=== PATIENT | male | born 1960 | race Two or more races ===

== ENCOUNTER 2025-06-05 02:53 | Inpatient (IN) | payer MEDICAID, SELFPAY ==
[2025-06-05] VITALS (77 sets, daily range): BP systolic 133–176; BP diastolic 84–122; PULSE 67–98; RESP 0–36; TEMP 36.1–36.7; O2SAT 85–100; BMI 28.9
--- NOTE | 2025-06-05 02:57 | PC.NURSE ---
Case Consult 06/05/2025 02:56:[address] [facility] Case # [id number] has been created.
--- NOTE | 2025-06-05 03:01 | XR_ITS ---
Examination: CT brain head without contrast. 2-D sagittal coronal reconstructions Date and time of exam:June 05, 2025, 0310 hours, comparison August 11, 2009 INDICATIONS: Stroke alert, onset focal neurologic deficit, left arm numbness beginning 30 minutes ago CTDI: vol (mGy):52.2 DLP: (mGycm):1042 Technique: Multiple CT axial sections of the brain have been obtained, 5 mm slice thickness. Contrast has not been administered. 2-D sagittal, coronal reconstructions have been obtained Low dose protocols were performed. One or more of the following dose reduction techniques were used; automated exposure control, adjustment of the mA and/or KV according to patient size, use of iterative reconstruction technique. Findings: No significant ventricular enlargement. Intra-axial or extra-axial hemorrhage density is not seen. No mass effect or midline shift Basal cisterns are not remarkable. Fourth ventricle is midline. Cranial vault intact. Definite acute infarct is not clearly depicted Impression: Negative for acute hemorrhage, mass effect or midline shift As clinically warranted, brain MRI follow-up would best assess for acute ischemic change
--- NOTE | 2025-06-05 03:01 | XR_ITS ---
Examination: AP chest single view TECHNIQUE: AP portable upright chest single view Date and time: June 05, 2025, 0350 hours, comparison CT chest June 05, 2025 INDICATIONS: Chest pain shortness of breath today FINDINGS: Moderate enlargement cardiac contour with prominent vascular congestion including central vascular engorgement Pneumonia right base with significant right pleural fluid Mild to moderate left pleural fluid Moderate osteopenia IMPRESSION: Mild heart failure. Pneumonia right base. Significant right, mild to moderate left pleural fluid
--- NOTE | 2025-06-05 03:01 | XR_ITS ---
Examination: CTA carotids with intravenous contrast CTA brain, head with intravenous contrast. 2-D sagittal, coronal reconstructions. 3-D reconstructions. Exam date and time: June 05, 2025, 0311 hours INDICATIONS: Stroke alert, onset focal neurologic deficit onset left arm numbness beginning 30 minutes ago CTDI: vol (mGy) 41.53 DLP: (mGycm) 601 Technique: Multiple CTA axial brain, head carotid images post intravenous contrast injection 75 cc, [id number]. 2-D sagittal, coronal reconstructions. 3-D reconstructions, 3-D post processing including vascular maximum intensity projection images. Low dose protocols were performed. One or more of the following dose reduction techniques were used; automated exposure control, adjustment of the mA and/or KV according to patient size, use of iterative reconstruction technique. Findings: Partial visualization right pleural fluid No significant common carotid carotid bifurcation or internal carotid artery stenoses Dominant right vertebral artery in the neck with no critical stenoses No cerebral large vessel arterial occlusions or thrombus IMPRESSION: No significant neck arterial stenoses No cerebral large vessel arterial occlusions or thrombus
--- NOTE | 2025-06-05 03:05 | PD.EDADULT ---
ED General RME/HPI General Chief complaint: Neuro Symptoms/Deficit Stated complaint: LEFT ARM NUMBNESS Time Seen by Provider: 06/05/25 02:56 Arrival date/time: 06/05/25 02:53 Limitations: no limitations RME / HPI RME / HPI narrative: Patient's last known well appointment 30 minutes prior to arrival presents with sudden onset left upper extremity paresthesias and weakness of constant nature. Denies any associated headache nausea vomiting visual disturbance dysarthria or confusion. Related Data Home Medications ?Medication ?Instructions ?Recorded ?Confirmed metformin 1,000 mg tablet 1,000 mg PO BIDWM #0 tabs 06/26/14 10/09/19 (Glucophage) Previous Rx's ?Medication ?Instructions ?Recorded hydrocodone 5 mg-acetaminophen 325 1 tab PO BID PRN pain #14 tabs 10/09/19 mg tablet (Norman) ibuprofen 800 mg tablet 800 mg PO TID PRN pain #30 tabs 10/09/19 ondansetron HCl 4 mg tablet 4 mg PO QID PRN nausea and 10/09/19 (Zofran) vomiting #14 tabs tamsulosin 0.4 mg capsule (Flomax) 0.4 mg PO QDAY #30 caps 10/09/19 Allergies Allergy/AdvReac Type Severity Reaction Status Date / Time No Known Allergies Allergy Verified 10/09/19 02:18 Review of Systems Review of Systems Narrative Review of Systems: GEN: No fever, no chills, no weight loss EYES: No discharge, no visual changes, no pain HEENT: No ear pain, no congestion, no sore throat PULM: No shortness of breath, no cough, no congestion CV: No chest pain, no dyspnea on exertion, no palpitations GI: No nausea, no vomiting, no diarrhea, no pain, no constipation : No frequency, no urgency and no dysuria MUSC/SKEL: No joint pain, no back pain SKIN: No rash PSYCH: No hallucinations, no depression HEME/LYMPH: No easy bleeding or bruising tendencies NEURO: As per HPI Past Medical History Past Medical History CARDIAC: Positive Hypertension ENDOCRINE: Positive Diabetes Mellitus Type 2 ED Exam Narrative Physical exam: Alert nontoxic no acute distress NIH score of 2 General Limitations: Present no limitations General appearance: Present alert and in no apparent distress Head Head exam: Present atraumatic Eye Eye exam: Present normal appearance, PERRL and EOMI ENT ENT exam: Present normal exam, normal oropharynx and mucous membranes moist Neck Neck exam: Present normal inspection, full ROM and trachea midline Chest Chest inspection: Present normal inspection and symmetric chest wall rise Respiratory Respiratory exam: Present normal lung sounds bilaterally Cardiovascular Cardiovascular exam: Present regular rate, normal rhythm and normal heart sounds Abdominal Exam Abdominal exam: Present soft and normal bowel sounds Extremities Exam Extremities exam: Present normal inspection and full ROM Back Exam Back exam: Present normal inspection and full ROM Neurological Exam Neurological exam: Present alert, oriented X3, CN II-XII intact, motor sensory deficit (Diminished sensation and slightly decreased left upper extremity) and other (Gait not observed) Psychiatric Psychiatric exam: Present normal affect and normal mood Skin Skin exam: Present warm, dry, intact and normal color Course Quality Measures Suspected type of Stroke: Acute Ischemic Tenecteplase given: > 60 min of arrival stroke Orders Category Date Time Status Bedside Blood Glucose NOW Care 06/05/25 03:01 Active Outpatient Admitting Clerk NOW Care 06/05/25 03:01 Active Continuous Pulse Oximetry NOW Care 06/05/25 03:01 Completed EKG (ED ONLY) *Do not use* NOW Care 06/05/25 03:01 Completed In and Out Catheter NEEDED Care 06/05/25 03:01 Active Insert IV NOW Care 06/05/25 03:01 Active NIH Stroke Scale [id number],QSHIFT Care 06/05/25 03:56 Active NIH Stroke Scale now Care 06/05/25 03:01 Completed NPO NOW Care 06/05/25 03:01 Active Neuro Check Q15M Care 06/05/25 03:56 Active Neuro Check Q1HR Care 06/05/25 03:01 Active Nurse Swallow Screen x1 Care 06/05/25 03:01 Active Vital Signs Q5M Care 06/05/25 03:46 Active Consult to Neurology / Tele-Neurology Routine Cons 06/05/25 03:[address] angio stroke protocol Stat Exams 06/05/25 03:[address] chest wo con Stat Exams 06/05/25 03:[address] stroke protocol Stat Exams 06/05/25 03:01 Taken EKG (ED Only) Stat Exams 06/05/25 03:01 Ordered XR chest 1V portable Stat Exams 06/05/25 03:01 Taken CBC Stat Lab 06/05/25 03:05 Completed Comprehensive Metabolic Panel Stat Lab 06/05/25 03:05 Completed Drug Screen,Urine Stat Lab 06/05/25 05:30 Received Magnesium Stat Lab 06/05/25 03:05 Completed Partial Thromboplastin Time Stat Lab 06/05/25 03:05 Completed Prothrombin Time with INR Stat Lab 06/05/25 03:05 Completed Troponin I Stat Lab 06/05/25 03:05 Completed Urinalysis Stat Lab 06/05/25 05:30 Received Urine Culture Stat Lab 06/05/25 03:01 Ordered Labetalol IV [Trandate IV] Med 06/05/25 03:40 Active 10 mg IVP PRNMRX1 PRN Labetalol IV [Trandate IV] Med 06/05/25 03:40 Active 10 mg IVP PRNMRX1 PRN Labetalol IV [Trandate IV] Med 06/05/25 03:29 Discontinued 100 mg .ROUTE .STK-MED ONE Nicardipine/Ns 20Mg Ivpb [Cardene Ivpb] Med 06/05/25 03:40 Active 20 mg in 200 ml IV 5 mg/hr Tenecteplase Inj [TNKase Inj] Med 06/05/25 03:40 Discontinued 23.5 mg IV X1 ONE Tenecteplase Inj [TNKase Inj] Med 06/05/25 03:29 Discontinued 50 mg .ROUTE .STK-MED ONE Oxygen Delivery NOW RT 06/05/25 03:01 Active Vital Signs Vital signs: Vital Signs Temperature 97.4 F 06/05/25 03:01 Pulse Rate 94 06/05/25 03:01 Respiratory Rate 18 06/05/25 03:01 Blood Pressure 166/122 H 06/05/25 03:01 Pulse Oximetry (%) 97 06/05/25 03:01 Discharge Plan Plan Patient Disposition: Admit Acute Care w/in Hospital Prescriptions/Referrals Prescriptions/Med Rec: No Action metformin [Glucophage] 1,000 MG tablet 1,000 mg PO BIDWM Qty: 0 ibuprofen 800 mg tablet 800 mg PO TID PRN (Reason: pain) Qty: 30 0RF hydrocodone-acetaminophen [Norman] 5-325 mg tablet 1 tab PO BID MDD 4 PRN (Reason: pain) Qty: 14 0RF ondansetron HCl [Zofran] 4 mg tablet 4 mg PO QID PRN (Reason: nausea and vomiting) Qty: 14 0RF tamsulosin [Flomax] 0.4 mg capsule,extended release 24hr 0.4 mg PO QDAY Qty: 30 0RF Rx Instructions: administer 30 minutes after same meal each day; swallow whole with liquid; do not crush/chew/dissolve/open Referrals: No Primary/Family,Physician [Primary Care Provider] - In 1 week Problem List Clinical Impression: Acute cerebrovascular accident (CVA) Patient/Caregiver Discharge Instructions Print Language: Hungarian Stand Alone Forms: [employer] Award Info., Patient Portal Info Letter MDM Narrative [facility] hospital course: Patient's last known well appointment 30 minutes prior to arrival presents with sudden onset left upper extremity paresthesias and weakness of constant nature. Denies any associated headache nausea vomiting visual disturbance dysarthria or confusion. Please see PE findings. Patient notably hypertensive upon arrival with spontaneous reduction in blood pressure shortly thereafter enrolled in Stroke Protocol and neuro teleconsulted. CT brain demonstrates question acute left frontal infarct. Small subarachnoid cyst also noted. No edema or hemorrhage identified. Neuro telemetry physician recommended TNKase which patient received without incident. Patient underwent serial exams with slight improvement in left upper extremity motor function. CT demonstrates incidental evidence of bilateral pleural effusions. Patient remained mildly hypertensive throughout ED course. Hospitalist was consulted agrees to admit Clinical Information Provided by patient Medical Records Reviewed [facility] Meds/Rx Considered, not Ordered None Labs/Rad/Tests considered, not Ordered Describe details: See above Chronic Illness/Social Conditions Add or document further as needed: Diabetes/hypertension may have contributed to underlying process. EKG Interpretation EKG interpreted by emergency physician demonstrates: Date/time of EK06/05/25 5:13 am EKG interpretation: EKG interpreted by emergency physician demonstrates sinus rhythm with a first-degree AV block. Rate is 96 bpm. There are no acute ST-T wave changes noted. No ventricular to be identified. Evidence of previous inferior and anteroseptal wall myocardial infarction Imaging Provider imaging interpretation(s): See radiologist interpretation Medication Administration(s) Medication Administration History Nicardipine/Sodium Chloride (Cardene Ivpb) 20 mg in 200 mls @ 50 mls/hr IV .Q4H PRN; Protocol PRN Reason: Per Nicardipine Stroke Protocol Stop: 07/05/25 03:39 Labetalol HCl (Labetalol Inj 5 Mg/Ml Vial 20 Ml) 10 mg IVP PRNMRX1 PRN PRN Reason: SBP > 185 mmHg and/or DBP > 110 Labetalol HCl (Labetalol Inj 5 Mg/Ml Vial 20 Ml) 10 mg IVP PRNMRX1 PRN PRN Reason: SBP > 180 mmHg or DBP > 105 Last Admin: 06/05/25 03:58 Dose: 10 mg Documented By: NEGRITA Discontinued Medications Labetalol HCl (Labetalol Inj 5 Mg/Ml Vial 20 Ml) Confirm Administered Dose 100 mg .ROUTE .STK-MED ONE Stop: 06/05/25 03:30 Last Admin: 06/05/25 03:52 Dose: Not Given Documented By: GAUDENCIO Non-Admin Reason: Override Medication Tenecteplase (Tenecteplase Inj 50 Mg Vial) Confirm Administered Dose 50 mg .ROUTE .STK-MED ONE Stop: 06/05/25 03:30 Last Admin: 06/05/25 03:52 Dose: Not Given Documented By: GAUDENCIO Non-Admin Reason: Override Medication Tenecteplase (Tenecteplase Inj 50 Mg Vial) 23.5 mg 0.25 mg/kg (23.5 mg) IV X1 ONE Stop: 06/05/25 03:41 Last Admin: 06/05/25 03:44 Dose: 23.5 mg Documented By: NEGRITA Co-signed By: GAUDENCIO Medications administered as above Diagnosis Differential diagnosis: Differential diagnosis including hypoglycemia, ischemic CVA, hemorrhagic CV Most likely dx, and/or detailed dx discussion: Acute ischemic CVA Dispositon Disposition: Admit
[2025-06-05 03:15] LABS: Basophils # (Auto) 0.0 Thou/mm3 (0.0-0.2); Basophils % (Auto) 1 % (0-2.5); Eosinophils # (Auto) 0.1 Thou/mm3 (0.0-0.5); Eosinophils % (Auto) 2 % (0-10); Hematocrit 38.5 % (41.0-53.0); Hemoglobin 13.0 g/dL (13.5-16.0); Immature Granulocytes Auto 0.02 Thou/mm3 (0.00-0.00); Lymphocytes # (Auto) 1.8 Thou/mm3 (1.0-4.8); Lymphocytes % (Auto) 32 % (10-50); Mean Corpuscular HGB Conc 33.8 g/dl (31.0-37.0); Mean Corpuscular Hemoglobin 28.6 pg (25.0-35.0); Mean Corpuscular Volume 85 fL (80-100); Monocytes # (Auto) 0.6 Thou/mm3 (0.0-0.8); Monocytes % (Auto) 11 % (0-12); Neutrophils # (Auto) 3.1 Thou/mm3 (1.8-7.7); Neutrophils % (Auto) 55 % (37-80); Nucleated Red Blood Cell # 0.00 Thou/mm3 (0.00-0.00); Nucleated Red Blood Cell % 0 /100 WBC (0); Platelet Count 239 Thou/mm3 (140-440); RDW Standard Deviation 50.0 fL (35.1-43.9); Red Blood Count 4.55 Miln/mm3 (4.50-5.90); White Blood Count 5.6 Thou/mm3 (3.8-10.6)
--- NOTE | 2025-06-05 03:21 | XR_ITS ---
Examination: CT chest, without intravenous contrast. Sagittal and coronal 2-D reconstructions. Exam date and time: June 05, 2025, 0324 hours INDICATIONS: onset shortness of breath difficulty breathing today abdominal pain CTDI:vol (mGy) 17.41. DLP: (mGycm) 699. Technique: Multiple 3.0 mm axial sections of the chest to been obtained. Bone and lung density settings are obtained. Sagittal and coronal 2-D reconstructions have been obtained. Low dose protocols were performed. One or more of the following dose reduction techniques were used; automated exposure control, adjustment of the mA and/or KV according to patient size, use of iterative reconstruction technique. Findings: AP dimension ascending thoracic aorta 3.9 cm Main pulmonary artery segment 34 mm Mild to moderate enlargement cardiac contour with prominent vascular congestion Moderate right mild left pleural fluid Atelectasis versus pneumonia at the right lung base 6 mm pulmonary nodule right upper lobe Liver is mildly irregular in contour Absent gallbladder Spleen is not enlarged No pancreatic or adrenal mass No hydronephrosis The osseous structures are intact IMPRESSION: Mild chronic heart failure pattern. Moderate right mild left pleural fluid. Atelectasis versus pneumonia at the right base 6 mm pulmonary nodule right upper lobe, with this study is baseline recommend 3-6 month follow-up CT chest without contrast
[2025-06-05 03:34] LABS: INR 1.1 (0.9-1.3); Partial Thromboplastin Time 27.4 Seconds (22.0-36.0); Prothrombin Time 11.7 Seconds (9.0-12.2)
[2025-06-05 03:39] LABS: Alanine Aminotransferase 12 U/L (10-49); Albumin, Serum 3.7 gm/dL (3.4-4.8); Albumin/Globulin Ratio 1.3 (1.2-2.2); Alkaline Phosphatase 139 U/L (46-116); Anion Gap 8 (7-16); Aspartate Amino Transferase 18 U/L (0-34); BUN/Creatinine Ratio 19 Ratio (12-20); Bilirubin,Total 0.4 mg/dL (0.3-1.2); Blood Urea Nitrogen 64 mg/dL (9-23); Calcium 8.7 mg/dL (8.3-10.6); Calcium (Corrected) 8.9 mg/dL (8.5-10.1); Carbon Dioxide 22.6 mMol/L (20.0-31.0); Chloride 105 mMol/L (98-107); Creatinine (Component) 3.3 mg/dL (0.6-1.3); Globulin 2.8 gm/dL (2.3-3.5); Glucose 182 mg/dL (74-106); Magnesium 1.7 mg/dL (1.6-2.6); Osmolality,Calculated 295 (275-295); Potassium 5.1 mMol/L (3.4-5.1); Sodium 136 mMol/L (136-145); Total Protein 6.5 gm/dL (5.7-8.2); Troponin I 0.038 ng/mL (0.0-0.045); eGFR 20 See Note
--- NOTE | 2025-06-05 03:42 | PRELIM_ITS ---
CT scan of the head without intravenous contrast (axial sections with sagittal and coronal reformats) June 05, 2025 0310 hours Clinical History: Focal neuro deficit, stroke suspected. No prior study is available for comparison. Findings: There is no evidence of intracranial hemorrhage or midline shift. There is an ill-defined hypodensity in the left frontal lobe (left precentral gyrus) (axial images 13/43). Few small calcifications in the left frontal lobe and left cerebellum. Small arachnoid cyst in the convex of left frontal lobe posteriorly (axial image 8/43). There is mild volume loss. The calvarium is unremarkable. The mastoid air cells are clear. Mild mucosal thickening in bilateral maxillary sinuses. Impression: No evidence of intracranial hemorrhage or midline shift. Findings suggestive of acute infarct in the left frontal lobe (left precentral gyrus). Recommend clinical correlation and further evaluation with MRI. Mild volume loss. Discussion Details: Results verbally communicated to : Dr. Mclaughlin at 03:38 AM 06/05/2025 Report Electronically Signed By: Clinton Blackmon 06/05/2025 3:41:56 AM [EST]
[2025-06-05] MEDS: TENECTEPLASE INJ 50 MG VIAL 23.5 MG IV (03:44)
--- NOTE | 2025-06-05 03:49 | PRELIM_ITS ---
CT angiogram of the head and neck with intravenous contrast (axial sections with sagittal and coronal reformats) June 05, 2025 0311 hours Clinical History: Focal neuro deficit, stroke suspected. No prior study is available for comparison. Findings: Head: The internal carotid, middle and anterior cerebral arteries are patent bilaterally. Hypoplastic A1 segment of the right anterior cerebral artery. The intracranial vertebral arteries are patent. The vertebrobasilar junction, basilar and posterior cerebral arteries are patent. No evidence of large vessel occlusion, critical stenosis or aneurysm. Neck: The aortic arch to the extent visualized as well as the origins of the right brachiocephalic, left common carotid, and left subclavian arteries are patent. The common carotid arteries, carotid bulbs, and internal and external carotid arteries are patent. The origins of the vertebral arteries are unremarkable. The right vertebral artery is dominant. No evidence of vascular occlusion, critical stenosis, dissection or aneurysm. The soft tissues of the neck are unremarkable. Moderate degenerative changes are identified in the spine. Large right and moderate left pleural effusions. Impression: Head: No evidence of large vessel occlusion, critical stenosis or aneurysm. Neck: No evidence of vascular occlusion, critical stenosis, dissection or aneurysm. Large right and moderate left pleural effusions. Recommend clinical correlation and follow-up. Report Electronically Signed By: Clinton Blackmon 06/05/2025 3:49:13 AM [EST]
--- NOTE | 2025-06-05 03:51 | PRELIM_ITS ---
CT scan of the chest without intravenous contrast (axial sections with sagittal and coronal reformats) June 05, 2025 0324 hours Clinical History: Pleural Effusion per [employer] No prior study is available for comparison. Findings: The lungs are clear. There is a moderate right pleural effusion with compressive atelectasis. There is a small left pleural effusion. No evidence of pneumothorax.There is a non-calcified nodule in the right upper lobe, measuring 5 mm, with smooth margin. The mediastinum demonstrates no evidence of mass or lymphadenopathy. The thoracic aorta is unremarkable. There is no pericardial effusion. The osseous structures are unremarkable. The gallbladder is surgically absent. The other visualized upper abdominal viscera are unremarkable on this noncontrast study. Impression: Bilateral pleural effusions. Non-calcified nodule in the right upper lobe . Recommend follow up as per Fleischner criteria. Report Electronically Signed By: Clinton Blackmon 06/05/2025 3:51:11 AM [EST]
--- NOTE | 2025-06-05 03:56 | PD.TNEURO ---
Tele Neuro Consultation Consultation Date 06/05/25 Most Recent Vital Signs Last Vital Signs Temp 97.4 F 06/05/25 03:01 Pulse 87 06/05/25 03:51 Resp 18 06/05/25 03:51 BP 149/103 H 06/05/25 03:51 Pulse Ox 96 06/05/25 03:51 O2 Del Method Room Air 06/05/25 03:51 Laboratory-Coagulation Panel PT 11.7 Seconds (9.0-12.2) 06/05/25 03:05 INR 1.1 (0.9-1.3) 06/05/25 03:05 APTT 27.4 Seconds (22.0-36.0) 06/05/25 03:05 Consultation Narrative [facility] Tele[facility]urology Consult Services Patient Name:???Pardip Baldwin Date of :???1960 Identification Number:??? Date of Service:???06/05/2025 02:56:54 Diagnosis: ?I63.89 - Cerebrovascular accident (CVA) due to other mechanism ([facility]) Impression: ?Patient presents to the ED for evaluation of left arm numbness and weakness. 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 NIHSS of [address] head demonstrated no evidence of hemorrhage but did show possible acute infarct in the left frontal lobe, although this would not explain his current symptoms. CT angiogram did not demonstrate any large vessel occlusion. I discussed the risks and benefits of IV thrombolytics with patient, including the risk of fatal hemorrhage. Patient subsequently consented to TNK, and it was administered without complications. Will admit for post TNK protocol and stroke workup. Our recommendations are outlined below. Recommendations: IV Tenecteplase recommended. I confirmed the following. (Patient name, , MRN, Blood Pressure, dose of Thrombolytic and waste, weight completed by stretcher/scale not stated weight, have ED staff inform ED MD of thrombolytic decision) Thrombolytic bolus given Without Complication. IV Tenecteplase Total Dose ? 23.5 mg (Dose Rounding Per Facility Protocol) Routine post Thrombolytic monitoring including neuro checks and blood pressure control during/after treatment Monitor blood pressure Check blood pressure and neuro assessment every 15 min for 2 h, then every 30 min for 6 h, and finally every hour for 16 h. Manage Blood Pressure per post Thrombolytic protocol. ? Follow designated hospital protocol for admission and post thrombolytic care ? CT brain 24 hours post Thrombolytic ? NPO until swallowing screen performed and passed ? No antiplatelet agents or anticoagulants (including heparin for DVT prophylaxis) in first 24 hours ? No Castillo catheter, nasogastric tube, arterial catheter or central venous catheter for 24 hr, unless absolutely necessary ? Telemetry ? Bedside swallow evaluation ? HOB less than 30 degrees ? Euglycemia ? Avoid hyperthermia, PRN acetaminophen ? DVT prophylaxis ? Inpatient Neurology Consultation ? Stroke evaluation as per inpatient neurology recommendations Discussed with ED physician Advanced Imaging: CTA Head and Neck Completed. LVO:No Patient is not a candidate for CLAUDIA Metrics: Last Known Well: 06/05/2025 02:00:00 Dispatch Time: 06/05/2025 02:56:53 Arrival Time: 06/05/2025 02:53:00 Initial Response Time: 06/05/2025 03:01:03Symptoms: Left arm numbness and weakness. Initial patient interaction: 06/05/2025 03:26:00 NIHSS Assessment Completed: 06/05/2025 03:34:30Patient is a candidate for Thrombolytic. Thrombolytic Medical Decision: 06/05/2025 03:35:00 Needle Time: 06/05/2025 03:44:36Weight Noted by Staff: [address] Head: I personally reviewed all the CT images that were available to me and it showed: No hemorrhage Primary Provider Notified of Diagnostic Impression and Management Plan on: 06/05/2025 03:48:32 Thrombolytic Contraindications: Last Known Well > 4.5 hours:?No CT Head showing hemorrhage:?No Ischemic stroke within 3 months:?No Severe head trauma within 3 months:?No Intracranial/intraspinal surgery within 3 months:?No History of intracranial hemorrhage:?No Symptoms and signs consistent with an SAH:?No GI malignancy or GI bleed within 21 days:?No Coagulopathy: Platelets <100 000 /mm3, INR >1.7, aPTT>40 s, or PT >15 s:?No Treatment dose of LMWH within the previous 24 hrs:?No Use of NOACs in past 48 hours:?No Glycoprotein IIb/IIIa receptor inhibitors use:?No Symptoms consistent with infective endocarditis:?No Suspected aortic arch dissection:?No Intra-axial intracranial neoplasm:?No Thrombolytic Decision and Management Plan: Management with thrombolytic treatment was explained to the Patient as was risks and benefits and alternatives to the treatment. Patient agrees with the decision to proceed with thrombolytic treatment. . All questions were answered and the Patient expressed understanding of the treatment plan. History of Present Illness:Patient is a 64 year old Male. Patient was brought by private transportation with symptoms of Left arm numbness and weakness. Patient presents to the ED for evaluation of left arm numbness and weakness. Patient states that at around 2:00 AM he was sitting on the couch watching TV and when he got up to use the restroom he noticed that his left arm was weak and he could not unbutton his pants. He also reports feeling numb in his left arm. He denies any sensation of pain or injuries to the left arm and has never had similar symptoms in the past. He does endorse some mild shortness of breath and swelling in his abdomen and extremities. ? Past Medical History: ?Hypertension ?Diabetes Mellitus Medications: No Anticoagulant use? No Antiplatelet use Reviewed EMR for current medications Allergies:? Reviewed Social History: Drug Use: No Family History: There is no family history of premature cerebrovascular disease pertinent to this consultation ROS : 14 Points Review of Systems was performed and was negative except mentioned in HPI. Past Surgical History: There Is No Surgical History Contributory To Today?s Visit ? Examination: BP(150/105),?Pulse(90),?Blood Glucose(182) 1A: Level of Consciousness - Alert; keenly responsive?+ 0 1B: Ask Month and Age - 1 Question Right?+ 1 1C: Blink Eyes & Squeeze Hands - Performs Both Tasks?+ 0 2: Test Horizontal Extraocular Movements - Normal?+ 0 3: Test Visual Villanueva - No Visual Loss?+ 0 4: Test Facial Palsy (Use Grimace if Obtunded) - Normal symmetry?+ 0 5A: Test Left Arm Motor Drift - No Drift for 10 Seconds?+ 0 5B: Test Right Arm Motor Drift - No Drift for 10 Seconds?+ 0 6A: Test Left Leg Motor Drift - No Drift for 5 Seconds?+ 0 6B: Test Right Leg Motor Drift - No Drift for 5 Seconds?+ 0 7: Test Limb Ataxia (FNF/Heel-Wilson) - Ataxia in 1 Limb?+ 1 8: Test Sensation - Mild-Moderate Loss: Less Sharp/More Dull?+ 1 9: Test Language/Aphasia - Normal; No aphasia?+ 0 10: Test Dysarthria - Normal?+ 0 11: Test Extinction/Inattention - No abnormality?+ 0 NIHSS Score:?3 NIHSS Free Text :?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 Gait normal Pre-Morbid Modified Babs Scale:0 Points = No symptoms at all Spoke with :?Dr. Mclaughlin This consult was conducted in real time using interactive audio and video technology. Patient was informed of the technology being used for this visit and agreed to proceed. Patient located in hospital and provider located at home/office setting. Patient is being evaluated for possible acute neurologic impairment and high probability of imminent or life-threatening deterioration. I spent total of 50 minutes providing care to this patient, including time for face to face visit via telemedicine, review of medical records, imaging studies and discussion of findings with providers, the patient and/or family. Dr Terrence Palafox [facility] For Inpatient follow-up with [facility] physician please call [facility] at . As we are not an outpatient service for any post hospital discharge needs please contact the hospital for assistance. If you have any questions for the [facility] physicians or need to reconsult for clinical or diagnostic changes please contact us via [facility] at . Signature :?Terrence Palafox ?
[2025-06-05] MEDS: LABETALOL INJ 5 MG/ML VIAL 20 ML 10 MG IVP ×2 (03:58→09:05)
--- NOTE | 2025-06-05 05:40 | PC.NURSE ---
0530 endocrinology specialist are equal. numbness to L arm almost gone. pts o2 sat did go down to 86 when he fell asleep. pt told to cough and deep breath, sats went up to 97. pt placed on 2L O2 NC.
[2025-06-05 05:45] LABS: Collection Type, Urine Clean Catch
[2025-06-05 05:48] LABS: Bilirubin,Urine Negative (Negative); Blood,Urine 1+ (Negative); Clarity,Urine Clear (Clear/Hazy); Color,Urine Lt-Yellow (Lt Yel-Yel); Glucose, Urine 2+ (Negative); Ketones,Urine Negative (Negative); Leukocyte Esterase,Urine Negative (Negative); Nitrite,Urine Negative (Negative); PH,Urine 6.5 (5.0-7.0); Protein,Urine 2+ (Neg - Trace); RBC,Urine 4 /hpf (0-3); Specific Gravity,Urine 1.022 (1.001-1.035); Squamous Epithelial Cell,Urine < 1 /hpf (0-5); Urobilinogen,Urine Negative mg/dL (0.0-1.0); WBC,Urine 1 /hpf (0-5)
--- NOTE | 2025-06-05 05:58 | ECHO_ITS ---
Transthoracic Echo Report Ht (in): 71 Wt (lb): 194 Exam Location: Echo Lab Status: Inpatient Dental Technician Instructor: Niya Iglesias Indications: Procedure Performed: BP: 146 / 103 HR: 88 MEASUREMENTS (Male / Female) Normal Values 2D ECHO LV Diastolic Diameter PLAX 6.2 cm 4.2 - 5.9 / 3.9 - 5.3 cm LV Systolic Diameter PLAX 5.1 cm IVS Diastolic Thickness 1.4 cm 0.6 - 1.0 / 0.6 - 0.9 cm LVPW Diastolic Thickness 1.5 cm 0.6 - 1.0 / 0.6 - 0.9 cm LV Relative Wall Thickness 0.5 LVOT Diameter 2.2 cm LV Ejection Fraction MOD 4C 23.9 % LV Cardiac Index MOD 4C 2706.3 cm?/min?m? LV Ejection Fraction 4C AL 26.3 % LV Cardiac Index 4C AL 3042.5 cm?/min?m? LA Volume Index 75.4 cm?/m? 16 - 28 cm?/m? Ascending Aorta Diameter 4.3 cm M-MODE AV Cusp Separation MM 2.6 cm DOPPLER AV Peak Velocity 78.1 cm/s AV Peak Gradient 2.4 mmHg AV Mean Gradient 1.0 mmHg AV Velocity Time Integral 15.8 cm LVOT Peak Velocity 59.6 cm/s LVOT Peak Gradient 1.4 mmHg LVOT Velocity Time Integral 11.3 cm LVOT Cardiac Index 1788.4 cm?/min?m? AV Area Cont Eq vti 2.7 cm? AV Area Cont Eq pk 2.9 cm? MV Area PHT 8.5 cm? Mitral E Point Velocity 83.6 cm/s Mitral A Point Velocity 49.5 cm/s Mitral E to A Ratio 1.7 LV E' Lateral Velocity 5.7 cm/s Mitral E to LV E' Lateral Ratio 14.6 LV E' Septal Velocity 2.6 cm/s Mitral E to LV E' Septal Ratio 31.7 TR Peak Velocity 216.3 cm/s TR Peak Gradient 18.7 mmHg PV Peak Velocity 65.9 cm/s PV Peak Gradient 1.7 mmHg FINDINGS Left Ventricle The left ventricular cavity size is moderately increased.with severe global hypokinesis severe LV dysfunction EF 20% Right Ventricle The right ventricular size is mildy increased. The estimated right ventricular systolic pressure 26 mmHg There is right ventricular enlargement consistent with right ventricular volume overload. There is no two- dimensional evidence for cardiac tamponade. . Left Atrium The left atrium is severly dilated Right Atrium The right atrial cavity size is severely increased. Atrial Septum No [id number] shunt demonstrated by agitated saline injection. Aorta The aorta is normal by two-dimensional, color flow and Doppler interrogation. Ascending aorta dilated measuring 4.3cm Mitral Valve [id number] mitral regurgitation. Aortic Valve Aortic valve sclerosis. Trace to mild aortic valve regurgitation. Tricuspid Valve There is mild to moderate tricuspid valve regurgitation. Pulmonic Valve Mild pulmonic valve regurgitation. Vessels The pulmonary artery appears normal. The inferior vena cava pulmonary and hepatic veins appear normal. Pericardium There is a small pericardial effusion. No tamponade Other Findings Small pleural effusion CONCLUSIONS Indication; Acute ischemic stroke Dilated cardiomyopathy with severe global hypokinesis EF 15-20% RV enlargement consistent with right ventricular volume overload. LA and RA severly dilated Ascending aorta dilated measuring 4.3cm Mild -moderate mitral regurgitaion No aird-zy-[id number] shunt demonstrated by agitated saline injection. No cardiac thrombi seen Precious Watts (Electronically Signed) Final Date: 07 June 2025 16:45
--- NOTE | 2025-06-05 06:03 | XR_ITS ---
Examination: Retroperitoneal ultrasound, complete Technique: Multiple high resolution grayscale images of the retroperitoneum obtained, including kidneys and bladder. Exam date and time:June 05, 2025, 0726 hours INDICATIONS: Renal insufficiency, creatinine 3.3 cm on examination today FINDINGS: Right kidney 11.1 cm cortex 1.9 cm Left kidney 11.5 cm cortex 1.9 cm Mild left hydronephrosis No bladder mass or bladder calculi Bladder wall is thickened 14 mm Prostate 3.7 x 3.3 x 4.2 cm volume 26.9 cc no prostate nodules IMPRESSION: Mild bilateral renal parenchymal scar formation. Mild left hydronephrosis
[2025-06-05 06:04] LABS: Amphetamine/Methamp Scrn,U Negative (Negative); Barbiturate Screen,Urine Negative (Negative); Benzodiazepines Screen,Urine Negative (Negative); Benzoylecgonine Screen, Ur Negative (Negative); Fentanyl Screen,Urine Negative (Negative); Opiate Screen,Urine Negative (Negative); THC Screen,Urine Positive (Negative)
[2025-06-05 06:33] LABS: Glucose Estimated Average 177 mg/dL (80-131); Hemoglobin A1C 7.8 % Hgb (4.8-6.0)
--- NOTE | 2025-06-05 06:33 | PD.RESHP ---
Documentation for date of: 06/05/25 [facility] History of Present Illness History of present illness: The patient is a 64-year-old male with past medical history significant for hypertension, and diabetes mellitus type 2 presented to ED with chief complaint of left upper arm weakness and paresthesia for about half an hour before presentation. The patient reported that he has been taking his medications as prescribed by his PCP, and has been compliant with follow-up visits, and last PCP follow-up visit was about 1 month ago. He admitted orthopnea, PND and bilateral lower limb edema for about 3 months. He denied any headache, dizziness, blurry vision, chest pain, SOB, fever or chills, any changes in bowel or bladder habit, nausea or vomiting. In the ED his vitals were BP 166/122, pulse 94, RR 18, saturating 97% on room air. Labs were significant for hemoglobin of 13.0, sodium 136, potassium 5.1, BUN 64, creatinine 3.3, GFR 20, blood sugar 182, A1c, lipid panel, TSH pending. UA revealed 2+ protein, 2+ glucose, 1+ blood, 4+ RBC, but negative for UTI, UA positive for marijuana. Prelim read for CT head revealed possible acute infract in the left frontal lobe, unremarkable with current left upper extremity findings, CTA head and neck revealed no large vessel occlusion, CT chest revealed bilateral pleural effusion. PMH: As mentioned above SHX: Denied any surgeries Family history: Unremarkable Medications: To be reconciled Allergies: No known drug allergies Social history: Denied any drug use, but U-Tox was positive for marijuana, denied a smoking or alcohol use. Teleneurology consultation was done, NIHSS score was 3, and was given tenecteplase 23.5 Mg and admitted to ICU for further management of acute ischemic stroke. Review of Systems Review of Systems Systems Reviewed: All systems reviewed, normal except as documented (Above) Exam Vital Signs Temp Pulse Resp BP Pulse Ox O2 Del Method O2 Flow Rate 98.0 F 71 9 L 143/102 H 100 Nasal Cannula 2 06/05/25 04:45 06/05/25 05:45 06/05/25 05:45 06/05/25 05:45 06/05/25 05:45 06/05/25 05:45 06/05/25 05:45 Narrative Exam General: No acute distress, Alert and Oriented x 3 HEENT: Moist mucous membranes, oropharynx clear Neck: Supple, No masses, No JVD CVS: S1S2 Regular rate and rhythm, No murmurs, rubs or gallops Lungs: Clear to auscultation with no accessory use, no wheeze no rhonchi Abd: Soft, NT/ND, +BS, no organomegaly Ext: 2+ lower limb pitting edema, warm and well perfused Neuro: Cranial nerve II to XII grossly intact, no gross motor or sensory deficit during my evaluation Skin: No rash Psych: Appropriate mood and affect Results: Labs 06/05/25 17:49 06/05/25 17:49 Labs: Short CBC 06/05/25 Range/Units 03:05 WBC 5.6 (3.8-10.6) Thou/mm3 Hgb 13.0 L (13.5-16.0) g/dL Hct 38.5 L (41.0-53.0) % Plt Count 239 (140-440) Thou/mm3 BMP 06/05/25 03:05 Sodium 136 Potassium 5.1 Chloride 105 Carbon Dioxide 22.6 BUN 64 H Creatinine 3.3 H Glucose 182 H Calcium 8.7 Cardiac Enzymes 06/05/25 Range/Units 03:05 Troponin I 0.038 (0.0-0.045) ng/mL Liver Function 06/05/25 Range/Units 03:05 Total Bilirubin 0.4 (0.3-1.2) mg/dL AST 18 (0-34) U/L ALT 12 (10-49) U/L Alkaline Phosphatase 139 H (46-116) U/L Albumin 3.7 (3.4-4.8) gm/dL Urine 06/05/25 Range/Units 05:30 Urine Color Lt-Yellow (Lt Yel-Yel) Urine Clarity Clear (Clear/Hazy) Urine pH 6.5 (5.0-7.0) Ur Specific [place] 1.022 (1.001-1.035) Urine Protein 2+ A (Neg - Trace) Urine Glucose (UA) 2+ A (Negative) Quality Measures Quality Measures stroke Suspected type of Stroke: Acute Ischemic Tenecteplase given: > 60 min of arrival Rehab services: PT evaluation ordered and Speech Language Pathology eval ordered VTE Prophylaxis: mechanical Antithrombotic by day 2:: contraindicated (describe) Statin ordered: >75 y/o moderate or high intensity dose Anticoagulation ordered for A-fib or flutter (current or hx): not indicated Medications Home Medications and Allergies Home Medications ?Medication ?Instructions ?Recorded ?Confirmed ?Type bumetanide 1 mg tablet 1 mg PO DAILY 06/05/25 06/05/25 History lisinopril 20 mg tablet 20 mg PO DAILY 06/05/25 06/05/25 History simvastatin 20 mg tablet 20 mg PO HS 06/05/25 06/05/25 History verapamil 240 mg tablet,extended 240 mg PO DAILY 06/05/25 06/05/25 History release Allergies Allergy/AdvReac Type Severity Reaction Status Date / Time No Known Allergies Allergy Verified 10/09/19 02:18 Visit Medications Acetaminophen (Acetaminophen 325 Mg Tablet) 650 mg PO Q4HR PRN PRN Reason: PAIN SCALE 1-3 (mild Stop: 07/05/25 05:54 Acetaminophen (Acetaminophen Supp 650 Mg Supp) 650 mg CA Q4HR PRN PRN Reason: PAIN SCALE 1-3 (mild Stop: 07/05/25 05:54 Al Hydrox/Mg Hydrox/Simethicone (Mg Hyd/Al Hyd/Shadia (Maalox Reg) Susp 30 Ml Udc) 30 ml PO Q4HR PRN PRN Reason: Heartburn or Upset Stomach Stop: 07/05/25 05:54 Nicardipine/Sodium Chloride (Cardene Ivpb) 20 mg in 200 mls @ 50 mls/hr IV .Q4H PRN; Protocol PRN Reason: Per Nicardipine Stroke Protocol Stop: 07/05/25 03:39 Labetalol HCl (Labetalol Inj 5 Mg/Ml Vial 20 Ml) 10 mg IVP [id number] PRN PRN Reason: SBP > 185 mmHg and/or DBP > 110 Labetalol HCl (Labetalol Inj 5 Mg/Ml Vial 20 Ml) 10 mg IVP [id number] PRN PRN Reason: SBP > 180 mmHg or DBP > 105 Last Admin: 06/05/25 03:58 Dose: 10 mg Magnesium Hydroxide (Milk Of Magnesia Susp 30 Ml Udc) 30 ml PO QDAY PRN PRN Reason: CONSTIPATION Stop: 07/05/25 05:54 Discontinued Medications Tenecteplase (Tenecteplase Inj 50 Mg Vial) 23.5 mg 0.25 mg/kg (23.5 mg) IV X1 ONE Stop: 06/05/25 03:41 Last Admin: 06/05/25 03:44 Dose: 23.5 mg Assessment & Plan Plan The patient is a 64-year-old male with past medical history significant for hypertension, and diabetes mellitus type 2 presented to ED with chief complaint of left upper arm weakness and paresthesia for about half an hour before presentation. Teleneurology consultation was done, NIHSS score was 3, and was given tenecteplase 23.5 Mg and admitted to ICU for further management of acute ischemic stroke. Neuro: #Acute ischemic stroke DDx: TIA The patient has significant past medical history of hypertension, diabetes mellitus type 2, presented with left upper extremity weakness and paresthesia for about 30 minutes before presentation, with NIHSS score of 3. CT head revealed possible acute infract in the left frontal lobe, unremarkable with current left upper extremity findings, CTA head and neck revealed no large vessel occlusion. Teleneuro consultation was done, and was given 23.5 Mg of tenecteplase. - Telemetry monitoring - Maintain SBP less than 180, and DBP less than 105 up to 24 hours post tenecteplase - Ordered CT head post 24-hour of tenecteplase - Neurocheck every 15 minutes - Referral to physical and speech therapy - N.p.o. until speech therapy - Atorvastatin 80mg daily. - TTE with bubble study pending CVS: #Hypertensive emergency #History of hypertension Presented with blood pressure of 166/122, with acute ischemic stroke versus TIA of left upper limb Received 10 Mg of IV labetalol x 1 in the ED - Maintain SBP less than 180, and DBP less than 105 up to 24 hours post tenecteplase - May resume home antihypertensive after 24 hours #Possible new onset CHF exacerbation The patient reported that he has been having orthopnea, PND and bilateral lower extremity edema for about [address] chest revealed bilateral pleural effusion - TTE pending - Strict ins and outs - Consider fluid restriction to 1500 cc/day - 2 g sodium diet Pulmonology: #Bilateral pleural effusion Likely secondary to possible new onset CHF exacerbation - May consider diuretics along with management of CHF exacerbation GI: - No active issue Renal: #RENATE #Proteinuria Etiology unknown, could be prerenal, intrarenal or postrenal or progression to CKD, versus cardiorenal syndrome, no previous recent lab to compare - Avoid nephrotoxins - Renally dose medications - US renal ordered - May consider nephrology consultation Endocrinology: #Diabetes mellitus type 2 #Glycosuria Medications to be reconciled, A1c 7.8 - Started on SSI lispro every 6 hourly - Maintain euglycemia Hematology: #Normocytic anemia Likely diagnosis in the setting of volume overload - Repeat CBC daily ID: - No active issue MSK: - No active issue Psych: - No active issues Health maintenance: Dispo: Patient admitted to ICU for further management of acute ischemic stroke DVT prophylaxis: SCDs Lines: Peripheral lines Diet: N.p.o. CODE STATUS: Full code The patient's management plan was discussed with my attending physician MD Primitivo Ordonez MD, PGY3 Attending Provider Attestation/Addendum I attest that I was physically present for the evaluation, physical examination, lab and imaging review of the patient with the residents. I discussed the case with the residents and agree with the findings and plans of care as documented above. After examination of the patient and review of the clinical data I feel that this patient needs admission to the hospital for further treatment/evaluation. Patient is a 64 years old male with past medical history of hypertension, diabetes mellitus who presented to the ED with complaint of left upper arm weakness and numbness for half an hour before presentation. Patient is also having orthopnea, PND and bilateral lower extremity swelling for last 3 months. He also has bilateral feet numbness for the same duration. Denies any headache, dizziness, vision changes, shortness of breath, fever or chills, nausea and vomiting. In the ED, patient was hypertensive with blood pressure of 166/122, rest of the vitals were within normal limits. Lab results show hemoglobin of 13.0, BUN/creatinine of 64/3.3, glucose 182,. Toxicology was positive for marijuana. Head CT was done, which was negative for acute hemorrhage, mass effect or midline shift, head/neck CTA did not show any significant neck arterial stenosis, no cerebral large vessel occlusion. CT chest was done, which showed bilateral pleural effusion. Stroke alert was called in the ED, patient was within the window for thrombolytics, was started on IV tenecteplase in the ED. At the time of exam, patient was alert and oriented, had his neurological symptoms resolved. Noted to have 2+ bilateral lower extremity edema. We will admit the patient to ICU for close monitoring following tenecteplase. Nicardipine drip has been ordered, as needed if blood pressure goes above 180 systolic started on atorvastatin, insulin regimen. We will monitor closely for symptoms of intracranial bleeding, frequent neurochecks. Echocardiography with bubble study ordered. We will obtain follow-up head CT after 24 hours of tenecteplase infusion. With concern for new CHF, we will start fluid restriction, low-sodium diet and monitor his ins and outs strictly. Started on sliding scale for diabetes. Will monitor closely for kidney function. Total critical care time spent: 35 minutes Alvaro Bailey MD
--- NOTE | 2025-06-05 06:51 | PC.NURSE ---
L arm is back to pt normal.
--- NOTE | 2025-06-05 07:10 | PC.NURSE ---
report received and care assumed. Per report, pt arrived with c/o left arm numbness and weakness with a last known well of 0200 am today. Given tnk at 0244 and symptoms have resolved completely. Hospitalist in room to evaluate pt.
--- NOTE | 2025-06-05 07:12 | PC.NURSE ---
Late entry: 1645-Report given to Luis Bruno RN introduced to PT and daughter at bedside.
[2025-06-05 07:43] LABS: Cardiac Risk Estimate 2.4 RATIO (4.0-6.7); Cholesterol 76 mg/dL (132-200); HDL Cholesterol 32 mg/dL (40-60); LDL Cholesterol,Calculated 30 mg/dL (0-130); Magnesium 1.6 mg/dL (1.6-2.6); Phosphorous 4.1 mg/dL (2.4-5.1); Thyroid Stimulating Hormone 6.05 uIU/mL (0.55-4.78); Triglycerides 72 mg/dL (30-150)
--- NOTE | 2025-06-05 09:36 | PC.NURSE ---
SPEECH THERAPY IN TO DO EVAL
[2025-06-05 10:44] LABS: Free T4 (Free Thyroxine) 1.25 ng/dL (0.89-1.76)
[2025-06-05 14:47] LABS: Cocci Serology, IgM Negative (Negative)
--- NOTE | 2025-06-05 14:59 | XR_ITS ---
Examination: Venous duplex lower extremity sonogram, bilateral. Date and time: June 05, 2025, 1717 hours. INDICATIONS: Leg swelling and pain 3 months Technique: Multiple sonographic images of the deep venous system have been obtained. B-mode/2-D grayscale imaging of vascular structures and Doppler spectral analysis (waveforms) and color performed Both legs are examined. Findings: Right lower extremity deep venous system normal Positive for nonocclusive acute deep vein thrombus involving the left peroneal and left posterior tibial veins IMPRESSION: Positive for nonocclusive acute deep vein thrombus involving the left peroneal and posterior tibial veins
[2025-06-05] MEDS: BUMETANIDE INJ 0.25 MG/ML VIAL 4 ML 1 MG IVP (15:42)
[2025-06-05] MEDS: hydrALAZINE INJ 20 MG/ML VIAL 10 MG IVP (15:48)
--- NOTE | 2025-06-05 16:24 | ESPR_ITS ---
Documentation for date of: 06/05/25 Subjective Subjective Interval history: 64-year-old male with past medical history significant for hypertension, and insulin-dependent diabetes mellitus type 2 presented to ED with chief complaint of left upper arm weakness and paresthesia for about half an hour before arriving to ED. The patient reported that he has been taking his medications as prescribed by his PCP, and has been compliant with follow-up visits, and last PCP follow-up visit was about 1 month ago. He admitted orthopnea, PND and bilateral lower limb edema for about 6 months. He denied any headache, dizziness, blurry vision, chest pain, SOB, fever or chills, any changes in bowel or bladder habit, nausea or vomiting. In the ED his vitals were BP 166/122, pulse 94, RR 18, saturating 97% on room air. Labs were significant for hemoglobin of 13.0, sodium 136, potassium 5.1, BUN 64, creatinine 3.3, GFR 20, blood sugar 182, A1c, lipid panel, TSH pending. UA revealed 2+ protein, 2+ glucose, 1+ blood, 4+ RBC, but negative for UTI, UA positive for marijuana. CT head revealed possible acute infract with brain MRI follow-up recommended. CTA head and neck revealed no large vessel occlusion, CT chest revealed bilateral pleural effusion and 6 mm pulmonary nodule in the right upper lobe. Interval History: 06/05/25 Patient was transferred to ICU for acute management of ischemic stroke. Patient's blood pressure had been elevated for which nicardipine drip was started around 4:40 PM. However at around 5:20 PM a stroke alert was called as the patient experienced acute worsening of neurological status noticed by the daughter. On assessment patient exhibited left facial droop, left arm ataxia, left leg ataxia and decreased sensorium on the left arm. Emergent CT head was done to rule out a bleed, negative for hemorrhage. CTA head/neck was also done and did not show any large vessel occlusion . Teleneurologist was consulted, who who noted NIHSS score 6, and the patient's symptoms was already improving. 24h CT brain post-TNKase to be done, MRI brain will be done tomorrow. CBC, CMP, coag panel, magnesium level was all within normal range. Exam Vital Signs Temp Pulse Resp BP Pulse Ox O2 Del Method O2 Flow Rate 97.2 F 73 31 H 151/107 H 98 Room Air 2 06/05/25 13:00 06/05/25 15:48 06/05/25 15:00 06/05/25 15:48 06/05/25 15:00 06/05/25 15:00 06/05/25 08:04 Narrative Exam General: No acute distress, Alert and Oriented x 3 HEENT: Moist mucous membranes, oropharynx clear Neck: Supple, No masses, No JVD CVS: S1+S2. Regular rate and rhythm, No murmurs, rubs or gallops Lungs: Clear to auscultation with no accessory use, no wheeze no rhonchi Abd: Soft, NT/ND, +BS, no organomegaly Ext: 2+ lower limb pitting edema up to bilateral knees, warm and well perfused Neuro: Cranial nerve II to XII grossly intact. Bilateral upper limb extremity strength 5/5, bilateral lower extremity strength 5/5, normal sensation to both upper and lower limbs bilaterally, normal reflexes. NIHSS score 0. GCS 15 Skin: No rash Psych: Appropriate mood and affect Objective Labs 06/06/25 05:12 06/06/25 05:12 Labs: Laboratory Results - last 24 hr 06/05/25 06/05/25 06/05/25 03:05 05:30 06:43 WBC 5.6 RBC 4.55 Hgb 13.0 L Hct 38.5 L MCV 85 MCH 28.6 MCHC 33.8 RDW Std Deviation 50.0 H Plt Count 239 Neut % (Auto) 55 Lymph % (Auto) 32 [place] % (Auto) 11 Eos % (Auto) 2 Baso % (Auto) 1 Neut # (Auto) 3.1 Lymph # (Auto) 1.8 [place] # (Auto) 0.6 Eos # (Auto) 0.1 Baso # (Auto) 0.0 Immature Gran # (Auto) 0.02 H Absolute Nucleated RBC 0.00 Immature Gran % 0 Nucleated RBC % 0 PT 11.7 INR 1.1 APTT 27.4 Sodium 136 Potassium 5.1 Chloride 105 Carbon Dioxide 22.6 Anion Gap 8 BUN 64 H Creatinine 3.3 H Estim Creat Clear Calc Not Performed. eGFR 20 L BUN/Creatinine Ratio [address] Glu mg/dL 177 H Hemoglobin A1c 7.8 H Calculated Osmolality 295 Calcium 8.7 Corrected Calcium 8.9 Phosphorus 4.1 Magnesium 1.7 1.6 Total Bilirubin 0.4 AST 18 ALT 12 Alkaline Phosphatase 139 H Troponin I 0.038 Total Protein 6.5 Albumin 3.7 Globulin 2.8 Albumin/Globulin Ratio 1.3 Triglycerides 72 Cholesterol 76 L LDL Cholesterol, Calc 30 HDL Cholesterol 32 L Cholesterol/HDL Ratio 2.4 L TSH 6.05 H Free T4 1.25 Ur Collection Type Clean Catch Urine Color Lt-Yellow Urine Clarity Clear Urine pH 6.5 Ur Specific [place] 1.022 Urine Protein 2+ A Urine Glucose (UA) 2+ A Urine Ketones Negative Urine Blood 1+ A Urine Nitrite Negative Urine Bilirubin Negative Urine Urobilinogen (Auto) Negative Ur Leukocyte Esterase Negative Urine RBC 4 H Urine WBC 1 Ur Squamous Epith Cells < 1 Urine Bacteria None Urine Opiates Screen Negative Urine Fentanyl Screen Negative Ur Barbiturates Screen Negative U Amphetamin/Meth Scrn Negative U Benzodiazepines Scrn Negative U Cocaine Metab Screen Negative U Marijuana (THC) Screen Positive A Coccidioides IgM Ab 06/05/25 11:50 WBC RBC Hgb Hct MCV MCH MCHC RDW Std Deviation Plt Count Neut % (Auto) Lymph % (Auto) [place] % (Auto) Eos % (Auto) Baso % (Auto) Neut # (Auto) Lymph # (Auto) [place] # (Auto) Eos # (Auto) Baso # (Auto) Immature Gran # (Auto) Absolute Nucleated RBC Immature Gran % Nucleated RBC % PT INR APTT Sodium Potassium Chloride Carbon Dioxide Anion Gap BUN Creatinine Estim Creat Clear Calc eGFR BUN/Creatinine Ratio Glucose Estimated Ave Glu mg/dL Hemoglobin A1c Calculated Osmolality Calcium Corrected Calcium Phosphorus Magnesium Total Bilirubin AST ALT Alkaline Phosphatase Troponin I Total Protein Albumin Globulin Albumin/Globulin Ratio Triglycerides Cholesterol LDL Cholesterol, Calc HDL Cholesterol Cholesterol/HDL Ratio TSH Free T4 Ur Collection Type Urine Color Urine Clarity Urine pH Ur Specific [place] Urine Protein Urine Glucose (UA) Urine Ketones Urine Blood Urine Nitrite Urine Bilirubin Urine Urobilinogen (Auto) Ur Leukocyte Esterase Urine RBC Urine WBC Ur Squamous Epith Cells Urine Bacteria Urine Opiates Screen Urine Fentanyl Screen Ur Barbiturates Screen U Amphetamin/Meth Scrn U Benzodiazepines Scrn U Cocaine Metab Screen U Marijuana (THC) Screen Coccidioides IgM Ab Negative Quality Measures Quality Measures stroke Suspected type of Stroke: Acute Ischemic Tenecteplase given: > 60 min of arrival Rehab services: Speech Language Pathology eval ordered VTE Prophylaxis: mechanical Antithrombotic by day 2:: ordered Statin ordered: >75 y/o moderate or high intensity dose Anticoagulation ordered for A-fib or flutter (current or hx): not indicated Assessment & Plan Assessment Current Active Medications: Generic Name Dose Route Start Last Admin Trade Name Freq PRN Reason Stop Dose Admin Acetaminophen 650 mg 06/05/25 05:55 Acetaminophen 325 Mg Tablet PO 07/05/25 05:54 Q4HR PRN PAIN SCALE 1-3 (mild Acetaminophen 650 mg 06/05/25 05:55 Acetaminophen Supp 650 Mg Supp WV 07/05/25 05:54 Q4HR PRN PAIN SCALE 1-3 (mild Al Hydrox/Mg Hydrox/Simethicone 30 ml 06/05/25 05:55 Mg Hyd/Al Hyd/Shadia (Maalox Reg) Susp 30 Ml Udc PO 07/05/25 05:54 Q4HR PRN Heartburn or Upset Stomach Atorvastatin Calcium 80 mg 06/05/25 21:00 Atorvastatin Calcium 20 Mg Tablet PO 07/05/25 20:59 HS YUDITH Dextrose 25 ml 06/05/25 07:11 Dextrose 50%-Water Inj 50 Ml Syringe IV 07/05/25 07:10 Q15MIN PRN BG 50-70 responsive npo pt Dextrose 50 ml 06/05/25 07:11 Dextrose 50%-Water Inj 50 Ml Syringe IV 07/05/25 07:10 Q15MIN PRN BG <50 OR BG <70 & pt unresponsive Glucagon 1 mg 06/05/25 07:11 Glucagon Inj 1 Mg Vial IM Q15MIN PRN BG <70, and no IV access Nicardipine/Sodium Chloride 20 mg in 200 mls @ 50 mls/hr 06/05/25 03:40 Cardene Ivpb IV 07/05/25 03:39 .Q4H PRN Per Nicardipine Stroke Protocol Protocol 5 MG/HR Insulin Human Lispro 0 unit 06/05/25 07:15 06/05/25 12:10 Insulin Lispro (Admelog) 1 Unit/0.01 Ml Unit SC 07/05/25 07:14 Not Given Q6HR [facility] Protocol Magnesium Hydroxide 30 ml 06/05/25 05:55 Milk Of Magnesia Susp 30 Ml Udc PO 07/05/25 05:54 QDAY PRN CONSTIPATION Verapamil HCl 240 mg 06/05/25 21:00 Verapamil 120 Mg Tabcr PO 07/05/25 20:59 HS YUDITH Plan Summary: 64-year-old male with past medical history significant for essential hypertension, hyperlipidemia, and insulin-dependent type 2 diabetes mellitus presented to ED with chief complaint of left upper arm weakness and paresthesia for about half an hour. Patient recieved tenecteplase 23.5 mg and admitted to ICU for further management of acute ischemic stroke. Neuro: #Acute ischemic stroke Status post tenecteplase Initial CT head was negative for acute hemorrhage, mass effect or midline shift Initial CTA head/neck revealed no large vessel occlusion. STROKE ALERT called at 5:20PM for acute worsening of neurological status noticed by the daughter. On assessment patient exhibited left facial droop, left arm ataxia, left leg ataxia and decreased sensorium on the left arm. Emergent CT head was done to rule out a bleed, negative for hemorrhage. CTA head/neck was also done and did not show any large vessel occulution. Teleneurologist was consulted and noted NIHSS 6, and the patient's symptoms was already improving at the time. 24h CT brain post-TNKase to be done, and MRI brain will be done tomorrow CBC, CMP, coag panel, magnesium level was all within normal range Plan: - Telemetry monitoring - Maintain SBP less than 180, and DBP less than 105 up to 24 hours post tenecteplase - Ordered CT head post 24-hour of tenecteplase - Neurocheck every 15 minutes - Referral to physical and speech therapy CVS: #Hypertensive emergency #History of essential hypertension BP in ICU ranging from 140-170s/100-110s Received Hydralazine 10 mg IV x 1 but BP continued to be elevated Started on Nicardipine drip Plan - Maintain SBP less than 180, and DBP less than 105 up to 24 hours post-TNKase - Resuming home med verapamil 240 mg tonight - Started Hydralazine 25mg TID #Possible new onset CHF exacerbation The patient reported that he has been having orthopnea, PND and bilateral lower extremity edema for about [address] chest revealed bilateral pleural effusion On physical exam +2 bilateral pitting edema up to bilateral knees Plan - TTE with bubble study done, pending read by returned goods receiving clerk - Strict ins and outs - BMP level in a.m. - Fluid restriction 1.5L/day - 2g sodium diet #Hypercholesterolemia Controlled on simvastatin 20 mg daily Total cholesterol 76, triglycerides 72, LDL 30 Plan ? Started on atorvastatin 80 mg daily Pulm: #Bilateral pleural effusion Likely secondary to possible new onset CHF exacerbation Plan - May consider diuretics along with management of CHF exacerbation after passed 24 hours poststroke #Pulmonary Nodule Incidental finding of CT chest 6mm nodule of right upper lobe Plan - Ordered cocci serology - Outpatient F/U with repeat CT chest w/o contrast in 3-6mons GI: - No active issue Renal: #RENATE #Proteinuria DDX: prerenal, intrarenal or postrenal or progression to CKD, versus cardiorenal syndrome US renal showed mild bilateral renal scar formation and mild left hydronephrosis Creatinine 3.3 -> 2.9 after bumex given so possibly cardiorenal Urine lytes: Cr 43, Na 72.6, K 3.6, Cl 73.1 Calculated FENa 4.1% but patient takes diuretic at home so possibly is falsely elevated (due to artificially increase sodium excretion) Plan - Check Cr in AM - Avoid nephrotoxins - Renally dose medications - May consider nephrology consultation if not improving Endo: #Diabetes mellitus type 2 #Glycosuria Patient mentions he takes long-acting insulin 9 units at night, however forgot to bring it with him to hospital A1c 7.8 Blood glucose 182 Fingerstick blood glucose 137 - Started on sliding scale insulin - Hypoglycemia protocol in place - Maintain euglycemia Heme: #Normocytic anemia Likely diagnosis in the setting of volume overload - Repeat CBC daily ID: - No active issue MSK: - No active issue Psych: - No active issues Health maintenance: Dispo: Patient admitted to ICU for further management of acute ischemic stroke DVT prophylaxis: SCDs Lines: Peripheral lines Diet: Carb consistent diet CODE STATUS: Full code Case discussed with my attending Dr. Danis Sheets MD PGY-1 Attending Provider Attestation/Addendum pt seen and examined with resident, agree with above. in brief this is a 64yo M admitted with CVA and s/p TNK. on initial exam he is AAOx4 with subtle weakness in his LUE. LCTAB, HRRR, b/l LE edema to level of the knees. He is admitted to the ICU for neurochecks. His BP is uncontrolled and given several IV pushes and then PO . In the afternoon he developed new weakness and new stroke alert called. repeat imaging was neg for bleed, case reviewed by tele neuro. His sxs resolved with improvment of his BP. He had been started on a nicardipine gtt as well. case d/w ICU team labs, imaging, records reviewed ~45ccmin required for eval, exam, review, intervention, discussion and formulation of POC for this critically ill pt with CVA and htn emergency at high risk for further and ongoing decompensation.
[2025-06-05] MEDS: NICARDIPINE/NS 20MG IVPB 20 MG/200 ML BAG 50 MG IV (16:36)
--- NOTE | 2025-06-05 17:30 | XR_ITS ---
Examination: CT brain head without contrast. 2-D sagittal coronal reconstructions Date and time of exam:June 05, 2025, 1743 hours Comparison June 05, 2025, 0311 hours INDICATIONS: Stroke alert, onset focal neurologic deficit, slurred speech and left facial droop beginning 1720 hours, stroke alert June 05, 2025 0310 hours CTDI: vol (mGy):53.2 DLP: (mGycm):1079 Technique: Multiple CT axial sections of the brain have been obtained, 5 mm slice thickness. Contrast has not been administered. 2-D sagittal, coronal reconstructions have been obtained Low dose protocols were performed. One or more of the following dose reduction techniques were used; automated exposure control, adjustment of the mA and/or KV according to patient size, use of iterative reconstruction technique. Findings: No significant ventricular enlargement. Intra-axial or extra-axial hemorrhage density is not seen. No mass effect or midline shift Basal cisterns are not remarkable. Fourth ventricle is midline. Cranial vault intact. Impression: Negative for acute hemorrhage, mass effect or midline shift
--- NOTE | 2025-06-05 18:02 | XR_ITS ---
Examination: CTA carotids with intravenous contrast CTA brain, head with intravenous contrast. 2-D sagittal, coronal reconstructions. 3-D reconstructions. Exam date and time: June 05, 2025, 1809 hours INDICATIONS: Stroke alert June 05, 2025 1743 hours, worsening left-sided body weakness CTDI: vol (mGy) 11.5 DLP: (mGycm) 473 Technique: Multiple CTA axial brain, head carotid images post intravenous contrast injection 75 cc, [id number]. 2-D sagittal, coronal reconstructions. 3-D reconstructions, 3-D post processing including vascular maximum intensity projection images. Low dose protocols were performed. One or more of the following dose reduction techniques were used; automated exposure control, adjustment of the mA and/or KV according to patient size, use of iterative reconstruction technique. Findings: Partial visualization bilateral pleural effusions No significant common carotid carotid bifurcation or internal carotid artery stenoses Codominant vertebral arteries in the neck with no significant stenoses Intracranial vertebral arteries basilar artery and posterior cerebral branches do fill, 70% stenosis left posterior cerebral artery P2 segment Middle cerebral anterior cerebral branches fill with no occlusions IMPRESSION: No significant neck arterial stenoses No cerebral large vessel arterial occlusions
[2025-06-05 18:11] LABS: Basophils # (Auto) 0.0 Thou/mm3 (0.0-0.2); Basophils % (Auto) 1 % (0-2.5); Eosinophils # (Auto) 0.1 Thou/mm3 (0.0-0.5); Eosinophils % (Auto) 2 % (0-10); Hematocrit 38.6 % (41.0-53.0); Hemoglobin 13.1 g/dL (13.5-16.0); Immature Granulocytes Auto 0.02 Thou/mm3 (0.00-0.00); Lymphocytes # (Auto) 1.3 Thou/mm3 (1.0-4.8); Lymphocytes % (Auto) 24 % (10-50); Mean Corpuscular HGB Conc 33.9 g/dl (31.0-37.0); Mean Corpuscular Hemoglobin 28.3 pg (25.0-35.0); Mean Corpuscular Volume 83 fL (80-100); Monocytes # (Auto) 0.6 Thou/mm3 (0.0-0.8); Monocytes % (Auto) 11 % (0-12); Neutrophils # (Auto) 3.2 Thou/mm3 (1.8-7.7); Neutrophils % (Auto) 62 % (37-80); Nucleated Red Blood Cell # 0.00 Thou/mm3 (0.00-0.00); Nucleated Red Blood Cell % 0 /100 WBC (0); Platelet Count 204 Thou/mm3 (140-440); RDW Standard Deviation 49.3 fL (35.1-43.9); Red Blood Count 4.63 Miln/mm3 (4.50-5.90); White Blood Count 5.3 Thou/mm3 (3.8-10.6)
[2025-06-05 18:17] LABS: INR 1.0 (0.9-1.3); Prothrombin Time 11.4 Seconds (9.0-12.2)
[2025-06-05 18:23] LABS: Alanine Aminotransferase 11 U/L (10-49); Albumin, Serum 3.5 gm/dL (3.4-4.8); Albumin/Globulin Ratio 1.3 (1.2-2.2); Alkaline Phosphatase 122 U/L (46-116); Anion Gap 9 (7-16); Aspartate Amino Transferase 22 U/L (0-34); BUN/Creatinine Ratio 18 Ratio (12-20); Bilirubin,Total 0.5 mg/dL (0.3-1.2); Blood Urea Nitrogen 51 mg/dL (9-23); Calcium 8.6 mg/dL (8.3-10.6); Calcium (Corrected) 9.0 mg/dL (8.5-10.1); Carbon Dioxide 20.8 mMol/L (20.0-31.0); Chloride 107 mMol/L (98-107); Creatinine (Component) 2.9 mg/dL (0.6-1.3); Estimated Creatinine Clearance 27.4 mL/min (>60); Globulin 2.7 gm/dL (2.3-3.5); Glucose 115 mg/dL (74-106); Magnesium 1.6 mg/dL (1.6-2.6); Osmolality,Calculated 288 (275-295); Potassium 5.0 mMol/L (3.4-5.1); Sodium 137 mMol/L (136-145); Total Protein 6.2 gm/dL (5.7-8.2); Troponin I 0.041 ng/mL (0.0-0.045); eGFR 23 See Note
--- NOTE | 2025-06-05 18:27 | PD.TNEURO ---
Tele Neuro Consultation Consultation Date 06/05/25 Most Recent Vital Signs Last Vital Signs Temp 97.7 F 06/05/25 16:00 Pulse 74 06/05/25 16:45 Resp 18 06/05/25 18:22 BP 158/110 H 06/05/25 16:45 Pulse Ox 96 06/05/25 18:22 O2 Del Method Room Air 06/05/25 15:00 O2 Flow Rate 2 06/05/25 18:22 Laboratory-Coagulation Panel PT 11.4 Seconds (9.0-12.2) 06/05/25 17:49 INR 1.0 (0.9-1.3) 06/05/25 17:49 APTT 27.4 Seconds (22.0-36.0) 06/05/25 03:05 Consultation Narrative [facility] Patient Name:???Pradip Baldwin Date of :???1960 Identification Number:??? Date of Service:???06/05/2025 17:44:17 Diagnosis:?R53.1 - Weakness Impression: ?64 yo M with h/o HTN, diabetes, CKD, currently admitted since last night with L arm weakness and decreased sensation for which he received thrombolytic therapy in the emergency physician. Stroke alert called for worsening L facial droop and slurred speech. By the time of my exam, he is improved although NIHSS is still higher than before. He is not a thrombolytic candidate as his LKN before all of the symptoms makes him out of the window and he already received thrombolytic therapy for his L sided symptoms within the past 24 hours. CTA repeated given elevation in NIHSS. Fortunately, no hemorrhagic conversion on CT. May be fluctuation of symptoms related to his current stroke as opposed to new stroke. MRI is pending and will clarify. Case discussed with primary team Dr. Beckford on video at bedside. Our recommendations are outlined below. Recommendations: ? Stroke/Telemetry Floor ? Neuro Checks ? Bedside Swallow Eval ? DVT Prophylaxis ? IV Fluids, Normal Saline ? Head of Bed 30 Degrees ? Euglycemia and Avoid Hyperthermia (PRN Acetaminophen) ?Postthrombolytic precautions ?24h post TNK CT scan pending for ileana Sign Out: ? Discussed with Primary Attending Advanced Imaging:Advanced imaging has been ordered. Results pending. Metrics: Last Known Well: 06/05/2025 17:05:00 Dispatch Time: 06/05/2025 17:44:17 Initial Response Time: 06/05/2025 17:47:44Symptoms: Worsened L sided symptoms. Initial patient interaction: 06/05/2025 17:50:40 NIHSS Assessment Completed: 06/05/2025 18:01:04Patient is not a candidate for Thrombolytic. Thrombolytic Medical Decision: 06/05/2025 18:01:05Patient was not deemed candidate for Thrombolytic because of following reasons: IV or IA thrombolysis/thrombectomy at an outside hospital prior to arrival . CT Head: CT head unremarkable for acute infarction or hemorrhage per Radiology: Negative for acute hemorrhage, mass effect or midline shift I personally reviewed all the CT images that were available to me and it showed: No obvious new stroke or bleed Primary Provider Notified of Diagnostic Impression and Management Plan on: 06/05/2025 18:14:00 Spoke With: Dr. Beckford Able to Reach 06/05/2025 18:14:00 History of Present Illness:Patient is a 64 year old Male. Inpatient stroke alert was called for symptoms of Worsened L sided symptoms. 64 yo M with h/o HTN, diabetes, CKD, currently admitted since last night with L arm weakness and decreased sensation for which he received thrombolytic therapy in the emergency physician. He is now admitted to the ICU. Stroke alert called for worsened L sided symptoms. He was last unchanged from admission about 1705 per RN. He was normal when he was checked on and then daughter at bedside noted L facial droop and slurred speech. By the time of my exam, he is improved. No further facial droop. He is very emotional. NIHSS is still higher than before with L sided ataxia and mild dysarthria that was not previously noted on initial teleneuro exam. ? Past Medical History: ?Hypertension ?Diabetes Mellitus Other PMH:? CKD Medications: No Anticoagulant use? No Antiplatelet use Reviewed EMR for current medications Other Medications Pertinent To Assessment Include: Received TNK within past 24h Allergies:? Reviewed,NKDA Social History: Smoking: No Alcohol Use: No Drug Use: No Family History: There is no family history of premature cerebrovascular disease pertinent to this consultation ROS : 14 Points Review of Systems was performed and was negative except mentioned in HPI. Past Surgical History: There Is No Surgical History Contributory To Today?s Visit ? Examination: BP(158/110),?Pulse(74), 1A: Level of Consciousness - Alert; keenly responsive?+ 0 1B: Ask Month and Age - 1 Question Right?+ 1 1C: Blink Eyes & Squeeze Hands - Performs Both Tasks?+ 0 2: Test Horizontal Extraocular Movements - Normal?+ 0 3: Test Visual [place] - No Visual Loss?+ 0 4: Test Facial Palsy (Use Grimace if Obtunded) - Normal symmetry?+ 0 5A: Test Left Arm Motor Drift - No Drift for 10 Seconds?+ 0 5B: Test Right Arm Motor Drift - No Drift for 10 Seconds?+ 0 6A: Test Left Leg Motor Drift - Drift, but doesn't hit bed?+ 1 6B: Test Right Leg Motor Drift - No Drift for 5 Seconds?+ 0 7: Test Limb Ataxia (FNF/Heel-Wilson) - Ataxia in 2 Limbs?+ 2 8: Test Sensation - Mild-Moderate Loss: Less Sharp/More Dull?+ 1 9: Test Language/Aphasia - Normal; No aphasia?+ 0 10: Test Dysarthria - Mild-Moderate Dysarthria: Slurring but can be understood?+ 1 11: Test Extinction/Inattention - No abnormality?+ 0 NIHSS Score:?6 NIHSS Free Text : ?Anxious appearing and slightly tearful ?Month: 7th ?Hand junior engineer slightly weaker L per RN ?Sensation slightly different L face ?FNF impaired with L hand ?HKS slightly off with L foot Pre-Morbid Modified Gambell Scale:0 Points = No symptoms at all Spoke with :?Dr. Beckford This consult was conducted in real time using interactive audio and video technology. Patient was informed of the technology being used for this visit and agreed to proceed. Patient located in hospital and provider located at home/office setting. Patient is being evaluated for possible acute neurologic impairment and high probability of imminent or life-threatening deterioration. I spent total of 42 minutes providing care to this patient, including time for face to face visit via telemedicine, review of medical records, imaging studies and discussion of findings with providers, the patient and/or family. Dr Trina Ramirez [facility] For Inpatient follow-up with [facility] physician please call [facility] at . As we are not an outpatient service for any post hospital discharge needs please contact the hospital for assistance. If you have any questions for the [facility] physicians or need to reconsult for clinical or diagnostic changes please contact us via [facility] at . Signature :?Trina Ramirez ?
--- NOTE | 2025-06-05 18:28 | PD.RESEVENT ---
Documentation for date of: 06/05/25 Event Note Event Note: Stroke Alert Room: 251 Time: 5:20 pm Reason for Call: Left-sided facial droop and slurred speech noted by daughter Patient presentation: Daughter who was present at bedside and conversing with the patient noticed an acute change in speech. RN team and MD Sheets came to bedside and noted change in speech pattern, patient having more difficulty expressing himself while he was normal at 5:00 pm. Events: Stroke alert was called, physical exam done at bedside by MD Dover showed patient had a NEW left sided facial droop, slurring of speech, and ataxia of the left hand. Neuro Stroke Exam: -Alert and oriented x3. -CN II-XII intact. -Normal visual khan. -APHASIC/DYSARTHRIC speech. -LEFT facial droop. -Strength 5/5 bilateral arms, 5/5 flight information expediter strength. -Strength 5/5 bilateral lower extremities. -Reduced sensation left arm. -ATAXIC LEFT [id number], MILD ATAXIC LEFT [id number] testing. Patient was then taken to CT to rule out an acute hemorrhagic conversion. CT was negative. TeleNeuro was consulted and evaluated the patient, physical exam showed NIHSS score of 6 at that time. Patient was emotional, tearful. Assessment: Possible recurrence of stroke symptoms New orders: Head CT, Head/neck CTA, CBC, CMP, PT & INR, Mag, Trop Patient plan of care was discussed with the attending physician, Dr. Moscoso. Marycruz Dover, PGY-3
--- NOTE | 2025-06-05 19:20 | PC.NURSE ---
Stroke alert called on patient for onset of slur and left sided droop. NIHS was done and tele neuro specialists were consulted. Patient was then taken down to CT for a CT scan and CTA, no bleed was noted in the patient.
[2025-06-05] MEDS: VERAPAMIL 120 MG 240 MG PO (20:19)
[2025-06-05] MEDS: ATORVASTATIN CALCIUM 20 MG TABLET 80 MG PO (20:19)
[2025-06-05 23:40] LABS: Chloride,Urine Random 73.1 mMol/L (55.0-125.0); Creatinine,Random Urine 43 mg/dL (30-125); Potassium,Urine Random 36 mMol/L (12-62); Sodium,Urine Random 72.6 mMol/L (20.0-110.0)
[2025-06-06] VITALS (76 sets, daily range): BP systolic 105–163; BP diastolic 66–110; PULSE 59–108; RESP 0–36; TEMP 36.1–36.8; O2SAT 81–100
--- NOTE | 2025-06-06 | XR_ITS ---
Examinations: MRI Brain without intravenous contrast. MRA brain without intravenous contrast. MRA carotids without intravenous contrast 3-D vascular reconstructions Date and time of exam: June 06, 2025 1034 hours INDICATIONS: Stroke alert this a.m., onset left facial droop since yesterday Technique: Multiple axial and sagittal images of the brain have been obtained MRA brain carotid images without contrast obtained, including 3-D postprocessing, vascular maximum intensity projection images Findings: Sellaturcica is not enlarged. The optic chiasm and infundibular stalk are not remarkable. Prepontine and interpeduncular cisterns are not enlarged. No localized enlargement of the medulla or yokasta. Fourth ventricle and cerebellar tonsils normal in position. Subacute hemorrhage is not seen. Fourth ventricle is midline. Mass in the cerebellopontine angle region is not evident. 7th and 8th nerve complexes exhibits symmetry. Globes are symmetrical with no retro-orbital mass. Increased white matter signal evident Diffusion-weighted images demonstrate embolic type small foci restricted diffusion right parietal lobe, multiple, and smaller foci left parietal lobe Mass-effect upon the ventricular system is not identified. MRA carotid images degraded by patient motion. MRA brain images no large vessel occlusions Impression: Embolic type acute infarcts in both parietal lobes
--- NOTE | 2025-06-06 03:40 | XR_ITS ---
Examination: CT brain head without contrast. 2-D sagittal coronal reconstructions Date and time of exam:June 06, 2025, 0345 hours Comparison June 05, 2025 INDICATIONS: Stroke alert June 05, 2025, 24 hours post anticoagulation therapy CTDI: vol (mGy):53.5 DLP: (mGycm):1112 Technique: Multiple CT axial sections of the brain have been obtained, 5 mm slice thickness. Contrast has not been administered. 2-D sagittal, coronal reconstructions have been obtained Low dose protocols were performed. One or more of the following dose reduction techniques were used; automated exposure control, adjustment of the mA and/or KV according to patient size, use of iterative reconstruction technique. Findings: No significant ventricular enlargement. Intra-axial or extra-axial hemorrhage density is not seen. No mass effect or midline shift Basal cisterns are not remarkable. Fourth ventricle is midline. Cranial vault intact. Impression: No interval acute hemorrhage, mass effect or midline shift
--- NOTE | 2025-06-06 05:12 | PRELIM_ITS ---
CT scan of the head without intravenous contrast (axial sections with sagittal and coronal reformats). June 06, 2025 0345 hours Clinical History: 24H post TNK Comparison: None Findings: Few scattered intracranial parenchymal calcifications noted which may be related to old healed neurocysticercosis. There is no intracranial hemorrhage, extra-axial collection, mass, mass-effect or midline shift. There is good soriano-white differentiation. There is no CT evidence of acute large vascular territorial infarct. Ventricles are not enlarged or effaced. There is atherosclerotic calcification along the carotid siphons. Visualized paranasal sinuses and tympanomastoid cavities are clear except for mild bilateral maxillary sinus mucosal thickening. The bony calvarium is intact. Impression: No intracranial hemorrhage, mass-effect or midline shift. No CT evidence of acute large vascular territorial infarct. Report Electronically Signed By: Pedro Caba 06/06/2025 5:11:17 AM [EST]
[2025-06-06 07:06] LABS: Basophils # (Auto) 0.1 Thou/mm3 (0.0-0.2); Basophils % (Auto) 1 % (0-2.5); Eosinophils # (Auto) 0.1 Thou/mm3 (0.0-0.5); Eosinophils % (Auto) 1 % (0-10); Hematocrit 39.7 % (41.0-53.0); Hemoglobin 13.3 g/dL (13.5-16.0); Immature Granulocytes Auto 0.02 Thou/mm3 (0.00-0.00); Lymphocytes # (Auto) 0.8 Thou/mm3 (1.0-4.8); Lymphocytes % (Auto) 15 % (10-50); Mean Corpuscular HGB Conc 33.5 g/dl (31.0-37.0); Mean Corpuscular Hemoglobin 28.2 pg (25.0-35.0); Mean Corpuscular Volume 84 fL (80-100); Monocytes # (Auto) 0.5 Thou/mm3 (0.0-0.8); Monocytes % (Auto) 9 % (0-12); Neutrophils # (Auto) 4.2 Thou/mm3 (1.8-7.7); Neutrophils % (Auto) 74 % (37-80); Nucleated Red Blood Cell # 0.00 Thou/mm3 (0.00-0.00); Nucleated Red Blood Cell % 0 /100 WBC (0); Platelet Count 208 Thou/mm3 (140-440); RDW Standard Deviation 50.1 fL (35.1-43.9); Red Blood Count 4.72 Miln/mm3 (4.50-5.90); White Blood Count 5.7 Thou/mm3 (3.8-10.6)
[2025-06-06] MEDS: INSULIN LISPRO (AdmeLOG) 1 UNIT/0.01 ML UNIT SC ×4 (07:14→21:35)
[2025-06-06 07:43] LABS: Alanine Aminotransferase 10 U/L (10-49); Albumin, Serum 3.2 gm/dL (3.4-4.8); Albumin/Globulin Ratio 1.2 (1.2-2.2); Alkaline Phosphatase 119 U/L (46-116); Anion Gap 11 (7-16); Aspartate Amino Transferase 14 U/L (0-34); BUN/Creatinine Ratio 17 Ratio (12-20); Bilirubin,Total 0.6 mg/dL (0.3-1.2); Blood Urea Nitrogen 51 mg/dL (9-23); Calcium 8.5 mg/dL (8.3-10.6); Calcium (Corrected) 9.1 mg/dL (8.5-10.1); Carbon Dioxide 20.8 mMol/L (20.0-31.0); Chloride 106 mMol/L (98-107); Creatinine (Component) 3.0 mg/dL (0.6-1.3); Estimated Creatinine Clearance 26.5 mL/min (>60); Globulin 2.6 gm/dL (2.3-3.5); Glucose 165 mg/dL (74-106); Magnesium 1.6 mg/dL (1.6-2.6); Osmolality,Calculated 293 (275-295); Phosphorous 4.0 mg/dL (2.4-5.1); Potassium 4.9 mMol/L (3.4-5.1); Sodium 138 mMol/L (136-145); Total Protein 5.8 gm/dL (5.7-8.2); eGFR 22 See Note
[2025-06-06 09:38] LABS: B-Type Natriuretic Peptide > 3280 pg/mL (0-100)
--- NOTE | 2025-06-06 10:04 | ESCONSULT_ITS ---
HPI Data of Consult Consult date: 06/06/25 Requesting Physician: Nette Moscoso MD Admitting Provider: Alvaro Bailey MD Attending Provider: Nette Moscoso MD Primary Care Provider: pcp at [facility]. Consult Narrative Reason for consult: query RENATE on CKD. History of present illness: Mr. Baldwin is a 64 yo kazakh speaking gentleman with hx of T2DM on insulin, HTN, initially presented to the ED with complaint of LUE wkness and parasthesia half an hour before presenting to the ED. He reports that he has a PCP at [facility], that he saw about 1 month ago, he reports taking his medications as prescribed. He reports orthopnea and paroxysmal dyspnea, dyspnea on exertion and BLE edema that has limited his ability to work for the past 4-6 months. pt reports that he had been seen by a insurance territory manager over 10 years ago, and has not since been followed. query NSAID use, will clarify. In the ED his vitals were BP 166/122, pulse 94, RR 18, saturating 97% on room air. Labs were significant for hemoglobin of 13.0, sodium 136, potassium 5.1, BUN 64, creatinine 3.3, GFR 20, blood sugar 182, A1c, lipid panel, TSH elevated 6.05. UA revealed 2+ protein, 2+ glucose, 1+ blood, 4+ RBC, but negative for UTI, UA positive for marijuana. CT head revealed possible acute infarct with brain MRI follow-up recommended. CTA head and neck revealed no large vessel occlusion, CT chest revealed bilateral pleural effusion and 6 mm pulmonary nodule in the right upper lobe. ROS pt endorses dyspnea on exertion, BLE edema, nocturia, dysuria, and incomplete voiding. pt denies, chest pain, fevers, chills, abdominal pain, nausea, vomiting, dizziness, or constipation . 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 endorses intermittent marajuana smoking 06/05/2025: Patient admitted to ICU, for stroke r/o, tknase given, pt had another stroke alert called later in the day, due to LUE wkness and LLE weakness and L facial droop noted by pt family. repeat CT head post anticoagulation admin. 06/06/2025: nephrology consulted given Renal US with parenchymal scar. Pt seen and examined at ICU bedside with pt son Steffanie. Pt reports that his LE are less swollen than how they are at home. No new complaints. PE with Bibasilar crackles and LE with 1+ pitting edema to the mid grigsby and skin wrinkling. CT brain 24 post-TKNase was negative for hemorrhage. MRI brain impression is embolic type acute infarcts in both parietal lobes. cc:: cc: Nette Moscoso MD Review of Systems Review of Systems Narrative Review of Systems: CONSTITUTIONAL: Patient denies any fever, chills. Complaining of fatigue. HEENT: Denies any visual disturbances or hearing problems. CARDIOVASCULAR: Patient denies any chest pain, shortness of breath, swelling in the lower extremities. PULMONARY: Patient denies any shortness of breath, cough. GASTROINTESTINAL: Patient denies any abdominal pain, constipation, nausea, vomiting, diarrhea. GENITOURINARY: Patient denies any urinary symptoms of burning or frequency or hematuria, denies any form in the urine. SKIN: Denies any rash. MUSCULOSKELETAL: Denies any muscular skeletal problems of joint pains. NEUROLOGICAL: See HPI Constitutional Constitutional: Reports weakness (LUE.) Cardiovascular Cardiovascular: Reports dyspnea and Reports dyspnea on exertion Respiratory Respiratory: Reports dyspnea and Reports dyspnea on exertion Genitourinary Genitourinary: Reports difficulty urinating, Reports dysuria and Reports nocturia Neurologic Neurologic: Reports abnormal speech and Reports weakness (LUE.) Past Medical History Past Medical History GENITOURINARY: Positive Renal Disease and Benign Prostatic Hyperplasia Exam Vital Signs Temp Pulse Resp BP Pulse Ox O2 Del Method O2 Flow Rate 97.9 F 80 32 H 123/80 96 Room Air 2 06/06/25 08:00 06/06/25 09:15 06/06/25 09:15 06/06/25 09:15 06/06/25 09:15 06/05/25 15:00 06/06/25 05:58 Narrative Exam GENERAL: no acute distress, AAO x3, comfortably sitting upright in bed HEENT: Head AT/ NC. Mucous membranes moist. NECK: Supple, no lymphadenopathy, no carotid bruits. CARDIOVASCULAR: RRR. Normal S1/S2, No m/r/g. bilateral pitting of lower extremeties RESPIRATORY: Bibasilar crackles on auscultation GASTROINTESTINAL: Abdomen soft, non tender no palpable masses. Bowel sounds present MUSCULOSKELETAL:? No cyanosis or edema, no visible joint swelling. NEUROLOGICAL: CN II-XII grossly intact. Sensation intact, symmetric. PSYCHIATRIC: Awake and alert, not agitated, normal mood and affect. SKIN: No obvious rashes, no jaundice, Results Labs 06/06/25 05:12 06/06/25 05:12 Labs: Short CBC 06/05/25 06/06/25 Range/Units 17:49 05:12 WBC 5.3 5.7 (3.8-10.6) Thou/mm3 Hgb 13.1 L 13.3 L (13.5-16.0) g/dL Hct 38.6 L 39.7 L (41.0-53.0) % Plt Count 204 D 208 (140-440) Thou/mm3 BMP 06/05/25 06/06/25 17:49 05:12 Sodium 137 138 Potassium 5.0 4.9 Chloride 107 106 Carbon Dioxide 20.8 20.8 BUN 51 H 51 H Creatinine 2.9 H 3.0 H Glucose 115 H D 165 H D Calcium 8.6 8.5 Cardiac Enzymes 06/05/25 Range/Units 17:49 Troponin I 0.041 (0.0-0.045) ng/mL Liver Function 06/05/25 06/06/25 Range/Units 17:49 05:12 Total Bilirubin 0.5 0.6 (0.3-1.2) mg/dL AST 22 14 (0-34) U/L ALT 11 10 (10-49) U/L Alkaline Phosphatase 122 H 119 H (46-116) U/L Albumin 3.5 3.2 L (3.4-4.8) gm/dL Quality Measures Quality Measures stroke Suspected type of Stroke: Acute Ischemic Last known well (date): 06/05/25 Last known well (time): 17:10 Tenecteplase given: > 60 min of arrival Rehab services: PT evaluation ordered and Speech Language Pathology eval ordered VTE Prophylaxis: pharmaceutical Antithrombotic by day 2:: ordered Statin ordered: <75 y/o high intensity dose Anticoagulation ordered for A-fib or flutter (current or hx): ordered Medications Home Medications and Allergies Home Medications ?Medication ?Instructions ?Recorded ?Confirmed ?Type bumetanide 1 mg tablet 1 mg PO DAILY 06/05/2506/05 History lisinopril 20 mg tablet 20 mg PO DAILY 06/05/2505/27 History simvastatin 20 mg tablet 20 mg PO HS 06/05/25 5 History verapamil 240 mg tablet,extended 240 mg PO DAILY 06/0506/05/25 History release Allergies Allergy/AdvReac Type Severity Reaction Status Date / Time No Known Allergies Allergy Verified 10/09/19 02:18 Visit Medications Acetaminophen (Acetaminophen 325 Mg Tablet) 650 mg PO Q4HR PRN PRN Reason: PAIN SCALE 1-3 (mild Stop: 07/05/25 05:54 Acetaminophen (Acetaminophen Supp 650 Mg Supp) 650 mg DE Q4HR PRN PRN Reason: PAIN SCALE 1-3 (mild Stop: 07/05/25 05:54 Al Hydrox/Mg Hydrox/Simethicone (Mg Hyd/Al Hyd/Shadia (Maalox Reg) Susp 30 Ml Udc) 30 ml PO Q4HR PRN PRN Reason: Heartburn or Upset Stomach Stop: 07/05/25 05:54 Aspirin (Aspirin Ec 81 Mg Tabec) 81 mg PO QDAY [facility] Stop: 07/06/25 09:29 Atorvastatin Calcium (Atorvastatin Calcium 20 Mg Tablet) 80 mg PO HS YUDITH Stop: 07/05/25 20:59 Last Admin: 06/05/25 20:19 Dose: 80 mg Bumetanide (Bumetanide 0.5 Mg Tablet) 1 mg PO DAILY YUDITH Stop: 07/06/25 09:29 Clopidogrel Bisulfate (Clopidogrel Bisulfate 75 Mg Tablet) 75 mg PO QDAY [facility] Stop: 07/06/25 09:29 Dextrose (Dextrose 50%-Water Inj 50 Ml Syringe) 25 ml IV Q15MIN PRN PRN Reason: BG 50-70 responsive npo pt Stop: 07/05/25 07:10 Dextrose (Dextrose 50%-Water Inj 50 Ml Syringe) 50 ml IV Q15MIN PRN PRN Reason: BG <50 OR BG <70 & pt unresponsive Stop: 07/05/25 07:10 Glucagon (Glucagon Inj 1 Mg Vial) 1 mg IM Q15MIN PRN PRN Reason: BG <70, and no IV access Hydralazine HCl (Hydralazine Hcl 25 Mg Tablet) 25 mg PO TID YUDITH Stop: 07/05/25 21:59 Last Admin: 06/06/25 05:27 Dose: Not Given Nicardipine/Sodium Chloride (Cardene Ivpb) 20 mg in 200 mls @ 50 mls/hr IV .Q4H PRN; Protocol PRN Reason: Per Nicardipine Stroke Protocol Stop: 07/05/25 03:39 Last Titration: 06/05/25 18:20 Dose: 0 mg/hr, 0 mls/hr Insulin Glargine (Insulin Glargine (Lantus) 5 Unit/0.05 Ml (Per 5 Units)) 10 unit SC HS [facility] Stop: 07/06/25 20:59 Insulin Human Lispro (Insulin Lispro (Admelog) 1 Unit/0.01 Ml Unit) 0 unit SC ACHS [facility]; Protocol Stop: 07/05/25 19:29 Last Admin: 06/06/25 07:14 Dose: 1 unit Magnesium Hydroxide (Milk Of Magnesia Susp 30 Ml Udc) 30 ml PO QDAY PRN PRN Reason: CONSTIPATION Stop: 07/05/25 05:54 Verapamil HCl (Verapamil 120 Mg Tabcr) 240 mg PO HS [facility] Stop: 07/05/25 20:59 Last Admin: 06/05/25 20:19 Dose: 240 mg Discontinued Medications Bumetanide (Bumetanide Inj 0.25 Mg/Ml Vial 4 Ml) 1 mg IVP NOW ONE Stop: 06/05/25 14:57 Last Admin: 06/05/25 15:42 Dose: 1 mg Hydralazine HCl (Hydralazine Inj 20 Mg/Ml Vial) 10 mg IVP X1 ONE Stop: 06/05/25 15:40 Last Admin: 06/05/25 15:48 Dose: 10 mg Insulin Human Lispro (Insulin Lispro (Admelog) 1 Unit/0.01 Ml Unit) 0 unit SC Q6HR [facility]; Protocol Stop: 07/05/25 07:14 Last Admin: 06/05/25 18:35 Dose: Not Given Labetalol HCl (Labetalol Inj 5 Mg/Ml Vial 20 Ml) 10 mg IVP PRNMRX1 PRN PRN Reason: SBP > 185 mmHg and/or DBP > 110 Labetalol HCl (Labetalol Inj 5 Mg/Ml Vial 20 Ml) 10 mg IVP [id number] PRN PRN Reason: SBP > 180 mmHg or DBP > 105 Last Admin: 06/05/25 09:05 Dose: 10 mg Tenecteplase (Tenecteplase Inj 50 Mg Vial) 23.5 mg 0.25 mg/kg (23.5 mg) IV X1 ONE Stop: 06/05/25 03:41 Last Admin: 06/05/25 03:44 Dose: 23.5 mg Assessment & Plan Plan 64-year-old male with past medical history significant for essential hypertension, hyperlipidemia, and insulin-dependent type 2 diabetes mellitus presented to ED with chief complaint of left upper arm weakness and paresthesia for about half an hour. Patient received tenecteplase 23.5 mg and admitted to ICU for further management of acute ischemic stroke. pending transfer to floor from ICU. MRI head with embolic stroke in BL parietal lobes. pending TTE. continues on bumex per primary team Query CKD. 2+ proteinuria. Nephrology consulted #RENATE #Proteinuria #query RENATE on CKD IV? #query cardiorenal RENATE vs nephrotic syndrome. Rule out cirrhosis Cr: 3.3 from 3.3 on admission eGFR is 20 Ddx: Consider pre vs intra vs post renal etiologies pt reports nocturia, and incomplete voiding c/f BPH as obstructive etiology query cardiorenal given BLE edema, bibasilar crackles on auscultation, dyspnea on exertion, PND and orthopnea, see #query CHF below. Cr improved on bumex. on exam pt appears volume overloaded. pt reports being seen by a insurance territory manager > 10 years ago. Dx - BUN/Cr ratio: 17, which is <20, so consider postrenal given pt reports incomplete voiding, nocturia. US renal with nl prostate volume - US renal showed mild bilateral renal scar formation and mild left hydronephrosis - UA with 2+ protein and 2+ glucose 4+ RBC - Daily CMP - pending spot urine total protein creatinine ratio Tx - Avoid nephrotoxic medications - renally dose medications #query CHF exacerbation DDX: chf vs ckd pt reports dyspnea on exertion, orthopnea, and PND, He has been taking diuretics at home which initially helped with his BLE, however the swelling is significant and limits his ability to work favor CHF as etiology of BLE, however pt does have ?chronic kidney disease, see #query RENATE on CKD Dx - CXR showed: Moderate enlargement cardiac contour with prominent vascular congestion including central vascular engorgement - Pending TTE with bubble Plan - cont bumex 1mg PO daily - fluid restriction 1.5L -2g sodium diet #Acute ischemic stroke Status post tenecteplase Brain MRI with MRA shows embolic type acute infarcts in both parietal lobes -pendint TTE w bubble #Hypertensive emergency, resolved #HTN- improved SBP 140s Plan - d/c nicardipine drip - cont verapamil 240 mg tonight - cont Hydralazine 25mg TID #Insulin-dependent Diabetes mellitus type 2 #Glycosuria Patient mentions he takes long-acting insulin 9 units at night, however forgot to bring it with him to hospital A1c 7.8 AM Blood glucose 178 - Started on Glargine 10u qHS - On sliding scale insulin, received 3 units ssi today - Hypoglycemia protocol in place #Hypercholesterolemia #Bilateral pleural effusion Likely secondary to possible new onset CHF exacerbation #incedental 6mm Pulmonary Nodule -cocci negative #Normocytic anemia query 2/2 CKD - iron panel -Management as per primary team Plan discussed with nephrology attending Dr. Keyonna Anders MD Internal Medicine PGY-1 Attending Provider Attestation/Addendum Patient seen and examined with resident physician Dr. Anders. Note reviewed, agree with findings and recommendations. Had a long conversation with son and daughter at bedside. Patient seems to have multifactorial RENATE. Now presenting with uncontrolled hypertension, stroke. Suspect underlying CKD-differential diagnoses include diabetic nephropathy vs rule out a liver cirrhosis versus congestive heart failure. Pending echocardiogram. Urine protein/creatinine ordered, CT abdomen pelvis to rule out liver cirrhosis, hep panel ordered. Patient has history of alcoholism. Extensive history of marijuana usage. Urine protein creatinine greater than 5.8 g. Reviewed labs from outpatient [facility] 02/2025 BUN 65, creatinine 2.45, GFR 29, albumin 3.4, hemoglobin 12.7, BNP 2716, A1c 9.8 07/2024 creatinine 1.8, GFR 42, albumin 3.[address] Moscoso for allowing me to participate in the care of Mr. Baldwin
--- NOTE | 2025-06-06 11:16 | PC.SS ---
Update: Patient to obtain MRI today. Physical therapy evaluation is pending.
--- NOTE | 2025-06-06 11:20 | ESPR_ITS ---
<Statement entered by Marycruz Dover MD - 06/07/25 13:12> Patient was seen and examined by me personally. I have directly supervised and reviewed documentation by the team resident and agree with its findings with any exceptions or additional findings as below. Plan of care was discussed with the attending dry talc racker, Dr. Moscoso. Marycruz Dover, PGY-3 Documentation for date of: 06/06/25 Subjective Subjective Interval history: 64-year-old male with past medical history significant for hypertension, and insulin-dependent diabetes mellitus type 2 presented to ED with chief complaint of left upper arm weakness and paresthesia for about half an hour before arriving to ED. The patient reported that he has been taking his medications as prescribed by his PCP, and has been compliant with follow-up visits, and last PCP follow-up visit was about 1 month ago. He admitted orthopnea, PND and bilateral lower limb edema for about 6 months. He denied any headache, dizziness, blurry vision, chest pain, SOB, fever or chills, any changes in bowel or bladder habit, nausea or vomiting. In the ED his vitals were BP 166/122, pulse 94, RR 18, saturating 97% on room air. Labs were significant for hemoglobin of 13.0, sodium 136, potassium 5.1, BUN 64, creatinine 3.3, GFR 20, blood sugar 182, A1c, lipid panel, TSH pending. UA revealed 2+ protein, 2+ glucose, 1+ blood, 4+ RBC, but negative for UTI, UA positive for marijuana. CT head revealed possible acute infract with brain MRI follow-up recommended. CTA head and neck revealed no large vessel occlusion, CT chest revealed bilateral pleural effusion and 6 mm pulmonary nodule in the right upper lobe. Interval History: 06/05/2025 Patient was transferred to ICU for acute management of ischemic stroke. Patient's blood pressure had been elevated for which nicardipine drip was started around 4:40 PM. However at around 5:20 PM a stroke alert was called as the patient experienced acute worsening of neurological status noticed by the daughter. On assessment patient exhibited left facial droop, left arm ataxia, left leg ataxia and decreased sensorium on the left arm. Emergent CT head was done to rule out a bleed, negative for hemorrhage. CTA head/neck was also done and did not show any large vessel occlusion. Teleneurologist was consulted, who who noted NIHSS score 6, and the patient's symptoms was already improving. 24h CT brain post-TNKase to be done, MRI brain will be done tomorrow. CBC, CMP, coag panel, magnesium level was all within normal range. 07/07/2025 No acute overnight events. Patient feels improved today, ongoing left arm and left leg weakness. CT brain 24 post-TKNase was negative for hemorrhage. MRI brain impression is embolic type acute infarcts in both parietal lobes. Patient is stable to be moved to the medical floor for management post-stroke. Exam Vital Signs Temp Pulse Resp BP Pulse Ox O2 Del Method O2 Flow Rate 97.9 F 80 32 H 123/80 96 Room Air 2 06/06/25 08:00 06/06/25 09:15 06/06/25 09:15 06/06/25 09:15 06/06/25 09:15 06/05/25 15:00 06/06/25 05:58 Narrative Exam General: No acute distress, Alert and Oriented x 3 HEENT: Moist mucous membranes, oropharynx clear Neck: Supple, No masses, No JVD CVS: S1+S2. Regular rate and rhythm, No murmurs, rubs or gallops Lungs: Clear to auscultation with no accessory use, no wheeze no rhonchi Abd: Soft, NT/ND, +BS, no organomegaly Ext: 2+ lower limb pitting edema up to bilateral knees, warm and well perfused Neuro: Cranial nerve II to XII grossly intact. Left upper limb extremity 4/5, right upper limb extremity 5/5. Left lower extremity 4/5, right lower extremity 5/5. normal sensation to both upper and lower limbs bilaterally, normal reflexes. NIHSS score 0. GCS 15 Skin: No rash Psych: Appropriate mood and affect Objective Labs 06/07/25 05:53 06/07/25 05:53 Labs: Laboratory Results - last 24 hr 06/05/25 06/05/25 06/05/25 05:30 11:50 17:49 WBC 5.3 RBC 4.63 Hgb 13.1 L Hct 38.6 L MCV 83 MCH 28.3 MCHC 33.9 RDW Std Deviation 49.3 H Plt Count 204 D Neut % (Auto) 62 Lymph % (Auto) 24 [place] % (Auto) 11 Eos % (Auto) 2 Baso % (Auto) 1 Neut # (Auto) 3.2 Lymph # (Auto) 1.3 [place] # (Auto) 0.6 Eos # (Auto) 0.1 Baso # (Auto) 0.0 Immature Gran # (Auto) 0.02 H Absolute Nucleated RBC 0.00 Immature Gran % 0 Nucleated RBC % 0 PT 11.4 INR 1.0 Sodium 137 Potassium 5.0 Chloride 107 Carbon Dioxide 20.8 Anion Gap 9 BUN 51 H Creatinine 2.9 H Estim Creat Clear Calc 27.4 L eGFR 23 L BUN/Creatinine Ratio 18 Glucose 115 H D Calculated Osmolality 288 Calcium 8.6 Corrected Calcium 9.0 Phosphorus Magnesium 1.6 Total Bilirubin 0.5 AST 22 ALT 11 Alkaline Phosphatase 122 H Troponin I 0.041 B-Natriuretic Peptide Total Protein 6.2 Albumin 3.5 Globulin 2.7 Albumin/Globulin Ratio 1.3 Ur Random Creatinine 43 Ur Random Sodium 72.6 Ur Random Potassium 36 Ur Random Chloride 73.1 Coccidioides IgM Ab Negative 06/06/25 05:12 WBC 5.7 RBC 4.72 Hgb 13.3 L Hct 39.7 L MCV 84 MCH 28.2 MCHC 33.5 RDW Std Deviation 50.1 H Plt Count 208 Neut % (Auto) 74 Lymph % (Auto) 15 [place] % (Auto) 9 Eos % (Auto) 1 Baso % (Auto) 1 Neut # (Auto) 4.2 Lymph # (Auto) 0.8 L [place] # (Auto) 0.5 Eos # (Auto) 0.1 Baso # (Auto) 0.1 Immature Gran # (Auto) 0.02 H Absolute Nucleated RBC 0.00 Immature Gran % 0 Nucleated RBC % 0 PT INR Sodium 138 Potassium 4.9 Chloride 106 Carbon Dioxide 20.8 Anion Gap 11 BUN 51 H Creatinine 3.0 H Estim Creat Clear Calc 26.5 L eGFR 22 L BUN/Creatinine Ratio 17 Glucose 165 H D Calculated Osmolality 293 Calcium 8.5 Corrected Calcium 9.1 Phosphorus 4.0 Magnesium 1.6 Total Bilirubin 0.6 AST 14 ALT 10 Alkaline Phosphatase 119 H Troponin I B-Natriuretic Peptide > 3280 H* Total Protein 5.8 Albumin 3.2 L Globulin 2.6 Albumin/Globulin Ratio 1.2 Ur Random Creatinine Ur Random Sodium Ur Random Potassium Ur Random Chloride Coccidioides IgM Ab Quality Measures Quality Measures stroke Suspected type of Stroke: Acute Ischemic Last known well (date): 06/05/25 Last known well (time): 17:10 Tenecteplase given: > 60 min of arrival Rehab services: PT evaluation ordered and Speech Language Pathology eval ordered VTE Prophylaxis: pharmaceutical Antithrombotic by day 2:: ordered Statin ordered: <75 y/o high intensity dose Anticoagulation ordered for A-fib or flutter (current or hx): not indicated Assessment & Plan Assessment Current Active Medications: Generic Name Dose Route Start Last Admin Trade Name Freq PRN Reason Stop Dose Admin Acetaminophen 650 mg 06/05/25 05:55 Acetaminophen 325 Mg Tablet PO 07/05/25 05:54 Q4HR PRN PAIN SCALE 1-3 (mild Acetaminophen 650 mg 06/05/25 05:55 Acetaminophen Supp 650 Mg Supp CA 07/05/25 05:54 Q4HR PRN PAIN SCALE 1-3 (mild Al Hydrox/Mg Hydrox/Simethicone 30 ml 06/05/25 05:55 Mg Hyd/Al Hyd/Shadia (Maalox Reg) Susp 30 Ml Udc PO 07/05/25 05:54 Q4HR PRN Heartburn or Upset Stomach Aspirin 81 mg 06/06/25 09:30 Aspirin Ec 81 Mg Tabec PO 07/06/25 09:29 QDAY YUDITH Atorvastatin Calcium 80 mg 06/05/25 21:00 06/05/25 20:19 Atorvastatin Calcium 20 Mg Tablet PO 07/05/25 20:59 80 mg HS YUDITH Administration Bumetanide 1 mg 06/06/25 09:30 Bumetanide 0.5 Mg Tablet PO 07/06/25 09:29 DAILY YUDITH Clopidogrel Bisulfate 75 mg 06/06/25 09:30 Clopidogrel Bisulfate 75 Mg Tablet PO 07/06/25 09:29 QDAY YUDITH Dextrose 25 ml 06/05/25 07:11 Dextrose 50%-Water Inj 50 Ml Syringe IV 07/05/25 07:10 Q15MIN PRN BG 50-70 responsive npo pt Dextrose 50 ml 06/05/25 07:11 Dextrose 50%-Water Inj 50 Ml Syringe IV 07/05/25 07:10 Q15MIN PRN BG <50 OR BG <70 & pt unresponsive Glucagon 1 mg 06/05/25 07:11 Glucagon Inj 1 Mg Vial IM Q15MIN PRN BG <70, and no IV access Hydralazine HCl 25 mg 06/05/25 22:00 06/06/25 05:27 Hydralazine Hcl 25 Mg Tablet PO 07/05/25 21:59 Not Given TID YUDITH Nicardipine/Sodium Chloride 20 mg in 200 mls @ 50 mls/hr 06/05/25 03:40 06/05/25 18:20 Cardene Ivpb IV 07/05/25 03:39 0 mg/hr .Q4H PRN 0 mls/hr Per Nicardipine Stroke Protocol Titration Protocol 5 MG/HR Insulin Glargine 10 unit 06/06/25 21:00 Insulin Glargine (Lantus) 5 Unit/0.05 Ml (Per 5 Units) SC 07/06/25 20:59 HS YUDITH Insulin Human Lispro 0 unit 06/05/25 19:30 06/06/25 07:14 Insulin Lispro (Admelog) 1 Unit/0.01 Ml Unit SC 07/05/25 19:29 1 unit ACHS YUDITH Administration Protocol Magnesium Hydroxide 30 ml 06/05/25 05:55 Milk Of Magnesia Susp 30 Ml Udc PO 07/05/25 05:54 QDAY PRN CONSTIPATION Verapamil HCl 240 mg 06/05/25 21:00 06/05/25 20:19 Verapamil 120 Mg Tabcr PO 07/05/25 20:59 240 mg HS YUDITH Administration Plan Summary: 64-year-old male with past medical history significant for essential hypertension, hyperlipidemia, and insulin-dependent type 2 diabetes mellitus presented to ED with chief complaint of left upper arm weakness and paresthesia for about half an hour. Patient received tenecteplase 23.5 mg and admitted to ICU for further management of acute ischemic stroke. Patient is stable to be transferred to medical floor for ongoing management of current issues. Neuro: #Acute ischemic stroke Status post tenecteplase Brain MRI with MRA shows embolic type acute infarcts in both parietal lobes Plan: - Telemetry monitoring - Neurocheck every 4hr - TTE with bubble study pending, if negative then consider TRUMAN - DAPT started: ASA 81mg and Plavix 75mg - Started on high intensity statin - Referral to physical and speech therapy CVS: #Hypertensive emergency, improved #History of essential hypertension Stopped Nicardipine drip Plan - On home med verapamil 240 mg tonight - Started Hydralazine 25mg TID in ICU #Possible new CHF The patient reported that he has been having orthopnea, PND and bilateral lower extremity edema for about [address] chest revealed bilateral pleural effusion On physical exam +2 bilateral pitting edema up to bilateral knees Plan - TTE with bubble study pending - Strict ins and outs - BNP >3280 - Fluid restriction 1.5L/day - 2g sodium diet #Hypercholesterolemia Controlled on simvastatin 20 mg daily Total cholesterol 76, triglycerides 72, LDL 30 Plan ? Switched to atorvastatin 80 mg daily Pulm: #Bilateral pleural effusion Likely secondary to possible new CHF CXR showed: Moderate enlargement cardiac contour with prominent vascular congestion including central vascular engorgement Plan - May consider diuretics along with management of CHF exacerbation after passed 24 hours poststroke #Pulmonary Nodule Incidental finding of CT chest 6mm nodule of right upper lobe Plan - Ordered cocci serology - Outpatient F/U with repeat CT chest w/o contrast in 3-6mons GI: - No active issue Renal: #RENATE #Proteinuria DDX: prerenal, intrarenal or postrenal or progression to CKD, versus cardiorenal syndrome US renal showed mild bilateral renal scar formation and mild left hydronephrosis Creatinine 3.3 -> 3.0 after bumex given so possibly cardiorenal Urine lytes: Cr 43, Na 72.6, K 3.6, Cl 73.1 Calculated FENa 4.1% but patient takes diuretic at home so possibly is falsely elevated (due to artificially increase sodium excretion) Plan - Consulted Nephrology, Dr. Newby, appreciate recs - Avoid nephrotoxins - Renally dose medications #Hx of Bilateral Pitting Edema DDX: new dx of CHF vs new dx of CKD Plan - Resumed home bumex 1mg PO daily Endo: #Insulin-dependent Diabetes mellitus type 2 #Glycosuria Patient mentions he takes long-acting insulin 9 units at night, however forgot to bring it with him to hospital A1c 7.8 Blood glucose 182 Fingerstick blood glucose 137 - Started on Glargine 10u qHS - On sliding scale insulin - Hypoglycemia protocol in place Heme: #Normocytic anemia Likely diagnosis in the setting of volume overload and possible CKD - Monitor CBC ID: - No active issue MSK: - No active issue Psych: - No active issues Health maintenance: Dispo: Downgrade to medical floor for care post ischemic stroke DVT prophylaxis: Heparin 5000u q8h Lines: Peripheral lines Diet: Carb consistent diet CODE STATUS: Full code Case discussed with my attending Dr. Moscoso, and senior resident, Dr. Stanislaw Sheets MD PGY-1 Attending Provider Attestation/Addendum Patient seen and examined resident team, agree with above. In brief is a 64-year-old male admitted to the ICU for stroke status post TNK. Yesterday he developed a hypertensive emergency in the ICU requiring nicardipine drip. He had new onset of symptoms and went for a repeat head CT. This was negative for any bleed. He was evaluated by tele neuro. Today on exam he is doing well. There is subtle weakness on the L compared to the R. His LE edema is improving. Rest of his exam is benign. He has been monitored for 24hrs post tnk. He is pending MRI and echo. He is stable for downgrade. Nephrology will follow for workup of suspected CKD. case d/w ICU team labs, imaging, records reviewed ~ 38min required for eval, exam, review, intervention, discussion and formulation of POC for this pt
[2025-06-06] MEDS: BUMETANIDE 0.5 MG TABLET 1 MG PO (11:33)
[2025-06-06] MEDS: ASPIRIN EC 81 MG TABEC PO (11:33)
[2025-06-06] MEDS: CLOPIDOGREL BISULFATE 75 MG TABLET PO (11:33)
[2025-06-06] MEDS: HEPARIN SOD INJ 5000 UNIT/ML VIAL SC ×2 (14:13→21:42)
--- NOTE | 2025-06-06 14:38 | PD.RESPRO ---
Documentation for date of: 06/06/25 Subjective Subjective Interval history: This is a 64 y.o male with PMH of hypertension, and insulin-dependent diabetes mellitus type 2 who presented to the ED on 06/05/25 with left upper extremity weakness with associated paresthesia x30min prior to arrival. Patient has also reported orthopnea, PND and bilateral lower extremity edema x6 months. In the ED, patient scored a 3 on NIHSS stroke scale which prompted TNK administration at 0344. CT head revealed possible acute infract with brain MRI follow-up recommended. CTA head and neck revealed no large vessel occlusion, CT chest revealed bilateral pleural effusion and 6 mm pulmonary nodule in the right upper lobe. Patient was then transferred to ICU for post-stroke care. Given patient's elevated BP, Nicardipine drip was started at 1640 by tele neurology. Stroke alert was again initiated at 1720 for acute worsening of neurological symptoms with concurrent drop of the blood pressure. Emergent CT head was done to rule out a bleed, negative for hemorrhage. CTA head/neck was also done and did not show any large vessel occlusion. Teleneurologist was consulted, who who noted NIHSS score 6, and the patient's symptoms was already improving. 24-hr post TNK head CT was also ordered which was unremarkable. Brain MRI revealed emboli to bilateral parietal regions concerning for intracardiac vegetations. Patient will be transferred to telemetry for continuation of care and further workup. Sign-out was received at approximately 1430 with pending Echocardiogram with bubble study. On re-examination patient reports resolution of symptoms with no residual weakness or parasthesia. Patient is hemodynamically stable and will be transferred to medical floor for ongoing management of current issues. Exam Vital Signs Temp Pulse Resp BP Pulse Ox O2 Del Method O2 Flow Rate 98 F 90 20 143/106 H 94 L Room Air 2 06/06/25 12:00 06/06/25 14:15 06/06/25 14:15 06/06/25 14:15 06/06/25 14:15 06/05/25 15:00 06/06/25 05:58 Narrative Exam Gen: Well-developed and well-nourished. HEENT: NCAT, EOMI, MMM, anicteric conjunctivae. CVS: normal S1 and S2. RRR. No M/R/G. Resp: CTA B/L. No rhonchi, rales, crackles or wheezing. Ext: 2+ lower limb pitting edema up to bilateral knees, warm and well perfused Neuro: Cranial nerve II to XII grossly intact. Bilateral upper extremity 5/5. Bilateral lower extremity 5/5. normal sensation to both upper and lower limbs bilaterally. GCS 15 Skin: No rash Psych: appropriate mood and affect. Objective Labs 06/07/25 05:53 06/07/25 05:53 Labs: Laboratory Results - last 24 hr 06/05/25 06/05/25 06/05/25 05:30 11:50 17:49 WBC 5.3 RBC 4.63 Hgb 13.1 L Hct 38.6 L MCV 83 MCH 28.3 MCHC 33.9 RDW Std Deviation 49.3 H Plt Count 204 D Neut % (Auto) 62 Lymph % (Auto) 24 [place] % (Auto) 11 Eos % (Auto) 2 Baso % (Auto) 1 Neut # (Auto) 3.2 Lymph # (Auto) 1.3 [place] # (Auto) 0.6 Eos # (Auto) 0.1 Baso # (Auto) 0.0 Immature Gran # (Auto) 0.02 H Absolute Nucleated RBC 0.00 Immature Gran % 0 Nucleated RBC % 0 PT 11.4 INR 1.0 Sodium 137 Potassium 5.0 Chloride 107 Carbon Dioxide 20.8 Anion Gap 9 BUN 51 H Creatinine 2.9 H Estim Creat Clear Calc 27.4 L eGFR 23 L BUN/Creatinine Ratio 18 Glucose 115 H D Calculated Osmolality 288 Calcium 8.6 Corrected Calcium 9.0 Phosphorus Magnesium 1.6 Total Bilirubin 0.5 AST 22 ALT 11 Alkaline Phosphatase 122 H Troponin I 0.041 B-Natriuretic Peptide Total Protein 6.2 Albumin 3.5 Globulin 2.7 Albumin/Globulin Ratio 1.3 Ur Random Creatinine 43 Ur Random Sodium 72.6 Ur Random Potassium 36 Ur Random Chloride 73.1 Coccidioides IgM Ab Negative 06/06/25 05:12 WBC 5.7 RBC 4.72 Hgb 13.3 L Hct 39.7 L MCV 84 MCH 28.2 MCHC 33.5 RDW Std Deviation 50.1 H Plt Count 208 Neut % (Auto) 74 Lymph % (Auto) 15 [place] % (Auto) 9 Eos % (Auto) 1 Baso % (Auto) 1 Neut # (Auto) 4.2 Lymph # (Auto) 0.8 L [place] # (Auto) 0.5 Eos # (Auto) 0.1 Baso # (Auto) 0.1 Immature Gran # (Auto) 0.02 H Absolute Nucleated RBC 0.00 Immature Gran % 0 Nucleated RBC % 0 PT INR Sodium 138 Potassium 4.9 Chloride 106 Carbon Dioxide 20.8 Anion Gap 11 BUN 51 H Creatinine 3.0 H Estim Creat Clear Calc 26.5 L eGFR 22 L BUN/Creatinine Ratio 17 Glucose 165 H D Calculated Osmolality 293 Calcium 8.5 Corrected Calcium 9.1 Phosphorus 4.0 Magnesium 1.6 Total Bilirubin 0.6 AST 14 ALT 10 Alkaline Phosphatase 119 H Troponin I B-Natriuretic Peptide > 3280 H* Total Protein 5.8 Albumin 3.2 L Globulin 2.6 Albumin/Globulin Ratio 1.2 Ur Random Creatinine Ur Random Sodium Ur Random Potassium Ur Random Chloride Coccidioides IgM Ab Quality Measures Quality Measures stroke Suspected type of Stroke: Acute Ischemic Last known well (date): 06/05/25 Last known well (time): 17:10 Tenecteplase given: > 60 min of arrival Rehab services: PT evaluation ordered and Speech Language Pathology eval ordered VTE Prophylaxis: pharmaceutical Antithrombotic by day 2:: ordered Statin ordered: <75 y/o high intensity dose Anticoagulation ordered for A-fib or flutter (current or hx): not indicated Assessment & Plan Assessment Current Active Medications: Generic Name Dose Route Start Last Admin Trade Name Freq PRN Reason Stop Dose Admin Acetaminophen 650 mg 06/05/25 05:55 Acetaminophen 325 Mg Tablet PO 07/05/25 05:54 Q4HR PRN PAIN SCALE 1-3 (mild Acetaminophen 650 mg 06/05/25 05:55 Acetaminophen Supp 650 Mg Supp [place] 07/05/25 05:54 Q4HR PRN PAIN SCALE 1-3 (mild Al Hydrox/Mg Hydrox/Simethicone 30 ml 06/05/25 05:55 Mg Hyd/Al Hyd/Shadia (Maalox Reg) Susp 30 Ml Udc PO 07/05/25 05:54 Q4HR PRN Heartburn or Upset Stomach Aspirin 81 mg 06/06/25 09:30 06/06/25 11:33 Aspirin Ec 81 Mg Tabec PO 07/06/25 09:29 81 mg QDAY YUDITH Administration Atorvastatin Calcium 80 mg 06/05/25 21:00 06/05/25 20:19 Atorvastatin Calcium 20 Mg Tablet PO 07/05/25 20:59 80 mg HS YUDITH Administration Bumetanide 1 mg 06/06/25 09:30 06/06/25 11:33 Bumetanide 0.5 Mg Tablet PO 07/06/25 09:29 1 mg DAILY YUDITH Administration Clopidogrel Bisulfate 75 mg 06/06/25 09:30 06/06/25 11:33 Clopidogrel Bisulfate 75 Mg Tablet PO 07/06/25 09:29 75 mg QDAY YUDITH Administration Dextrose 25 ml 06/05/25 07:11 Dextrose 50%-Water Inj 50 Ml Syringe IV 07/05/25 07:10 Q15MIN PRN BG 50-70 responsive npo pt Dextrose 50 ml 06/05/25 07:11 Dextrose 50%-Water Inj 50 Ml Syringe IV 07/05/25 07:10 Q15MIN PRN BG <50 OR BG <70 & pt unresponsive Glucagon 1 mg 06/05/25 07:11 Glucagon Inj 1 Mg Vial IM Q15MIN PRN BG <70, and no IV access Heparin Sodium (Porcine) 5,000 unit 06/06/25 14:00 06/06/25 14:13 Heparin Sod Inj 5000 Unit/Ml Vial SC 06/20/25 13:59 5,000 unit Q8HR YUDITH Administration Hydralazine HCl 25 mg 06/05/25 22:00 06/06/25 14:13 Hydralazine Hcl 25 Mg Tablet PO 07/05/25 21:59 25 mg TID YUDITH Administration Nicardipine/Sodium Chloride 20 mg in 200 mls @ 50 mls/hr 06/05/25 03:40 06/05/25 18:20 Cardene Ivpb IV 07/05/25 03:39 0 mg/hr .Q4H PRN 0 mls/hr Per Nicardipine Stroke Protocol Titration Protocol 5 MG/HR Insulin Glargine 10 unit 06/06/25 21:00 Insulin Glargine (Lantus) 5 Unit/0.05 Ml (Per 5 Units) SC 07/06/25 20:59 HS YUDITH Insulin Human Lispro 0 unit 06/05/25 19:30 06/06/25 11:34 Insulin Lispro (Admelog) 1 Unit/0.01 Ml Unit SC 07/05/25 19:29 2 unit ACHS YUDITH Administration Protocol Magnesium Hydroxide 30 ml 06/05/25 05:55 Milk Of Magnesia Susp 30 Ml Udc PO 07/05/25 05:54 QDAY PRN CONSTIPATION Verapamil HCl 240 mg 06/05/25 21:00 06/05/25 20:19 Verapamil 120 Mg Tabcr PO 07/05/25 20:59 240 mg HS YUDITH Administration Plan 64M with PMH of significant for HTN and IDDM presented to ED with left upper extremity weakness and paresthesia x30min prior to arrival on 06/05/25. Patient received tenecteplase 23.5 mg and admitted to ICU for further management of acute ischemic stroke. Patient is stable to be transferred to medical floor for ongoing management of current issues. 1-Acute ischemic stroke S/P tenecteplase. Brain MRI with MRA shows embolic type acute infarcts in bilateral parietal lobes. 24hr post-TNK head CT negative. Plan: - Will consider TRUMAN for possible intracardiac vegetations given hx of meth use in the past - Telemetry monitoring - Neurocheck every 4hr - Continue DAPT : ASA 81mg and Plavix 75mg - Continue high intensity statin - Physical and speech therapy 2-Possible new onset CHF exacerbation Patient reported orthopnea, PND and bilateral lower extremity edema [id number] with PE consistent with +2 bilateral pitting edema up to bilateral knees. CT chest revealed bilateral pleural effusion. CXR showed: Moderate enlargement cardiac contour with prominent vascular congestion including central vascular engorgement Plan: - Pending TTE with bubble study - Continue home bumex 1mg PO daily - Strict ins and outs - BNP >3280 - Fluid restriction 1.5L/day - 2g sodium diet 3-Hypertensive emergency, improved. History of essential hypertension Stopped Nicardipine drip Last measurement of 143/106 at 1415 Plan: - Continue verapamil 240 mg - Continue Hydralazine 25mg TID 4- RENATE DDX: prerenal, intrarenal or postrenal or progression to CKD, versus cardiorenal syndrome US renal showed mild bilateral renal scar formation and mild left hydronephrosis Creatinine 3.3 -> 3.0 after bumex given so possibly cardiorenal Urine lytes: Cr 43, Na 72.6, K 3.6, Cl 73.1 Calculated FENa 4.1% but patient takes diuretic at home so possibly is falsely elevated (due to artificially increase sodium excretion) Plan - Consulted Nephrology, Dr. Newby, appreciate recs - Avoid nephrotoxins - Renally dose medications 6-[id number] Diabetes mellitus type 2 Patient takes long-acting insulin 9 units at night, however forgot to bring it with him to hospital A1c 7.8 Blood glucose 165 Fingers stick: 209 Plan: - Continue Glargine 10u qHS - On sliding scale insulin - Hypoglycemia protocol in place 6- Hypercholesterolemia Controlled on simvastatin 20 mg daily Total cholesterol 76, triglycerides 72, LDL 30 Plan ? Continue atorvastatin 80 mg daily 7-Pulmonary Nodule Incidental finding of CT chest 6mm nodule of right upper lobe Plan - negative cocci serology - Outpatient F/U with repeat CT chest w/o contrast in 3-6 months 8- Normocytic anemia Likely diagnosis in the setting of volume overload and possible CKD and CHF Hgb improved from 13 on admission to 13.3 - Monitor CBC Health maintenance: Dispo: Downgrade to medical floor for care post ischemic stroke. DVT prophylaxis: Heparin 5000u q8h Lines: Peripheral lines Diet: Carb consistent diet CODE STATUS: Full code Case discussed with my attending Dr. Herrera, and senior resident, Dr. Styles. Paola Prescott DO PGY-1 Attending Provider Attestation/Addendum I, Mackenzie Herrera DO, attest that I was physically present for the [place] portions of the service and evaluated the patient with the resident and I reviewed and discussed the case with the resident and agree with the resident's findings and plans of care as documented above Patient seen and eval this afternoon. Patient was downgraded from the ICU. Patient was admitted for left upper extremity weakness during which a stroke alert had been called in the ED. TNK was given and patient was subsequently brought to the ICU for closer monitoring. Patient was started on a nicardipine drip due to elevated BP. MRI of the brain shows embolic infarct in both parietal lobes. Son and daughter are at bedside at time of evaluation. Patient is able to speak articulately and muscle strength appears to be even in both upper extremities. He states he is feeling well. Bilateral lower extremity edema noted to be 2+ pitting. However, son at bedside states that his lower extremities are usually much worse. He does take antihypertensives at home and Bumex. He is noted to have RENATE versus CKD with a creatinine of 3. Nephrology is following. Renal ultrasound showed mild bilateral renal parenchymal scar formation and mild left hydronephrosis. Patient has a history of alcohol use, but has reportedly stopped drinking recently. He denies any history of withdrawals. Patient has a remote history of drug use in the past as well. Patient is currently on aspirin and Plavix. He is currently pending echocardiogram. Patient denies any history of clots or cardiac history. No focal neurological deficits noted on exam at this time. Patient denies any visual changes either.
[2025-06-06 14:45] LABS: Cocci Serology, IgG Negative (Negative)
--- NOTE | 2025-06-06 15:54 | PC.PT ---
PT eval only. Patient was xI with bed mobility, transfers, and ambulation. Patient is safe to ambulate to the bathroom and in the halls with no AD or staff assist. RN made aware.
--- NOTE | 2025-06-06 17:24 | PC.SS ---
Addendum entered and electronically signed by JAMIN Justice 06/07/25 07:57: Contact information for patient's adult daughters: Shiva Baldwin [phone] Brenda Baldwin [phone] Original Note: TANK CALIBRATOR conducted bedside contact with the patient conduct initial assessment and to discuss discharge planning.? At bedside with patient was son Laurent Baldwin .? Patient is Malagasy speaking.? Son provided information for assessment and discharge planning.? Patient resides at home with brother, Diego Baldwin.? Patient does not utilize any form of DME to assist with ambulation.? Patient does not utilize home oxygen.? Patient describes the ability to complete ADL?s independently.? Patient?s surrogate medical decision maker is spouse, Shannan Baldwin .? Patient utilizes [facility] for PCP services.? Patient does not participate with dialysis.? Patient does not possess any specialty providers.? Patient possesses history of diabetes, insulin dependent.? Plan is for the patient to return home at the time of discharge.? Family will provide transportation on behalf of the patient. ?No further discharge needs identified by the patient.? No further intervention required at this time, social problems specialist will be available to address any further concerns.? Next of Kin: Shannan Summersrigal D/C Plan: Home
--- NOTE | 2025-06-06 17:30 | PC.NURSE ---
Report received from Tiffany LENTZ. Pt will be transferred to room 267 from ICU shortly.
[2025-06-06 17:43] LABS: Protein Total, Random Urine > 250 mg/dL (1-14)
--- NOTE | 2025-06-06 18:44 | PC.NURSE ---
Pt resting comfortably in bed w/ family at bedside. Pt denies any pain, distress or discomfort. Will cont to monitor.
[2025-06-06] MEDS: ATORVASTATIN CALCIUM 20 MG TABLET 80 MG PO (21:33)
[2025-06-06] MEDS: INSULIN GLARGINE (Lantus) 5 UNIT/0.05 ML (PER 5 UNITS) 10 UNIT SC (21:35)
--- NOTE | 2025-06-06 21:40 | ESPR_ITS ---
Documentation for date of: 06/06/25 Subjective Subjective Interval history: Patient is a 64 year old male with a past medical history hypertension, diabetes mellitus type 2 insulin-dependent on Tresiba, and atorvastatin who was admitted on 06/05/2025 directly into the ICU secondary to tenecteplase administration given concern for stroke and subsequently on MRI noted to have embolic type acute infarct in both parietal lobes. Repeat CT head on 06/06/2025 negative for acute hemorrhage status post tenecteplase. Patient was subsequently downgraded from ICU to floor status. Neurology following given embolic stroke. Echo pending, Dr. Bonner excelsior picker assigned to echo Patient examined at bedside. Patient alert and oriented x 3. Patient initially on admission complaining of left arm paresthesias but since then patient stated all symptoms have resolved. Patient denied any lower extremity weakness or upper extremity weakness. Per daughter at bedside no dysarthria noted. Patient denied headache or blurry vision. Continue Aspirin, Plavix, and Atorvastatin. Consult Cardiology given need of TRUMAN. Exam Vital Signs Temp Pulse Resp BP Pulse Ox O2 Del Method O2 Flow Rate 96.9 F 95 20 145/108 H 99 Room Air 2 06/06/25 20:00 06/06/25 21:33 06/06/25 20:00 06/06/25 21:33 06/06/25 20:00 06/05/25 15:00 06/06/25 05:58 Narrative Exam General Appearance: Alert & Oriented X3, well-nourished male who is lying in bed in no acute distress HEENT: Skull symmetrical and atraumatic. Conjunctivae pink and moist. Pupils equal, round, reactive to light and accommodation (PERRL). External ear without lesion or discharge. Straight, nares patient, mucosa pink, no discharge. Cardio: Normal Rate and Rhythm with S1 and S2 heart sounds. No murmurs or extra heart sounds auscultated. No bruits on carotid auscultation. No peripheral edema or cyanosis. Lungs: Symmetric with good expansion. Chest and back non-tender. Breath sounds vesicular without crackles, wheezing or rhonchi Abdomen: Non-tender, Non-distended, Normal Reactive Bowel Sounds Neuro: Alert, cooperative, oriented to person, place, and time. Speech clear. CN grossly intact. Upper motor strength 5/5 and Lower motor strength 5/5. Sensation intact. Objective Labs 06/07/25 05:53 06/07/25 05:53 Labs: Laboratory Results - last 24 hr 06/05/25 06/05/25 06/06/25 05:30 11:50 05:12 WBC 5.7 RBC 4.72 Hgb 13.3 L Hct 39.7 L MCV 84 MCH 28.2 MCHC 33.5 RDW Std Deviation 50.1 H Plt Count 208 Neut % (Auto) 74 Lymph % (Auto) 15 [place] % (Auto) 9 Eos % (Auto) 1 Baso % (Auto) 1 Neut # (Auto) 4.2 Lymph # (Auto) 0.8 L [place] # (Auto) 0.5 Eos # (Auto) 0.1 Baso # (Auto) 0.1 Immature Gran # (Auto) 0.02 H Absolute Nucleated RBC 0.00 Immature Gran % 0 Nucleated RBC % 0 Sodium 138 Potassium 4.9 Chloride 106 Carbon Dioxide 20.8 Anion Gap 11 BUN 51 H Creatinine 3.0 H Estim Creat Clear Calc 26.5 L eGFR 22 L BUN/Creatinine Ratio 17 Glucose 165 H D Calculated Osmolality 293 Calcium 8.5 Corrected Calcium 9.1 Phosphorus 4.0 Magnesium 1.6 Total Bilirubin 0.6 AST 14 ALT 10 Alkaline Phosphatase 119 H B-Natriuretic Peptide > 3280 H* Total Protein 5.8 Albumin 3.2 L Globulin 2.6 Albumin/Globulin Ratio 1.2 Ur Random Creatinine 43 U Random Total Protein Ur Random Sodium 72.6 Ur Random Potassium 36 Ur Random Chloride 73.1 Coccidioides IgG Ab Negative 06/06/25 16:15 WBC RBC Hgb Hct MCV MCH MCHC RDW Std Deviation Plt Count Neut % (Auto) Lymph % (Auto) [place] % (Auto) Eos % (Auto) Baso % (Auto) Neut # (Auto) Lymph # (Auto) [place] # (Auto) Eos # (Auto) Baso # (Auto) Immature Gran # (Auto) Absolute Nucleated RBC Immature Gran % Nucleated RBC % Sodium Potassium Chloride Carbon Dioxide Anion Gap BUN Creatinine Estim Creat Clear Calc eGFR BUN/Creatinine Ratio Glucose Calculated Osmolality Calcium Corrected Calcium Phosphorus Magnesium Total Bilirubin AST ALT Alkaline Phosphatase B-Natriuretic Peptide Total Protein Albumin Globulin Albumin/Globulin Ratio Ur Random Creatinine U Random Total Protein > 250 H Ur Random Sodium Ur Random Potassium Ur Random Chloride Coccidioides IgG Ab Quality Measures Quality Measures stroke Suspected type of Stroke: Acute Ischemic Last known well (date): 06/05/25 Last known well (time): 17:10 Tenecteplase given: > 60 min of arrival Rehab services: PT evaluation ordered and Speech Language Pathology eval ordered VTE Prophylaxis: pharmaceutical Antithrombotic by day 2:: ordered Statin ordered: >75 y/o moderate or high intensity dose Anticoagulation ordered for A-fib or flutter (current or hx): not indicated Assessment & Plan Assessment Current Active Medications: Generic Name Dose Route Start Last Admin Trade Name Frechika PRN Reason Stop Dose Admin Acetaminophen 650 mg 06/05/25 05:55 Acetaminophen 325 Mg Tablet PO 07/05/25 05:54 Q4HR PRN PAIN SCALE 1-3 (mild Acetaminophen 650 mg 06/06/25 17:55 Acetaminophen 325 Mg Tablet PO 07/06/25 17:54 Q6HR PRN Fever >100.4 Aspirin 81 mg 06/06/25 09:30 06/06/25 11:33 Aspirin Ec 81 Mg Tabec PO 07/06/25 09:29 81 mg QDAY YUDITH Administration Atorvastatin Calcium 80 mg 06/05/25 21:00 06/06/25 21:33 Atorvastatin Calcium 20 Mg Tablet PO 07/05/25 20:59 80 mg HS YUDITH Administration Bumetanide 1 mg 06/06/25 09:30 06/06/25 11:33 Bumetanide 0.5 Mg Tablet PO 07/06/25 09:29 1 mg DAILY YUDITH Administration Clopidogrel Bisulfate 75 mg 06/06/25 09:30 06/06/25 11:33 Clopidogrel Bisulfate 75 Mg Tablet PO 07/06/25 09:29 75 mg QDAY YUDITH Administration Dextrose 25 ml 06/05/25 07:11 Dextrose 50%-Water Inj 50 Ml Syringe IV 07/05/25 07:10 Q15MIN PRN BG 50-70 responsive npo pt Dextrose 50 ml 06/05/25 07:11 Dextrose 50%-Water Inj 50 Ml Syringe IV 07/05/25 07:10 Q15MIN PRN BG <50 OR BG <70 & pt unresponsive Glucagon 1 mg 06/05/25 07:11 Glucagon Inj 1 Mg Vial IM Q15MIN PRN BG <70, and no IV access Heparin Sodium (Porcine) 5,000 unit 06/06/25 14:00 06/06/25 14:13 Heparin Sod Inj 5000 Unit/Ml Vial SC 06/20/25 13:59 5,000 unit Q8HR YUDITH Administration Hydralazine HCl 25 mg 06/05/25 22:00 06/06/25 21:33 Hydralazine Hcl 25 Mg Tablet PO 07/05/25 21:59 25 mg TID YUDITH Administration Insulin Glargine 10 unit 06/06/25 21:00 Insulin Glargine (Lantus) 5 Unit/0.05 Ml (Per 5 Units) SC 07/06/25 20:59 HS YUDITH Insulin Human Lispro 0 unit 06/05/25 19:30 06/06/25 17:07 Insulin Lispro (Admelog) 1 Unit/0.01 Ml Unit SC 07/05/25 19:29 2 unit ACHS YUDITH Administration Protocol Verapamil HCl 240 mg 06/05/25 21:00 06/05/25 20:19 Verapamil 120 Mg Tabcr PO 07/05/25 20:59 240 mg HS YUDITH Administration Plan Patient is a 64 year old male with a past medical history hypertension, diabetes mellitus type 2 insulin-dependent on Tresiba, and atorvastatin who was admitted on 06/05/2025 directly into the ICU secondary to tenecteplase administration given concern for stroke and subsequently on MRI noted embolic stroke. #Acute Embolic Stroke, Bilateral #Left Arm Paresthesia, resolved. #S/p Tenecteplase #DVT of left peroneal and posterior tibial veins Patient presented with paresthesia upon admission and was administered tenecteplase. Inidital head CT negative. MRI noted embolic type acute infarcts in both pareital lobes. Repeat CT head after 24 hours noted no acute hemorrhage. Diagnostics: Lipid panel: Triglycerides 72, Choelsterol 76, LDL 30 HDL 32 A1c (06/05/2025): 7.8 % TSH 6.05 (H) & Free T4 1.25 US: non-occlusive acute deep vein thrombus involving the left peroneal and posterior tibial veins Plan -Please consult Cardiology, given embolic stroke & US pattern and no history of Atrial Fibrillation with risk of embolization given MRI -Continue Aspirin 81 mg PO qday, Atorvastatin 80 mg PO HS, Plavix 75 mg PO Qday -Monitor Blood pressure, goal <180/105 given TNK -continue to monitor fasting blood glucose -Head of bed at 30 -K >4 and Mg >2 #Moderate Right left Pleural Fluid #Right Base Pneumonia #Vascular Congestion #Hypertension #Dibetes Mellitys Type II insulin depdent #Hyperglycemia #Hyperlipidemia #Normocytic Anemia #RENATE vs CKD #Renal Parenchymal Scar Formation #Mild Left Hydronephrosis - The patient's plan was discussed with attending Dr. Barry Sahu MD PGY2 Internal Medicine Attending Provider Attestation/Addendum I personally have seen and examined the patient at the bedside and I agreed with resident's findings, assessment and plan of care. Imp: Acute CVA: embolic type s/p TNK No focal deficit on exam. will start ASA and plavix and statin FU with TRUMAN to rule out cardiac source.
[2025-06-06] MEDS: VERAPAMIL 120 MG 240 MG PO (21:48)
[2025-06-07] VITALS (12 sets, daily range): BP systolic 114–137; BP diastolic 79–100; PULSE 78–89; RESP 17–27; TEMP 36.1–36.4; O2SAT 94–100; BMI 27.1
[2025-06-07] MEDS: HEPARIN SOD INJ 5000 UNIT/ML VIAL SC ×2 (05:13→13:49)
--- NOTE | 2025-06-07 06:16 | XR_ITS ---
Examination: CT abdomen and pelvis without contrast. Coronal 3-D reconstructions. Sagittal 2-D reconstructions. Date and time of exam:June 07, 2025 0809 hours Comparison October 09, 2019 INDICATIONS: Diagnosis cirrhosis CTDI: vol (mGy): 7.68 DLP: (mGycm): 522 Technique: Axial images of the abdomen have been obtained, 3 mm slice thickness Intravenous contrast material has not been administered. Low dose protocols were performed. One or more of the following dose reduction techniques were used; automated exposure control, adjustment of the mA and/or KV according to patient size, use of iterative reconstruction technique. Findings: Moderate enlargement cardiac contour with prominent vascular congestion, moderate right mild left pleural effusions Pneumonia right base Cirrhosis, liver irregular in contour, no focal liver lesions Anasarca Mild ascites No splenic or pancreatic lesion There appears to be contrast in the kidneys, clinical correlation advised No bowel obstruction No diverticulitis Contracted urinary bladder Transverse prostate dimension 4.7 cm Significant osteopenia IMPRESSION: Heart failure pattern with moderate right mild left pleural effusions Pneumonia right base Cirrhosis Mild ascites Anasarca No bowel obstruction
[2025-06-07 06:53] LABS: Basophils # (Auto) 0.1 Thou/mm3 (0.0-0.2); Basophils % (Auto) 1 % (0-2.5); Eosinophils # (Auto) 0.1 Thou/mm3 (0.0-0.5); Eosinophils % (Auto) 2 % (0-10); Hematocrit 37.4 % (41.0-53.0); Hemoglobin 12.5 g/dL (13.5-16.0); Immature Granulocytes Auto 0.02 Thou/mm3 (0.00-0.00); Lymphocytes # (Auto) 1.6 Thou/mm3 (1.0-4.8); Lymphocytes % (Auto) 28 % (10-50); Mean Corpuscular HGB Conc 33.4 g/dl (31.0-37.0); Mean Corpuscular Hemoglobin 28.3 pg (25.0-35.0); Mean Corpuscular Volume 85 fL (80-100); Monocytes # (Auto) 0.8 Thou/mm3 (0.0-0.8); Monocytes % (Auto) 13 % (0-12); Neutrophils # (Auto) 3.2 Thou/mm3 (1.8-7.7); Neutrophils % (Auto) 55 % (37-80); Nucleated Red Blood Cell # 0.00 Thou/mm3 (0.00-0.00); Nucleated Red Blood Cell % 0 /100 WBC (0); Platelet Count 197 Thou/mm3 (140-440); RDW Standard Deviation 50.5 fL (35.1-43.9); Red Blood Count 4.42 Miln/mm3 (4.50-5.90); White Blood Count 5.8 Thou/mm3 (3.8-10.6)
[2025-06-07 06:57] LABS: Alanine Aminotransferase 8 U/L (10-49); Albumin, Serum 3.0 gm/dL (3.4-4.8); Albumin/Globulin Ratio 1.2 (1.2-2.2); Alkaline Phosphatase 96 U/L (46-116); Anion Gap 7 (7-16); Aspartate Amino Transferase 16 U/L (0-34); BUN/Creatinine Ratio 14 Ratio (12-20); Bilirubin,Total 0.6 mg/dL (0.3-1.2); Blood Urea Nitrogen 43 mg/dL (9-23); Calcium 8.7 mg/dL (8.3-10.6); Calcium (Corrected) 9.5 mg/dL (8.5-10.1); Carbon Dioxide 22.9 mMol/L (20.0-31.0); Chloride 107 mMol/L (98-107); Creatinine (Component) 3.1 mg/dL (0.6-1.3); Estimated Creatinine Clearance 25.6 mL/min (>60); Globulin 2.5 gm/dL (2.3-3.5); Glucose 113 mg/dL (74-106); Magnesium 2.0 mg/dL (1.6-2.6); Osmolality,Calculated 285 (275-295); Phosphorous 3.7 mg/dL (2.4-5.1); Potassium 4.9 mMol/L (3.4-5.1); Sodium 137 mMol/L (136-145); Total Protein 5.5 gm/dL (5.7-8.2); eGFR 22 See Note
[2025-06-07 07:00] LABS: Iron 42 mcg/dL (65-175); Percent Iron Saturation 16 % (20-55); Total Iron Binding Capacity 253 mcg/dL (250-425); Unsaturated Iron Binding 211 (225-295)
[2025-06-07 07:08] LABS: Uric Acid 8.6 mg/dL (3.7-9.2)
[2025-06-07 07:14] LABS: Vitamin D 25 Hydroxy Total 21.9 ng/mL (7.3-40.2)
[2025-06-07 07:30] LABS: Parathyroid Hormone Intact 361.0 pg/ml (18.5-88.0)
--- NOTE | 2025-06-07 08:04 | PC.NURSE ---
Patient transported to CT via wheelchair per CECILAI Cuello. Patient awake, alert and oriented with no signs of acute distress.
--- NOTE | 2025-06-07 08:06 | ESPR_ITS ---
<Statement entered by Dirk Gold MD - 06/07/25 20:55> Patient was examined and case was reviewed with team including attending physician. Note reviewed, I agree with most of its contents and agree with the patient's care as documented by Dr. Prescott Patient seen today at the bedside found awake, alert, orientedx3. No overnight events reported. Vitals and labs reviewed. No active complaints at this time. Patient has bilateral emboli in the parietal regions, consulted cardiology for possible TRUMAN evaluation. Will continue to follow neurology recommendations as far as anticoagulation given the patient's bilateral parietal emboli and DVT to prevent future risk of stroke. Case discussed with my attending Dr. Sharon Gold MD PGY-2 Disclaimer: Despite multiple revisions, due to the dictation software being used, the document bellow may not be free of grammatical errors including phonetic/typographic errors. However, this does not deter from our commitment to providing health care in the patient's best interest in mind. Documentation for date of: 06/07/25 Subjective Subjective Interval history: 06/16/25: NAEO. Patient was evaluated at bedside, reports no weakness or paresthesia. Tolerating diet and urinating without difficulty. Nephrology was consulted, in regards to patient's elevated Cr, BUN and proteinuria, nephrotic syndrome is suspected with recommendation of starting Bumex 2 IV and Albumin 25 qd and if bp will tolerate, considering adding 40 valsartan. Cardiology was consulted for bilateral emboli in parietal regions+non-occlusive DVT+CHF. Still pending TRUMAN and TTE. Neurology was consulted for deciding whether patient needs to be started on an anticoagulation medication given the found emboli and DVT to prevent future risk of stroke. Exam Vital Signs Temp Pulse Resp BP Pulse Ox O2 Del Method O2 Flow Rate 97.0 F 78 27 H 114/79 96 Nasal Cannula 3 06/07/25 04:00 06/07/25 05:15 06/07/25 04:00 06/07/25 05:15 06/07/25 04:00 06/07/25 04:00 06/07/25 04:00 Narrative Exam Gen: Well-developed and well-nourished. HEENT: NCAT, EOMI, MMM, anicteric conjunctivae. CVS: normal S1 and S2. RRR. No M/R/G. Resp: CTA B/L. No rhonchi, rales, crackles or wheezing. Ext: improved lower limb pitting edema up to bilateral knees, warm and well perfused Neuro: Cranial nerve II to XII grossly intact. Bilateral upper extremity 5/5. Bilateral lower extremity 5/5. normal sensation to both upper and lower limbs bilaterally. GCS 15 Skin: No rash Psych: appropriate mood and affect. Objective Labs 06/08/25 05:33 06/08/25 05:33 Labs: Laboratory Results - last 24 hr 06/05/25 06/06/25 06/06/25 11:50 05:12 16:15 WBC RBC Hgb Hct MCV MCH MCHC RDW Std Deviation Plt Count Neut % (Auto) Lymph % (Auto) [place] % (Auto) Eos % (Auto) Baso % (Auto) Neut # (Auto) Lymph # (Auto) [place] # (Auto) Eos # (Auto) Baso # (Auto) Immature Gran # (Auto) Absolute Nucleated RBC Immature Gran % Nucleated RBC % Sodium Potassium Chloride Carbon Dioxide Anion Gap BUN Creatinine Estim Creat Clear Calc eGFR BUN/Creatinine Ratio Glucose Calculated Osmolality Uric Acid Calcium Corrected Calcium Phosphorus Magnesium Iron TIBC Iron Saturation Unsat Iron Binding Total Bilirubin AST ALT Alkaline Phosphatase B-Natriuretic Peptide > 3280 H* Total Protein Albumin Globulin Albumin/Globulin Ratio 25-OH Vitamin D Total PTH Intact U Random Total Protein > 250 H Coccidioides IgG Ab Negative 06/07/25 05:53 WBC 5.8 RBC 4.42 L Hgb 12.5 L Hct 37.4 L MCV 85 MCH 28.3 MCHC 33.4 RDW Std Deviation 50.5 H Plt Count 197 Neut % (Auto) 55 Lymph % (Auto) 28 [place] % (Auto) 13 H Eos % (Auto) 2 Baso % (Auto) 1 Neut # (Auto) 3.2 Lymph # (Auto) 1.6 [place] # (Auto) 0.8 Eos # (Auto) 0.1 Baso # (Auto) 0.1 Immature Gran # (Auto) 0.02 H Absolute Nucleated RBC 0.00 Immature Gran % 0 Nucleated RBC % 0 Sodium 137 Potassium 4.9 Chloride 107 Carbon Dioxide 22.9 Anion Gap 7 BUN 43 H Creatinine 3.1 H Estim Creat Clear Calc 25.6 L eGFR 22 L BUN/Creatinine Ratio 14 Glucose 113 H D Calculated Osmolality 285 Uric Acid 8.6 Calcium 8.7 Corrected Calcium 9.5 Phosphorus 3.7 Magnesium 2.0 Iron 42 L TIBC 253 Iron Saturation 16 L Unsat Iron Binding 211 L Total Bilirubin 0.6 AST 16 ALT 8 L Alkaline Phosphatase 96 D B-Natriuretic Peptide Total Protein 5.5 L Albumin 3.0 L Globulin 2.5 Albumin/Globulin Ratio 1.2 25-OH Vitamin D Total 21.9 PTH Intact 361.0 H U Random Total Protein Coccidioides IgG Ab Quality Measures Quality Measures stroke Suspected type of Stroke: Acute Ischemic Last known well (date): 06/05/25 Last known well (time): 17:10 Tenecteplase given: > 60 min of arrival Rehab services: Speech Language Pathology eval ordered VTE Prophylaxis: pharmaceutical Antithrombotic by day 2:: ordered Statin ordered: <75 y/o high intensity dose Anticoagulation ordered for A-fib or flutter (current or hx): ordered (Will evaluate after TRUMAN by neurology) Assessment & Plan Assessment Current Active Medications: Generic Name Dose Route Start Last Admin Trade Name Freq PRN Reason Stop Dose Admin Acetaminophen 650 mg 06/05/25 05:55 Acetaminophen 325 Mg Tablet PO 07/05/25 05:54 Q4HR PRN PAIN SCALE 1-3 (mild Acetaminophen 650 mg 06/06/25 17:55 Acetaminophen 325 Mg Tablet PO 07/06/25 17:54 Q6HR PRN Fever >100.4 Aspirin 81 mg 06/06/25 09:30 06/06/25 11:33 Aspirin Ec 81 Mg Tabec PO 07/06/25 09:29 81 mg QDAY YUDITH Administration Atorvastatin Calcium 80 mg 06/05/25 21:00 06/06/25 21:33 Atorvastatin Calcium 20 Mg Tablet PO 07/05/25 20:59 80 mg HS YUDITH Administration Bumetanide 1 mg 06/06/25 09:30 06/06/25 11:33 Bumetanide 0.5 Mg Tablet PO 07/06/25 09:29 1 mg DAILY YUDITH Administration Clopidogrel Bisulfate 75 mg 06/06/25 09:30 06/06/25 11:33 Clopidogrel Bisulfate 75 Mg Tablet PO 07/06/25 09:29 75 mg QDAY YUDITH Administration Dextrose 25 ml 06/05/25 07:11 Dextrose 50%-Water Inj 50 Ml Syringe IV 07/05/25 07:10 Q15MIN PRN BG 50-70 responsive npo pt Dextrose 50 ml 06/05/25 07:11 Dextrose 50%-Water Inj 50 Ml Syringe IV 07/05/25 07:10 Q15MIN PRN BG <50 OR BG <70 & pt unresponsive Glucagon 1 mg 06/05/25 07:11 Glucagon Inj 1 Mg Vial IM Q15MIN PRN BG <70, and no IV access Heparin Sodium (Porcine) 5,000 unit 06/06/25 14:00 06/07/25 05:13 Heparin Sod Inj 5000 Unit/Ml Vial SC 06/20/25 13:59 5,000 unit Q8HR YUDITH Administration Hydralazine HCl 25 mg 06/05/25 22:00 06/07/25 05:15 Hydralazine Hcl 25 Mg Tablet PO 07/05/25 21:59 Not Given TID YUDITH Insulin Glargine 10 unit 06/06/25 21:00 06/06/25 21:35 Insulin Glargine (Lantus) 5 Unit/0.05 Ml (Per 5 Units) SC 07/06/25 20:59 10 unit HS YUDITH Administration Insulin Human Lispro 0 unit 06/05/25 19:30 06/07/25 07:48 Insulin Lispro (Admelog) 1 Unit/0.01 Ml Unit SC 07/05/25 19:29 Not Given ACHS [facility] Protocol Verapamil HCl 240 mg 06/05/25 21:00 06/06/25 21:48 Verapamil 120 Mg Tabcr PO 07/05/25 20:59 240 mg HS YUDITH Administration Plan Plan 64M with PMH of significant for HTN and IDDM presented to ED with left upper extremity weakness and paresthesia x30min prior to arrival on 06/05/25. Patient received tenecteplase 23.5 mg and admitted to ICU for further management of acute ischemic stroke. Patient was transferred to medical floor for ongoing management of current issues. 1-Acute ischemic stroke #non-occlusive DVT S/P tenecteplase. Brain MRI with MRA shows embolic type acute infarcts in bilateral parietal lobes. 24hr post-TNK head CT negative. No residual symptoms. non occlusive DVT noted in the left peroneal and left posterior tibial veins. Plan: - Pending TRUMAN for possible intracardiac vegetations given hx of IV drug use in the past - Telemetry monitoring - Neurocheck every 4hr - Continue DAPT : ASA 81mg and Plavix 75mg - Continue high intensity statin - Will consider starting an anticoagulation for noted non-occlusive DVT after TRUMAN, per neurology - Referral placed for speech therapy 2-Possible new onset CHF exacerbation Improved. Patient reported orthopnea, PND and bilateral lower extremity edema [id number] with PE consistent with improved +2 bilateral pitting edema up to bilateral knees. CT chest revealed bilateral pleural effusion. CXR showed: Moderate enlargement cardiac contour with prominent vascular congestion including central vascular engorgement CT abd&Pelvis shows heart failure pattern with moderate right mild left pleural effusions (06/07/25) Plan: - Pending TTE with bubble study - Stop PO Bumex 1 mg - Start bumex 2mg IV daily as recommended by Nephrology - Start Albumin 25 qd as recommended by Nephrology - Strict ins and outs - BNP >3280 - Fluid restriction 1.5L/day - 2g sodium diet 3-Hypertensive emergency, improved. History of essential hypertension Stopped Nicardipine drip Currently stable, improved. Plan: - Continue verapamil 240 mg - Continue Hydralazine 25mg TID -Consider Valsartan 40 if BP tolerates as recommended by Nephrology 4- #RENATE on CKD IV #nephrotic range proteinuria #Nephrotic syndrome DDX for CKD: diabetic nephropathy vs liver cirrhosis versus CHF On exam, BLE edema, bibasilar crackles on auscultation, dyspnea on exertion, PND and orthopnea noted on exam pt appears volume overloaded. US renal showed mild bilateral renal scar formation and mild left hydronephrosis K 4.9, BUN 43 from 51, Cr 3.1 from 3.0, UOP 1500. urine total protein creatinine ratio with 5.8 nephrotic range. PTH elevated 361 Plan Consulted Nephrology, Recommends: - Start Bumex 2 IV and Albumin 25 qd. If bp will tolerate, consider adding 40 valsartan - Avoid nephrotoxins - Renally dose medications - pending vitamin D 1-25 - Strict I&O 1-Bkdogne-[id number] Diabetes mellitus type 2 Patient takes long-acting insulin 9 units at night, however forgot to bring it with him to hospital A1c 7.8 Blood glucose 113 Fingers stick: 89 Plan: - Continue Glargine 10u qHS - On sliding scale insulin - Hypoglycemia protocol in place 6- Hypercholesterolemia Controlled on simvastatin 20 mg daily Total cholesterol 76, triglycerides 72, LDL 30 Plan ? Continue atorvastatin 80 mg daily 7-Pulmonary Nodule Incidental finding of CT chest 6mm nodule of right upper lobe Plan - negative cocci serology - Outpatient F/U with repeat CT chest w/o contrast in 3-6 months 8- Normocytic anemia Likely diagnosis in the setting of volume overload and possible CKD and CHF - Monitor CBC 9- Hepatitis C Infection Positive HCV antibody. Most likely chronic given history of IV drug use. Liver panel unremarkable. Liver cirrhosis with mild ascites noted on CT abd&Pelvis Plan: -Follow up outpatient for correction management Health maintenance: Dispo: Downgrade to medical floor for care post ischemic stroke. DVT prophylaxis: Heparin 5000u q8h Lines: Peripheral lines Diet: Carb consistent diet CODE STATUS: Full code Case discussed with my attending Dr. Herrera, and senior resident, Dr. Kain Gold. Paola Prescott DO PGY-1 Attending Provider Attestation/Addendum Mackenzie Guzman DO, attest that I was physically present for the [place] portions of the service and evaluated the patient with the resident and I reviewed and discussed the case with the resident and agree with the resident's findings and plans of care as documented above Patient seen and evaluated this AM. Patient states he is feeling well and without any active complaints. He continues to have 1+ pitting edema in b/l LE. Currently pending echocardiogram. Case discussed with nephrology as Cr is unchanged. Pt has nephrotic range proteinuria, recommended to give albumin 25g IV daily and Bumex 2mg IV daily, as well as valsartan 40mg PO daily. Patient had been on lisinopril at home. However, he is currently normotensive. Will hold off on ARB at this time due to increase of diuretics. Will f/u with cardiac w/u.
[2025-06-07 08:15] LABS: Hepatitis A Antibody IgM Non Reactive (Non React); Hepatitis B Core Antibody IgM Non Reactive (Non React); Hepatitis B Surface Antigen Non Reactive (Non React); Hepatitis C Antibody Reactive (Non React)
--- NOTE | 2025-06-07 09:07 | ESPR_ITS ---
Documentation for date of: 06/07/25 Subjective Subjective Interval history: Mr. Baldwin is a 64 yo puerto rican speaking gentleman with hx of T2DM on insulin, HTN, initially presented to the ED with complaint of LUE wkness and parasthesia half an hour before presenting to the ED. He reports that he has a PCP at [facility], that he saw about 1 month ago, he reports taking his medications as prescribed. He reports orthopnea and paroxysmal dyspnea, dyspnea on exertion and BLE edema that has limited his ability to work for the past 4-6 months. pt reports that he had been seen by a director of market research over 10 years ago, and has not since been followed. query cirrhosis, given etoh hx query CHF In the ED his vitals were BP 166/122, pulse 94, RR 18, saturating 97% on room air. Labs were significant for hemoglobin of 13.0, sodium 136, potassium 5.1, BUN 64, creatinine 3.3, GFR 20, blood sugar 182, A1c, lipid panel, TSH elevated 6.05. UA revealed 2+ protein, 2+ glucose, 1+ blood, 4+ RBC, but negative for UTI, UA positive for marijuana. CT head revealed possible acute infarct with brain MRI follow-up recommended. CTA head and neck revealed no large vessel occlusion, CT chest revealed bilateral pleural effusion and 6 mm pulmonary nodule in the right upper lobe. 06/05/2025: Patient admitted to ICU, for stroke r/o, tknase given, pt had another stroke alert called later in the day, due to LUE wkness and LLE weakness and L facial droop noted by pt family. repeat CT head post anticoagulation admin. 06/06/2025: nephrology consulted given Renal US with parenchymal scar. Pt seen and examined at ICU bedside with pt son Steffanie. Pt reports that his LE are less swollen than how they are at home. No new complaints. PE with Bibasilar crackles and LE with 1+ pitting edema to the mid grigsby and skin wrinkling. CT brain 24 post-TKNase was negative for hemorrhage. MRI brain impression is embolic type acute infarcts in both parietal lobes. 06/07/2025: Patient seen and examined at bedside. Pt sitting upright eating breakfast. [facility], interpreting. Dr. Newby reviewd pt [facility] results which confirms suspicions of CKD, given 02/2025 BUN 65, creatinine 2.45, GFR 29, albumin 3.4, hemoglobin 12.7, BNP 2716, A1c 9.8 and 07/2024 creatinine 1.8, GFR 42, albumin 3.4, pending TTE read, CTAP pending read, today labs with K 4.9, BUN 43 from 51, Cr 3.1 from 3.0, UOP 1500. Urine protein Cr ratio with >3.5 grams, suggest nephrotic syndrome. Start Bumex 2 IV and Albumin 25 qd. If bp will tolerate, consider adding 40 valsartan (BP 114/79). Exam Vital Signs Temp Pulse Resp BP Pulse Ox O2 Del Method O2 Flow Rate 97.0 F 78 27 H 114/79 96 Nasal Cannula 3 06/07/25 04:00 06/07/25 05:15 06/07/25 04:00 06/07/25 05:15 06/07/25 04:00 06/07/25 04:00 06/07/25 04:00 Narrative Exam GENERAL: no acute distress, AAO x3, comfortably sitting upright in bed HEENT: Head AT/ NC. Mucous membranes moist. NECK: Supple, no lymphadenopathy, no carotid bruits. CARDIOVASCULAR: RRR. Normal S1/S2, No m/r/g. bilateral pitting of lower extremities RESPIRATORY: Bibasilar crackles on auscultation GASTROINTESTINAL: Abdomen soft, non tender no palpable masses. Bowel sounds present MUSCULOSKELETAL:? No cyanosis or edema, no visible joint swelling. NEUROLOGICAL: CN II-XII grossly intact. Sensation intact, symmetric. PSYCHIATRIC: Awake and alert, not agitated, normal mood and affect. SKIN: No obvious rashes, no jaundice, Objective Labs 06/08/25 05:33 06/07/25 05:53 Labs: Laboratory Results - last 24 hr 06/05/25 06/06/25 06/06/25 11:50 05:12 16:15 WBC RBC Hgb Hct MCV MCH MCHC RDW Std Deviation Plt Count Neut % (Auto) Lymph % (Auto) [place] % (Auto) Eos % (Auto) Baso % (Auto) Neut # (Auto) Lymph # (Auto) [place] # (Auto) Eos # (Auto) Baso # (Auto) Immature Gran # (Auto) Absolute Nucleated RBC Immature Gran % Nucleated RBC % Sodium Potassium Chloride Carbon Dioxide Anion Gap BUN Creatinine Estim Creat Clear Calc eGFR BUN/Creatinine Ratio Glucose Calculated Osmolality Uric Acid Calcium Corrected Calcium Phosphorus Magnesium Iron TIBC Iron Saturation Unsat Iron Binding Total Bilirubin AST ALT Alkaline Phosphatase B-Natriuretic Peptide > 3280 H* Total Protein Albumin Globulin Albumin/Globulin Ratio 25-OH Vitamin D Total PTH Intact U Random Total Protein > 250 H Coccidioides IgG Ab Negative Hepatitis A IgM Ab Hep Bs Antigen Hep B Core IgM Ab Hepatitis C Antibody 06/07/25 05:53 WBC 5.8 RBC 4.42 L Hgb 12.5 L Hct 37.4 L MCV 85 MCH 28.3 MCHC 33.4 RDW Std Deviation 50.5 H Plt Count 197 Neut % (Auto) 55 Lymph % (Auto) 28 [place] % (Auto) 13 H Eos % (Auto) 2 Baso % (Auto) 1 Neut # (Auto) 3.2 Lymph # (Auto) 1.6 [place] # (Auto) 0.8 Eos # (Auto) 0.1 Baso # (Auto) 0.1 Immature Gran # (Auto) 0.02 H Absolute Nucleated RBC 0.00 Immature Gran % 0 Nucleated RBC % 0 Sodium 137 Potassium 4.9 Chloride 107 Carbon Dioxide 22.9 Anion Gap 7 BUN 43 H Creatinine 3.1 H Estim Creat Clear Calc 25.6 L eGFR 22 L BUN/Creatinine Ratio 14 Glucose 113 H D Calculated Osmolality 285 Uric Acid 8.6 Calcium 8.7 Corrected Calcium 9.5 Phosphorus 3.7 Magnesium 2.0 Iron 42 L TIBC 253 Iron Saturation 16 L Unsat Iron Binding 211 L Total Bilirubin 0.6 AST 16 ALT 8 L Alkaline Phosphatase 96 D B-Natriuretic Peptide Total Protein 5.5 L Albumin 3.0 L Globulin 2.5 Albumin/Globulin Ratio 1.2 25-OH Vitamin D Total 21.9 PTH Intact 361.0 H U Random Total Protein Coccidioides IgG Ab Hepatitis A IgM Ab Non Reactive Hep Bs Antigen Non Reactive Hep B Core IgM Ab Non Reactive Hepatitis C Antibody Reactive A Quality Measures Quality Measures stroke Suspected type of Stroke: Acute Ischemic Last known well (date): 06/05/25 Last known well (time): 17:10 Tenecteplase given: > 60 min of arrival Rehab services: PT evaluation ordered and Speech Language Pathology eval ordered VTE Prophylaxis: pharmaceutical Antithrombotic by day 2:: ordered Statin ordered: <75 y/o high intensity dose Anticoagulation ordered for A-fib or flutter (current or hx): ordered Assessment & Plan Assessment Current Active Medications: Generic Name Dose Route Start Last Admin Trade Name [place] PRN Reason Stop Dose Admin Acetaminophen 650 mg 06/05/25 05:55 Acetaminophen 325 Mg Tablet PO 07/05/25 05:54 Q4HR PRN PAIN SCALE 1-3 (mild Acetaminophen 650 mg 06/06/25 17:55 Acetaminophen 325 Mg Tablet PO 07/06/25 17:54 Q6HR PRN Fever >100.4 Aspirin 81 mg 06/06/25 09:30 06/06/25 11:33 Aspirin Ec 81 Mg Tabec PO 07/06/25 09:29 81 mg QDAY YUDITH Administration Atorvastatin Calcium 80 mg 06/05/25 21:00 06/06/25 21:33 Atorvastatin Calcium 20 Mg Tablet PO 07/05/25 20:59 80 mg HS YUDITH Administration Bumetanide 2 mg 06/07/25 09:00 Bumetanide Inj 0.25 Mg/Ml Vial 4 Ml IVP 07/07/25 08:59 QDAY YUDITH Clopidogrel Bisulfate 75 mg 06/06/25 09:30 06/06/25 11:33 Clopidogrel Bisulfate 75 Mg Tablet PO 07/06/25 09:29 75 mg QDAY YUDITH Administration Dextrose 25 ml 06/05/25 07:11 Dextrose 50%-Water Inj 50 Ml Syringe IV 07/05/25 07:10 Q15MIN PRN BG 50-70 responsive npo pt Dextrose 50 ml 06/05/25 07:11 Dextrose 50%-Water Inj 50 Ml Syringe IV 07/05/25 07:10 Q15MIN PRN BG <50 OR BG <70 & pt unresponsive Glucagon 1 mg 06/05/25 07:11 Glucagon Inj 1 Mg Vial IM Q15MIN PRN BG <70, and no IV access Heparin Sodium (Porcine) 5,000 unit 06/06/25 14:00 06/07/25 05:13 Heparin Sod Inj 5000 Unit/Ml Vial SC 06/20/25 13:59 5,000 unit Q8HR YUDITH Administration Hydralazine HCl 25 mg 06/05/25 22:00 06/07/25 05:15 Hydralazine Hcl 25 Mg Tablet PO 07/05/25 21:59 Not Given TID YUDITH Albumin Human 25 gm in 100 mls @ 100 mls/hr 06/07/25 08:59 Albuminar-25 Ivpb IV 06/10/25 08:58 QDAY YUDITH Insulin Glargine 10 unit 06/06/25 21:00 06/06/25 21:35 Insulin Glargine (Lantus) 5 Unit/0.05 Ml (Per 5 Units) SC 07/06/25 20:59 10 unit HS YUDITH Administration Insulin Human Lispro 0 unit 06/05/25 19:30 06/07/25 07:48 Insulin Lispro (Admelog) 1 Unit/0.01 Ml Unit SC 07/05/25 19:29 Not Given A[facility]S [facility] Protocol Verapamil HCl 240 mg 06/05/25 21:00 06/06/25 21:48 Verapamil 120 Mg Tabcr PO 07/05/25 20:59 240 mg HS YUDITH Administration Plan 64-year-old male with past medical history significant for essential hypertension, hyperlipidemia, and insulin-dependent type 2 diabetes mellitus presented to ED with chief complaint of left upper arm weakness and paresthesia for about half an hour. Patient received tenecteplase 23.5 mg and admitted to ICU for further management of acute ischemic stroke. pending transfer to floor from ICU. MRI head with embolic stroke in BL parietal lobes. pending TTE. continues on bumex per primary team Query CKD. 2+ proteinuria. 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 Rule out cirrhosis CKD-differential diagnoses include diabetic nephropathy vs rule out a liver cirrhosis versus congestive heart failure query cardiorenal given BLE edema, bibasilar crackles on auscultation, dyspnea on exertion, PND and orthopnea, see #query CHF below. Cr improved on bumex. on exam pt appears volume overloaded. Cr: 3.3 from 3.3 on admission eGFR is 20 Dr. Newby reviewed pt outpatient [facility] data: 02/2025 BUN 65, creatinine 2.45, GFR 29, albumin 3.4, hemoglobin 12.7, BNP 2716, A1c 9.8 07/2024 creatinine 1.8, GFR 42, albumin 3.4 pt reports being seen by a director of market research > 10 years ago. Dx - US renal showed mild bilateral renal scar formation and mild left hydronephrosis - UA with 2+ protein and 2+ glucose 4+ RBC - Daily CMP - spot urine total protein creatinine ratio with 5.8 nephrotic range. - PTH elevated 361 - Vitamin D 1-25: pending - Hep panel: Hep C + Tx - Avoid nephrotoxic medications - renally dose medications - strict I and O #query CHF exacerbation DDX: chf vs ckd pt reports dyspnea on exertion, orthopnea, and PND, He has been taking diuretics at home which initially helped with his BLE, however the swelling is significant and limits his ability to work favor CHF as etiology of BLE, however pt does have ?chronic kidney disease, see #query RENATE on CKD Dx - CXR showed: Moderate enlargement cardiac contour with prominent vascular congestion including central vascular engorgement - Pending TTE with bubble read Plan - d/c bumex 1mg PO daily - start IV Bumex 2 qd - Albumin 25 IV qd - fluid restriction 1.5L - 2g sodium diet #Acute embolic ischemic stroke Status post tenecteplase Brain MRI with MRA shows embolic type acute infarcts in both parietal lobes -pendint TTE w bubble #Hypertensive emergency, resolved #HTN- improved SBP 110s pt taking lisinopril at home Plan - d/c nicardipine drip - cont verapamil 240 mg tonight - cont Hydralazine 25mg TID - if BP permits, consider adding valsartan 40 QD. #Bilateral pleural effusion Likely secondary to possible new onset CHF exacerbation vs underlying cirrhosis f/u CTAP #query cirrhosis #Hep C. pt reports heavy drinking hx, has decreased intake recently hep panel + hep C . - giving albumin 25 qd (see #query chf above). #Insulin-dependent Diabetes mellitus type 2 #Glycosuria Patient mentions he takes long-acting insulin 9 units at night, however forgot to bring it with him to hospital pt states that he has seen optomitrist who noted blood in his eye, query diabetic retinopathy. A1c 7.8 AM Blood glucose 89 - Started on Glargine 10u qHS - On sliding scale insulin, received 3 units ssi today - Hypoglycemia protocol in place - f/u with opthalmologist outpatient for diabetic retinopathy. . #Hypercholesterolemia - started on atorva 80 qhs #incedental 6mm Pulmonary Nodule -cocci negative #query BPH - ultrasound with nl prostate volume however pt reports incomplete voiding and nocturia. #Normocytic anemia #iron deficiency anemia query 2/2 CKD - iron panel: iron low, iron sat low -Management as per primary team Plan discussed with nephrology attending Dr. Keyonna Anders MD Internal Medicine PGY-1 Attending Provider Attestation/Addendum Patient seen and examined with resident physician Dr. Anders. Note reviewed, agree with findings and recommendations. Had a long conversation with son and daughter at bedside. Patient seems to have multifactorial RENATE. Now presenting with uncontrolled hypertension, stroke. Anasraca- differential diagnoses include diabetic nephropathy vs rule out a liver cirrhosis versus congestive heart failure. Pending echocardiogram. Urine protein/creatinine 5.8 g, CT abdomen pelvis ++ liver cirrhosis, hep panel - hep C ++. Patient has history of alcoholism. Extensive history of marijuana usage. Reviewed labs from outpatient [facility] 02/2025 BUN 65, creatinine 2.45, GFR 29, albumin 3.4, hemoglobin 12.7, BNP 2716, A1c 9.8 07/2024 creatinine 1.8, GFR 42, albumin 3.4 Underlying CKD from a diabetic nephropathy. Spoke to son at bedside-will continue with the diuretics and albumin as patient still has edema. Did explain the complications of diabetic nephropathy and down the line might need renal replacement therapy. Son had several questions which were answered to his satisfaction.
[2025-06-07] MEDS: BUMETANIDE INJ 0.25 MG/ML VIAL 4 ML 2 MG IVP (09:27)
[2025-06-07] MEDS: CLOPIDOGREL BISULFATE 75 MG TABLET PO (09:27)
[2025-06-07] MEDS: ASPIRIN EC 81 MG TABEC PO (09:27)
[2025-06-07] MEDS: ALBUMIN HUMAN 25% IVPB 25 GM/100 ML BTL IV (09:27)
--- NOTE | 2025-06-07 11:09 | EKG_ITS ---
[facility] Test Date: 2025-06-07 Pat Name: YOVANNY MALAGON [facility] Gender: Male [employer]: RTSJC : 1960 Requested By: Dion Kwong Order Number: [id number] Reading MD: Dion Kwong Measurements Intervals [place] Rate: 76 P: 40 MA: 210 QRS: 109 QRSD: 106 T: -38 QT: 440 QTc: 498 Interpretive Statements SINUS RHYTHM WITH FIRST DEGREE AV BLOCK MARKED RIGHT AXIS DEVIATION ANTEROSEPTAL MYOCARDIAL INFARCTION , OF INDETERMINATE AGE MODERATE T-WAVE ABNORMALITY, CONSIDER INFERIOR ISCHEMIA No previous ECG available for comparison /[id number]
--- NOTE | 2025-06-07 12:24 | ESCONSULT_ITS ---
<Statement entered by Carlos Vasques MD - 06/08/25 19:23> I have personally seen and examined the patient separately on the above date of service and discussed the plan of care with the resident. I reviewed the resident Dr. Ashley consultation progress note and agree with the resident findings and plan in the note above and have also edited the documentation to reflect my findings and plan. 64-year-old male with a past medical history of hepatitis C, significant drug abuse with methamphetamine, cocaine when he was younger, presently marijuana use, patient's hypertension, type 2 diabetes mellitus, ex-smoker, history of alcohol abuse, chronic kidney disease presented to the emergency department for further evaluation of sudden onset left upper extremity paresthesias as well as weakness. Patient was admitted to the hospital for concern of acute ischemic stroke which was confirmed with the imaging. Patient did receive TN K during the hospitalization given his worsening neurological deficit. Patient was also found to be having bilateral lower extremity swelling along with worsening shortness of breath over the past few months including at rest as well as exertion. Has some cough with nonproductive sputum. Unable to lie flat and gives symptoms of orthopnea. MRI brain showed embolic type acute infarcts in both parietal lobes. Also ultrasound duplex of the bilateral lower extremity showed nonocclusive DVT of the left peroneal and tibial veins. CT chest revealed bilateral small effusions. Labs reviewed and showed that elevated BUN at 43 and creatinine of 3.1 and platelets of 197, hemoglobin 12.5 WBC 5.8 and glucose of 113. LFTs showed only mildly elevated alk phos at 96. Sodium 137 calcium 8.7. She is on blood medications looks like Bumex 1 mg tablet, lisinopril, simvastatin as well as verapamil. Unclear of patient's compliance with the medications. 1. Acute stroke-embolic CVA involving bilateral parietal lobes-need to rule out cardioembolic stroke 2. Acute nonocclusive DVT of the left peroneal vein 3. New onset severe systolic CHF versus acute on chronic systolic CHF 4. Acute hypoxic respiratory failure in the setting of CHF exacerbation 5. Acute kidney injury versus acute on chronic kidney disease stage III-rule out cardiorenal syndrome 6 bilateral pleural effusions As noted above patient has significant history of drug abuse when he was younger including meth for close to 10 years along with history of cocaine but he stopped everything 20 years ago but still continues to use marijuana. He has a history of severe smoking at least more than 30 pack years of smoking and has history of alcohol abuse 2. He has hepatitis C. Patient did have worsening shortness of breath along with dyspnea at rest and exertion orthopnea as noted above and also has bilateral leg swelling. BNP was elevated at greater than 3180. Creatinine was 3.1. His previous creatinine was also elevated at 1.6 but a few years ago no recent creatinine. Overall patient looks overloaded with probable heart failure symptoms evidenced recommended to start aggressive diuresis with Bumex 2 mg IV twice daily for now. Input output elevation 2 g sodium diet. Echo did show severely decreased LV ejection fraction with an EF of around 15 to 20%, dilated cardiomyopathy. Severe global hypokinesis. RV enlargement consistent with RV volume overload. Severe dilated LA and RA. Mild to moderate MR and TR. Bubble study was negative for PFO or ASD.. Left atrial appendage could not be evaluated. Patient will need further workup of his heart failure his as outpatient and mostly secondary to substance abuse but need to rule out ischemic etiology also. Patient denies any chest pain chest pressure at the present point of time and does not appear to have any ACS. His CKD could be secondary to the diabetes mellitus history of hypertension previous creatinine was only 1.6. Could be component of cardiorenal syndrome but will need to rule out nephrotic syndrome also given that the patient has proteinuria. Nephrology also following and further workup as per nephrology. Regarding the stroke neurology is following the patient. Patient was started on aspirin and Plavix as well as high intensity statin. Plan is to start Eliquis as the patient does have a DVT. If patient is being started on DVT and treatment with Eliquis then patient should be only on Eliquis and aspirin. Follow-up with neurology. Neurology is requesting a TRUMAN given the embolic stroke with bilateral parietal lobes involvement want to rule out any LA or SAMI thrombus or LV thrombus. TTE did not show any LV thrombus but could not visualize left atrial appendage. Appropriate candidate for TRUMAN. Patient denies any kind of swallowing problems or any kind of esophageal interventions or previous surgeries. Patient denies any kind of gastric ulcers bleeding and any other hematemesis or hematochezia. Patient denies any issues with anesthesia previously. Patient explained all the risks, benefits and alternatives of TRUMAN including the risk of perforation, bleeding, respiratory failure secondary to sedation, injury to teeth gums esophagus and stomach. Patient understands all risks and benefits and provided consent for the procedure. We will keep him n.p.o. overnight and plan for TRUMAN in the morning. Management of rest of the medical conditions as per primary team and other consultants. Thank you for the consult and allowing me to participate in the care of the patient. Cardiology will continue to follow. Carlos Vasques M.D. Interventional Cardiology HPI Data of Consult Patient: new to practice Consult date: 06/07/25 Requesting Physician: Nette Moscoso MD Admitting Provider: Alvaro Bailey MD Attending Provider: Nette Moscoso MD Primary Care Provider: Physician No Primary/Family Consult Narrative History of present illness: The patient is a Czech only speaker, patient's daughter is present at the bedside who also contributed to HPI. The patient is a 64-year-old male with a past medical history of diabetes mellitus hypertension, CKD, hepatitis C, Who presented to the ER complaining of sudden onset left upper extremity paresthesias and weakness, the patient was admitted for acute ischemic stroke status post TNK, concern for recrudescence stroke as patient had worsening neurological deficit in ICU, currently speech and power are back to baseline. Cardiology was consulted for concern for new onset CHF bilateral lower extremity swelling. The patient reported that for the past 4 to 6 months he has been having gradual onset shortness of breath, worse at rest and exertion. Shortness of breath also associated with cough nonproductive of sputum. The patient has been unable to lie flat and frequently wakes up at night feeling short of breath. He has to sit up or use multiple pillows to sleep. Denied any fever or chest pain or chest pressure. But he did endorse dyspnea on exertion and orthopnea and paroxysmal nocturnal dyspnea . Patient also reported developing bilateral lower extremity edema starting 3 months ago, patient denied unilateral leg swelling stated that over 3 months ago he had lower extremity swelling in both his legs which went all the way up to his abdomen but slowly had decreased he was started on a water pill by his doctor and his swelling has improved a lot over the past 3 months but he still feels short of breath. Patient reported he has no past medical history of CHF or CKD, was unaware if there was anything wrong with his kidneys. ED and hospital course: The patient initially came to the ER complaining of sudden onset left upper extremity paresthesias and weakness, for about 30 minutes prior to presentation, teleneurology consult was done in the ED NIHSS score was 3, patient was given tenecteplase 23.5 Mg and admitted to ICU for further management of acute ischemic stroke. Initial CT head was negative for hemorrhage, mass effect or midline shift. CTA head revealed no large vessel occlusion. CT chest revealed bilateral pleural effusion. In the ICU the patient was started on nicardipine drip for hypertension, a stroke alert was called in the ICU because of acute worsening neurological status noticed by the daughter, patient exhibited left facial droop left arm and left leg weakness. Repeat CT head was negative for intracranial hemorrhage. Patient was already post TNK, MRI brain was done which showed embolic type acute infarcts in both parietal lobes. Ultrasound duplex bilateral lower extremities showed nonocclusive DVT left peroneal and tibial veins. Also concern for the onset CHF. Transthoracic echocardiogram was ordered pending read, per neurology patient will require TRUMAN. As the patient had no prior medical history of atrial fibrillation, EKG shows sinus rhythm. Past medical history: Diabetes mellitus for the past 20 years, started insulin less than 1 year ago, history of hypertension, hepatitis C positive. CKD. 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 Endorsed marijuana use, quit smoking 30 years ago, occasional alcohol use now, but used to drink alcohol every day in the past. Patient endorsed history of methamphetamine and cocaine use over 20 years ago, reported he is not using any illicit substances anymore. cc:: cc: Nette Moscoso MD Review of Systems Review of Systems Narrative Review of Systems: General: Denies fevers or chills HEENT: Denies congestion or sore throat Heart: Denies chest pain or palpitations Lungs: Endorse shortness of breath and cough starting 3 months ago, endorsed orthopnea and paroxysmal nocturnal dyspnea. Abdomen: Denies diarrhea, nausea, vomiting, constipation, bright red blood per rectum or melena Genitourinary: Denies frequency, urgency, dysuria, or hematuria Musculoskeletal: Bilateral lower extremity edema 3+ pitting edema up to the knees. Currently able to move all 4 extremities. Neurology: Initial symptoms of left-sided weakness and speech deficit now resolved, speech and power back at baseline. Review of systems otherwise negative except what is mentioned above. Past Medical History Past Medical History NEUROLOGIC: Positive Neurological Disorders and Cerebrovascular Accident (stroke 06/05/2025) CARDIAC: Positive Cardiac Disorders, Hypercholesterolemia and Hypertension; Negative Congestive Heart Failure RESPIRATORY: Positive Respiratory Disorders; Negative Chronic Obstructive Pulmonary Disease (COPD) GASTROINTESTINAL: Positive Gastrointestinal Disorders (chronic constipation) GENITOURINARY: Positive Genitourinary Disorders (on bumex for edema lower extremeties), Renal Disease and Benign Prostatic Hyperplasia MUSCULOSKELETAL: Negative Musculoskeletal Disorders ENT: Positive History of ENT Problems (blurry vision) ENDOCRINE: Positive Endocrine Disorders and Diabetes Mellitus Type 2; Negative Diabetes Mellitus Type 1 OTHER HISTORY: Negative Autoimmune Disease Family History FAMILY HISTORY: Negative Family Cardiac Disorders Surgical History SURGICAL: Negative Ear Surgery, Nephrectomy or Joint Replacement Social History SMOKING STATUS: Former smoker Exam Vital Signs Temp Pulse Resp BP Pulse Ox O2 Del Method O2 Flow Rate 97.0 F 85 27 H 120/90 H 96 Nasal Cannula 3 06/07/25 04:00 06/07/25 09:27 06/07/25 04:00 06/07/25 09:27 06/07/25 04:00 06/07/25 04:00 06/07/25 04:00 Narrative Exam General: AOx3, cooperative, patient is a Czech only speaker Skin: Intact, no cyanosis noted, bilateral lower extremity edema 3+ pitting up to the knees. HEENT: Atraumatic/normocephalic, KIRSTIE, neck supple Heart: RRR, S1 and S2 without clicks or murmurs Lungs: No wheezing or crackles, decreased air entry bilaterally at bases. Abdomen: Soft, nontender. Bowel sounds present . Vascular: Peripheral pulses palpable Neuro: No focal neurological deficits noted on exam today. Results Labs 06/07/25 05:53 06/07/25 05:53 Labs: Short CBC 06/07/25 Range/Units 05:53 WBC 5.8 (3.8-10.6) Thou/mm3 Hgb 12.5 L (13.5-16.0) g/dL Hct 37.4 L (41.0-53.0) % Plt Count 197 (140-440) Thou/mm3 BMP 06/07/25 05:53 Sodium 137 Potassium 4.9 Chloride 107 Carbon Dioxide 22.9 BUN 43 H Creatinine 3.1 H Glucose 113 H D Calcium 8.7 Liver Function 06/07/25 Range/Units 05:53 Total Bilirubin 0.6 (0.3-1.2) mg/dL AST 16 (0-34) U/L ALT 8 L (10-49) U/L Alkaline Phosphatase 96 D (46-116) U/L Albumin 3.0 L (3.4-4.8) gm/dL Quality Measures Quality Measures stroke Suspected type of Stroke: Acute Ischemic Last known well (date): 06/05/25 Last known well (time): 17:10 Tenecteplase given: > 60 min of arrival Rehab services: PT evaluation ordered VTE Prophylaxis: pharmaceutical Antithrombotic by day 2:: ordered Statin ordered: <75 y/o high intensity dose Anticoagulation ordered for A-fib or flutter (current or hx): ordered Medications Home Medications and Allergies Home Medications ?Medication ?Instructions ?Recorded ?Confirmed ?Type bumetanide 1 mg tablet 1 mg PO DAILY 06/05/2506/05 History lisinopril 20 mg tablet 20 mg PO DAILY 06/05/2505/27 History simvastatin 20 mg tablet 20 mg PO HS 06/05/25 5 History verapamil 240 mg tablet,extended 240 mg PO DAILY 06/0506/05/25 History release Allergies Allergy/AdvReac Type Severity Reaction Status Date / Time No Known Allergies Allergy Verified 10/09/19 02:18 Visit Medications Acetaminophen (Acetaminophen 325 Mg Tablet) 650 mg PO Q4HR PRN PRN Reason: PAIN SCALE 1-3 (mild Stop: 07/05/25 05:54 Acetaminophen (Acetaminophen 325 Mg Tablet) 650 mg PO Q6HR PRN PRN Reason: Fever >100.4 Stop: 07/06/25 17:54 Aspirin (Aspirin Ec 81 Mg Tabec) 81 mg PO QDAY [facility] Stop: 07/06/25 09:29 Last Admin: 06/07/25 09:27 Dose: 81 mg Atorvastatin Calcium (Atorvastatin Calcium 20 Mg Tablet) 80 mg PO HS [facility] Stop: 07/05/25 20:59 Last Admin: 06/06/25 21:33 Dose: 80 mg Bumetanide (Bumetanide Inj 0.25 Mg/Ml Vial 4 Ml) 2 mg IVP QDAY [facility] Stop: 07/07/25 08:59 Last Admin: 06/07/25 09:27 Dose: 2 mg Clopidogrel Bisulfate (Clopidogrel Bisulfate 75 Mg Tablet) 75 mg PO QDAY [facility] Stop: 07/06/25 09:29 Last Admin: 06/07/25 09:27 Dose: 75 mg Dextrose (Dextrose 50%-Water Inj 50 Ml Syringe) 25 ml IV Q15MIN PRN PRN Reason: BG 50-70 responsive npo pt Stop: 07/05/25 07:10 Dextrose (Dextrose 50%-Water Inj 50 Ml Syringe) 50 ml IV Q15MIN PRN PRN Reason: BG <50 OR BG <70 & pt unresponsive Stop: 07/05/25 07:10 Glucagon (Glucagon Inj 1 Mg Vial) 1 mg IM Q15MIN PRN PRN Reason: BG <70, and no IV access Heparin Sodium (Porcine) (Heparin Sod Inj 5000 Unit/Ml Vial) 5,000 unit SC Q8HR [facility] Stop: 06/20/25 13:59 Last Admin: 06/07/25 05:13 Dose: 5,000 unit Hydralazine HCl (Hydralazine Hcl 25 Mg Tablet) 25 mg PO TID [facility] Stop: 07/05/25 21:59 Last Admin: 06/07/25 05:15 Dose: Not Given Albumin Human (Albuminar-25 Ivpb) 25 gm in 100 mls @ 100 mls/hr IV QDAY [facility] Stop: 06/10/25 08:58 Last Admin: 06/07/25 09:39 Dose: Not Given Insulin Glargine (Insulin Glargine (Lantus) 5 Unit/0.05 Ml (Per 5 Units)) 10 unit SC [facility] Stop: 07/06/25 20:59 Last Admin: 06/06/25 21:35 Dose: 10 unit Insulin Human Lispro (Insulin Lispro (Admelog) 1 Unit/0.01 Ml Unit) 0 unit SC [facility]; Protocol Stop: 07/05/25 19:29 Last Admin: 06/07/25 11:21 Dose: Not Given Verapamil HCl (Verapamil 120 Mg Tabcr) 240 mg PO [facility] Stop: 07/05/25 20:59 Last Admin: 06/06/25 21:48 Dose: 240 mg Discontinued Medications Acetaminophen (Acetaminophen Supp 650 Mg Supp) 650 mg LA Q4HR PRN PRN Reason: PAIN SCALE 1-3 (mild Stop: 07/05/25 05:54 Al Hydrox/Mg Hydrox/Simethicone (Mg Hyd/Al Hyd/Shadia (Maalox Reg) Susp 30 Ml Udc) 30 ml PO Q4HR PRN PRN Reason: Heartburn or Upset Stomach Stop: 07/05/25 05:54 Bumetanide (Bumetanide Inj 0.25 Mg/Ml Vial 4 Ml) 1 mg IVP NOW ONE Stop: 06/05/25 14:57 Last Admin: 06/05/25 15:42 Dose: 1 mg Bumetanide (Bumetanide 0.5 Mg Tablet) 1 mg PO DAILY [facility] Stop: 07/06/25 09:29 Last Admin: 06/06/25 11:33 Dose: 1 mg Hydralazine HCl (Hydralazine Inj 20 Mg/Ml Vial) 10 mg IVP X1 ONE Stop: 06/05/25 15:40 Last Admin: 06/05/25 15:48 Dose: 10 mg Nicardipine/Sodium Chloride (Cardene Ivpb) 20 mg in 200 mls @ 50 mls/hr IV .Q4H PRN; Protocol PRN Reason: Per Nicardipine Stroke Protocol Stop: 07/05/25 03:39 Last Titration: 06/05/25 18:20 Dose: 0 mg/hr, 0 mls/hr Insulin Human Lispro (Insulin Lispro (Admelog) 1 Unit/0.01 Ml Unit) 0 unit SC Q6HR [facility]; Protocol Stop: 07/05/25 07:14 Last Admin: 06/05/25 18:35 Dose: Not Given Labetalol HCl (Labetalol Inj 5 Mg/Ml Vial 20 Ml) 10 mg IVP [id number] PRN PRN Reason: SBP > 185 mmHg and/or DBP > 110 Labetalol HCl (Labetalol Inj 5 Mg/Ml Vial 20 Ml) 10 mg IVP [id number] PRN PRN Reason: SBP > 180 mmHg or DBP > 105 Last Admin: 06/05/25 09:05 Dose: 10 mg Magnesium Hydroxide (Milk Of Magnesia Susp 30 Ml Udc) 30 ml PO QDAY PRN PRN Reason: CONSTIPATION Stop: 07/05/25 05:54 Tenecteplase (Tenecteplase Inj 50 Mg Vial) 23.5 mg 0.25 mg/kg (23.5 mg) IV X1 ONE Stop: 06/05/25 03:41 Last Admin: 06/05/25 03:44 Dose: 23.5 mg Assessment & Plan Plan The patient is a 64-year-old male with a past medical history of Diabetes mellitus for the past 20 years, started insulin less than 1 year ago, history of hypertension, hepatitis C positive, CKD, who presented to the ER complaining of sudden onset left upper extremity paresthesias and weakness, the patient was admitted for acute ischemic stroke status post TNK, concern for recrudescence stroke as patient had worsening neurological deficit in ICU, currently speech and power are back to baseline. Cardiology was consulted for concern for new onset CHF bilateral lower extremity swelling. The patient reported that for the past 4 to 6 months he has been having gradual onset shortness of breath, worse at rest and exertion. Shortness of breath also associated with cough nonproductive of sputum. The patient has been unable to lie flat and frequently wakes up at night feeling short of breath. He has to sit up or use multiple pillows to sleep. Denied any fever or chest pain or chest pressure. But he did endorse dyspnea on exertion and orthopnea and paroxysmal nocturnal dyspnea. Patient also reported developing bilateral lower extremity edema starting 3 months ago, patient denied unilateral leg swelling stated that over 3 months ago he had lower extremity swelling in both his legs which went all the way up to his abdomen but slowly had decreased he was started on a water pill by his doctor and his swelling has improved a lot over the past 3 months but he still feels short of breath. Problems 1. Acute on chronic systolic CHF, likely Dilated CMP 2. Acute nonocclusive DVT 3. Acute embolic CVA bilateral parietal lobes 4. Acute hypoxic respiratory failure 5. Acute on chronic kidney disease, Cardiorenal syndrome 6. Bilateral pleural effusions 7. History of hypertension 8. History of diabetes mellitus 9. Hepatitis C positive 10. Hyperparathyroidism 11. Pulmonary nodules Admitted with acute embolic infarct in the setting of nonocclusive DVT, MRI brain was done which showed embolic type acute infarcts in both parietal lobes. Ultrasound duplex bilateral lower extremities showed nonocclusive DVT left peroneal and tibial veins, concern for PFO, neurology recommended getting a TRUMAN. Patient has been complaining of 4 to 6-month history of dyspnea on exertion, orthopnea and PND, complaining of 3-month history of bilateral lower extremity edema, which improved after taking water pill. Patient is unaware of diagnosis of CKD or CHF reported that he was seen by a kidney doctor over 8 years ago and reportedly everything was normal at that time. Patient denied unilateral onset of lower extremity swelling, insisted that it was bilateral in onset. Initially he had swelling all the way up to his abdomen with his primary doctor prescribed him a diuretic which helped his swelling. 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 Echocardiogram Shows severe global hypokinesis dilated cardiomyopathy, EF 15 to 20%, RV enlargement consistent with RV volume overload, severely dilated LA and RA, mild to moderate MR, no [id number] shunt demonstrated on bubble study, no cardiac thrombi seen. Patient reported he has no past medical history of CKD, chart review shows patient did have elevated creatinine 1.5, few years ago. Currently creatinine 3.3 on arrival, possible acute on chronic kidney disease, EGFR 20, patient does have a history of diabetes, was recently started on insulin less than 1 year ago, A1c 7.8% nephrology following appreciate recommendations. Nephrology consulted about cardiorenal syndrome, started patient on IV Bumex 2 mg and albumin daily. Urine output 1500 mL mL over last 12 hours, net +120 mL, recommend fluid restriction to 1500 mL daily, aim for net -1.5 to 2 L/day. Will increase Bumex to 2 mg twice daily. Patient likely has acute on chronic kidney injury, patient had elevated creatinine even in 2019 but never followed up with tree expert, given elevated PTH, patient does have chronic kidney injury, likely acutely worsened by cardiorenal syndrome. Echocardiogram Shows severe global hypokinesis dilated cardiomyopathy, EF 15 to 20%, RV enlargement consistent with RV volume overload, severely dilated LA and RA, mild to moderate MR, no [id number] shunt demonstrated on bubble study, no cardiac thrombi seen. ? Agree with neurology recommendations, neurology recommended starting Eliquis 10 mg twice daily for neck 7 days followed by Eliquis 5 mg twice daily, in addition to aspirin and atorvastatin. Recommended to discontinue Plavix. ? IV Bumex 2 mg twice daily, IV albumin ordered ? No evidence of LV thrombus or any [id number] shunt on echocardiogram on TTE with bubble study, patient will require TRUMAN to rule out left atrial appendage thrombus. ? Continue telemetry monitoring for arrhythmias ? Agree with nephrology recommendations to continue IV Bumex and albumin per nephrology ? Discontinued verapamil, due to increased mortality associated with HFrEF, slowly introduce beta-henok/GDMT if blood pressure allows. Rest of the management deferred to primary team. Thank you for cardiology consultation. We appreciate the opportunity to participate in this patient's care. Will continue to follow-up on this patient This case was discussed with director channel, Dr. Vasques. Dion Kwong MD PG3
--- NOTE | 2025-06-07 15:00 | PD.RESPRO ---
Documentation for date of: 06/07/25 Subjective Subjective Interval history: Patient is a 64 year old male with a past medical history hypertension, diabetes mellitus type 2 insulin-dependent on Tresiba, and atorvastatin who was admitted on 06/05/2025 directly into the ICU secondary to tenecteplase administration given concern for stroke and subsequently on MRI noted embolic stroke. To have embolic type acute infarct in both parietal lobes. Repeat CT head on 06/06/2025 negative for acute hemorrhage status post tenecteplase. Patient was subsequently downgraded from ICU to floor status. Neurology following given embolic stroke. Patient examined at bedside this evening. Patient saturating well-spO2 100%, on 2 liters of oxygen-->decreased to 1 L, continues to saturate well, SpO2 100%. Patient denied chest pain or SOB. Patient denied lower or upper extremity weakness. Patient continues to have lower peripheral edema, but per patient improved. Patient and patient's daughter at bedside advised to follow up with hypercoagulable panel as outpatient. No history of previous clots. No extended travel. No family history. Patient denied weight loss of history of cancer, of note right Cardiology, Dr. Vasques, following given need for TRUMAN. Repeat EKG sinus w/ 1st degree block START Eliquis 10 mg PO BID for next 7 days then followed by Eliquis 5 mg PO BID, continue Aspirin, and Atorvastatin. Stop Plavix. Exam Vital Signs Temp Pulse Resp BP Pulse Ox O2 Del Method O2 Flow Rate 97.0 F 86 27 H 130/94 H 96 Nasal Cannula 3 06/07/25 04:00 06/07/25 13:48 06/07/25 04:00 06/07/25 13:48 06/07/25 04:00 06/07/25 04:00 06/07/25 04:00 Narrative Exam General Appearance: Alert & Oriented X3, well-nourished male who is lying in bed in no acute distress HEENT: Skull symmetrical and atraumatic. Conjunctivae pink and moist. Pupils equal, round, reactive to light and accommodation (PERRL). External ear without lesion or discharge. Straight, nares patient, mucosa pink, no discharge. Cardio: Normal Rate and Rhythm with S1 and S2 heart sounds. No murmurs or extra heart sounds auscultated. No bruits on carotid auscultation. Yes, peripheral edema. Lungs: Symmetric with good expansion. Chest and back non-tender. Breath sounds vesicular without crackles, wheezing or rhonchi Abdomen: Non-tender, Non-distended, Normal Reactive Bowel Sounds Neuro: Alert, cooperative, oriented to person, place, and time. Speech clear. CN grossly intact. Upper motor strength 5/5 and Lower motor strength 5/5. Sensation intact. Objective Labs 06/07/25 05:53 06/07/25 05:53 Labs: Laboratory Results - last 24 hr 06/06/25 06/07/25 16:15 05:53 WBC 5.8 RBC 4.42 L Hgb 12.5 L Hct 37.4 L MCV 85 MCH 28.3 MCHC 33.4 RDW Std Deviation 50.5 H Plt Count 197 Neut % (Auto) 55 Lymph % (Auto) 28 [place] % (Auto) 13 H Eos % (Auto) 2 Baso % (Auto) 1 Neut # (Auto) 3.2 Lymph # (Auto) 1.6 [place] # (Auto) 0.8 Eos # (Auto) 0.1 Baso # (Auto) 0.1 Immature Gran # (Auto) 0.02 H Absolute Nucleated RBC 0.00 Immature Gran % 0 Nucleated RBC % 0 Sodium 137 Potassium 4.9 Chloride 107 Carbon Dioxide 22.9 Anion Gap 7 BUN 43 H Creatinine 3.1 H Estim Creat Clear Calc 25.6 L eGFR 22 L BUN/Creatinine Ratio 14 Glucose 113 H D Calculated Osmolality 285 Uric Acid 8.6 Calcium 8.7 Corrected Calcium 9.5 Phosphorus 3.7 Magnesium 2.0 Iron 42 L TIBC 253 Iron Saturation 16 L Unsat Iron Binding 211 L Total Bilirubin 0.6 AST 16 ALT 8 L Alkaline Phosphatase 96 D Total Protein 5.5 L Albumin 3.0 L Globulin 2.5 Albumin/Globulin Ratio 1.2 25-OH Vitamin D Total 21.9 PTH Intact 361.0 H U Random Total Protein > 250 H Hepatitis A IgM Ab Non Reactive Hep Bs Antigen Non Reactive Hep B Core IgM Ab Non Reactive Hepatitis C Antibody Reactive A Quality Measures Quality Measures stroke Suspected type of Stroke: Acute Ischemic Last known well (date): 06/05/25 Last known well (time): 17:10 Tenecteplase given: > 60 min of arrival Rehab services: PT evaluation ordered VTE Prophylaxis: pharmaceutical Antithrombotic by day 2:: ordered Statin ordered: <75 y/o high intensity dose Anticoagulation ordered for A-fib or flutter (current or hx): not indicated (No afib ) Assessment & Plan Assessment Current Active Medications: Generic Name Dose Route Start Last Admin Trade Name Freq PRN Reason Stop Dose Admin Acetaminophen 650 mg 06/05/25 05:55 Acetaminophen 325 Mg Tablet PO 07/05/25 05:54 Q4HR PRN PAIN SCALE 1-3 (mild Acetaminophen 650 mg 06/06/25 17:55 Acetaminophen 325 Mg Tablet PO 07/06/25 17:54 Q6HR PRN Fever >100.4 Aspirin 81 mg 06/06/25 09:30 06/07/25 09:27 Aspirin Ec 81 Mg Tabec PO 07/06/25 09:29 81 mg QDAY YUDITH Administration Atorvastatin Calcium 80 mg 06/05/25 21:00 06/06/25 21:33 Atorvastatin Calcium 20 Mg Tablet PO 07/05/25 20:59 80 mg HS YUDITH Administration Bumetanide 2 mg 06/07/25 09:00 06/07/25 09:27 Bumetanide Inj 0.25 Mg/Ml Vial 4 Ml IVP 07/07/25 08:59 2 mg QDAY YUDITH Administration Clopidogrel Bisulfate 75 mg 06/06/25 09:30 06/07/25 09:27 Clopidogrel Bisulfate 75 Mg Tablet PO 07/06/25 09:29 75 mg QDAY YUDITH Administration Dextrose 25 ml 06/05/25 07:11 Dextrose 50%-Water Inj 50 Ml Syringe IV 07/05/25 07:10 Q15MIN PRN BG 50-70 responsive npo pt Dextrose 50 ml 06/05/25 07:11 Dextrose 50%-Water Inj 50 Ml Syringe IV 07/05/25 07:10 Q15MIN PRN BG <50 OR BG <70 & pt unresponsive Glucagon 1 mg 06/05/25 07:11 Glucagon Inj 1 Mg Vial IM Q15MIN PRN BG <70, and no IV access Heparin Sodium (Porcine) 5,000 unit 06/06/25 14:00 06/07/25 13:49 Heparin Sod Inj 5000 Unit/Ml Vial SC 06/20/25 13:59 5,000 unit Q8HR YUDITH Administration Hydralazine HCl 25 mg 06/05/25 22:00 06/07/25 13:48 Hydralazine Hcl 25 Mg Tablet PO 07/05/25 21:59 25 mg TID YUDITH Administration Albumin Human 25 gm in 100 mls @ 100 mls/hr 06/07/25 08:59 06/07/25 09:39 Albuminar-25 Ivpb IV 06/10/25 08:58 Not Given QDAY YUDITH Insulin Glargine 10 unit 06/06/25 21:00 06/06/25 21:35 Insulin Glargine (Lantus) 5 Unit/0.05 Ml (Per 5 Units) SC 07/06/25 20:59 10 unit HS YUDITH Administration Insulin Human Lispro 0 unit 06/05/25 19:30 06/07/25 11:21 Insulin Lispro (Admelog) 1 Unit/0.01 Ml Unit SC 07/05/25 19:29 Not Given ACHS YUDITH Protocol Verapamil HCl 240 mg 06/05/25 21:00 06/06/25 21:48 Verapamil 120 Mg Tabcr PO 07/05/25 20:59 240 mg HS YUDITH Administration Plan Patient is a 64 year old male with a past medical history hypertension, diabetes mellitus type 2 insulin-dependent on Tresiba, and atorvastatin who was admitted on 06/05/2025 directly into the ICU secondary to tenecteplase administration given concern for stroke and subsequently on MRI noted embolic stroke. #Acute Embolic Stroke, Bilateral #Left Arm Paresthesia, resolved. #S/p Tenecteplase #DVT of left peroneal and posterior tibial veins Patient presented with paresthesia upon admission and was administered tenecteplase. Inidital head CT negative. MRI noted embolic type acute infarcts in both pareital lobes. Repeat CT head after 24 hours noted no acute hemorrhage. Diagnostics: Lipid panel: Triglycerides 72, Choelsterol 76, LDL 30 HDL 32 A1c (06/05/2025): 7.8 % TSH 6.05 (H) & Free T4 1.25 US: non-occlusive acute deep vein thrombus involving the left peroneal and posterior tibial veins Plan -Please consult Cardiology, given embolic stroke & US pattern and no history of Atrial Fibrillation with risk of embolization given MRI -Start Eliquis 10 mg PO BID until May-->then Eliquis 5 mg PO BID. -STOP Plavix. -Continue Aspirin 81 mg PO qday, Atorvastatin 80 mg PO HS -Monitor Blood pressure, goal <180/105 given TNK -continue to monitor fasting blood glucose -Head of bed at 30 -K >4 and Mg >2 #Moderate Right left Pleural Effusion #Right Base Pneumonia #Vascular Congestion #Hypertension #Dibetes Mellitys Type II insulin depdent #Hyperglycemia #Hyperlipidemia #Normocytic Anemia #RENATE vs CKD #Renal Parenchymal Scar Formation #Mild Left Hydronephrosis - The patient's plan was discussed with attending Dr. Barry Sahu MD PGY2 Internal Medicine Attending Provider Attestation/Addendum I independently reviewed the patient's chart and I agreed with resident's findings, assessment and plan of care. Imp: Acute CVA s/p TNK DVT No focal deficit on exam Continue Eliquis along with ASA 81 mg with close monitoring for bleeding and statin.
[2025-06-07] MEDS: ATORVASTATIN CALCIUM 20 MG TABLET 80 MG PO (21:36)
[2025-06-07] MEDS: APIXABAN 2.5 MG TABLET 10 MG PO (21:36)
[2025-06-07] MEDS: INSULIN GLARGINE (Lantus) 5 UNIT/0.05 ML (PER 5 UNITS) 10 UNIT SC (21:37)
[2025-06-07] MEDS: VERAPAMIL 120 MG 240 MG PO (21:37)
[2025-06-08] VITALS (14 sets, daily range): BP systolic 104–139; BP diastolic 73–99; PULSE 76–105; RESP 13–20; TEMP 36.4–36.8; O2SAT 92–99; BMI 27.6; BMI 28.0
[2025-06-08] MEDS: BUMETANIDE INJ 0.25 MG/ML VIAL 4 ML 2 MG IVP ×3 (01:32→21:38)
[2025-06-08 06:12] LABS: Basophils # (Auto) 0.1 Thou/mm3 (0.0-0.2); Basophils % (Auto) 1 % (0-2.5); Eosinophils # (Auto) 0.1 Thou/mm3 (0.0-0.5); Eosinophils % (Auto) 2 % (0-10); Hematocrit 37.2 % (41.0-53.0); Hemoglobin 12.2 g/dL (13.5-16.0); Immature Granulocytes Auto 0.02 Thou/mm3 (0.00-0.00); Lymphocytes # (Auto) 1.6 Thou/mm3 (1.0-4.8); Lymphocytes % (Auto) 28 % (10-50); Mean Corpuscular HGB Conc 32.8 g/dl (31.0-37.0); Mean Corpuscular Hemoglobin 27.9 pg (25.0-35.0); Mean Corpuscular Volume 85 fL (80-100); Monocytes # (Auto) 0.7 Thou/mm3 (0.0-0.8); Monocytes % (Auto) 13 % (0-12); Neutrophils # (Auto) 3.2 Thou/mm3 (1.8-7.7); Neutrophils % (Auto) 56 % (37-80); Nucleated Red Blood Cell # 0.00 Thou/mm3 (0.00-0.00); Nucleated Red Blood Cell % 0 /100 WBC (0); Platelet Count 265 Thou/mm3 (140-440); RDW Standard Deviation 50.6 fL (35.1-43.9); Red Blood Count 4.37 Miln/mm3 (4.50-5.90); White Blood Count 5.8 Thou/mm3 (3.8-10.6)
[2025-06-08 06:46] LABS: Alanine Aminotransferase < 7 U/L (10-49); Albumin, Serum 3.2 gm/dL (3.4-4.8); Albumin/Globulin Ratio 1.4 (1.2-2.2); Alkaline Phosphatase 96 U/L (46-116); Anion Gap 9 (7-16); Aspartate Amino Transferase 16 U/L (0-34); BUN/Creatinine Ratio 16 Ratio (12-20); Bilirubin,Total 0.6 mg/dL (0.3-1.2); Blood Urea Nitrogen 50 mg/dL (9-23); Calcium 8.3 mg/dL (8.3-10.6); Calcium (Corrected) 8.9 mg/dL (8.5-10.1); Carbon Dioxide 23.5 mMol/L (20.0-31.0); Chloride 105 mMol/L (98-107); Creatinine (Component) 3.2 mg/dL (0.6-1.3); Estimated Creatinine Clearance 24.8 mL/min (>60); Globulin 2.3 gm/dL (2.3-3.5); Glucose 64 mg/dL (74-106); Magnesium 1.6 mg/dL (1.6-2.6); Osmolality,Calculated 285 (275-295); Phosphorous 3.9 mg/dL (2.4-5.1); Potassium 4.7 mMol/L (3.4-5.1); Sodium 137 mMol/L (136-145); Total Protein 5.5 gm/dL (5.7-8.2); eGFR 21 See Note
[2025-06-08] MEDS: ALBUMIN HUMAN 25% IVPB 25 GM/100 ML BTL IV ×2 (08:20→20:39)
[2025-06-08] MEDS: ASPIRIN EC 81 MG TABEC PO (08:23)
[2025-06-08] MEDS: APIXABAN 2.5 MG TABLET 10 MG PO ×2 (08:23→20:36)
--- NOTE | 2025-06-08 08:36 | CHAP ---
Patient was visited by a Spiritual Care Volunteer on 06/07/2025 between 0904 and 1100 and received comfort, encouragement and/or prayer.
--- NOTE | 2025-06-08 08:59 | ESPR_ITS ---
Documentation for date of: 06/08/25 Subjective Subjective Interval history: Patient is evaluated at the bedside, sitting at the side of the bed, in no acute distress. Urine output almost 1400 mL overnight, net negative -500 mL despite Bumex 2mg twice daily, urine protein creatinine ratio estimated more than 5 g/day, due to significant proteinuria patient likely has underlying nephrotic syndrome, complicated by heart failure and cardiorenal syndrome. Given presence of hepatitis C virus positive status, possible glomerulonephritis MPGN versus diabetic nephropathy can be considered in differentials of CKD in this patient. CHEM panel shows NA 130 7K4.7 CO2 23, BUN 50, CR 3.2, will continue with Bumex 2 mg, noted visible reduction in patient's lower extremity edema. Recommend fluid restriction to 1500 mL daily. TRUMAN requested by neurology, patient will be made n.p.o., plan for TRUMAN tomorrow afternoon. Exam Vital Signs Temp Pulse Resp BP Pulse Ox O2 Del Method O2 Flow Rate 97.5 F 77 16 131/92 H 99 Nasal Cannula 1 06/08/25 08:00 06/08/25 08:31 06/08/25 08:00 06/08/25 08:31 06/08/25 08:00 06/08/25 08:00 06/08/25 08:00 Narrative Exam General: AOx3, cooperative, patient is a Kinyarwanda only speaker Skin: Intact, no cyanosis noted, bilateral lower extremity edema 3+ pitting up to the knees. HEENT: Atraumatic/normocephalic, KIRSTIE, neck supple Heart: RRR, S1 and S2 without clicks or murmurs Lungs: No wheezing or crackles, decreased air entry bilaterally at bases. Abdomen: Soft, nontender. Bowel sounds present . Vascular: Peripheral pulses palpable Neuro: No focal neurological deficits noted on exam today. Objective Labs 06/08/25 05:33 06/08/25 05:33 Labs: Laboratory Results - last 24 hr 06/08/25 05:33 WBC 5.8 RBC 4.37 L Hgb 12.2 L Hct 37.2 L MCV 85 MCH 27.9 MCHC 32.8 RDW Std Deviation 50.6 H Plt Count 265 D Neut % (Auto) 56 Lymph % (Auto) 28 Catron % (Auto) 13 H Eos % (Auto) 2 Baso % (Auto) 1 Neut # (Auto) 3.2 Lymph # (Auto) 1.6 Catron # (Auto) 0.7 Eos # (Auto) 0.1 Baso # (Auto) 0.1 Immature Gran # (Auto) 0.02 H Absolute Nucleated RBC 0.00 Immature Gran % 0 Nucleated RBC % 0 Sodium 137 Potassium 4.7 Chloride 105 Carbon Dioxide 23.5 Anion Gap 9 BUN 50 H Creatinine 3.2 H Estim Creat Clear Calc 24.8 L eGFR 21 L BUN/Creatinine Ratio 16 Glucose 64 L Calculated Osmolality 285 Calcium 8.3 Corrected Calcium 8.9 Phosphorus 3.9 Magnesium 1.6 Total Bilirubin 0.6 AST 16 ALT < 7 L Alkaline Phosphatase 96 Total Protein 5.5 L Albumin 3.2 L Globulin 2.3 Albumin/Globulin Ratio 1.4 Quality Measures Quality Measures stroke Suspected type of Stroke: Acute Ischemic Last known well (date): 06/05/25 Last known well (time): 17:10 Tenecteplase given: > 60 min of arrival Rehab services: PT evaluation ordered VTE Prophylaxis: pharmaceutical Antithrombotic by day 2:: ordered Statin ordered: >75 y/o moderate or high intensity dose Anticoagulation ordered for A-fib or flutter (current or hx): ordered Assessment & Plan Assessment Current Active Medications: Generic Name Dose Route Start Last Admin Trade Name Freq PRN Reason Stop Dose Admin Acetaminophen 650 mg 06/05/25 05:55 Acetaminophen 325 Mg Tablet PO 07/05/25 05:54 Q4HR PRN PAIN SCALE 1-3 (mild Acetaminophen 650 mg 06/06/25 17:55 Acetaminophen 325 Mg Tablet PO 07/06/25 17:54 Q6HR PRN Fever >100.4 Apixaban 10 mg 06/07/25 21:00 06/08/25 08:23 Apixaban 2.5 Mg Tablet PO 06/14/25 09:01 10 mg BID YUDITH Administration Aspirin 81 mg 06/06/25 09:30 06/08/25 08:23 Aspirin Ec 81 Mg Tabec PO 07/06/25 09:29 81 mg QDAY YUDITH Administration Atorvastatin Calcium 80 mg 06/05/25 21:00 06/07/25 21:36 Atorvastatin Calcium 20 Mg Tablet PO 07/05/25 20:59 80 mg HS YUDITH Administration Bumetanide 2 mg 06/07/25 22:15 06/08/25 08:31 Bumetanide Inj 0.25 Mg/Ml Vial 4 Ml IVP 07/07/25 22:14 2 mg BID YUDITH Administration Dextrose 25 ml 06/05/25 07:11 Dextrose 50%-Water Inj 50 Ml Syringe IV 07/05/25 07:10 Q15MIN PRN BG 50-70 responsive npo pt Dextrose 50 ml 06/05/25 07:11 Dextrose 50%-Water Inj 50 Ml Syringe IV 07/05/25 07:10 Q15MIN PRN BG <50 OR BG <70 & pt unresponsive Glucagon 1 mg 06/05/25 07:11 Glucagon Inj 1 Mg Vial IM Q15MIN PRN BG <70, and no IV access Albumin Human 25 gm in 100 mls @ 100 mls/hr 06/07/25 08:59 06/08/25 08:20 Albuminar-25 Ivpb IV 06/10/25 08:58 100 mls/hr QDAY YUDITH Administration Magnesium Sulfate 4 gm in 50 mls @ 12.5 mls/hr 06/08/25 08:19 Magnesium Sulfate Ivpb IV 06/08/25 12:18 X1 ONE Insulin Glargine 10 unit 06/06/25 21:00 06/07/25 21:37 Insulin Glargine (Lantus) 5 Unit/0.05 Ml (Per 5 Units) SC 07/06/25 20:59 10 unit HS YUDITH Administration Insulin Human Lispro 0 unit 06/05/25 19:30 06/08/25 08:11 Insulin Lispro (Admelog) 1 Unit/0.01 Ml Unit SC 07/05/25 19:29 Not Given [facility] Protocol Valsartan 40 mg 06/08/25 09:00 Valsartan 40 Mg Tablet PO 07/08/25 08:59 QDAY YUDITH Plan The patient is a 64-year-old male with a past medical history of Diabetes mellitus for the past 20 years, started insulin less than 1 year ago, history of hypertension, hepatitis C positive, CKD, who presented to the ER complaining of sudden onset left upper extremity paresthesias and weakness, the patient was admitted for acute ischemic stroke status post TNK, concern for recrudescence stroke as patient had worsening neurological deficit in ICU, currently speech and power are back to baseline. Cardiology was consulted for concern for new onset CHF bilateral lower extremity swelling. The patient reported that for the past 4 to 6 months he has been having gradual onset shortness of breath, worse at rest and exertion. Shortness of breath also associated with cough nonproductive of sputum. The patient has been unable to lie flat and frequently wakes up at night feeling short of breath. He has to sit up or use multiple pillows to sleep. Denied any fever or chest pain or chest pressure. But he did endorse dyspnea on exertion and orthopnea and paroxysmal nocturnal dyspnea. Patient also reported developing bilateral lower extremity edema starting 3 months ago, patient denied unilateral leg swelling stated that over 3 months ago he had lower extremity swelling in both his legs which went all the way up to his abdomen but slowly had decreased he was started on a water pill by his doctor and his swelling has improved a lot over the past 3 months but he still feels short of breath. Problems 1. Acute on chronic systolic CHF, likely Dilated CMP 2. Acute nonocclusive DVT 3. Acute embolic CVA bilateral parietal lobes 4. Acute hypoxic respiratory failure 5. Acute on chronic kidney disease, Cardiorenal syndrome 6. Bilateral pleural effusions 7. History of hypertension 8. History of diabetes mellitus 9. Hepatitis C positive 10. Hyperparathyroidism 11. Pulmonary nodules Admitted with acute embolic infarct in the setting of nonocclusive DVT, MRI brain was done which showed embolic type acute infarcts in both parietal lobes. Ultrasound duplex bilateral lower extremities showed nonocclusive DVT left peroneal and tibial veins, concern for PFO, neurology recommended getting a TRUMAN. Patient has been complaining of 4 to 6-month history of dyspnea on exertion, orthopnea and PND, complaining of 3-month history of bilateral lower extremity edema, which improved after taking water pill. Patient is unaware of diagnosis of CKD or CHF reported that he was seen by a kidney doctor over 8 years ago and reportedly everything was normal at that time. Patient denied unilateral onset of lower extremity swelling, insisted that it was bilateral in onset. Initially he had swelling all the way up to his abdomen with his primary doctor prescribed him a diuretic which helped his swelling. 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 Echocardiogram Shows severe global hypokinesis dilated cardiomyopathy, EF 15 to 20%, RV enlargement consistent with RV volume overload, severely dilated LA and RA, mild to moderate MR, no [id number] shunt demonstrated on bubble study, no cardiac thrombi seen. Dilated cardiomyopathy likely secondary to history of methamphetamine and cocaine and IV drug abuse over 20 years ago, now acutely decompensated. Will discontinue verapamil and recommend to start the patient on beta-henok and DAVIE/ ARB, and SGLT2 and MRA's. Patient will need to follow-up with outpatient cardiology office for further workup. Patient reported he has no past medical history of CKD, chart review shows patient did have elevated creatinine 1.5, few years ago. Currently creatinine 3.3 on arrival, possible acute on chronic kidney disease, EGFR 20, patient does have a history of diabetes, was recently started on insulin less than 1 year ago, A1c 7.8% nephrology following appreciate recommendations. Nephrology consulted about cardiorenal syndrome, started patient on IV Bumex 2 mg and albumin daily. Urine output 1500 mL mL over last 12 hours, net +120 mL, recommend fluid restriction to 1500 mL daily, aim for net -1.5 to 2 L/day. Will increase Bumex to 2 mg twice daily. Urine output almost 1400 mL overnight, net negative -500 mL despite Bumex 2mg twice daily, urine protein creatinine ratio estimated more than 5 g/day, due to significant proteinuria patient likely has underlying nephrotic syndrome, complicated by heart failure and cardiorenal syndrome. Given presence of hepatitis C virus positive status, possible glomerulonephritis MPGN versus diabetic nephropathy can be considered in differentials of CKD in this patient. ? Agree with neurology recommendations, neurology recommended starting Eliquis 10 mg twice daily for neck 7 days followed by Eliquis 5 mg twice daily, in addition to aspirin and atorvastatin. Recommended to discontinue Plavix. ? IV Bumex 2 mg twice daily, Recommend fluid restriction to 1500 mL daily. ? No evidence of LV thrombus or any [id number] shunt on echocardiogram on TTE with bubble study. ? Continue telemetry monitoring for arrhythmias ? Discontinued verapamil, due to increased mortality associated with HFrEF, recommend to start the patient on beta-henok and DAVIE/ ARB, and SGLT2 and MRA's. Patient will need to follow-up with outpatient cardiology office for further workup. May consider ICD placement if patient stays abstinent from alcohol and drugs and shows no improvement on GDMT after 3 months. ? TRUMAN requested by neurology, patient will be made n.p.o., plan for TRUMAN tomorrow afternoon. Rest of the management deferred to primary team. Thank you for cardiology consultation. We appreciate the opportunity to participate in this patient's care. Will continue to follow-up on this patient This case was discussed with principal android developer, Dr. Vasques. Dion Kwong MD PG3 Attending Provider Attestation/Addendum I have personally seen and examined the patient separately on the above date of service and discussed the plan of care with the resident. I reviewed the resident Dr. Ashley consultation progress note and agree with the resident findings and plan in the note above and have also edited the documentation to reflect my findings and plan. 64-year-old male with a past medical history of hepatitis C, significant drug abuse with methamphetamine, cocaine when he was younger, presently marijuana use, patient's hypertension, type 2 diabetes mellitus, ex-smoker, history of alcohol abuse, chronic kidney disease presented to the emergency department for further evaluation of sudden onset left upper extremity paresthesias as well as weakness. Patient was admitted to the hospital for concern of acute ischemic stroke which was confirmed with the imaging. Patient did receive TN K during the hospitalization given his worsening neurological deficit. Patient was also found to be having bilateral lower extremity swelling along with worsening shortness of breath over the past few months including at rest as well as exertion. Has some cough with nonproductive sputum. Unable to lie flat and gives symptoms of orthopnea. MRI brain showed embolic type acute infarcts in both parietal lobes. Also ultrasound duplex of the bilateral lower extremity showed nonocclusive DVT of the left peroneal and tibial veins. CT chest revealed bilateral small effusions. Labs reviewed and showed that elevated BUN at 43 and creatinine of 3.1 and platelets of 197, hemoglobin 12.5 WBC 5.8 and glucose of 113. LFTs showed only mildly elevated alk phos at 96. Sodium 137 calcium 8.7. She is on blood medications looks like Bumex 1 mg tablet, lisinopril, simvastatin as well as verapamil. Unclear of patient's compliance with the medications. 1. Acute stroke-embolic CVA involving bilateral parietal lobes-need to rule out cardioembolic stroke 2. Acute nonocclusive DVT of the left peroneal vein 3. New onset severe systolic CHF versus acute on chronic systolic CHF 4. Acute hypoxic respiratory failure in the setting of CHF exacerbation 5. Acute kidney injury versus acute on chronic kidney disease stage III-rule out cardiorenal syndrome 6 bilateral pleural effusions As noted above patient has significant history of drug abuse when he was younger including meth for close to 10 years along with history of cocaine but he stopped everything 20 years ago but still continues to use marijuana. He has a history of severe smoking at least more than 30 pack years of smoking and has history of alcohol abuse 2. He has hepatitis C. Patient did have worsening shortness of breath along with dyspnea at rest and exertion orthopnea as noted above and also has bilateral leg swelling. BNP was elevated at greater than 3180. Creatinine was 3.1. His previous creatinine was also elevated at 1.6 but a few years ago no recent creatinine. Overall patient looks overloaded with probable heart failure symptoms evidenced recommended to start aggressive diuresis with Bumex 2 mg IV twice daily for now. Input output elevation 2 g sodium diet. Echo did show severely decreased LV ejection fraction with an EF of around 15 to 20%, dilated cardiomyopathy. Severe global hypokinesis. RV enlargement consistent with RV volume overload. Severe dilated LA and RA. Mild to moderate MR and TR. Bubble study was negative for PFO or ASD.. Left atrial appendage could not be evaluated. Patient will need further workup of his heart failure his as outpatient and mostly secondary to substance abuse but need to rule out ischemic etiology also. Patient denies any chest pain chest pressure at the present point of time and does not appear to have any ACS. His CKD could be secondary to the diabetes mellitus history of hypertension previous creatinine was only 1.6. Could be component of cardiorenal syndrome but will need to rule out nephrotic syndrome also given that the patient has proteinuria. Nephrology also following and further workup as per nephrology. Regarding the stroke neurology is following the patient. Patient was started on aspirin and Plavix as well as high intensity statin. Plan is to start Eliquis as the patient does have a DVT. If patient is being started on DVT and treatment with Eliquis then patient should be only on Eliquis and aspirin. Follow-up with neurology. Neurology is requesting a TRUMAN given the embolic stroke with bilateral parietal lobes involvement want to rule out any LA or SAMI thrombus or LV thrombus. TTE did not show any LV thrombus but could not visualize left atrial appendage. Appropriate candidate for TRUMAN. Patient denies any kind of swallowing problems or any kind of esophageal interventions or previous surgeries. Patient denies any kind of gastric ulcers bleeding and any other hematemesis or hematochezia. Patient denies any issues with anesthesia previously. Patient explained all the risks, benefits and alternatives of TRUMAN including the risk of perforation, bleeding, respiratory failure secondary to sedation, injury to teeth gums esophagus and stomach. Patient understands all risks and benefits and provided consent for the procedure. We will keep him n.p.o. overnight and plan for TRUMAN in the morning. Management of rest of the medical conditions as per primary team and other consultants. Thank you for the consult and allowing me to participate in the care of the patient. Cardiology will continue to follow. Carlos Vasques M.D. Interventional Cardiology
--- NOTE | 2025-06-08 09:00 | ESPR_ITS ---
Documentation for date of: 06/08/25 Subjective Subjective Interval history: Patient is a 64 year old male with a past medical history hypertension, diabetes mellitus type 2 insulin-dependent on Tresiba, and atorvastatin who was admitted on 06/05/2025 directly into the ICU secondary to tenecteplase administration given concern for stroke and subsequently on MRI noted embolic stroke. To have embolic type acute infarct in both parietal lobes. Repeat CT head on 06/06/2025 negative for acute hemorrhage status post tenecteplase. Patient was subsequently downgraded from ICU to floor status. Neurology following given embolic stroke. 06/07/2025: Patient examined at bedside this evening. Patient saturating well- spO2 100%, on 2 liters of oxygen-->decreased to 1 L, continues to saturate well, SpO2 100%. Patient denied chest pain or SOB. Patient denied lower or upper extremity weakness. Patient continues to have lower peripheral edema, but per patient improved. Patient and patient's daughter at bedside advised to follow up with hypercoagulable panel as outpatient. No history of previous clots. No extended travel. No family history. Patient denied weight loss of history of cancer, of note right Cardiology, Dr. Vasques, following given need for TRUMAN. Repeat EKG sinus w/ 1st degree block START Eliquis 10 mg PO BID for next 7 days then followed by Eliquis 5 mg PO BID, continue Aspirin, and Atorvastatin. Stop Plavix. 06/08/2025: Patient examined at bedside. Patient denied chest pain or SOB. Currently saturating at spO2 99% on 1 Liter on [place]. Continue to wean off oxygen. Patient denied any wade bleeding given new medication of Eliquis. Patient is alert & orientated X 3. TRUMAN not schedule, pending cardiology. Exam Vital Signs Temp Pulse Resp BP Pulse Ox O2 Del Method O2 Flow Rate 97.5 F 78 16 124/89 H 99 Nasal Cannula 1 06/08/25 08:00 06/08/25 09:59 06/08/25 08:00 06/08/25 09:59 06/08/25 08:00 06/08/25 08:00 06/08/25 08:00 Narrative Exam General Appearance: Alert & Oriented X3, well-nourished male who is lying in bed in no acute distress HEENT: Skull symmetrical and atraumatic. Conjunctivae pink and moist. Pupils equal, round, reactive to light and accommodation (PERRL). External ear without lesion or discharge. Straight, nares patient, mucosa pink, no discharge. Cardio: Normal Rate and Rhythm with S1 and S2 heart sounds. No murmurs or extra heart sounds auscultated. No bruits on carotid auscultation. Yes, peripheral edema. Lungs: Symmetric with good expansion. Chest and back non-tender. Breath sounds vesicular without crackles, wheezing or rhonchi Abdomen: Non-tender, Non-distended, Normal Reactive Bowel Sounds Neuro: Alert, cooperative, oriented to person, place, and time. Speech clear. CN grossly intact. Upper motor strength 5/5 and Lower motor strength 5/5. Sensation intact. Objective Labs 06/08/25 05:33 06/08/25 05:33 Labs: Laboratory Results - last 24 hr 06/08/25 05:33 WBC 5.8 RBC 4.37 L Hgb 12.2 L Hct 37.2 L MCV 85 MCH 27.9 MCHC 32.8 RDW Std Deviation 50.6 H Plt Count 265 D Neut % (Auto) 56 Lymph % (Auto) 28 [place] % (Auto) 13 H Eos % (Auto) 2 Baso % (Auto) 1 Neut # (Auto) 3.2 Lymph # (Auto) 1.6 [place] # (Auto) 0.7 Eos # (Auto) 0.1 Baso # (Auto) 0.1 Immature Gran # (Auto) 0.02 H Absolute Nucleated RBC 0.00 Immature Gran % 0 Nucleated RBC % 0 Sodium 137 Potassium 4.7 Chloride 105 Carbon Dioxide 23.5 Anion Gap 9 BUN 50 H Creatinine 3.2 H Estim Creat Clear Calc 24.8 L eGFR 21 L BUN/Creatinine Ratio 16 Glucose 64 L Calculated Osmolality 285 Calcium 8.3 Corrected Calcium 8.9 Phosphorus 3.9 Magnesium 1.6 Total Bilirubin 0.6 AST 16 ALT < 7 L Alkaline Phosphatase 96 Total Protein 5.5 L Albumin 3.2 L Globulin 2.3 Albumin/Globulin Ratio 1.4 Quality Measures Quality Measures stroke Suspected type of Stroke: Acute Ischemic Last known well (date): 06/05/25 Last known well (time): 17:10 Tenecteplase given: > 60 min of arrival Rehab services: PT evaluation ordered and Speech Language Pathology eval ordered VTE Prophylaxis: pharmaceutical Antithrombotic by day 2:: ordered Statin ordered: <75 y/o high intensity dose Anticoagulation ordered for A-fib or flutter (current or hx): not indicated Assessment & Plan Assessment Current Active Medications: Generic Name Dose Route Start Last Admin Trade Name Freq PRN Reason Stop Dose Admin Acetaminophen 650 mg 06/05/25 05:55 Acetaminophen 325 Mg Tablet PO 07/05/25 05:54 Q4HR PRN PAIN SCALE 1-3 (mild Acetaminophen 650 mg 06/06/25 17:55 Acetaminophen 325 Mg Tablet PO 07/06/25 17:54 Q6HR PRN Fever >100.4 Apixaban 10 mg 06/07/25 21:00 06/08/25 08:23 Apixaban 2.5 Mg Tablet PO 06/14/25 09:01 10 mg BID YUDITH Administration Aspirin 81 mg 06/06/25 09:30 06/08/25 08:23 Aspirin Ec 81 Mg Tabec PO 07/06/25 09:29 81 mg QDAY YUDITH Administration Atorvastatin Calcium 80 mg 06/05/25 21:00 06/07/25 21:36 Atorvastatin Calcium 20 Mg Tablet PO 07/05/25 20:59 80 mg HS YUDITH Administration Bumetanide 2 mg 06/07/25 22:15 06/08/25 08:31 Bumetanide Inj 0.25 Mg/Ml Vial 4 Ml IVP 07/07/25 22:14 2 mg BID YUDITH Administration Dextrose 25 ml 06/05/25 07:11 Dextrose 50%-Water Inj 50 Ml Syringe IV 07/05/25 07:10 Q15MIN PRN BG 50-70 responsive npo pt Dextrose 50 ml 06/05/25 07:11 Dextrose 50%-Water Inj 50 Ml Syringe IV 07/05/25 07:10 Q15MIN PRN BG <50 OR BG <70 & pt unresponsive Glucagon 1 mg 06/05/25 07:11 Glucagon Inj 1 Mg Vial IM Q15MIN PRN BG <70, and no IV access Albumin Human 25 gm in 100 mls @ 100 mls/hr 06/07/25 08:59 06/08/25 08:20 Albuminar-25 Ivpb IV 06/10/25 08:58 100 mls/hr QDAY YUDITH Administration Magnesium Sulfate 4 gm in 50 mls @ 12.5 mls/hr 06/08/25 08:19 06/08/25 10:01 Magnesium Sulfate Ivpb IV 06/08/25 12:18 12.5 mls/hr X1 ONE Administration Insulin Glargine 10 unit 06/06/25 21:00 06/07/25 21:37 Insulin Glargine (Lantus) 5 Unit/0.05 Ml (Per 5 Units) SC 07/06/25 20:59 10 unit HS YUDITH Administration Insulin Human Lispro 0 unit 06/05/25 19:30 06/08/25 08:11 Insulin Lispro (Admelog) 1 Unit/0.01 Ml Unit SC 07/05/25 19:29 Not Given ACHS COUNTS INCLUDE 234 BEDS AT THE [facility] Protocol Valsartan 40 mg 06/08/25 09:00 06/08/25 09:59 Valsartan 40 Mg Tablet PO 07/08/25 08:59 40 mg QDAY COUNTS INCLUDE 234 BEDS AT THE [facility] Administration Plan Patient is a 64 year old male with a past medical history hypertension, diabetes mellitus type 2 insulin-dependent on Tresiba, and atorvastatin who was admitted on 06/05/2025 directly into the ICU secondary to tenecteplase administration given concern for stroke and subsequently on MRI noted embolic stroke. #Acute Embolic Stroke, Bilateral #Left Arm Paresthesia, resolved. #S/p Tenecteplase #DVT of left peroneal and posterior tibial veins Patient presented with paresthesia upon admission and was administered tenecteplase. Inidital head CT negative. MRI noted embolic type acute infarcts in both pareital lobes. Repeat CT head after 24 hours noted no acute hemorrhage. Diagnostics: Lipid panel: Triglycerides 72, Choelsterol 76, LDL 30 HDL 32 A1c (06/05/2025): 7.8 % TSH 6.05 (H) & Free T4 1.25 US: non-occlusive acute deep vein thrombus involving the left peroneal and posterior tibial veins Plan -Pending TRUMAN, not scheduled, follow up with cardiology. -Start Eliquis 10 mg PO BID until May-->then Eliquis 5 mg PO BID. -Continue Aspirin 81 mg PO qday, Atorvastatin 80 mg PO HS -Monitor Blood pressure, goal <180/105 given TNK -continue to monitor fasting blood glucose -Outpatient please perform a hypercoagulable panel with PCP. -Head of bed at 30 -K >4 and Mg >2 #Moderate Right left Pleural Effusion #Right Base Pneumonia #Vascular Congestion #Hypertension #Dibetes Mellitys Type II insulin depdent #Hyperglycemia #Hyperlipidemia #Normocytic Anemia #RENATE vs CKD #Renal Parenchymal Scar Formation #Mild Left Hydronephrosis #Ascending aorta dilated measuring 4.3cm - The patient's plan was discussed with attending Dr. Barry Sahu MD PGY2 Internal Medicine Attending Provider Attestation/Addendum I personally have seen and examined the patient at the bedside and agree with resident's findings, assessment and plan of care. Patient is neurologically stable without any focal deficit. No recurrent symptoms reported after admission/TNK Follow-up with the TRUMAN and hypercoagulopathy workup. Continue with the Eliquis as advised for DVT management along with aspirin
[2025-06-08] MEDS: VALSARTAN 40 MG TABLET PO (09:59)
[2025-06-08] MEDS: Magnesium Sulfate 4 GM Ivpb 4 GM/50 ML BAG IV (10:01)
--- NOTE | 2025-06-08 10:13 | PD.RESPRO ---
Documentation for date of: 06/08/25 Subjective Subjective Interval history: Mr. Baldwin is a 64 yo norwegian speaking gentleman with hx of T2DM on insulin, HTN, initially presented to the ED with complaint of LUE wkness and parasthesia half an hour before presenting to the ED. He reports that he has a PCP at [facility], that he saw about 1 month ago, he reports taking his medications as prescribed. He reports orthopnea and paroxysmal dyspnea, dyspnea on exertion and BLE edema that has limited his ability to work for the past 4-6 months. pt reports that he had been seen by a manager supply chain over 10 years ago, and has not since been followed. query cirrhosis, given etoh hx query CHF In the ED his vitals were BP 166/122, pulse 94, RR 18, saturating 97% on room air. Labs were significant for hemoglobin of 13.0, sodium 136, potassium 5.1, BUN 64, creatinine 3.3, GFR 20, blood sugar 182, A1c, lipid panel, TSH elevated 6.05. UA revealed 2+ protein, 2+ glucose, 1+ blood, 4+ RBC, but negative for UTI, UA positive for marijuana. CT head revealed possible acute infarct with brain MRI follow-up recommended. CTA head and neck revealed no large vessel occlusion, CT chest revealed bilateral pleural effusion and 6 mm pulmonary nodule in the right upper lobe. 06/05/2025: Patient admitted to ICU, for stroke r/o, tknase given, pt had another stroke alert called later in the day, due to LUE wkness and LLE weakness and L facial droop noted by pt family. repeat CT head post anticoagulation admin. 06/06/2025: nephrology consulted given Renal US with parenchymal scar. Pt seen and examined at ICU bedside with pt son Steffanie. Pt reports that his LE are less swollen than how they are at home. No new complaints. PE with Bibasilar crackles and LE with 1+ pitting edema to the mid grigsby and skin wrinkling. CT brain 24 post-TKNase was negative for hemorrhage. MRI brain impression is embolic type acute infarcts in both parietal lobes. 06/07/2025: Patient seen and examined at bedside. Pt sitting upright eating breakfast. [facility], interpreting. Dr. Newby reviewd pt [facility] results which confirms suspicions of CKD, given 02/2025 BUN 65, creatinine 2.45, GFR 29, albumin 3.4, hemoglobin 12.7, BNP 2716, A1c 9.8 and 07/2024 creatinine 1.8, GFR 42, albumin 3.4, pending TTE read, CTAP pending read, today labs with K 4.9, BUN 43 from 51, Cr 3.1 from 3.0, UOP 1500. Urine protein Cr ratio with >3.5 grams, suggest nephrotic syndrome. Start Bumex 2 IV and Albumin 25 qd. If bp will tolerate, consider adding 40 valsartan (BP 114/79). 06/08/2025: Patient seen and examined at bedside. Pt sitting upright eating breakfast. pt states that his daughters will be seing him later today. Cr 3.2 from 3.1, BUN 50 from 43. Significant LE edema. Plan to D/c hydralizine, and start valsartan 40, BP soft, monitior if pt will tolerate, Albumin IV 25 BID, ECHO read? pending Exam Vital Signs Temp Pulse Resp BP Pulse Ox O2 Del Method O2 Flow Rate 97.5 F 78 16 124/89 H 99 Nasal Cannula 1 06/08/25 08:00 06/08/25 09:59 06/08/25 08:00 06/08/25 09:59 06/08/25 08:00 06/08/25 08:00 06/08/25 08:00 Narrative Exam GENERAL: no acute distress, AAO x3, comfortably sitting upright in bed HEENT: Head AT/ NC. Mucous membranes moist. NECK: Supple, no lymphadenopathy, no carotid bruits. CARDIOVASCULAR: RRR. Normal S1/S2, No m/r/g. bilateral pitting of lower extremities RESPIRATORY: lung sounds clearer on auscultation. GASTROINTESTINAL: Abdomen soft, non tender no palpable masses. Bowel sounds present MUSCULOSKELETAL:? No cyanosis or edema, no visible joint swelling. NEUROLOGICAL: CN II-XII grossly intact. Sensation intact, symmetric. PSYCHIATRIC: Awake and alert, not agitated, normal mood and affect. SKIN: No obvious rashes, no jaundice, Objective Labs 06/08/25 05:33 06/08/25 05:33 Labs: Laboratory Results - last 24 hr 06/08/25 05:33 WBC 5.8 RBC 4.37 L Hgb 12.2 L Hct 37.2 L MCV 85 MCH 27.9 MCHC 32.8 RDW Std Deviation 50.6 H Plt Count 265 D Neut % (Auto) 56 Lymph % (Auto) 28 [place] % (Auto) 13 H Eos % (Auto) 2 Baso % (Auto) 1 Neut # (Auto) 3.2 Lymph # (Auto) 1.6 [place] # (Auto) 0.7 Eos # (Auto) 0.1 Baso # (Auto) 0.1 Immature Gran # (Auto) 0.02 H Absolute Nucleated RBC 0.00 Immature Gran % 0 Nucleated RBC % 0 Sodium 137 Potassium 4.7 Chloride 105 Carbon Dioxide 23.5 Anion Gap 9 BUN 50 H Creatinine 3.2 H Estim Creat Clear Calc 24.8 L eGFR 21 L BUN/Creatinine Ratio 16 Glucose 64 L Calculated Osmolality 285 Calcium 8.3 Corrected Calcium 8.9 Phosphorus 3.9 Magnesium 1.6 Total Bilirubin 0.6 AST 16 ALT < 7 L Alkaline Phosphatase 96 Total Protein 5.5 L Albumin 3.2 L Globulin 2.3 Albumin/Globulin Ratio 1.4 Quality Measures Quality Measures stroke Suspected type of Stroke: Acute Ischemic Last known well (date): 06/05/25 Last known well (time): 17:10 Tenecteplase given: > 60 min of arrival Rehab services: PT evaluation ordered and Speech Language Pathology eval ordered VTE Prophylaxis: pharmaceutical Antithrombotic by day 2:: ordered Statin ordered: <75 y/o high intensity dose Anticoagulation ordered for A-fib or flutter (current or hx): ordered Assessment & Plan Assessment Current Active Medications: Generic Name Dose Route Start Last Admin Trade Name [place] PRN Reason Stop Dose Admin Acetaminophen 650 mg 06/05/25 05:55 Acetaminophen 325 Mg Tablet PO 07/05/25 05:54 Q4HR PRN PAIN SCALE 1-3 (mild Acetaminophen 650 mg 06/06/25 17:55 Acetaminophen 325 Mg Tablet PO 07/06/25 17:54 Q6HR PRN Fever >100.4 Apixaban 10 mg 06/07/25 21:00 06/08/25 08:23 Apixaban 2.5 Mg Tablet PO 06/14/25 09:01 10 mg BID YUDITH Administration Aspirin 81 mg 06/06/25 09:30 06/08/25 08:23 Aspirin Ec 81 Mg Tabec PO 07/06/25 09:29 81 mg QDAY YUDITH Administration Atorvastatin Calcium 80 mg 06/05/25 21:00 06/07/25 21:36 Atorvastatin Calcium 20 Mg Tablet PO 07/05/25 20:59 80 mg HS YUDITH Administration Bumetanide 2 mg 06/07/25 22:15 06/08/25 08:31 Bumetanide Inj 0.25 Mg/Ml Vial 4 Ml IVP 07/07/25 22:14 2 mg BID YUDITH Administration Dextrose 25 ml 06/05/25 07:11 Dextrose 50%-Water Inj 50 Ml Syringe IV 07/05/25 07:10 Q15MIN PRN BG 50-70 responsive npo pt Dextrose 50 ml 06/05/25 07:11 Dextrose 50%-Water Inj 50 Ml Syringe IV 07/05/25 07:10 Q15MIN PRN BG <50 OR BG <70 & pt unresponsive Glucagon 1 mg 06/05/25 07:11 Glucagon Inj 1 Mg Vial IM Q15MIN PRN BG <70, and no IV access Albumin Human 25 gm in 100 mls @ 100 mls/hr 06/07/25 08:59 06/08/25 08:20 Albuminar-25 Ivpb IV 06/10/25 08:58 100 mls/hr QDAY YUDITH Administration Magnesium Sulfate 4 gm in 50 mls @ 12.5 mls/hr 06/08/25 08:19 06/08/25 10:01 Magnesium Sulfate Ivpb IV 06/08/25 12:18 12.5 mls/hr X1 ONE Administration Insulin Glargine 10 unit 06/06/25 21:00 06/07/25 21:37 Insulin Glargine (Lantus) 5 Unit/0.05 Ml (Per 5 Units) SC 07/06/25 20:59 10 unit HS YUDITH Administration Insulin Human Lispro 0 unit 06/05/25 19:30 06/08/25 08:11 Insulin Lispro (Admelog) 1 Unit/0.01 Ml Unit SC 07/05/25 19:29 Not Given [facility] Protocol Valsartan 40 mg 06/08/25 09:00 06/08/25 09:59 Valsartan 40 Mg Tablet PO 07/08/25 08:59 40 mg QDAY YUDITH Administration Plan 64-year-old male with past medical history significant for essential hypertension, hyperlipidemia, and insulin-dependent type 2 diabetes mellitus presented to ED with chief complaint of left upper arm weakness and paresthesia for about half an hour. Patient received tenecteplase 23.5 mg and admitted to ICU for further management of acute ischemic stroke. pending transfer to floor from ICU. MRI head with embolic stroke in BL parietal lobes. pending TTE. continues on bumex IV and albumin 25 BID, nephrotic range proteinuria, CKD confirmed with review of outside labs. cirrhosis. 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 CKD-differential diagnoses include diabetic nephropathy vs rule out a liver cirrhosis versus congestive heart failure query cardiorenal given BLE edema, bibasilar crackles on auscultation, dyspnea on exertion, PND and orthopnea, see #query CHF below. Cr initially improved on bumex. on exam pt appears volume overloaded. Cr: 3.3 from 3.3 on admission eGFR is 20 Dr. Newby reviewed pt outpatient [facility] data: 02/2025 BUN 65, creatinine 2.45, GFR 29, albumin 3.4, hemoglobin 12.7, BNP 2716, A1c 9.8 07/2024 creatinine 1.8, GFR 42, albumin 3.4 pt reports being seen by a manager supply chain > 10 years ago. on 06/08 Cr 3.2 from 3, BUN 50 from 47. Dx - US renal showed mild bilateral renal scar formation and mild left hydronephrosis - UA with 2+ protein and 2+ glucose 4+ RBC - Daily CMP - spot urine total protein creatinine ratio with 5.8 nephrotic range. - PTH elevated 361 - Vitamin D25 : 21.9, - Hep panel: Hep C + Tx - Avoid nephrotoxic medications - renally dose medications - strict I and O #query CHF exacerbation DDX: chf vs ckd pt reports dyspnea on exertion, orthopnea, and PND, He has been taking diuretics at home which initially helped with his BLE, however the swelling is significant and limits his ability to work favor CHF as etiology of BLE, however pt does have ?chronic kidney disease, see #query RENATE on CKD on exam BLE edema is persists on bumex 2 mg, UOP 1390, Dx - CXR showed: Moderate enlargement cardiac contour with prominent vascular congestion including central vascular engorgement - Pending TTE with bubble read Plan - d/c bumex 1mg PO daily - start IV Bumex 2 qd - Albumin 25 IV BID previously QD - fluid restriction 1.5L - 2g sodium diet #Acute embolic ischemic stroke Status post tenecteplase Brain MRI with MRA shows embolic type acute infarcts in both parietal lobes -pendint TTE w bubble #Hypertensive emergency, resolved #HTN- improved SBP 110s pt taking lisinopril at home Plan - d/c nicardipine drip - d/c verapamil 240 mg tonight - d/c Hydralazine 25mg TID - add valsartan 40 QD. #Bilateral pleural effusion #PNA Likely secondary to possible new onset CHF exacerbation vs underlying cirrhosis #Cirrhosis (etoh vs hep C). #mild ascites #Hep C. pt reports heavy drinking hx, has decreased intake recently hep panel + hep C . CTAP with cirrhosis and mild ascites - giving albumin 25 BID (see #query chf above). #Insulin-dependent Diabetes mellitus type 2 #Glycosuria Patient mentions he takes long-acting insulin 9 units at night, however forgot to bring it with him to hospital pt states that he has seen optomitrist who noted blood in his eye, query diabetic retinopathy. A1c 7.8 AM Blood glucose 89 - Started on Glargine 10u qHS - On sliding scale insulin, received 3 units ssi today - Hypoglycemia protocol in place - f/u with opthalmologist outpatient for diabetic retinopathy. . #Hypercholesterolemia - started on atorva 80 qhs #incedental 6mm Pulmonary Nodule -cocci negative #query BPH - ultrasound with nl prostate volume 26 however pt reports incomplete voiding and nocturia. #Normocytic anemia #iron deficiency anemia query 2/2 CKD - iron panel: iron low, iron sat low -Management as per primary team Plan discussed with nephrology attending Dr. Keyonna Anders MD Internal Medicine PGY-1 Attending Provider Attestation/Addendum Patient seen and examined with resident physician Dr. Anders. Note reviewed, agree with findings and recommendations. Had a long conversation with son and daughter at bedside. Patient seems to have multifactorial RENATE. Now presenting with uncontrolled hypertension, stroke. Anasraca- differential diagnoses include diabetic nephropathy vs rule out a liver cirrhosis versus congestive heart failure. Pending echocardiogram. Urine protein/creatinine 5.8 g, CT abdomen pelvis ++ liver cirrhosis, hep panel - hep C ++. Patient has history of alcoholism. Extensive history of marijuana usage. Reviewed labs from outpatient [facility] 02/2025 BUN 65, creatinine 2.45, GFR 29, albumin 3.4, hemoglobin 12.7, BNP 2716, A1c 9.8 07/2024 creatinine 1.8, GFR 42, albumin 3.4 Underlying CKD from a diabetic nephropathy. 06/08/2025 continue with the diuretics and albumin as patient still has edema. Patient will be left with CKD to maintain euvolemic state. He seems to have anasarca from diabetic nephropathy with significant nephrotic range proteinuria. Optimize blood pressure medications. Add low-dose ARB's. Might eventually need renal replacement therapy
--- NOTE | 2025-06-08 12:09 | PC.SS ---
SS follow up note; TRUMAN pending. Patient will discharge home when medically cleared.
--- NOTE | 2025-06-08 13:07 | ESPR_ITS ---
<Statement entered by Dirk Gold MD - 06/08/25 17:30> Patient was examined and case was reviewed with team including attending physician. Note reviewed, I agree with most of its contents and agree with the patient's care as documented by Dr. Prescott Patient seen today at the bedside found awake, alert, orientedx3. No overnight events reported. Vitals and labs reviewed. No active complaints at this time. Patient started on valsartan 40 mg. Neurology recommended starting Eliquis 10 mg twice daily for 7 days and then 5 twice daily onwards for stroke prevention as well as aspirin and statin. Case discussed with my attending Dr. Johnny Gold MD PGY-2 Disclaimer: Despite multiple revisions, due to the dictation software being used, the document bellow may not be free of grammatical errors including phonetic/typographic errors. However, this does not deter from our commitment to providing health care in the patient's best interest in mind. Documentation for date of: 06/08/25 Subjective Subjective Interval history: 06/08/25: NAEO. VSS. Patient denies any shortness of breath, weakness or paresthesia. Spoke with the Nephrology team, recommended discontinuing verapamil and hydralazine and start Valsartan 40. Neurology recommends starting Eliquis 10BID x7days then 5BID afterward for stroke prevention along with aspirin and statin. Exam Vital Signs Temp Pulse Resp BP Pulse Ox O2 Del Method O2 Flow Rate 97.6 F 77 19 138/95 H 98 Nasal Cannula 1 06/08/25 12:06/08/25 12:06/08/25 12:06/08/25 12:06/08/25 12:06/08/25 12:06/08/25 12:00 Narrative Exam Gen: Well-developed and well-nourished. HEENT: NCAT, EOMI, MMM, anicteric conjunctivae. CVS: normal S1 and S2. RRR. No M/R/G. Resp: CTA B/L. No rhonchi, rales, crackles or wheezing. Ext: improved lower limb pitting edema up to bilateral knees, warm and well perfused Neuro: Cranial nerve II to XII grossly intact. Bilateral upper extremity 5/5. Bilateral lower extremity 5/5. normal sensation to both upper and lower limbs bilaterally. GCS 15 Skin: No rash Psych: appropriate mood and affect. Objective Labs 06/08/25 05:33 06/08/25 05:33 Labs: Laboratory Results - last 24 hr 06/08/25 05:33 WBC 5.8 RBC 4.37 L Hgb 12.2 L Hct 37.2 L MCV 85 MCH 27.9 MCHC 32.8 RDW Std Deviation 50.6 H Plt Count 265 D Neut % (Auto) 56 Lymph % (Auto) 28 [place] % (Auto) 13 H Eos % (Auto) 2 Baso % (Auto) 1 Neut # (Auto) 3.2 Lymph # (Auto) 1.6 [place] # (Auto) 0.7 Eos # (Auto) 0.1 Baso # (Auto) 0.1 Immature Gran # (Auto) 0.02 H Absolute Nucleated RBC 0.00 Immature Gran % 0 Nucleated RBC % 0 Sodium 137 Potassium 4.7 Chloride 105 Carbon Dioxide 23.5 Anion Gap 9 BUN 50 H Creatinine 3.2 H Estim Creat Clear Calc 24.8 L eGFR 21 L BUN/Creatinine Ratio 16 Glucose 64 L Calculated Osmolality 285 Calcium 8.3 Corrected Calcium 8.9 Phosphorus 3.9 Magnesium 1.6 Total Bilirubin 0.6 AST 16 ALT < 7 L Alkaline Phosphatase 96 Total Protein 5.5 L Albumin 3.2 L Globulin 2.3 Albumin/Globulin Ratio 1.4 Quality Measures Quality Measures stroke Suspected type of Stroke: Acute Ischemic Last known well (date): 06/05/25 Last known well (time): 17:10 Tenecteplase given: > 60 min of arrival Rehab services: PT evaluation ordered and Speech Language Pathology eval ordered VTE Prophylaxis: pharmaceutical Antithrombotic by day 2:: ordered Statin ordered: <75 y/o high intensity dose Anticoagulation ordered for A-fib or flutter (current or hx): ordered Assessment & Plan Assessment Current Active Medications: Generic Name Dose Route Start Last Admin Trade Name Freq PRN Reason Stop Dose Admin Acetaminophen 650 mg 06/05/25 05:55 Acetaminophen 325 Mg Tablet PO 07/05/25 05:54 Q4HR PRN PAIN SCALE 1-3 (mild Acetaminophen 650 mg 06/06/25 17:55 Acetaminophen 325 Mg Tablet PO 07/06/25 17:54 Q6HR PRN Fever >100.4 Apixaban 10 mg 06/07/25 21:00 06/08/25 08:23 Apixaban 2.5 Mg Tablet PO 06/14/25 09:01 10 mg BID YUDITH Administration Aspirin 81 mg 06/06/25 09:30 06/08/25 08:23 Aspirin Ec 81 Mg Tabec PO 07/06/25 09:29 81 mg QDAY YUDITH Administration Atorvastatin Calcium 80 mg 06/05/25 21:00 06/07/25 21:36 Atorvastatin Calcium 20 Mg Tablet PO 07/05/25 20:59 80 mg HS YUDITH Administration Bumetanide 2 mg 06/07/25 22:15 06/08/25 08:31 Bumetanide Inj 0.25 Mg/Ml Vial 4 Ml IVP 07/07/25 22:14 2 mg BID YUDITH Administration Dextrose 25 ml 06/05/25 07:11 Dextrose 50%-Water Inj 50 Ml Syringe IV 07/05/25 07:10 Q15MIN PRN BG 50-70 responsive npo pt Dextrose 50 ml 06/05/25 07:11 Dextrose 50%-Water Inj 50 Ml Syringe IV 07/05/25 07:10 Q15MIN PRN BG <50 OR BG <70 & pt unresponsive Glucagon 1 mg 06/05/25 07:11 Glucagon Inj 1 Mg Vial IM Q15MIN PRN BG <70, and no IV access Albumin Human 25 gm in 100 mls @ 100 mls/hr 06/08/25 21:00 Albuminar-25 Ivpb IV 06/11/25 20:59 BID [facility] Insulin Degludec 10 unit 06/08/25 21:00 Insulin Degludec 5 Unit/0.05 Ml (Per 5 Units) SC 07/06/25 20:59 HS [facility] Insulin Human Lispro 0 unit 06/05/25 19:30 06/08/25 12:02 Insulin Lispro (Admelog) 1 Unit/0.01 Ml Unit SC 07/05/25 19:29 Not Given ACHS [facility] Protocol Valsartan 40 mg 06/08/25 09:00 06/08/25 09:59 Valsartan 40 Mg Tablet PO 07/08/25 08:59 40 mg QDAY YUDITH Administration Plan 64M with PMH of significant for HTN and IDDM presented to ED with left upper extremity weakness and paresthesia x30min prior to arrival on 06/05/25. Patient received tenecteplase 23.5 mg for and admitted to ICU for further management of acute ischemic stroke. Patient was transferred to medical floor for ongoing management of current issues. #Acute ischemic stroke #Acute embolic CVA bilateral parietal lobes #Acute non-occlusive DVT S/P tenecteplase. Brain MRI with MRA shows embolic type acute infarcts in bilateral parietal lobes. 24hr post-TNK head CT negative. No residual symptoms. non occlusive DVT noted in the left peroneal and left posterior tibial veins. Plan: - Pending TRUMAN for possible intracardiac vegetations given hx of IV drug use in the past, concern for PFO - Telemetry monitoring - Neurocheck every 4hr - Discontinue Plavix - Continue ASA 81mg - Start Eliquis 10 BID x7 days (until May)then 5 BID - Continue Atorvastatin 80 mg PO HS - Monitor Blood pressure, goal <180/105 given TNK -Outpatient perform a hypercoagulable panel with PCP, per neurology recommendation - K >4 and Mg >2 - PT/ST #Acute on chronic systolic CHF #Bilateral pleural effusions Improved. Patient reported orthopnea, PND and bilateral lower extremity edema [id number] with PE consistent with improved +2 bilateral pitting edema up to bilateral knees. CT chest revealed bilateral pleural effusion. CXR showed: Moderate enlargement cardiac contour with prominent vascular congestion including central vascular engorgement CT abd&Pelvis shows heart failure pattern with moderate right mild left pleural effusions (06/07/25) BNP > 3280, echocardiogram findings consistent with dilated cardiomyopathy, in the setting of hx of IV drug use. Echocardiogram also shows severe global hypokinesis dilated cardiomyopathy, EF 15 to 20%, RV enlargement consistent with RV volume overload, severely dilated LA and RA, mild to moderate MR, no [id number] shunt demonstrated on bubble study, no cardiac thrombi seen. Net I&O: -1290 in the last 24hrs Plan: - Continue bumex 2mg IV daily - Continue Albumin 25 qd - Strict ins and outs - Fluid restriction 1.5L/day - 2g sodium diet #Hypertensive emergency, improved. History of essential hypertension Stopped Nicardipine drip Currently stable, improved. last measurement: 138/95 Plan: - Discontinue verapamil due to increased mortality associated with HFrEF - Discontinue Hydralazine 25mg TID - Start Valsartan 40 qday - Start Carvidelol 3.125 BID given BP tolerance #RENATE on CKD IV #nephrotic range proteinuria #Nephrotic syndrome #Secondary Hyperparathyroidism DDX for CKD: diabetic nephropathy vs liver cirrhosis versus CHF On exam, BLE edema, bibasilar crackles on auscultation, dyspnea on exertion, PND and orthopnea noted on exam pt appears volume overloaded. Cr: 3.2 from 3.3 on admission, eGFR is 21 US renal showed mild bilateral renal scar formation and mild left hydronephrosis, UA with 2+ protein and 2+ glucose 4+ RBC, spot urine total protein creatinine ratio with 5.8 nephrotic range. PTH elevated 361 Vitamin D25 : 21.9 Hep panel: Hep C + Plan: - Avoid nephrotoxins - Renally dose medications - Strict I&O #Insulin-dependent Diabetes mellitus type 2 Patient takes long-acting insulin 9 units at night, however forgot to bring it with him to hospital A1c 7.8 Blood glucose 64 Fingers stick: 101 Plan: - Insulin degludec 10units hs -SSI - Hypoglycemia protocol in place - f/u with opthalmologist outpatient for diabetic retinopathy. #Hypercholesterolemia Controlled Total cholesterol 76, triglycerides 72, LDL 30 Plan ? Continue atorvastatin 80 mg daily #Pulmonary Nodule Incidental finding of CT chest 6mm nodule of right upper lobe negative cocci serology Plan: - Outpatient F/U with repeat CT chest w/o contrast in 3-6 months #Normocytic anemia Likely diagnosis in the setting of volume overload and possible CKD and CHF iron panel: iron low, iron sat low Plan: - Monitor CBC #Hepatitis C Infection #Cirrhosis (etoh vs hep C). #mild ascites pt reports heavy drinking hx, has decreased intake recently Positive HCV antibody. Most likely chronic given history of IV drug use. Liver panel unremarkable. Liver cirrhosis with mild ascites noted on CT abd&Pelvis Plan: -Continue Albumin 25 qd -Follow up outpatient for skilled nursing management Health maintenance: Dispo: Downgrade to medical floor for care post ischemic stroke. DVT prophylaxis: Heparin 5000u q8h Lines: Peripheral lines Diet: Carb consistent diet CODE STATUS: Full code Case discussed with my attending Dr. Turner , and senior resident, Dr. Kain Gold. Paola Prescott, DO PGY-1 Attending Provider Attestation/Addendum I have examined the patient, reviewed labs and imaging findings, discussed the case with the resident(s), and reviewed entered orders. I agree with the plan of care as outlined in this note, with these additional summaries/recommendations: Patient seen at bedside. No acute overnight events. Patient diagnosed with acute CVA. Status post TNK. MRI shows embolic type infract's in both parietal lobes. Continue NOAC, aspirin, and atorvastatin. In-house neurology following. Patient will likely go for TRUMAN to rule out cardiac thrombus. Continue to control vascular risk factors. Monitor on telemetry. Patient also diagnosed with new onset CHF with ejection fraction 10 to 15%. We will continue to institute goal-directed medical therapy and uptitrate as tolerated although blood pressure is on the soft side. Patient also diagnosed with RENATE on CKD. Urine protein impressively greater than 250. In-house nephrology consulted and following. We will continue diuresis. Echocardiogram revealed ascending aorta dilated measuring 4.3 cm and will need to follow-up outpatient with vascular. Continue insulin sliding scale for diabetes mellitus type 2. Nonocclusive lower extremity DVT found and continue NOAC. Outpatient follow-up for hepatitis C antibody. Patient updated on the plan and agreement. All questions answered to satisfaction. Please see residents note for additional details and management. Dr. Johnny MD
[2025-06-08] MEDS: ATORVASTATIN CALCIUM 20 MG TABLET 80 MG PO (20:36)
[2025-06-08] MEDS: INSULIN LISPRO (AdmeLOG) 1 UNIT/0.01 ML UNIT SC (20:43)
[2025-06-08] MEDS: INSULIN DEGLUDEC 5 UNIT/0.05 ML (PER 5 UNITS) 10 UNIT SC (20:46)
[2025-06-09] VITALS (21 sets, daily range): BP systolic 129–146; BP diastolic 86–105; PULSE 78–88; RESP 13–98; TEMP 36.2–36.8; O2SAT 94–99; BMI 27.0
[2025-06-09 06:04] LABS: Magnesium 2.3 mg/dL (1.6-2.6); Phosphorous 3.8 mg/dL (2.4-5.1)
[2025-06-09 07:39] LABS: Basophils # (Auto) 0.0 Thou/mm3 (0.0-0.2); Basophils % (Auto) 1 % (0-2.5); Eosinophils # (Auto) 0.2 Thou/mm3 (0.0-0.5); Eosinophils % (Auto) 3 % (0-10); Hematocrit 37.4 % (41.0-53.0); Hemoglobin 12.2 g/dL (13.5-16.0); Immature Granulocytes Auto 0.01 Thou/mm3 (0.00-0.00); Lymphocytes # (Auto) 1.1 Thou/mm3 (1.0-4.8); Lymphocytes % (Auto) 23 % (10-50); Mean Corpuscular HGB Conc 32.6 g/dl (31.0-37.0); Mean Corpuscular Hemoglobin 27.7 pg (25.0-35.0); Mean Corpuscular Volume 85 fL (80-100); Monocytes # (Auto) 0.7 Thou/mm3 (0.0-0.8); Monocytes % (Auto) 14 % (0-12); Neutrophils # (Auto) 2.9 Thou/mm3 (1.8-7.7); Neutrophils % (Auto) 58 % (37-80); Nucleated Red Blood Cell # 0.00 Thou/mm3 (0.00-0.00); Nucleated Red Blood Cell % 0 /100 WBC (0); Platelet Count 210 Thou/mm3 (140-440); RDW Standard Deviation 50.7 fL (35.1-43.9); Red Blood Count 4.41 Miln/mm3 (4.50-5.90); White Blood Count 4.9 Thou/mm3 (3.8-10.6)
[2025-06-09 08:00] LABS: Alanine Aminotransferase < 7 U/L (10-49); Albumin, Serum 3.6 gm/dL (3.4-4.8); Albumin/Globulin Ratio 1.6 (1.2-2.2); Alkaline Phosphatase 96 U/L (46-116); Anion Gap 9 (7-16); Aspartate Amino Transferase 20 U/L (0-34); BUN/Creatinine Ratio 15 Ratio (12-20); Bilirubin,Total 0.4 mg/dL (0.3-1.2); Blood Urea Nitrogen 48 mg/dL (9-23); Calcium 8.9 mg/dL (8.3-10.6); Calcium (Corrected) 9.2 mg/dL (8.5-10.1); Carbon Dioxide 22.6 mMol/L (20.0-31.0); Chloride 105 mMol/L (98-107); Creatinine (Component) 3.1 mg/dL (0.6-1.3); Estimated Creatinine Clearance 26.9 mL/min (>60); Globulin 2.2 gm/dL (2.3-3.5); Glucose 99 mg/dL (74-106); Osmolality,Calculated 286 (275-295); Potassium 4.6 mMol/L (3.4-5.1); Sodium 137 mMol/L (136-145); Total Protein 5.8 gm/dL (5.7-8.2); eGFR 22 See Note
--- NOTE | 2025-06-09 08:06 | PD.RESPRO ---
Documentation for date of: 06/09/25 Subjective Subjective Interval history: 06/09/25: NAEO. Blood prssure stable of SBP in 130s. saturating at 99% on RA. Patient eas examined and evaluated at bedside. Denies any weakness or paresthesia. Exam Vital Signs Temp Pulse Resp BP Pulse Ox O2 Del Method O2 Flow Rate 97.8 F 79 14 138/96 H 99 Room Air 1 06/09/25 04:00 06/09/25 04:00 06/09/25 04:00 06/09/25 04:00 06/09/25 04:00 06/09/25 04:00 06/09/25 00:00 Narrative Exam Gen: Well-developed and well-nourished. HEENT: NCAT, EOMI, MMM, anicteric conjunctivae. CVS: normal S1 and S2. RRR. No M/R/G. Resp: CTA B/L. No rhonchi, rales, crackles or wheezing. Ext: +2 lower limb pitting edema up to bilateral knees, warm and well perfused Neuro: Cranial nerve II to XII grossly intact. Bilateral upper extremity 5/5. Bilateral lower extremity 5/5. normal sensation to both upper and lower limbs bilaterally. GCS 15 Skin: No rash Psych: appropriate mood and affect. Objective Labs 06/09/25 05:15 06/09/25 05:13 Labs: Laboratory Results - last 24 hr 06/09/25 06/09/25 05:13 05:15 WBC 4.9 RBC 4.41 L Hgb 12.2 L Hct 37.4 L MCV 85 MCH 27.7 MCHC 32.6 RDW Std Deviation 50.7 H Plt Count 210 D Neut % (Auto) 58 Lymph % (Auto) 23 [place] % (Auto) 14 H Eos % (Auto) 3 Baso % (Auto) 1 Neut # (Auto) 2.9 Lymph # (Auto) 1.1 [place] # (Auto) 0.7 Eos # (Auto) 0.2 Baso # (Auto) 0.0 Immature Gran # (Auto) 0.01 H Absolute Nucleated RBC 0.00 Immature Gran % 0 Nucleated RBC % 0 Phosphorus 3.8 Magnesium 2.3 Quality Measures Quality Measures stroke Suspected type of Stroke: Acute Ischemic Last known well (date): 06/05/25 Last known well (time): 17:10 Tenecteplase given: > 60 min of arrival Assessment & Plan Assessment Current Active Medications: Generic Name Dose Route Start Last Admin Trade Name Frechika PRN Reason Stop Dose Admin Acetaminophen 650 mg 06/05/25 05:55 Acetaminophen 325 Mg Tablet PO 07/05/25 05:54 Q4HR PRN PAIN SCALE 1-3 (mild Acetaminophen 650 mg 06/06/25 17:55 Acetaminophen 325 Mg Tablet PO 07/06/25 17:54 Q6HR PRN Fever >100.4 Apixaban 10 mg 06/07/25 21:00 06/08/25 20:36 Apixaban 2.5 Mg Tablet PO 06/14/25 09:01 10 mg BID YUDITH Administration Aspirin 81 mg 06/06/25 09:30 06/08/25 08:23 Aspirin Ec 81 Mg Tabec PO 07/06/25 09:29 81 mg QDAY YUDITH Administration Atorvastatin Calcium 80 mg 06/05/25 21:00 06/08/25 20:36 Atorvastatin Calcium 20 Mg Tablet PO 07/05/25 20:59 80 mg HS YUDITH Administration Bumetanide 2 mg 06/07/25 22:15 06/08/25 21:38 Bumetanide Inj 0.25 Mg/Ml Vial 4 Ml IVP 07/07/25 22:14 2 mg BID YUDITH Administration Carvedilol 3.125 mg 06/08/25 21:00 06/08/25 20:36 Carvedilol 3.125 Mg Tablet PO 07/08/25 20:59 3.125 mg BIDWM YUDITH Administration Dextrose 25 ml 06/05/25 07:11 Dextrose 50%-Water Inj 50 Ml Syringe IV 07/05/25 07:10 Q15MIN PRN BG 50-70 responsive npo pt Dextrose 50 ml 06/05/25 07:11 Dextrose 50%-Water Inj 50 Ml Syringe IV 07/05/25 07:10 Q15MIN PRN BG <50 OR BG <70 & pt unresponsive Glucagon 1 mg 06/05/25 07:11 Glucagon Inj 1 Mg Vial IM Q15MIN PRN BG <70, and no IV access Albumin Human 25 gm in 100 mls @ 100 mls/hr 06/08/25 21:00 06/08/25 20:39 Albuminar-25 Ivpb IV 06/11/25 20:59 100 mls/hr BID YUDITH Administration Insulin Degludec 10 unit 06/08/25 21:00 06/08/25 20:46 Insulin Degludec 5 Unit/0.05 Ml (Per 5 Units) SC 07/06/25 20:59 10 unit HS YUDITH Administration Insulin Human Lispro 0 unit 06/09/25 06:00 06/09/25 05:14 Insulin Lispro (Admelog) 1 Unit/0.01 Ml Unit SC 07/09/25 05:59 Not Given Q6HR [facility] Protocol Valsartan 40 mg 06/08/25 09:00 06/08/25 09:59 Valsartan 40 Mg Tablet PO 07/08/25 08:59 40 mg QDAY YUDITH Administration Plan 64M with PMH of significant for HTN and IDDM presented to ED with left upper extremity weakness and paresthesia x30min prior to arrival on 06/05/25. Patient received tenecteplase 23.5 mg for and admitted to ICU for further management of acute ischemic stroke. Patient was transferred to medical floor for ongoing management of current issues. #Acute ischemic stroke #Acute embolic CVA bilateral parietal lobes #Acute non-occlusive DVT S/P tenecteplase. Brain MRI with MRA shows embolic type acute infarcts in bilateral parietal lobes. 24hr post-TNK head CT negative. No residual symptoms. non occlusive DVT noted in the left peroneal and left posterior tibial veins. Unremarkable TRUMAN, per cardiology Plan: - Telemetry monitoring - Neurocheck every 4hr - Discontinue Plavix - Continue ASA 81mg - Continue Eliquis 10 BID x7 days (until May)then 5 BID - Continue Atorvastatin 80 mg PO HS - Monitor Blood pressure, goal <180/105 given TNK -Ordered hypercoagulable panel. Patient will need to follow up with PCP outpatient - K >4 and Mg >2 - PT/ST #Acute on chronic systolic CHF #Bilateral pleural effusions Improved. Patient reported orthopnea, PND and bilateral lower extremity edema [id number] with PE consistent with improved +2 bilateral pitting edema up to bilateral knees. CT chest revealed bilateral pleural effusion. CXR showed: Moderate enlargement cardiac contour with prominent vascular congestion including central vascular engorgement CT abd&Pelvis shows heart failure pattern with moderate right mild left pleural effusions (06/07/25) BNP > 3280, echocardiogram findings consistent with dilated cardiomyopathy, in the setting of hx of IV drug use. Echocardiogram also shows severe global hypokinesis dilated cardiomyopathy, EF 15 to 20%, RV enlargement consistent with RV volume overload, severely dilated LA and RA, mild to moderate MR, no [id number] shunt demonstrated on bubble study, no cardiac thrombi seen. Plan: - Continue bumex 2mg IV daily - Continue Albumin 25 qd - Strict ins and outs - Fluid restriction 1.5L/day - 2g sodium diet #Hypertensive emergency, improved. History of essential hypertension Stopped Nicardipine drip Currently stable, improved. last measurement: 135/96 Plan: - Discontinue verapamil due to increased mortality associated with HFrEF - Discontinue Hydralazine 25mg TID - Continue Valsartan 40 qday - Increase Carvidelol to 6.25 BID #RENATE on CKD IV #nephrotic range proteinuria #Nephrotic syndrome #Secondary Hyperparathyroidism DDX for CKD: diabetic nephropathy vs liver cirrhosis versus CHF On exam, BLE edema, bibasilar crackles on auscultation, dyspnea on exertion, PND and orthopnea noted on exam pt appears volume overloaded. Cr: 3.2 from 3.3 on admission, eGFR is 21 US renal showed mild bilateral renal scar formation and mild left hydronephrosis, UA with 2+ protein and 2+ glucose 4+ RBC, spot urine total protein creatinine ratio with 5.8 nephrotic range. PTH elevated 361 Vitamin D25 : 21.9 Hep panel: Hep C + Plan: - Avoid nephrotoxins - Renally dose medications - Strict I&O #Insulin-dependent Diabetes mellitus type 2 Patient takes long-acting insulin 9 units at night, however forgot to bring it with him to hospital A1c 7.8 Blood glucose 99 Fingers stick: 100 Plan: - Insulin degludec 10units hs -SSI - Hypoglycemia protocol in place - f/u with opthalmologist outpatient for diabetic retinopathy. #Hypercholesterolemia Controlled Total cholesterol 76, triglycerides 72, LDL 30 Plan ? Continue atorvastatin 80 mg daily #Pulmonary Nodule Incidental finding of CT chest 6mm nodule of right upper lobe negative cocci serology Plan: - Outpatient F/U with repeat CT chest w/o contrast in 3-6 months #Normocytic anemia Likely diagnosis in the setting of volume overload and possible CKD and CHF iron panel: iron low, iron sat low Plan: - Monitor CBC #Hepatitis C Infection #Cirrhosis (etoh vs hep C). #mild ascites pt reports heavy drinking hx, has decreased intake recently Positive HCV antibody. Most likely chronic given history of IV drug use. Liver panel unremarkable. Liver cirrhosis with mild ascites noted on CT abd&Pelvis Plan: -Continue Albumin 25 qd -Follow up outpatient for [facility] management Health maintenance: Dispo: Possible discharge tomorrow DVT prophylaxis: Heparin 5000u q8h Lines: Peripheral lines Diet: Carb consistent diet CODE STATUS: Full code Case discussed with my attending Dr. Turner , and senior resident, Dr. Kain Gold. Paola Prescott, DO PGY-1
--- NOTE | 2025-06-09 09:07 | PD.RESPRO ---
Documentation for date of: 06/09/25 Subjective Subjective Interval history: Mr. Baldwin is a 64 yo monegasque speaking gentleman with hx of T2DM on insulin, HTN, initially presented to the ED with complaint of LUE wkness and parasthesia half an hour before presenting to the ED. He reports that he has a PCP at [facility], that he saw about 1 month ago, he reports taking his medications as prescribed. He reports orthopnea and paroxysmal dyspnea, dyspnea on exertion and BLE edema that has limited his ability to work for the past 4-6 months. pt reports that he had been seen by a policy change clerk over 10 years ago, and has not since been followed. query cirrhosis, given etoh hx query CHF In the ED his vitals were BP 166/122, pulse 94, RR 18, saturating 97% on room air. Labs were significant for hemoglobin of 13.0, sodium 136, potassium 5.1, BUN 64, creatinine 3.3, GFR 20, blood sugar 182, A1c, lipid panel, TSH elevated 6.05. UA revealed 2+ protein, 2+ glucose, 1+ blood, 4+ RBC, but negative for UTI, UA positive for marijuana. CT head revealed possible acute infarct with brain MRI follow-up recommended. CTA head and neck revealed no large vessel occlusion, CT chest revealed bilateral pleural effusion and 6 mm pulmonary nodule in the right upper lobe. Interval History 06/05/2025: Patient admitted to ICU, for stroke r/o, tknase given, pt had another stroke alert called later in the day, due to LUE wkness and LLE weakness and L facial droop noted by pt family. repeat CT head post anticoagulation admin. 06/06/2025: nephrology consulted given Renal US with parenchymal scar. Pt seen and examined at ICU bedside with pt son Steffanie. Pt reports that his LE are less swollen than how they are at home. No new complaints. PE with Bibasilar crackles and LE with 1+ pitting edema to the mid grigsby and skin wrinkling. CT brain 24 post-TKNase was negative for hemorrhage. MRI brain impression is embolic type acute infarcts in both parietal lobes. 06/07/2025: Patient seen and examined at bedside. Pt sitting upright eating breakfast. [facility]rent [facility] at [facility], interpreting. Dr. Newby reviewd pt [facility] results which confirms suspicions of CKD, given 02/2025 BUN 65, creatinine 2.45, GFR 29, albumin 3.4, hemoglobin 12.7, BNP 2716, A1c 9.8 and 07/2024 creatinine 1.8, GFR 42, albumin 3.4, pending TTE read, CTAP pending read, today labs with K 4.9, BUN 43 from 51, Cr 3.1 from 3.0, UOP 1500. Urine protein Cr ratio with >3.5 grams, suggest nephrotic syndrome. Start Bumex 2 IV and Albumin 25 qd. If bp will tolerate, consider adding 40 valsartan (BP 114/79). 06/08/2025: Patient seen and examined at bedside. Pt sitting upright eating breakfast. pt states that his daughters will be seing him later today. Cr 3.2 from 3.1, BUN 50 from 43. Significant LE edema. Plan to D/c hydralizine, and start valsartan 40, BP soft, monitior if pt will tolerate, Albumin IV 25 BID, ECHO read? pending 06/09/2025: No overnight events. Patient seen and examined at bedside; they report feeling generally well today with no new complaints or concerns. Notable labs today include: Hgb 12.2, BUN drop to 48 from 50, creatinine drop to 3.1 from 3.2, and eGFR 22. Lower extremity edema appears unchanged. From a nephrology standpoint, no changes or interventions are indicated and we will be signing off. Exam Vital Signs Temp Pulse Resp BP Pulse Ox O2 Del Method O2 Flow Rate 97.5 F 78 15 135/96 H 98 Room Air 1 06/09/25 08:00 06/09/25 08:00 06/09/25 08:00 06/09/25 08:00 06/09/25 08:00 06/09/25 08:00 06/09/25 00:00 Narrative Exam GENERAL: No acute distress, A&O x3, comfortably sitting upright in bed HEENT: Head AT/ NC. Mucous membranes moist. NECK: Supple, no lymphadenopathy, no carotid bruits. CARDIOVASCULAR: Bilateral pitting of lower extremities (similar to yesterday). RRR. Normal S1/S2, No m/r/g. RESPIRATORY: Lung sounds clearer on auscultation. GASTROINTESTINAL: Abdomen soft, non tender no palpable masses. Bowel sounds present MUSCULOSKELETAL:? No cyanosis or edema, no visible joint swelling. NEUROLOGICAL: CN II-XII grossly intact. Sensation intact, symmetric. PSYCHIATRIC: Awake and alert, not agitated, normal mood and affect. SKIN: No obvious rashes, no jaundice Objective Labs 06/09/25 05:15 06/09/25 05:13 Labs: Laboratory Results - last 24 hr 06/09/25 06/09/25 05:13 05:15 WBC 4.9 RBC 4.41 L Hgb 12.2 L Hct 37.4 L MCV 85 MCH 27.7 MCHC 32.6 RDW Std Deviation 50.7 H Plt Count 210 D Neut % (Auto) 58 Lymph % (Auto) 23 Schley % (Auto) 14 H Eos % (Auto) 3 Baso % (Auto) 1 Neut # (Auto) 2.9 Lymph # (Auto) 1.1 Schley # (Auto) 0.7 Eos # (Auto) 0.2 Baso # (Auto) 0.0 Immature Gran # (Auto) 0.01 H Absolute Nucleated RBC 0.00 Immature Gran % 0 Nucleated RBC % 0 Sodium 137 Potassium 4.6 Chloride 105 Carbon Dioxide 22.6 Anion Gap 9 BUN 48 H Creatinine 3.1 H Estim Creat Clear Calc 26.9 L eGFR 22 L BUN/Creatinine Ratio 15 Glucose 99 D Calculated Osmolality 286 Calcium 8.9 Corrected Calcium 9.2 Phosphorus 3.8 Magnesium 2.3 Total Bilirubin 0.4 AST 20 ALT < 7 L Alkaline Phosphatase 96 Total Protein 5.8 Albumin 3.6 Globulin 2.2 L Albumin/Globulin Ratio 1.6 Quality Measures Quality Measures stroke Suspected type of Stroke: Acute Ischemic Last known well (date): 06/05/25 Last known well (time): 17:10 Tenecteplase given: > 60 min of arrival Rehab services: PT evaluation ordered VTE Prophylaxis: pharmaceutical Antithrombotic by day 2:: ordered Statin ordered: >75 y/o moderate or high intensity dose Anticoagulation ordered for A-fib or flutter (current or hx): ordered Assessment & Plan Assessment Current Active Medications: Generic Name Dose Route Start Last Admin Trade Name Freq PRN Reason Stop Dose Admin Acetaminophen 650 mg 06/05/25 05:55 Acetaminophen 325 Mg Tablet PO 07/05/25 05:54 Q4HR PRN PAIN SCALE 1-3 (mild Acetaminophen 650 mg 06/06/25 17:55 Acetaminophen 325 Mg Tablet PO 07/06/25 17:54 Q6HR PRN Fever >100.4 Apixaban 10 mg 06/07/25 21:00 06/08/25 20:36 Apixaban 2.5 Mg Tablet PO 06/14/25 09:01 10 mg BID YUDITH Administration Aspirin 81 mg 06/06/25 09:30 06/08/25 08:23 Aspirin Ec 81 Mg Tabec PO 07/06/25 09:29 81 mg QDAY YUDITH Administration Atorvastatin Calcium 80 mg 06/05/25 21:00 06/08/25 20:36 Atorvastatin Calcium 20 Mg Tablet PO 07/05/25 20:59 80 mg HS YUDITH Administration Bumetanide 2 mg 06/07/25 22:15 06/08/25 21:38 Bumetanide Inj 0.25 Mg/Ml Vial 4 Ml IVP 07/07/25 22:14 2 mg BID YUDITH Administration Carvedilol 3.125 mg 06/08/25 21:00 06/08/25 20:36 Carvedilol 3.125 Mg Tablet PO 07/08/25 20:59 3.125 mg BIDWM YUDITH Administration Dextrose 25 ml 06/05/25 07:11 Dextrose 50%-Water Inj 50 Ml Syringe IV 07/05/25 07:10 Q15MIN PRN BG 50-70 responsive npo pt Dextrose 50 ml 06/05/25 07:11 Dextrose 50%-Water Inj 50 Ml Syringe IV 07/05/25 07:10 Q15MIN PRN BG <50 OR BG <70 & pt unresponsive Glucagon 1 mg 06/05/25 07:11 Glucagon Inj 1 Mg Vial IM Q15MIN PRN BG <70, and no IV access Albumin Human 25 gm in 100 mls @ 100 mls/hr 06/08/25 21:00 06/08/25 20:39 Albuminar-25 Ivpb IV 06/11/25 20:59 100 mls/hr BID YUDITH Administration Insulin Degludec 10 unit 06/08/25 21:00 06/08/25 20:46 Insulin Degludec 5 Unit/0.05 Ml (Per 5 Units) SC 07/06/25 20:59 10 unit HS YUDITH Administration Insulin Human Lispro 0 unit 06/09/25 06:00 06/09/25 05:14 Insulin Lispro (Admelog) 1 Unit/0.01 Ml Unit SC 07/09/25 05:59 Not Given Q6HR [facility] Protocol Valsartan 40 mg 06/08/25 09:00 06/08/25 09:59 Valsartan 40 Mg Tablet PO 07/08/25 08:59 40 mg QDAY [facility] Administration Plan Pradip Baldwin is a 64-year-old male with past medical history significant for hypertension, and diabetes mellitus type 2 presented to ED with chief complaint of left upper arm weakness and paresthesia for about half an hour before presentation. Teleneurology consultation was done, NIHSS score was 3, and was given tenecteplase 23.5 Mg and admitted to ICU for further management of acute ischemic stroke. MRI head showed embolic stroke in BL parietal lobes. Outside labs revealed underlying CKD from diabetic nephropathy which is suspected to have led to his current presentation of anasarca and significant nephrotic-range proteinuria. From a nephrology standpoint, no changes or interventions are indicated and we will be signing off. #RENATE on CKD IV #Diabetic nephropathy #Proteinuria (nephrotic-range) Patient's admission creatinine on 06/05 was 3.3 which improved to 2.9 (suggesting an acute decrease in kidney function from baseline) The above, combined with outside labs from [facility] (02/2025) showing creatinine 2.45, GFR 29, BNP 2716, and A1C 9.8, suggest a clinical picture of RENATE on CKD IV with the CKD being most likely 2/2 a combination of diabetic nephropathy The RENATE was likely at least in part caused by the hypertension that patient presented with that itself was 2/2 ischemic stroke (but the underlying etiology of the RENATE is likely multifactorial) Patient has not been regularly seen by a policy change clerk for over 10 years Diagnostic Inquiry - US renal showed mild bilateral renal scar formation and mild left hydronephrosis - UA with 2+ protein and 2+ glucose 4+ RBC - Daily CMP - Spot urine total protein creatinine ratio with 5.8 nephrotic range. - PTH elevated 361 - Vitamin D25 : 21.9 - Hep panel: Hep C + Treatment Plan - Avoid nephrotoxic medications - Renally dose medications - Strict I and O #Anasarca #2/2 nephrotic proteinuria from diabetic nephropathy vs. liver cirrhosis vs. CHF (likely all 3) Patient's anasarca and prominent third-spacing symptoms are likely due to a combination of nephrotic proteinuria, liver cirrhosis, and CHF Spot urine total protein creatinine revealed nephrotic range proteinuria 5.8 CTAP showed cirrhosis and irregular contour of the liver as well as prominent vascular congestion and heart failure 06/05 echocardiogram revealed dilated cardiomyopathy with severe global hypokinesis (EF 15-20%) and RV enlargement consistent with right ventricular volume overload Patient is hepatitis C (+) and has history of alcoholism Treatment Plan -Continue diuretic regimen and albumin -Continue antihypertensive regimen (valsartan already added) #query CHF exacerbation DDX: chf vs ckd pt reports dyspnea on exertion, orthopnea, and PND, He has been taking diuretics at home which initially helped with his BLE, however the swelling is significant and limits his ability to work favor CHF as etiology of BLE, however pt does have ?chronic kidney disease, see #query RENATE on CKD on exam BLE edema is persists on bumex 2 mg, UOP 1390, Dx - CXR showed: Moderate enlargement cardiac contour with prominent vascular congestion including central vascular engorgement - Pending TTE with bubble read Plan - d/c bumex 1mg PO daily - start IV Bumex 2 qd - Albumin 25 IV BID previously QD - fluid restriction 1.5L - 2g sodium diet #Acute embolic ischemic stroke Status post tenecteplase Brain MRI with MRA shows embolic type acute infarcts in both parietal lobes -pendint TTE w bubble #Hypertensive emergency, resolved #HTN- improved SBP 110s pt taking lisinopril at home Plan - d/c nicardipine drip - d/c verapamil 240 mg tonight - d/c Hydralazine 25mg TID - add valsartan 40 QD. #Bilateral pleural effusion #PNA Likely secondary to possible new onset CHF exacerbation vs underlying cirrhosis #Cirrhosis (etoh vs hep C). #mild ascites #Hep C. pt reports heavy drinking hx, has decreased intake recently hep panel + hep C . CTAP with cirrhosis and mild ascites - giving albumin 25 BID (see #query chf above). #Insulin-dependent Diabetes mellitus type 2 #Glycosuria Patient mentions he takes long-acting insulin 9 units at night, however forgot to bring it with him to hospital pt states that he has seen optomitrist who noted blood in his eye, query diabetic retinopathy. A1c 7.8 AM Blood glucose 89 - Started on Glargine 10u qHS - On sliding scale insulin, received 3 units ssi today - Hypoglycemia protocol in place - f/u with opthalmologist outpatient for diabetic retinopathy. . #Hypercholesterolemia - started on atorva 80 qhs #incedental 6mm Pulmonary Nodule -cocci negative #query BPH - ultrasound with nl prostate volume 26 however pt reports incomplete voiding and nocturia. #Normocytic anemia #iron deficiency anemia query 2/2 CKD - iron panel: iron low, iron sat low -Management as per primary team Plan discussed with nephrology attending Dr. Keyonna Silva, DO PGY-1 Internal Medicine Attending Provider Attestation/Addendum Patient seen and examined with resident physician Dr. Silva. Note reviewed, agree with findings and recommendations. Patient with CKD stage IV. Mild worsening renal insufficiency secondary to progressive diabetes in the setting of anasarca needing diuretics. He is going to follow-up with me in 1 to 2 weeks. Emphasized aggressive blood pressure, blood sugar, lipid control to prevent progression of kidney disease.
[2025-06-09] MEDS: APIXABAN 2.5 MG TABLET 10 MG PO (09:23)
[2025-06-09] MEDS: VALSARTAN 40 MG TABLET PO (09:23)
[2025-06-09] MEDS: BUMETANIDE INJ 0.25 MG/ML VIAL 4 ML 2 MG IVP (09:24)
[2025-06-09] MEDS: ASPIRIN EC 81 MG TABEC PO (09:24)
[2025-06-09] MEDS: ALBUMIN HUMAN 25% IVPB 25 GM/100 ML BTL IV (09:26)
--- NOTE | 2025-06-09 12:00 | ECHO_ITS ---
Transesophage al Echo Report Ht 70 Wt 19 (in): (lb): 3 Exam Location: Echo Lab Statu Inpatient s: Sonograph Niya Iglesias er: OSCAR Indicaha ns: Procedure Performed: BP 152 / 104 HR 84 : : Medicati ons 4mg versed 100 mcg fentanyl FINDING S Left Ventricle Global left ventricular systolic function is severely decreased. The ejection fraction is visually estimated at 15 %. Right Ventricle The right ventricular systolic function is moderately decreased. Left Atrium The left atrial cavity size is severely increased. Right Atrium The right atrial cavity size is severely increased. Atrial Appendages The left atrial appendage appears normal with no evidence for thrombus. Atrial Septum The interatrial septum appears normal with no evidence of a shunt. Aort a The aorta is normal by two-dimensional, color flow and Doppler interrogation. Mitral Valve The mitral valve is normal by two-dimensional, color flow and Doppler interrogation. Mild mitral regurgitation. Aortic Valve The aortic valve is trileaflet and normal by two-dimensional, color flow and Doppler interrogation. There is no significant aortic valve regurgitation. Tricuspid Valve There is mild tricuspid valve regurgitation. Pulmonic Valve The pulmonic valve is normal by two-dimensional, color flow and Doppler interrogation. There is no significant pulmonic valve regurgitation. Vesse ls The pulmonary artery appears normal. The inferior vena cava pulmonary and hepatic veins appear normal. Pericard ium The pericardium is normal by two-dimensional imaging. There is no significant pericardial effusion. CONCLUSIO NS Indication: Acute Ischemic stroke Verbal study negative for PFO or ASD. No LA or SAMI thrombus. Dilated cardiomyopathy. Severely decreased LV function with an EF of around 15%. Moderate to severe RV systolic dysfunction. Mild MR, Mild TR. Biatrial dilatation noted. No pericardial effusion. Carlos Vasques (Electronically Signed) Final Date: 09 June 2025 19:23
[2025-06-09] MEDS: fentaNYL CIT INJ 50 mCg/ML AMP 2ML 100 MCG IVP (12:23)
[2025-06-09] MEDS: BENZOCAINE 20% (Hurricaine) SPRAY 1 DOSE TOP (12:23)
[2025-06-09] MEDS: MIDAZOLAM INJ 1 MG/ML VIAL 2 ML 4 MG IVP (12:23)
--- NOTE | 2025-06-09 13:16 | PD.RESPRO ---
Documentation for date of: 06/09/25 Subjective Subjective Interval history: Patient was evaluated bedside, saturating well on room air, noted improvement in swelling, reported no acute concerns. Patient is back in his room from TRUMAN , TURMAN was negative for [id number] shunt or intracardiac thrombus, bubble study was also negative pending final report. Urine output 1700 mL overnight, net negative -200ml, BUN 48, creatinine 3.1, the patient had nephrotic range proteinuria, estimated to be over 5 g daily, based on PCR,, per nephrology nephrotic range proteinuria likely from diabetic nephropathy. Recommended continuing valsartan 40 mg daily. Continue IV diuresis for NYHA stage IV CHF. Recommend slowly adding GDMT as tolerated. Currently on Coreg and valsartan. eGFR 22, might be a candidate for SGLT2 inhibitor, Also recommend Neurology follow up for embolic stroke and nephrology follow-up for evaluation of proteinuria and CKD. The patient might also benefit from infectious disease referral and evaluation outpatient basis for hepatitis C. The patient can be discharged cardiac standpoint and follow-up within [address] Vasques in his clinic, Exam Vital Signs Temp Pulse Resp BP Pulse Ox O2 Del Method O2 Flow Rate 98.3 F 81 19 133/89 H 96 Nasal Cannula 2 06/09/25 11:40 06/09/25 13:00 06/09/25 13:00 06/09/25 13:00 06/09/25 13:00 06/09/25 13:00 06/09/25 13:00 Narrative Exam General: AOx3, cooperative, patient is a [place] only speaker Skin: Intact, no cyanosis noted, bilateral lower extremity pitting edema 2+ . HEENT: Atraumatic/normocephalic, KIRSTIE, neck supple Heart: RRR, S1 and S2 without clicks or murmurs Lungs: No wheezing or crackles, decreased air entry bilaterally at bases. Abdomen: Soft, nontender. Bowel sounds present . Vascular: Peripheral pulses palpable Neuro: No focal neurological deficits noted on exam today. Objective Labs 06/09/25 05:15 06/09/25 05:13 Labs: Laboratory Results - last 24 hr 06/09/25 06/09/25 05:13 05:15 WBC 4.9 RBC 4.41 L Hgb 12.2 L Hct 37.4 L MCV 85 MCH 27.7 MCHC 32.6 RDW Std Deviation 50.7 H Plt Count 210 D Neut % (Auto) 58 Lymph % (Auto) 23 [place] % (Auto) 14 H Eos % (Auto) 3 Baso % (Auto) 1 Neut # (Auto) 2.9 Lymph # (Auto) 1.1 [place] # (Auto) 0.7 Eos # (Auto) 0.2 Baso # (Auto) 0.0 Immature Gran # (Auto) 0.01 H Absolute Nucleated RBC 0.00 Immature Gran % 0 Nucleated RBC % 0 Sodium 137 Potassium 4.6 Chloride 105 Carbon Dioxide 22.6 Anion Gap 9 BUN 48 H Creatinine 3.1 H Estim Creat Clear Calc 26.9 L eGFR 22 L BUN/Creatinine Ratio 15 Glucose 99 D Calculated Osmolality 286 Calcium 8.9 Corrected Calcium 9.2 Phosphorus 3.8 Magnesium 2.3 Total Bilirubin 0.4 AST 20 ALT < 7 L Alkaline Phosphatase 96 Total Protein 5.8 Albumin 3.6 Globulin 2.2 L Albumin/Globulin Ratio 1.6 Quality Measures Quality Measures stroke Suspected type of Stroke: Acute Ischemic Last known well (date): 06/05/25 Last known well (time): 17:10 Tenecteplase given: > 60 min of arrival Rehab services: PT evaluation ordered VTE Prophylaxis: pharmaceutical Antithrombotic by day 2:: ordered Statin ordered: >75 y/o moderate or high intensity dose Anticoagulation ordered for A-fib or flutter (current or hx): ordered Assessment & Plan Assessment Current Active Medications: Generic Name Dose Route Start Last Admin Trade Name Freq PRN Reason Stop Dose Admin Acetaminophen 650 mg 06/05/25 05:55 Acetaminophen 325 Mg Tablet PO 07/05/25 05:54 Q4HR PRN PAIN SCALE 1-3 (mild Acetaminophen 650 mg 06/06/25 17:55 Acetaminophen 325 Mg Tablet PO 07/06/25 17:54 Q6HR PRN Fever >100.4 Apixaban 10 mg 06/07/25 21:00 06/09/25 09:23 Apixaban 2.5 Mg Tablet PO 06/14/25 09:01 10 mg BID YUDITH Administration Aspirin 81 mg 06/06/25 09:30 06/09/25 09:24 Aspirin Ec 81 Mg Tabec PO 07/06/25 09:29 81 mg QDAY YUDITH Administration Atorvastatin Calcium 80 mg 06/05/25 21:00 06/08/25 20:36 Atorvastatin Calcium 20 Mg Tablet PO 07/05/25 20:59 80 mg HS YUDITH Administration Bumetanide 2 mg 06/07/25 22:15 06/09/25 09:24 Bumetanide Inj 0.25 Mg/Ml Vial 4 Ml IVP 07/07/25 22:14 2 mg BID YUDITH Administration Carvedilol 6.25 mg 06/09/25 17:30 Carvedilol 3.125 Mg Tablet PO 07/09/25 17:29 BIDWM YUDITH Dextrose 25 ml 06/05/25 07:11 Dextrose 50%-Water Inj 50 Ml Syringe IV 07/05/25 07:10 Q15MIN PRN BG 50-70 responsive npo pt Dextrose 50 ml 06/05/25 07:11 Dextrose 50%-Water Inj 50 Ml Syringe IV 07/05/25 07:10 Q15MIN PRN BG <50 OR BG <70 & pt unresponsive Glucagon 1 mg 06/05/25 07:11 Glucagon Inj 1 Mg Vial IM Q15MIN PRN BG <70, and no IV access Albumin Human 25 gm in 100 mls @ 100 mls/hr 06/08/25 21:00 06/09/25 09:26 Albuminar-25 Ivpb IV 06/11/25 20:59 100 mls/hr BID YUDITH Administration Insulin Degludec 10 unit 06/08/25 21:00 06/08/25 20:46 Insulin Degludec 5 Unit/0.05 Ml (Per 5 Units) SC 07/06/25 20:59 10 unit HS YUDITH Administration Insulin Human Lispro 0 unit 06/09/25 06:00 06/09/25 05:14 Insulin Lispro (Admelog) 1 Unit/0.01 Ml Unit SC 07/09/25 05:59 Not Given Q6HR [facility] Protocol Valsartan 40 mg 06/08/25 09:00 06/09/25 09:23 Valsartan 40 Mg Tablet PO 07/08/25 08:59 40 mg QDAY YUDITH Administration Plan The patient is a 64-year-old male with a past medical history of Diabetes mellitus for the past 20 years, started insulin less than 1 year ago, history of hypertension, hepatitis C positive, CKD, who presented to the ER complaining of sudden onset left upper extremity paresthesias and weakness, the patient was admitted for acute ischemic stroke status post TNK, concern for recrudescence stroke as patient had worsening neurological deficit in ICU, currently speech and power are back to baseline. Cardiology was consulted for concern for new onset CHF bilateral lower extremity swelling. The patient reported that for the past 4 to 6 months he has been having gradual onset shortness of breath, worse at rest and exertion. Shortness of breath also associated with cough nonproductive of sputum. The patient has been unable to lie flat and frequently wakes up at night feeling short of breath. He has to sit up or use multiple pillows to sleep. Denied any fever or chest pain or chest pressure. But he did endorse dyspnea on exertion and orthopnea and paroxysmal nocturnal dyspnea. Patient also reported developing bilateral lower extremity edema starting 3 months ago, patient denied unilateral leg swelling stated that over 3 months ago he had lower extremity swelling in both his legs which went all the way up to his abdomen but slowly had decreased he was started on a water pill by his doctor and his swelling has improved a lot over the past 3 months but he still feels short of breath. Problems 1. Acute on chronic systolic CHF, likely Dilated CMP 2. Acute nonocclusive DVT 3. Acute embolic CVA bilateral parietal lobes 4. Acute hypoxic respiratory failure 5. Acute on chronic kidney disease, Cardiorenal syndrome 6. Bilateral pleural effusions 7. History of hypertension 8. History of diabetes mellitus 9. Hepatitis C positive 10. Hyperparathyroidism 11. Pulmonary nodules Admitted with acute embolic infarct in the setting of nonocclusive DVT, MRI brain was done which showed embolic type acute infarcts in both parietal lobes. Ultrasound duplex bilateral lower extremities showed nonocclusive DVT left peroneal and tibial veins, concern for PFO, neurology recommended getting a TRUMAN. Patient has been complaining of 4 to 6-month history of dyspnea on exertion, orthopnea and PND, complaining of 3-month history of bilateral lower extremity edema, which improved after taking water pill. Patient is unaware of diagnosis of CKD or CHF reported that he was seen by a kidney doctor over 8 years ago and reportedly everything was normal at that time. Patient denied unilateral onset of lower extremity swelling, insisted that it was bilateral in onset. Initially he had swelling all the way up to his abdomen with his primary doctor prescribed him a diuretic which helped his swelling. 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 Echocardiogram Shows severe global hypokinesis dilated cardiomyopathy, EF 15 to 20%, RV enlargement consistent with RV volume overload, severely dilated LA and RA, mild to moderate MR, no [id number] shunt demonstrated on bubble study, no cardiac thrombi seen. Dilated cardiomyopathy likely secondary to history of methamphetamine and cocaine and IV drug abuse over 20 years ago, now acutely decompensated. Will discontinue verapamil and recommend to start the patient on beta-henok and DAVIE/ ARB, and SGLT2 and MRA's. Patient will need to follow-up with outpatient cardiology office for further workup. Patient reported he has no past medical history of CKD, chart review shows patient did have elevated creatinine 1.5, few years ago. Currently creatinine 3.3 on arrival, possible acute on chronic kidney disease, EGFR 20, patient does have a history of diabetes, was recently started on insulin less than 1 year ago, A1c 7.8% nephrology following appreciate recommendations. Nephrology consulted about cardiorenal syndrome, started patient on IV Bumex 2 mg and albumin daily. Urine output 1500 mL mL over last 12 hours, net +120 mL, recommend fluid restriction to 1500 mL daily, aim for net -1.5 to 2 L/day. Will increase Bumex to 2 mg twice daily. Urine output almost 1400 mL overnight, net negative -500 mL despite Bumex 2mg twice daily, urine protein creatinine ratio estimated more than 5 g/day, due to significant proteinuria patient likely has underlying nephrotic syndrome, complicated by heart failure and cardiorenal syndrome. Given presence of hepatitis C virus positive status, possible glomerulonephritis MPGN versus diabetic nephropathy can be considered in differentials of CKD in this patient. ? Agree with neurology recommendations, neurology recommended starting Eliquis 10 mg twice daily for neck 7 days followed by Eliquis 5 mg twice daily, in addition to aspirin and atorvastatin. Recommended to discontinue Plavix. ? IV Bumex 2 mg twice daily, Recommend fluid restriction to 1500 mL daily. Less likely cardiorenal syndrome given active urinary sediment, likely diabetic nephropathy , aim for net negative -1 to 1.5 L/day. ? No evidence of LV thrombus or any [id number] shunt on echocardiogram on TTE with bubble study. TRUMAN negative for PFO/shunt or intracardiac thrombus, bubble study was also negative final report to follow. ? Continue telemetry monitoring for arrhythmias ? Discontinued verapamil, due to increased mortality associated with HFrEF, recommend to start the patient on beta-henok, continue Coreg 6.25 mg twice daily ?The patient can be discharged from cardiac standpoint, recommended guideline directed medical therapy including beta-henok and ARB/ARNI as blood pressure allows. Consider adding SGLT2 inhibitor and spironolactone if renal function stable, EGFR > 20, will defer decision to nephrology. Recommend to follow-up with Dr Vasques's office within 1 week, follow-up with labs BMP and magnesium. ? May consider ICD placement if patient stays abstinent from alcohol and drugs and shows no improvement on GDMT after 3 months. Rest of the management deferred to primary team. Thank you for cardiology consultation. We appreciate the opportunity to participate in this patient's care. Will continue to follow-up on this patient if patient stays by tomorrow. This case was discussed with environmental epidemiologist, Dr. Vasques. Dion Kwong MD PG3 Attending Provider Attestation/Addendum I have personally seen and examined the patient separately on the above date of service and discussed the plan of care with the resident. I reviewed the resident Dr. Ashley consultation progress note and agree with the resident findings and plan in the note above and have also edited the documentation to reflect my findings and plan. Carlos Vasques M.D. Interventional Cardiology
--- NOTE | 2025-06-09 14:37 | ESPR_ITS ---
Documentation for date of: 06/09/25 Subjective Subjective Interval history: Patient is a 64 year old male with a past medical history hypertension, HLD, CHF HFrEF 15-20%, Systolic Dysfunction, normoyctic Anemia, CVA-embolic stroke (05/2025), Ascending aorta dilated measuring 4.3cm, diabetes mellitus type 2 insulin-dependent on Tresiba,who was admitted on 06/05/2025 directly into the ICU secondary to tenecteplase administration given concern for stroke and subsequently on MRI noted embolic stroke. To have embolic type acute infarct in both parietal lobes. Repeat CT head on 06/06/2025 negative for acute hemorrhage status post tenecteplase. Patient was subsequently downgraded from ICU to floor status. Neurology following given embolic stroke. 06/07/2025: Patient examined at bedside this evening. Patient saturating well- spO2 100%, on 2 liters of oxygen-->decreased to 1 L, continues to saturate well, SpO2 100%. Patient denied chest pain or SOB. Patient denied lower or upper extremity weakness. Patient continues to have lower peripheral edema, but per patient improved. Patient and patient's daughter at bedside advised to follow up with hypercoagulable panel as outpatient. No history of previous clots. No extended travel. No family history. Patient denied weight loss of history of cancer, of note right Cardiology, Dr. Vasques, following given need for TRUMAN. Repeat EKG sinus w/ 1st degree block START Eliquis 10 mg PO BID for next 7 days then followed by Eliquis 5 mg PO BID, continue Aspirin, and Atorvastatin. Stop Plavix. 06/08/2025: Patient examined at bedside. Patient denied chest pain or SOB. Currently saturating at spO2 99% on 1 Liter on N.C. Continue to wean off oxygen. Patient denied any wade bleeding given new medication of Eliquis. Patient is alert & orientated X 3. TRUMAN not schedule, pending cardiology. 06/09/2025: Overnight, patient made NPO by cardiology for TRUMAN. Per Chart review, TRUMAN was negative for pnhe-su-cvhrc shunt or intracardiac thrombus. Patient is scheduled to be discharged later this evening. Continue Eliquis, Aspirin, and Atorvastatin, please follow up with neurology. Per patient, tolerated lunch well after TRUMAN. NO complains. Exam Vital Signs Temp Pulse Resp BP Pulse Ox O2 Del Method O2 Flow Rate 98.3 F 81 13 137/97 H 96 Room Air 2 06/09/25 11:40 06/09/25 13:45 06/09/25 13:45 06/09/25 13:45 06/09/25 13:45 06/09/25 13:45 06/09/25 13:15 Narrative Exam General Appearance: Alert & Oriented X3, well-nourished male who is lying in bed in no acute distress HEENT: Skull symmetrical and atraumatic. Conjunctivae pink and moist. Pupils equal, round, reactive to light and accommodation (PERRL). External ear without lesion or discharge. Straight, nares patient, mucosa pink, no discharge. Cardio: Normal Rate and Rhythm with S1 and S2 heart sounds. No murmurs or extra heart sounds auscultated. No bruits on carotid auscultation. Yes, peripheral edema. Lungs: Symmetric with good expansion. Chest and back non-tender. Breath sounds vesicular without crackles, wheezing or rhonchi Abdomen: Non-tender, Non-distended, Normal Reactive Bowel Sounds Neuro: Alert, cooperative, oriented to person, place, and time. Speech clear. CN grossly intact. Upper motor strength 5/5 and Lower motor strength 5/5. Sensation intact. Objective Labs 06/09/25 05:15 06/09/25 05:13 Labs: Laboratory Results - last 24 hr 06/09/25 06/09/25 05:13 05:15 WBC 4.9 RBC 4.41 L Hgb 12.2 L Hct 37.4 L MCV 85 MCH 27.7 MCHC 32.6 RDW Std Deviation 50.7 H Plt Count 210 D Neut % (Auto) 58 Lymph % (Auto) 23 [place] % (Auto) 14 H Eos % (Auto) 3 Baso % (Auto) 1 Neut # (Auto) 2.9 Lymph # (Auto) 1.1 [place] # (Auto) 0.7 Eos # (Auto) 0.2 Baso # (Auto) 0.0 Immature Gran # (Auto) 0.01 H Absolute Nucleated RBC 0.00 Immature Gran % 0 Nucleated RBC % 0 Sodium 137 Potassium 4.6 Chloride 105 Carbon Dioxide 22.6 Anion Gap 9 BUN 48 H Creatinine 3.1 H Estim Creat Clear Calc 26.9 L eGFR 22 L BUN/Creatinine Ratio 15 Glucose 99 D Calculated Osmolality 286 Calcium 8.9 Corrected Calcium 9.2 Phosphorus 3.8 Magnesium 2.3 Total Bilirubin 0.4 AST 20 ALT < 7 L Alkaline Phosphatase 96 Total Protein 5.8 Albumin 3.6 Globulin 2.2 L Albumin/Globulin Ratio 1.6 Quality Measures Quality Measures stroke Suspected type of Stroke: Acute Ischemic Last known well (date): 06/05/25 Last known well (time): 17:10 Tenecteplase given: > 60 min of arrival Rehab services: PT evaluation ordered and Speech Language Pathology eval ordered VTE Prophylaxis: pharmaceutical Antithrombotic by day 2:: ordered Statin ordered: <75 y/o high intensity dose Anticoagulation ordered for A-fib or flutter (current or hx): not indicated Assessment & Plan Assessment Current Active Medications: Generic Name Dose Route Start Last Admin Trade Name Freq PRN Reason Stop Dose Admin Acetaminophen 650 mg 06/05/25 05:55 Acetaminophen 325 Mg Tablet PO 07/05/25 05:54 Q4HR PRN PAIN SCALE 1-3 (mild Acetaminophen 650 mg 06/06/25 17:55 Acetaminophen 325 Mg Tablet PO 07/06/25 17:54 Q6HR PRN Fever >100.4 Apixaban 10 mg 06/07/25 21:00 06/09/25 09:23 Apixaban 2.5 Mg Tablet PO 06/14/25 09:01 10 mg BID YUDITH Administration Aspirin 81 mg 06/06/25 09:30 06/09/25 09:24 Aspirin Ec 81 Mg Tabec PO 07/06/25 09:29 81 mg QDAY YUDITH Administration Atorvastatin Calcium 80 mg 06/05/25 21:00 06/08/25 20:36 Atorvastatin Calcium 20 Mg Tablet PO 07/05/25 20:59 80 mg HS YUDITH Administration Bumetanide 2 mg 06/07/25 22:15 06/09/25 09:24 Bumetanide Inj 0.25 Mg/Ml Vial 4 Ml IVP 07/07/25 22:14 2 mg BID YUDITH Administration Carvedilol 6.25 mg 06/09/25 17:30 Carvedilol 3.125 Mg Tablet PO 07/09/25 17:29 BIDWM YUDITH Dextrose 25 ml 06/05/25 07:11 Dextrose 50%-Water Inj 50 Ml Syringe IV 07/05/25 07:10 Q15MIN PRN BG 50-70 responsive npo pt Dextrose 50 ml 06/05/25 07:11 Dextrose 50%-Water Inj 50 Ml Syringe IV 07/05/25 07:10 Q15MIN PRN BG <50 OR BG <70 & pt unresponsive Glucagon 1 mg 06/05/25 07:11 Glucagon Inj 1 Mg Vial IM Q15MIN PRN BG <70, and no IV access Albumin Human 25 gm in 100 mls @ 100 mls/hr 06/08/25 21:00 06/09/25 09:26 Albuminar-25 Ivpb IV 06/11/25 20:59 100 mls/hr BID YUDITH Administration Insulin Degludec 10 unit 06/08/25 21:00 06/08/25 20:46 Insulin Degludec 5 Unit/0.05 Ml (Per 5 Units) SC 07/06/25 20:59 10 unit HS YUDITH Administration Insulin Human Lispro 0 unit 06/09/25 06:00 06/09/25 12:00 Insulin Lispro (Admelog) 1 Unit/0.01 Ml Unit SC 07/09/25 05:59 Not Given Q6HR [facility] Protocol Valsartan 40 mg 06/08/25 09:00 06/09/25 09:23 Valsartan 40 Mg Tablet PO 07/08/25 08:59 40 mg QDAY YUDITH Administration Plan Patient is a 64 year old male with a past medical history hypertension, diabetes mellitus type 2 insulin-dependent on Tresiba, and atorvastatin who was admitted on 06/05/2025 directly into the ICU secondary to tenecteplase administration given concern for stroke and subsequently on MRI noted embolic stroke. #Acute Embolic Stroke, Bilateral #Left Arm Paresthesia, resolved. #S/p Tenecteplase #DVT of left peroneal and posterior tibial veins Patient presented with paresthesia upon admission and was administered tenecteplase. Inidital head CT negative. MRI noted embolic type acute infarcts in both pareital lobes. Repeat CT head after 24 hours noted no acute hemorrhage. Diagnostics: Lipid panel: Triglycerides 72, Choelsterol 76, LDL 30 HDL 32 A1c (06/05/2025): 7.8 % TSH 6.05 (H) & Free T4 1.25 US: non-occlusive acute deep vein thrombus involving the left peroneal and posterior tibial veins Plan -Follow up with neurology within 2 weeks from discharge -TRUMAN completed, follow up with final report. -Start Eliquis 10 mg PO BID until May-->then Eliquis 5 mg PO BID. -Continue Aspirin 81 mg PO qday, Atorvastatin 80 mg PO HS -Monitor Blood pressure, goal <180/105 given TNK -continue to monitor fasting blood glucose -Outpatient please perform a hypercoagulable panel with PCP. -Head of bed at 30 -K >4 and Mg >2 #Moderate Right left Pleural Effusion #Right Base Pneumonia #CHF HFrEF 15-20% (05/2025) #Systolic Dysfunction #Severe Global Hypokinesis #Vascular Congestion #Hypertension #Dibetes Mellitys Type II insulin depdent #Hyperglycemia #Hyperlipidemia #Normocytic Anemia #RENATE vs CKD #Renal Parenchymal Scar Formation #Mild Left Hydronephrosis #Ascending aorta dilated measuring 4.3cm - The patient's plan was discussed with attending Dr. Barry Sahu MD PGY2 Internal Medicine Attending Provider Attestation/Addendum I independently reviewed patient's chart and I agreed with the resident's findings, assessment and plan of care. Impression: Acute CVA status post TNK Resolved without any residual deficit. Continue with aspirin Eliquis and statin. Stable discharge and I will see him back in 2 weeks.
--- NOTE | 2025-06-09 16:16 | ESDS_ITS ---
<Statement entered by Dirk Gold MD - 06/09/25 17:10> Patient was examined and case was reviewed with team including attending physician. Note reviewed, I agree with most of its contents and agree with the patient's care as documented by Dr. Prescott Case discussed with my attending Dr. Johnny Gold MD PGY-2 Disclaimer: Despite multiple revisions, due to the dictation software being used, the document bellow may not be free of grammatical errors including phonetic/typographic errors. However, this does not deter from our commitment to providing health care in the patient's best interest in mind. Planned Discharge Date 06/09/25 DS: Providers Provider Date of admission: 06/05/25 05:55 Primary care physician: Physician No Primary/Family Admitting Provider: Alvaro Bailey MD Attending Provider on Admission: Nette Moscoso MD Consults: 06/05/25 03:01 Consult to Neurology / Tele-Neurology Routine Comment: Consulting Provider: [facility] 06/05/25 07:03 Referral Physical Therapy Stat Comment: Physician Instructions: Referral Speech Therapy Stat Comment: 06/05/25 11:36 Referral Speech Therapy Routine Comment: 06/06/25 05:00 Consult to Neurology / Tele-Neurology Routine Comment: Acute ischemic stroke post TNK Consulting Provider: Naga Reddy 06/06/25 09:28 Consult to Nephrology Routine Comment: ckd Consulting Provider: Marium Newby 06/06/25 09:44 Referral OP Wound Healing Dept Routine Comment: Right medial lower leg ulcer 06/07/25 08:33 Consult to Cardiology Stat Comment: CHF, embolic stroke, DVT Consulting Provider: Carlos Vasques 06/07/25 15:34 Referral Speech Therapy Routine Comment: Attending Provider on DC: Dr. Turner Discharging Provider: Paola Prescott, Anticipated date of discharge: 06/09/25 DS: Diagnosis Problem List Completed Was Problem List Reviewed/Reconciled?: Yes Hospital Course Hospital Course Hospital course: 64M with PMH of significant for HTN and IDDM presented to ED with left upper extremity weakness and paresthesia x30min prior to arrival on 06/05/25. Patient received tenecteplase 23.5 mg for and admitted to ICU for further management of acute ischemic stroke. Patient was transferred to medical floor for ongoing management of current issues. The next day of admission patient was noted to have recurrence of symptoms, CT head resulted negative. 24hours post -TNK unremarkable. MRI showed bilateral emboli in parietal regions. US of LE showed nonocclusive DVT concerning for the source of parietal lobes emoboli vs intracardiac source. TTE was performed which showed severe reduced ejection fraction of 15-20% with no left to right shunt. TRUMAN unremarkable per cardiology. Neurology was consulted who recommended starting Eliquis 10BID for 7 days and 5BID afterward along with high intensity statin and aspirin. Patient will need to follow up hypercoagulable panel results with PCP outpatient. In addition, patient was noted to have some pleural effusion and acute on chronic HFrEF managed with IV Bumex and albumin. Patient reported orthopnea, PND and bilateral lower extremity edema [id number] with PE consistent with improved +2 bilateral pitting edema up to bilateral knees. CT chest revealed bilateral pleural effusion. Patient did not appear volume overloaded. BNP > 3280, echocardiogram findings consistent with dilated cardiomyopathy, in the setting of hx of IV drug use. Echocardiogram also shows severe global hypokinesis dilated cardiomyopathy, EF 15 to 20%, RV enlargement consistent with RV volume overload, severely dilated LA and RA, mild to moderate MR, no [id number] shunt demonstrated on bubble study, no cardiac thrombi seen. Patient will need to follow up outpatient with PCP for buttermaker continuous churn management. Patient's BP was initially managed with nicardipine then verapamil and hydralazine which were then discontinued by cardiology and replaced with vals janice and carvidelol given stable BP. Patient appeared to have Renate on CKD which was most likely due to diabetic nephropathy vs liver cirrhosis versus CHF. US renal showed mild bilateral renal scar formation and mild left hydronephrosis, UA with 2+ protein and 2+ glucose 4+ RBC, spot urine total protein creatinine ratio with 5.8 nephrotic range. PTH elevated 361, Vitamin D25 : 21.9, Hep panel: Hep C +. Patient will need to follow up outpatient with nephrology for buttermaker continuous churn management of his CKD. Patient was also noted to have incidental 6mm nodule of right upper lobe with negative cocci serology which will need to be followed up outpatient. Liver cirrhosis with mild ascites was also noted on CT abd&Pelvis The rest of patient's problems were managed accordingly. Patient remained asymptomatic thereafter his stroke without any residual symptoms. VSS remained grossly stable. Goal directed therapy was achieved and at the time of discharge patient is in stable condition. Patient will need to follow up with PCP, cardiology and neurology outpatient upon discharge. #Acute ischemic stroke #Acute embolic CVA bilateral parietal lobes #Acute non-occlusive DVT #Acute on chronic systolic CHF #Bilateral pleural effusions #Hypertensive emergency, improved. History of essential hypertension #RENATE on CKD IV #nephrotic range proteinuria #Nephrotic syndrome #Secondary Hyperparathyroidism #Insulin-dependent Diabetes mellitus type 2 #Hypercholesterolemia #Pulmonary Nodule #Normocytic anemia #Hepatitis C Infection #Cirrhosis (etoh vs hep C). #mild ascites Patient will need to follow up outpatient for senior living management Case discussed with my attending Dr. Turner , and senior resident, Dr. Kain Gold. Paola Prescott, DO PGY-1 Follow up with your primary care physician within 1 week of discahrge Follow upwith Cardiology within 1 week of discharge with a BMP and Magnesium labs Follow up with Neurology within 2 weeks of discharge, continue to take aspirin, atorvastatin for stroke prophylaxis You have been prescribed Eliquis please take this medication as prescribed you are to take 10mg twice a day for 5 more days and later take 5 mg tablets twice a days. Please take all your goal directed medical therapy for heart failure this includes: Carvedilol, valsartan, bumetanide or as the primer boxer recommends when you see him in 1 week. Should your symptoms recur or worsen patient is instructed to return to the ED. Patient will need to f/u with opthalmologist outpatient for diabetic retinopathy. Status at Discharge Functional status at discharge: independent ambulation Overall status at discharge: patient is back to baseline Time Spent with Patient Time attestation: Total time spent providing and/or coordinating discharge services: Time spent: Greater than 30 minutes Exam Vital Signs Temp Pulse Resp BP Pulse Ox O2 Del Method O2 Flow Rate 98.3 F 81 13 137/97 H 96 Room Air 2 06/09/25 11:40 06/09/25 13:45 06/09/25 13:45 06/09/25 13:45 06/09/25 13:45 06/09/25 13:45 06/09/25 13:15 Narrative Exam Gen: Well-developed and well-nourished. HEENT: NCAT, EOMI, MMM, anicteric conjunctivae. CVS: normal S1 and S2. RRR. No M/R/G. Resp: CTA B/L. No rhonchi, rales, crackles or wheezing. Ext: improved lower limb pitting edema up to bilateral knees, warm and well perfused Neuro: Cranial nerve II to XII grossly intact. Bilateral upper extremity 5/5. Bilateral lower extremity 5/5. normal sensation to both upper and lower limbs bilaterally. GCS 15 Skin: No rash Psych: appropriate mood and affect. Discharge Plan Plan Patient Disposition: HOME (Self Care) Care Plan Goals: Follow up with your primary care physician within 1 week of discahrge Follow upwith Cardiology within 1 week of discharge with a BMP and Magnesium labs Follow up with Neurology within 2 weeks of discharge, continue to take aspirin, atorvastatin for stroke prophylaxis You have been prescribed Eliquis please take this medication as prescribed you are to take 10mg twice a day for 5 more days and later take 5 mg tablets twice a days. Please take all your goal directed medical therapy for heart failure this inc ludes: Carvedilol, valsartan, bumetanide or as the primer boxer recommends when you see him in 1 week. Should your symptoms recur or worsen patient is instructed to return to the ED. Acuda a laquita renea de seguimiento con terry m?dico de cabecera dentro de la semana posterior al sierra. Ases?rese con cardiolog?a dentro de la semana posterior al sierra con un BMP y an?lisis de magnesio. Ases?rese con neurolog?a dentro de las 2 semanas posteriores al sierra. Contin?e tomando aspirina y atorvastatina para la profilaxis del accidente cerebrovascular. Le wisdom recetado Eliquis. [place] terra medicamento seg?n lo prescrito: 10 mg dos veces al d?a mejia 5 d?as m?s y luego tome tabletas de 5 mg dos veces al d?a. [place] todo el tratamiento m?dico indicado para la insuficiencia card?elidia, que incluye carvedilol, valsart?n, bumetanida o seg?n lo recomiende el cardi?logo en terry renea dentro de laquita semana. Si los s?ntomas reaparecen o empeoran, se le indica al paciente que regrese a urgencias. Prescriptions/Referrals Prescriptions/Med Rec: New atorvastatin 40 mg tablet 40 mg PO QDAY Qty: 30 0RF carvedilol 3.125 mg tablet 3.125 mg PO BID Qty: 60 0RF Rx Instructions: must administer with a meal/food valsartan 40 mg tablet 40 mg PO QDAY Qty: 30 0RF aspirin 81 mg capsule 81 mg PO QDAY Qty: 30 0RF Eliquis 5 mg tablet 5 mg PO BID Qty: 60 0RF Eliquis 5 mg tablet 10 mg PO BID 5 Days Qty: 20 0RF Continued bumetanide 1 mg tablet 1 mg PO DAILY Discontinued lisinopril 20 mg tablet 20 mg PO DAILY simvastatin 20 mg tablet 20 mg PO HS verapamil 240 mg tablet extended release 240 mg PO DAILY Referrals: Carlos Vasques MD [Physician] - No Primary/Family,Physician [Primary Care Provider] - Naga Reddy MD [Physician] - Outpatient Orders (i.e. Home Health, Labs, Imaging): Basic Metabolic Panel (Routine) Location: None Selected Ordered By: Dirk Gold Magnesium (Routine) Location: None Selected Ordered By: Dirk Gold Patient/Caregiver Discharge Instructions Education Materials: Risk Factors for Stroke, Healthy Lifestyle to Prevent ... Print Language: Lithuanian Activity Restrictions/Additional Instructions: Follow up with primer boxer Dr Vasques with in 1 week of discharge. Call [phone]. Stand Alone Forms: [facility] Award Info., Patient Portal Info Letter Discharge Order Discharge Orders: Discharge (Routine); Ordered 06/09/25 Ordered By: Dirk Gold Quality Discharge Quality Measures VTE prophylaxis Attestestation MD Attestation I have examined the patient, reviewed labs and imaging findings, discussed the case with the resident(s), and reviewed entered orders. I agree with the plan of care as outlined in this note, with these additional summaries/recommendations: Time Spent: [address] Johnny MD
[2025-06-13 06:58] LABS: Vitamin D,1,25 (OH)2,Total 17 pg/mL (18-72); Vitamin D2, 1,25 (OH)2 <8 pg/mL; Vitamin D3, 1,25 (OH)2 17 pg/mL
[2025-06-15 06:52] LABS: Homocysteine* 23.6 umol/L (< OR = 15.2)
[2025-06-15 06:54] LABS: Antithrombin III, Activity 82 % normal (80-135); Antithrombin III, Antigen 86 % normal (80-120); Hexagonal Phase Confirm NEGATIVE (NEGATIVE); PTT-LA Screen 45 seconds (< OR = 40); Protein C Antigen, Total* 79 % normal (70-140); Protein S Antigen, Total* 92 % normal (70-140); dRVVT Confirm NEGATIVE (NEGATIVE); dRVVT Screen 56 seconds (< OR = 45)
[2025-06-17 07:18] LABS: Antiphospholipid Ab Interp SEE SEP RPT; B2-Glycoprotein I Ab IgA SEE SEP RPT; B2-Glycoprotein I Ab IgG SEE SEP RPT; B2-Glycoprotein I Ab IgM SEE SEP RPT; Cardiolipin Ab IgA SEE SEP RPT; Cardiolipin Ab IgG SEE SEP RPT; Cardiolipin Ab IgM SEE SEP RPT; Phos.Serine Ab IgG SEE SEP RPT; Phos.Serine Ab IgM SEE SEP RPT
== END 2025-06-09 16:55 | disposition home or self-care (01) | DRG 45 ==
LOC: SERX 05:24 → SERHOLD 06:22 → S2SX 13:07 → S2NX 06-06 18:07
PROVIDERS: Internal Medicine; Internal Medicine Cardiovascular Disease; Student in an Organized Health Care Education/Training Program; Admitting Provider Student in an Organized Health Care Education/Training Program; Emergency Provider Emergency Medicine; Visit Provider Internal Medicine
PROC: (CPT 93312; principal; 2025-06-09 11:15)
DX: I63.89 Other cerebral infarction (principal); R29.810 Facial weakness; R27.0 Ataxia, unspecified; R29.706 NIHSS score 6; R47.01 Aphasia; R47.1 Dysarthria and anarthria; J90 Pleural effusion, not elsewhere classified; E11.22 Type 2 diabetes mellitus with diabetic chronic kidney disease; I16.1 Hypertensive emergency; N17.9 Acute kidney failure, unspecified; R81 Glycosuria; B19.20 Unspecified viral hepatitis C without hepatic coma; E11.65 Type 2 diabetes mellitus with hyperglycemia; E78.00 Pure hypercholesterolemia, unspecified; I13.0 Hypertensive heart and chronic kidney disease with heart failure and stage 1 through stage 4 chronic kidney disease, or unspecified chronic kidney disease; I25.2 Old myocardial infarction; I50.23 Acute on chronic systolic (congestive) heart failure; I82.442 Acute embolism and thrombosis of left tibial vein; I82.452 Acute embolism and thrombosis of left peroneal vein; J18.9 Pneumonia, unspecified organism; J96.01 Acute respiratory failure with hypoxia; K74.60 Unspecified cirrhosis of liver; N18.4 Chronic kidney disease, stage 4 (severe); R18.8 Other ascites; Z79.01 Long term (current) use of anticoagulants; N25.81 Secondary hyperparathyroidism of renal origin; Z79.02 Long term (current) use of antithrombotics/antiplatelets; Z79.4 Long term (current) use of insulin; Z79.82 Long term (current) use of aspirin; Z79.899 Other long term (current) drug therapy; Z87.891 Personal history of nicotine dependence; I44.0 Atrioventricular block, first degree; N13.30 Unspecified hydronephrosis; G93.0 Cerebral cysts; D63.1 Anemia in chronic kidney disease; I42.0 Dilated cardiomyopathy; R91.1 Solitary pulmonary nodule; E11.319 Type 2 diabetes mellitus with unspecified diabetic retinopathy without macular edema
CPT/HCPCS: 36415; 70450; 70496; 70498; 70544; 71045; 71250; 74176; 76770; 80053; 80061; 80074; 80307; 81001; 82306; 82436; 82570; 82652; 83036; 83090; 83540; 83550; 83735; 83880; 83970; 84100; 84133; 84156; 84300; 84439; 84443; 84484; 84550; 85025; 85300; 85301; 85302; 85305; 85610; 85613; 85730; 86146; 86147; 86148; 86331; 86635; 87081; 87086; 87811; 92610; 93005; 93306; 93312; 93970; 96374; 97162; 99152; 99285; A4649; J0360; J1644; J1815; J2250; J2404; J3010; J3101; J3475; J3490; P9047; Q9967; A9270; J1920

== ENCOUNTER 2025-06-30 09:45 | Observation (INO) | payer MEDICAID, SELFPAY ==
[2025-06-30] VITALS (10 sets, daily range): BP systolic 120–166; BP diastolic 82–113; PULSE 72–91; RESP 16–97; TEMP 36.4–36.7; O2SAT 94–98; BMI 30.5
--- NOTE | 2025-06-30 | XR_ITS ---
Examinations: MRI Brain without intravenous contrast. MRA brain without intravenous contrast. MRA carotids without intravenous contrast 3-D vascular reconstructions Date and time of exam: June 30, 2025, 1841 hrs., Comparison 11/12/2024. Indications: Clinical diagnosis stroke, onset this morning left arm numbness lasting 2 hours, history multiple embolic type acute infarcts in both parietal lobe on MRI brain June 06, 2025 Technique: Multiple axial and sagittal images of the brain have been obtained MRA brain carotid images without contrast obtained, including 3-D postprocessing, vascular maximum intensity projection images Findings: S[place] is not enlarged. The optic chiasm and infundibular stalk are not remarkable. Prepontine and interpeduncular cisterns are not enlarged. No localized enlargement of the medulla or yokasta. Fourth ventricle and cerebellar tonsils normal in position. Subacute hemorrhage is not seen. Fourth ventricle is midline. Mass in the cerebellopontine angle region is not evident. 7th and 8th nerve complexes exhibits symmetry. Globes are symmetrical with no retro-orbital mass. Increased white matter signal moderate Diffusion-weighted images demonstrate subtle respectively diffusion in the right frontoparietal lobe image 21 the site of the prior infarct on June 06, 2025 No new foci of restricted diffusion Mass-effect upon the ventricular system is not identified. MRA carotid images degraded by patient motion MRA brain images no large vessel occlusions Impression: No interval acute infarcts
--- NOTE | 2025-06-30 10:02 | XR_ITS ---
Examination: CT brain head without contrast. 2-D sagittal coronal reconstructions Date and time of exam:June 30, 2025 1006 hours INDICATIONS: Stroke alert, onset left arm numbness beginning this morning CTDI: vol (mGy):52.7 DLP: (mGycm):1052 Technique: Multiple CT axial sections of the brain have been obtained, 5 mm slice thickness. Contrast has not been administered. 2-D sagittal, coronal reconstructions have been obtained Low dose protocols were performed. One or more of the following dose reduction techniques were used; automated exposure control, adjustment of the mA and/or KV according to patient size, use of iterative reconstruction technique. Findings: No significant ventricular enlargement. Intra-axial or extra-axial hemorrhage density is not seen. No mass effect or midline shift Basal cisterns are not remarkable. Fourth ventricle is midline. Cranial vault intact. Impression: Negative for acute hemorrhage, mass effect or midline shift
[2025-06-30] MEDS: DEXTROSE 50%-WATER INJ 50 ML SYRINGE IVP ×2 (10:10→17:40)
--- NOTE | 2025-06-30 10:15 | ESCONSULT_ITS ---
Tele Neuro Consultation Consultation Date 06/30/25 Most Recent Vital Signs Last Vital Signs Temp 97.5 F 06/30/25 09:55 Pulse 91 06/30/25 09:55 Resp 16 06/30/25 09:55 BP 166/113 H 06/30/25 09:55 Pulse Ox 98 06/30/25 09:55 O2 Del Method Room Air 06/30/25 09:55 Consultation Narrative [facility] Tele[facility]rology Consult Services Patient Name:???Pradip Baldwin Date of :???1960 Identification Number:??? Date of Service:???06/30/2025 09:56:51 Diagnosis:?R20.2 - Paresthesia of skin Impression: ?This patient is a 64-year-old male with a past medical history of heart failure, hypertension, hyperlipidemia, diabetes, recently discharged from the hospital for evaluation of bilateral embolic infarcts in the parietal regions presenting for evaluation of left upper extremity numbness. The patient is not a candidate for thrombolytic therapy due to his recent stroke and Eliquis use. ? ?Symptoms perhaps related to hypoglycemia, though given his severe heart failure I would recommend repeating MRI brain to ensure he has not had a recurrent embolic event. Likely do not need to repeat remainder of stroke workup if MRI does not demonstrate evidence of new infarction. Our recommendations are outlined below. Recommendations: ? Stroke/Telemetry Floor ? Neuro Checks (Q4) ? Bedside Swallow Eval ? DVT Prophylaxis ? IV Fluids, Normal Saline ? Head of Bed 30 Degrees ? Euglycemia and Avoid Hyperthermia (PRN Acetaminophen) ? Initiate or continue Aspirin 81 MG daily ? Antihypertensives PRN if Blood pressure is greater than 220/120 or there is a concern for End organ damage/contraindications for permissive HTN. If blood pressure is greater than 220/120 give labetalol PO or IV or Vasotec IV with a goal of 15% reduction in BP during the first 24 hours. ?Continue Eliquis Sign Out: ? Discussed with Emergency Department Provider Advanced Imaging: Advanced Imaging Deferred because: Non-disabling symptoms as verified by the patient; no cortical signs so not consistent with LVO Metrics: Last Known Well: 06/30/2025 06:00:00 Dispatch Time: 06/30/2025 09:56:51 Arrival Time: 06/30/2025 09:45:00 Initial Response Time: 06/30/2025 09:59:11Symptoms: left arm numbness. Initial patient interaction: 06/30/2025 10:06:18 NIHSS Assessment Completed: 06/30/2025 10:10:32Patient is not a candidate for Thrombolytic. Thrombolytic Medical Decision: 06/30/2025 10:10:34Patient was not deemed candidate for Thrombolytic because of following reasons: Use of NOAC in last 48 hrs. . Significant head trauma or stroke in previous [address] Head: I personally reviewed all the CT images that were available to me and it showed: no acute findings Primary Provider Notified of Diagnostic Impression and Management Plan on: 06/30/2025 10:14:24 History of Present Illness:Patient is a 64 year old Male. Patient was brought by private transportation with symptoms of left arm numbness. This patient is a 64-year-old male with a past medical history of heart failure, hypertension, hyperlipidemia, diabetes, recently discharged from the hospital for bilateral embolic infarcts in the parietal regions who is presenting for evaluation of left upper extremity numbness. Patient states that he was generally unwell throughout the night, then approximately 6 AM this morning developed left upper extremity numbness. Stated that the arm felt numb and weak for., But has been improving. States that he has been compliant with his Eliquis and aspirin. Past Medical History: ?Hypertension ?Diabetes Mellitus ?Hyperlipidemia ?Stroke Other PMH:? CHF ?DVT Past Hospitalization:??recent CVA of embolic source: MRI + in bilateral parietal regions Medications: Anticoagulant use:??Yes?eliquis Antiplatelet use:?Yes?asa Reviewed EMR for current medications Allergies:? Reviewed Social History: Drug Use: No Family History: There is no family history of premature cerebrovascular disease pertinent to this consultation ROS : 14 Points Review of Systems was performed and was negative except mentioned in HPI. Past Surgical History: There Is No Surgical History Contributory To Today?s Visit Examination: BP(166/113),?Pulse(91),?Blood Glucose(50) 1A: Level of Consciousness - Alert; keenly responsive?+ 0 1B: Ask Month and Age - 1 Question Right?+ 1 1C: Blink Eyes & Squeeze Hands - Performs Both Tasks?+ 0 2: Test Horizontal Extraocular Movements - Normal?+ 0 3: Test Visual Vill[place] - No Visual Loss?+ 0 4: Test Facial Palsy (Use Grimace if Obtunded) - Normal symmetry?+ 0 5A: Test Left Arm Motor Drift - No Drift for 10 Seconds?+ 0 5B: Test Right Arm Motor Drift - No Drift for 10 Seconds?+ 0 6A: Test Left Leg Motor Drift - No Drift for 5 Seconds?+ 0 6B: Test Right Leg Motor Drift - No Drift for 5 Seconds?+ 0 7: Test Limb Ataxia (FNF/Heel-Wilson) - No Ataxia?+ 0 8: Test Sensation - Normal; No sensory loss?+ 0 9: Test Language/Aphasia - Normal; No aphasia?+ 0 10: Test Dysarthria - Normal?+ 0 11: Test Extinction/Inattention - No abnormality?+ 0 NIHSS Score:?1 Pre-Morbid Modified Adel Scale: 0 Points = No symptoms at all Spoke with :?er provider This consult was conducted in real time using interactive audio and video technology. Patient was informed of the technology being used for this visit and agreed to proceed. Patient located in hospital and provider located at home/office setting. Patient is being evaluated for possible acute neurologic impairment and high probability of imminent or life-threatening deterioration. I spent total of 35 minutes providing care to this patient, including time for face to face visit via telemedicine, review of medical records, imaging studies and discussion of findings with providers, the patient and/or family. Dr Josh Cash [facility] For Inpatient follow-up with [facility] physician please call [facility] at . As we are not an outpatient service for any post hospital discharge needs please contact the hospital for assistance. If you have any questions for the [facility] physicians or need to re consult for clinical or diagnostic changes please contact us via [facility] at . Signature :Puja Cash
--- NOTE | 2025-06-30 10:21 | EKG_ITS ---
[facility] Test Date: 2025-06-30 Pat Name: YOVANNY MALAGON Department: Room: - Gender: Male First Front Ventilator: : 1960 Requested By: Liam Paiz Order Number: [id number] Reading MD: Liam Paiz Measurements Intervals [place] Rate: 84 P: 17 [place]: 180 QRS: -51 QRSD: 114 T: 95 QT: 431 QTc: 512 Interpretive Statements SINUS RHYTHM LEFT AXIS DEVIATION [QRS AXIS < -30] ANTEROSEPTAL MYOCARDIAL INFARCTION , OF INDETERMINATE AGE [40+ ms Q WAVE IN V1-V4] Compared to ECG 06/07/2025 14:02:06 Left-axis deviation now present First degree AV block no longer present Right-axis deviation no longer present T-wave abnormality no longer present Possible ischemia no longer present Myocardial infarct finding still present /store/S0/[id number].pdf
[2025-06-30 10:24] LABS: Basophils # (Auto) 0.0 Thou/mm3 (0.0-0.2); Basophils % (Auto) 1 % (0-2.5); Eosinophils # (Auto) 0.1 Thou/mm3 (0.0-0.5); Eosinophils % (Auto) 2 % (0-10); Hematocrit 34.8 % (41.0-53.0); Hemoglobin 11.6 g/dL (13.5-16.0); Immature Granulocytes Auto 0.02 Thou/mm3 (0.00-0.00); Lymphocytes # (Auto) 1.0 Thou/mm3 (1.0-4.8); Lymphocytes % (Auto) 15 % (10-50); Mean Corpuscular HGB Conc 33.3 g/dl (31.0-37.0); Mean Corpuscular Hemoglobin 28.0 pg (25.0-35.0); Mean Corpuscular Volume 84 fL (80-100); Monocytes # (Auto) 0.5 Thou/mm3 (0.0-0.8); Monocytes % (Auto) 8 % (0-12); Neutrophils # (Auto) 5.2 Thou/mm3 (1.8-7.7); Neutrophils % (Auto) 75 % (37-80); Nucleated Red Blood Cell # 0.00 Thou/mm3 (0.00-0.00); Nucleated Red Blood Cell % 0 /100 WBC (0); Platelet Count 264 Thou/mm3 (140-440); RDW Standard Deviation 52.7 fL (35.1-43.9); Red Blood Count 4.14 Miln/mm3 (4.50-5.90); White Blood Count 6.9 Thou/mm3 (3.8-10.6)
[2025-06-30 10:38] LABS: INR 1.1 (0.9-1.3); Partial Thromboplastin Time 26.2 Seconds (22.0-36.0); Prothrombin Time 11.5 Seconds (9.0-12.2)
[2025-06-30] MEDS: SODIUM CHLORIDE 0.9% 1000 ML 1,000 ML 100 ML IV (10:44)
--- NOTE | 2025-06-30 10:59 | PC.NURSE ---
DUPLICATE ORDER PUT IN FOR NS 100ML/HR IV. DR. DURAN SAID TO D/C 2ND ORDER.
[2025-06-30 11:01] LABS: Alanine Aminotransferase 31 U/L (10-49); Albumin, Serum 3.9 gm/dL (3.4-4.8); Albumin/Globulin Ratio 1.4 (1.2-2.2); Alcohol, Blood Medical < 3.0 mg/dL (0-10.0); Alkaline Phosphatase 159 U/L (46-116); Anion Gap 13 (7-16); Aspartate Amino Transferase 43 U/L (0-34); BUN/Creatinine Ratio 24 Ratio (12-20); Bilirubin,Total 0.5 mg/dL (0.3-1.2); Blood Urea Nitrogen 70 mg/dL (9-23); Calcium 9.0 mg/dL (8.3-10.6); Calcium (Corrected) 9.1 mg/dL (8.5-10.1); Carbon Dioxide 18.9 mMol/L (20.0-31.0); Chloride 107 mMol/L (98-107); Creatinine (Component) 2.9 mg/dL (0.6-1.3); Estimated Creatinine Clearance 31.8 mL/min (>60); Globulin 2.8 gm/dL (2.3-3.5); Glucose 58 mg/dL (74-106); Magnesium 1.9 mg/dL (1.6-2.6); Osmolality,Calculated 296 (275-295); Potassium 4.3 mMol/L (3.4-5.1); Sodium 139 mMol/L (136-145); Total Protein 6.7 gm/dL (5.7-8.2); eGFR 23 See Note
[2025-06-30 11:38] LABS: Troponin I 0.057 ng/mL (0.0-0.045)
[2025-06-30 12:12] LABS: Collection Type, Urine Catheter
[2025-06-30 12:22] LABS: Bilirubin,Urine Negative (Negative); Blood,Urine 1+ (Negative); Clarity,Urine Clear (Clear/Hazy); Color,Urine Lt-Yellow (Lt Yel-Yel); Glucose, Urine 2+ (Negative); Ketones,Urine Negative (Negative); Leukocyte Esterase,Urine Negative (Negative); Nitrite,Urine Negative (Negative); PH,Urine 6.0 (5.0-7.0); Protein,Urine 3+ (Neg - Trace); RBC,Urine 5 /hpf (0-3); Specific Gravity,Urine 1.020 (1.001-1.035); Squamous Epithelial Cell,Urine < 1 /hpf (0-5); Urobilinogen,Urine Negative mg/dL (0.0-1.0); WBC,Urine 1 /hpf (0-5)
--- NOTE | 2025-06-30 12:24 | PD.EDWEAK ---
ED Weakness RME/HPI General Chief complaint: General Adult/Misc Complain Stated complaint: I DON'T FEEL WELL Time Seen by Provider: 06/30/25 10:11 Arrival date/time: 06/30/25 09:45 Limitations: no limitations RME / HPI RME / HPI Narrative: 64 year old male with history of hypertension, diabetes, and recent hospitalization here for acute ischemic stroke treated with TNK (06/05-06/09/2025) presents to the ED for evaluation of I don't feel good and left upper extremity numbness beginning at 06:00 AM today. Patient reports the patient was unable to sleep well last night. No other associated symptoms reported. Per RN, blood sugar in the ED was 50 and given D10. Related Data Home Medications ?Medication ?Instructions ?Recorded ?Confirmed bumetanide 1 mg tablet 1 mg PO DAILY 06/05/25 06/05/25 Previous Rx's ?Medication ?Instructions ?Recorded apixaban 5 mg tablet (Eliquis) 5 mg PO BID #60 tabs 06/09/25 aspirin 81 mg capsule 81 mg PO QDAY #30 caps 06/09/25 atorvastatin 40 mg tablet 40 mg PO QDAY #30 tabs 06/09/25 carvedilol 3.125 mg tablet 3.125 mg PO BID #60 tabs 06/09/25 valsartan 40 mg tablet 40 mg PO QDAY #30 tabs 06/09/25 Allergies Allergy/AdvReac Type Severity Reaction Status Date / Time No Known Allergies Allergy Verified 06/30/25 09:51 Review of Systems Review of Systems Systems Reviewed: All systems reviewed, normal except as documented Past Medical History Past Medical History NEUROLOGIC: Positive Neurological Disorders and Cerebrovascular Accident (stroke 06/05/2025) CARDIAC: Positive Cardiac Disorders, Hypercholesterolemia and Hypertension GASTROINTESTINAL: Positive Gastrointestinal Disorders (chronic constipation) GENITOURINARY: Positive Genitourinary Disorders (on bumex for edema lower extremeties), Renal Disease and Benign Prostatic Hyperplasia ENDOCRINE: Positive Endocrine Disorders and Diabetes Mellitus Type 2 Family History FAMILY HISTORY: Negative Family Cardiac Disorders Surgical History SURGICAL: Negative Ear Surgery, Nephrectomy or Joint Replacement Social History SMOKING STATUS: Never smoker ED Exam General Limitations: Present no limitations General appearance: Present alert and in no apparent distress Head Head exam: Present atraumatic, normocephalic and normal inspection Eye Eye exam: Present normal appearance, PERRL and EOMI ENT ENT exam: Present normal exam, normal oropharynx and mucous membranes moist Neck Neck exam: Present normal inspection, full ROM and trachea midline Chest Chest inspection: Present normal inspection and symmetric chest wall rise Respiratory Respiratory exam: Present normal lung sounds bilaterally Cardiovascular Cardiovascular exam: Present regular rate, normal rhythm and normal heart sounds Abdominal Exam Abdominal exam: Present soft and normal bowel sounds Extremities Exam Extremities exam: Present normal inspection and full ROM Back Exam Back exam: Present normal inspection and full ROM Neurological Exam Neurological exam: Present alert, oriented X3, CN II-XII intact and other (No focal deficits, pt reported numbness to the left arm ) Psychiatric Psychiatric exam: Present normal affect and normal mood Skin Skin exam: Present warm, dry, intact and normal color Course Quality Measures Suspected type of Stroke: Non Acute Last know well: unknown Tenecteplase given: Reason(s) TPA not given: H/O intracranial hemorrhage, neoplasm, AVM, or aneurysm (recent embolic stroke 06/05/2025 ) not given stroke Orders Category Date Time Status Bedside Blood Glucose NOW Care 06/30/25 10:13 Active Bedside Blood Glucose NOW Care 06/30/25 10:45 Active Rehabilitation Clerk NOW Care 06/30/25 10:13 Active Rehabilitation Clerk NOW Care 06/30/25 10:45 Active Continuous Pulse Oximetry NOW Care 06/30/25 10:13 Active EKG (ED ONLY) *Do not use* NOW Care 06/30/25 10:21 Active Insert IV NOW Care 06/30/25 10:13 Active NIH Stroke Scale now Care 06/30/25 10:13 Active NPO NOW Care 06/30/25 10:13 Active Neuro Check Q15MIN Care 06/30/25 10:13 Completed Neuro Check Q15MIN Care 06/30/25 10:45 Active Nurse Swallow Screen x1 Care 06/30/25 10:13 Active Consult to Neurology / Tele-Neurology Routine Cons 06/30/25 10:[address] head/brain wo con Stat Exams 06/30/25 10:02 Completed EKG (ED Only) Stat Exams 06/30/25 10:21 Draft Alcohol, Blood Medical Stat Lab 06/30/25 10:00 Completed CBC Stat Lab 06/30/25 10:00 Completed Comprehensive Metabolic Panel Stat Lab 06/30/25 10:00 Completed Drug Screen,Urine Stat Lab 06/30/25 12:09 Received Magnesium Stat Lab 06/30/25 10:00 Completed Partial Thromboplastin Time Stat Lab 06/30/25 10:00 Completed Prothrombin Time with INR Stat Lab 06/30/25 10:00 Completed Troponin I Stat Lab 06/30/25 10:00 Completed Urinalysis Stat Lab 06/30/25 12:09 Completed Urine Culture Stat Lab 06/30/25 12:09 Received Dextrose 50% Syr [D50w Syringe Abboject] Med 06/30/25 10:00 Discontinued 50 ml IVP X1 ONE Sodium Chloride 0.9% 1000 ml [Ns] 1,000 ml Med 06/30/25 10:45 Discontinued IV 100 mls/hr Sodium Chloride 0.9% 1000 ml [Ns] 1,000 ml Med 06/30/25 10:15 Active IV Q10H Oxygen Delivery NOW RT 06/30/25 10:13 Active Vital Signs Vital signs: Vital Signs Temperature 97.5 F 06/30/25 09:55 Pulse Rate 91 06/30/25 09:55 Respiratory Rate 16 06/30/25 09:55 Blood Pressure 166/113 H 06/30/25 09:55 Pulse Oximetry (%) 98 06/30/25 09:55 Oxygen Delivery Method Room Air 06/30/25 09:55 Pulse ox is 98% on room air which is adequate. Weakness MDM Narrative MDM Narrative:: I, Barbie Gooden, am scribing for and in the presence of Dr. Richardson. Patient had a recent stroke that was embolic. Teleneuro did not feel he needed a CT angio today given he was already treated for a recent CVA. Symptoms are potentially worsening symptoms of prior CVA than a new CVA. Patient data External records reviewed:: [facility] previous records (I reviewed admission from 06/05-06/09/2025 for stroke ) Clinical information provided by:: patient Social determinants that could affect healthcare access:: none Patient has the following chronic illnesses:: hypertension, diabetes, and recent hospitalization here for acute ischemic stroke treated with TNK (06/05-06/09/2025) How is presenting disease/condition affected by chronic disease/condition?: exacerbated by Evaluation data The following diagnostics were reviewed and interpreted by me:: lab results, radiology exam(s) and EKG tracing(s) (10:20AM NSR, LAD, poor R-wave progression, rate 84. ) Lab and/or radiology exams considered but not ordered:: None Interpretation Summary: Ordering Physician: Josh Cash MD Date of Service: 06/30/25 Procedure(s): CT head/brain wo con Accession Number(s): [id number] cc: Josh Cash MD; Ron Aguilera MD~ Examination: CT brain head without contrast. 2-D sagittal coronal reconstructions Date and time of exam:June 30, 2025 1006 hours INDICATIONS: Stroke alert, onset left arm numbness beginning this morning CTDI: vol (mGy):52.7 DLP: (mGycm):1052 Technique: Multiple CT axial sections of the brain have been obtained, 5 mm slice thickness. Contrast has not been administered. 2-D sagittal, coronal reconstructions have been obtained Low dose protocols were performed. One or more of the following dose reduction techniques were used; automated exposure control, adjustment of the mA and/or KV according to patient size, use of iterative reconstruction technique. Findings: No significant ventricular enlargement. Intra-axial or extra-axial hemorrhage density is not seen. No mass effect or midline shift Basal cisterns are not remarkable. Fourth ventricle is midline. Cranial vault intact. Impression: Negative for acute hemorrhage, mass effect or midline shift Dictated By: Ron Aguilera MD Signed By: <Electronically signed by Ron Aguilera MD in [place]> 06/30/25 1009 Medications / Prescriptions Medications or Prescriptions considered but not ordered:: None Medication administrations:: Medication Administration History Sodium Chloride (Ns) 1,000 mls @ 100 mls/hr IV Q10H YUDITH Stop: 07/30/25 10:14 Last Admin: 06/30/25 10:44 Dose: 100 mls/hr Documented By: LP Discontinued Medications Dextrose (Dextrose 50%-Water Inj 50 Ml Syringe) 50 ml IVP X1 ONE Stop: 06/30/25 10:01 Last Admin: 06/30/25 10:10 Dose: 50 ml Documented By: MAINOR Sodium Chloride (Ns) 1,000 mls @ 100 mls/hr IV .Q10H YUDITH Stop: 07/30/25 10:44 Last Admin: 06/30/25 11:12 Dose: Not Given Documented By: MAINOR Non-Admin Reason: Cancelled by Provider See above Consultations Consultation(s) initiated? (list below): Yes Consultation #1 (Physician, Specialty, Details): I spoke with teleneuro Dr. Cash. States patient is not a TNK candidate. Patient was just treated with TNK for embolic stroke on 06/05/2025. Time: 10:14 Consultation #2 (Physician, Specialty, Details): I spoke with hospitalist. Dr. Turner. Discussed patients PMHx, HPI, ED course, exam findings, labs, and radiology results. The hospitalist agree to accept the patient for admission. Time: 12:15 Diagnosis Weakness Differential Diagnosis: acute myocardial infarction, anemia, hypoglycemia, rhabdomyolysis, sepsis, dehydration and other (CVA, TIA ) Most likely diagnosis given after review of the tests above:: CVA Hypoglycemia Admission Indicated Admission indicated?: indicated Admission Request Was there a request for admission?: Yes Admission Attestation Admission request attestation: Discussed case with [] from Hospitalist service regarding admission. Discussed patients ED course, exam findings, labs, and radiology results. The Hospitalist [agrees,declines] to accept the patient for admission. Disposition Plan Disposition Plan: Admit Critical Care Time Critical Care Time Critical Care Time: Yes Total Critical Care Time (min.): 35 Attestation: The high probability of sudden, clinically significant deterioration in the patient's condition required the highest level of my preparedness to intervene urgently. The services I provided to this patient were to treat and/or prevent clinically significant deterioration. Services included the following: chart data review, reviewing nursing notes and/or old charts, documentation time, performance improvement consultant collaboration regarding findings and treatment options, medication orders and management, direct patient care, vital sign assessments and ordering, interpreting and reviewing diagnostic studies and lab tests. Aggregate critical care time includes only time during which I was engaged in work directly related to the patient's care, as described above, whether at bedside or elsewhere in the Emergency Department. It did not include time spent performing other reported procedures or the services of residents, students, nurses or physician assistants. Discharge Plan Plan Patient Disposition: Admit Acute Care w/in Hospital Prescriptions/Referrals Prescriptions/Med Rec: No Action bumetanide 1 mg tablet 1 mg PO DAILY atorvastatin 40 mg tablet 40 mg PO QDAY Qty: 30 0RF carvedilol 3.125 mg tablet 3.125 mg PO BID Qty: 60 0RF Rx Instructions: must administer with a meal/food valsartan 40 mg tablet 40 mg PO QDAY Qty: 30 0RF aspirin 81 mg capsule 81 mg PO QDAY Qty: 30 0RF Eliquis 5 mg tablet 5 mg PO BID Qty: 60 0RF Referrals: No Primary/Family,Physician [Primary Care Provider] - In 1 week Problem List Clinical Impression: CVA (cerebral vascular accident), Hypoglycemia Patient/Caregiver Discharge Instructions Print Language: Cook Islander Stand Alone Forms: [facility] Award Info., Patient Portal Info Letter
[2025-06-30 12:32] LABS: Amphetamine/Methamp Scrn,U Negative (Negative); Barbiturate Screen,Urine Negative (Negative); Benzodiazepines Screen,Urine Negative (Negative); Benzoylecgonine Screen, Ur Negative (Negative); Fentanyl Screen,Urine Negative (Negative); Opiate Screen,Urine Negative (Negative); THC Screen,Urine Negative (Negative)
[2025-06-30] MEDS: LABETALOL INJ 5 MG/ML VIAL 20 ML 20 MG IVP (13:39)
--- NOTE | 2025-06-30 14:52 | XR_ITS ---
Examination: AP chest single view Technique one AP portable upright chest single view Date and time: June 30, 2025 1502 hours, comparison June 05, 2025 INDICATIONS: Shortness of breath and weakness today. FINDINGS: Mild heart failure. Mild enlargement left ventricle. Prominent vascular congestion with early edema at the lung bases. IMPRESSION: Mild CHF
[2025-06-30] MEDS: ASPIRIN EC 81 MG TABEC PO (15:20)
[2025-06-30 15:46] LABS: Cardiac Risk Estimate 2.0 RATIO (4.0-6.7); Cholesterol 87 mg/dL (132-200); HDL Cholesterol 43 mg/dL (40-60); LDL Cholesterol,Calculated 26 mg/dL (0-130); Triglycerides 92 mg/dL (30-150)
--- NOTE | 2025-06-30 16:11 | ESCONSULT_ITS ---
HPI Data of Consult Requesting Physician: James Turner MD Admitting Provider: James Turner MD Attending Provider: James Turner MD Primary Care Provider: Physician No Primary/Family Consult Narrative History of present illness: Pradip is a 64 y/o male with PMHx of Embolic CVA (s/p TNK, DVT source), hypertension, and insulin-dependent diabetes mellitus type 2, HFrEF (EF 15-20%), treated HCV infection, HLD, hx of drugs use, who presented to the ED on 06/30/25 for evaluation of left worsening upper extremity numbness since this morning. Patient reports that his symptoms began with trouble sleeping at the time and then he had developed worsening upper extremity weakness in which he felt reduced range of motion. He denied headache at the time, however he said that he started to feel a headache come on now. He denied any chest pain, shortness of breath, nausea, or vomiting around the time of the symptoms. He says that he was recently discharged for a stroke in which he was discharged with Eliquis in which he has been taking as prescribed. He says he lives with a family member currently. He denies any blurry vision, or trouble with walking. He is unsure who his junior mechanical engineer is. He is unsure who his PCP is. PMHx: As above Surgeries: Denies history of surgeries Meds: Pending med rec, however has been taking Eliquis 5 mg twice daily Allergies: None Family Hx: Denies any family history of medical problems including CAD, diabetes Social Hx: Endorses an extensive drug history in the past, however does not use drugs now. He says that he used to smoke for some time as well. But does not smoke anymore. Says he does not drink anymore. cc:: cc: James Turner MD Review of Systems Review of Systems Narrative Review of Systems: 12 point ROS was reviewed and otherwise negative listed directly in the HPI Exam Vital Signs Temp Pulse Resp BP Pulse Ox O2 Del Method 97.5 F 76 28 H 147/98 H 97 Room Air 06/30/25 09:55 06/30/25 14:00 06/30/25 14:00 06/30/25 14:00 06/30/25 14:00 06/30/25 14:00 Narrative Exam General: AAOx3, NAD, Sinhala-speaking male HEENT: Moist mucous membranes, conjunctiva clear, EOMI, PERRLA, Cardiovascular: S1, S2, radial pulses +2 bilat, RRR Pulmonary: CTAB bilat no cough, no wheezing, a bit tachypneic GI: No tenderness to light or deep palpitation, no guarding, rigidity, rebound tenderness or distension Extremities: +1 pitting edema lower extremities bilaterally, dorsalis pedis pulses +2 bilaterally Neuro: AAOx3, no focal motor or sensory deficits in the UE or LE bilat Psych: Good judgement, thought and behavior Results Labs 07/01/25 05:25 07/01/25 05:25 Labs: Short CBC 06/30/25 Range/Units 10:00 WBC 6.9 (3.8-10.6) Thou/mm3 Hgb 11.6 L (13.5-16.0) g/dL Hct 34.8 L (41.0-53.0) % Plt Count 264 D (140-440) Thou/mm3 BMP 06/30/25 10:00 Sodium 139 Potassium 4.3 Chloride 107 Carbon Dioxide 18.9 L BUN 70 H Creatinine 2.9 H Glucose 58 L Calcium 9.0 Cardiac Enzymes 06/30/25 Range/Units 10:00 Troponin I 0.057 H* (0.0-0.045) ng/mL Liver Function 06/30/25 Range/Units 10:00 Total Bilirubin 0.5 (0.3-1.2) mg/dL AST 43 H (0-34) U/L ALT 31 (10-49) U/L Alkaline Phosphatase 159 H (46-116) U/L Albumin 3.9 (3.4-4.8) gm/dL Urine 06/30/25 Range/Units 12:09 Urine Color Lt-Yellow (Lt Yel-Yel) Urine Clarity Clear (Clear/Hazy) Urine pH 6.0 (5.0-7.0) Ur Specific [place] 1.020 (1.001-1.035) Urine Protein 3+ A (Neg - Trace) Urine Glucose (UA) 2+ A (Negative) Quality Measures Quality Measures stroke Suspected type of Stroke: Non Acute Tenecteplase given: Reason(s) Tenecteplase not given: H/O intracranial hemorrhage, neoplasm, AVM, or aneurysm (recent embolic stroke 06/05/2025 ) not given Rehab services: PT evaluation ordered VTE Prophylaxis: pharmaceutical Antithrombotic by day 2:: not indicated (describe) Statin ordered: >75 y/o moderate or high intensity dose Anticoagulation ordered for A-fib or flutter (current or hx): not indicated Medications Home Medications and Allergies Home Medications ?Medication ?Instructions ?Recorded ?Confirmed ?Type bumetanide 1 mg tablet 1 mg PO DAILY 06/05/2506/30 History Allergies Allergy/AdvReac Type Severity Reaction Status Date / Time No Known Allergies Allergy Verified 06/30/25 09:51 Visit Medications Acetaminophen (Acetaminophen 325 Mg Tablet) 650 mg PO Q6H PRN PRN Reason: Fever >101.5 Stop: 07/30/25 14:46 Acetaminophen (Acetaminophen 325 Mg Tablet) 650 mg PO Q6H PRN PRN Reason: PAIN SCALE 1-3 (mild Stop: 07/30/25 14:46 Aspirin (Aspirin Ec 81 Mg Tabec) 81 mg PO QDAY YUDITH Stop: 07/30/25 14:59 Last Admin: 06/30/25 15:20 Dose: 81 mg Atorvastatin Calcium (Atorvastatin Calcium 20 Mg Tablet) 80 mg PO HS YUDITH Stop: 07/30/25 20:59 Dextrose (Dextrose 50%-Water Inj 50 Ml Syringe) 25 ml IV Q15MIN PRN PRN Reason: BG 50-70 responsive npo pt Stop: 07/30/25 14:54 Dextrose (Dextrose 50%-Water Inj 50 Ml Syringe) 50 ml IV Q15MIN PRN PRN Reason: BG <50 OR BG <70 & pt unresponsive Stop: 07/30/25 14:54 Glucagon (Glucagon Inj 1 Mg Vial) 1 mg IM Q15MIN PRN PRN Reason: BG <70, and no IV access Sodium Chloride (Ns) 1,000 mls @ 100 mls/hr IV Q10H YUDITH Stop: 07/30/25 10:14 Last Admin: 06/30/25 10:44 Dose: 100 mls/hr Insulin Human Lispro (Insulin Lispro (Admelog) 1 Unit/0.01 Ml Unit) 0 unit SC AC YUDITH; Protocol Stop: 07/30/25 16:59 Labetalol HCl (Labetalol Inj 5 Mg/Ml Vial 20 Ml) 10 mg IVP X1 PRN PRN Reason: Hypertensive Emergency Ondansetron HCl (Ondansetron Inj 2 Mg/Ml Inj 2 Ml) 4 mg IVP Q6H PRN; Protocol PRN Reason: NAUSEA OR VOMITING Stop: 07/30/25 14:46 Discontinued Medications Dextrose (Dextrose 50%-Water Inj 50 Ml Syringe) 50 ml IVP X1 ONE Stop: 06/30/25 10:01 Last Admin: 06/30/25 10:10 Dose: 50 ml Sodium Chloride (Ns) 1,000 mls @ 100 mls/hr IV .Q10H YUDITH Stop: 07/30/25 10:44 Last Admin: 06/30/25 11:12 Dose: Not Given Labetalol HCl (Labetalol Inj 5 Mg/Ml Vial 20 Ml) 20 mg IVP X1 ONE Stop: 06/30/25 13:06 Last Admin: 06/30/25 13:39 Dose: 20 mg Assessment & Plan Plan Assessment Pradip is a 64 y/o male with PMHx of Embolic CVA (s/p TNK, DVT source), hypertension, and insulin-dependent diabetes mellitus type 2, HFrEF (EF 15-20%), treated HCV infection, HLD, hx of drugs use, who is currently admitted for CVA rule out. #Acute CVA rule out #History of embolic CVA #Left upper extremity weakness #Symptomatic hypoglycemia Patient symptoms seem to have resolved Patient's symptom was related to upper extremity weakness although this is focal patient described it as more so weakness and throughout the entire arm Patient could have experienced a TIA, however will need to have MRI What is more likely is that patient experienced weakness due to hypoglycemia as patient came in with a sugar of 58 Nevertheless we will continue with stroke workup Plan: ? Recommend to continue with Eliquis 5 mg twice daily, start aspirin if patient has CVA on MRI ? MR stroke protocol ? Speech therapy ? Physical therapy ? High intensity statin ? Echo was recently done on May, no need for repeat echo ? Neurochecks every 4 hours ? Head of bed elevation 30 degrees ? DVT prophylaxis ? Bedrest #HFrEF #Hx of Bilateral pleural effusions #History of essential hypertension #CKD #nephrotic range proteinuria #Nephrotic syndrome #Secondary Hyperparathyroidism #Insulin-dependent Diabetes mellitus type 2 #Hypoglycemia #Hypercholesterolemia #Hepatitis C Infection #Cirrhosis (etoh vs hep C). #Mild ascites Patient seen and care discussed with my attending physician, Dr. Barry Rojas, PGY-2 Attending Provider Attestation/Addendum I personally have seen and examined the patient at the bedside and I agreed with resident's findings, assessment and plan of care. IMP: TIA presenting as paresthesias Follow-up with MRI brain to rule out acute ischemic infarction compliant on Eliquis and statin now. PLAN AND recs: Continue with Eliquis, statin and BP control
--- NOTE | 2025-06-30 16:46 | ESHP_ITS ---
<Statement entered by Daija Barroso MD - 06/30/25 21:46> Note reviewed, I agree with most of its contents and agree with the patient's care as documented by Dr. Prescott. Pradip Baldwin is 64 yr male with PMH of CVA, hypertension, and insulin-dependent diabetes mellitus type 2, HFrEF (EF 15-20%), treated HCV infection, HLD, hx of drugs use, non occlusive DVT who presented to ED with CC of left arm numbness. He was recently discharge from [facility] on 06/09/25 after treatment for stroke. He was started on Eliquis, atorvastatin, and aspirin. States he is compliant with medications but has seen neurologist outpatient yet. Patient was concerned he may be having another stroke as symptoms of numbness/tingling were similar to previous time. He is a poor historian. Denied any other symptoms and physical exam was benign. Stroke alert called. Head imaging thus far negative. Labs signficant for hypoglycemia 58. Admit for stroke workup. Allow permissive HTN. We resumed Eliquis, aspirin, and atorvastatin. Start sliding scale for blood sugar control. The patient's management plan was discussed with my attending physician Dr. Turner. Daija Barroso, PGY-2 Documentation for date of: 06/30/25 HPI History of Present Illness Chief complaint: LUE paresthesia History of present illness: This is a 64 y.o male with PMH of CVA, hypertension, and insulin-dependent diabetes mellitus type 2, HFrEF (EF 15-20%), treated HCV infection, HLD, hx of drugs use, non occlusive DVT who presented to the ED on 06/30/25 for evaluation of left upper extremity numbness since this morning. Patient states that his symptoms have almost resolved. Patient states that he is worried about another episode of stroke. Patient was recently discharged from the hospital for bilateral embolic stroke in parietal regions (06/05/25-06/09/25) s/p TNK and ICU admission. TTE was performed which showed severe reduced ejection fraction of 15-20% with no left to right shunt. TRUMAN unremarkable per cardiology. Patient was noted to have non-occlusive DVT. Neurology was consulted who recommended starting Eliquis 10BID for 7 days and 5BID afterward along with high intensity statin and aspirin. In addition, patient was noted to have some pleural effusion and acute on chronic HFrEF managed with IV Bumex and albumin. No new diagnoses per patient. PMH: CVA (bilateral parietal embolic stroke (06/05/25)) , hypertension, and insulin-dependent diabetes mellitus type 2, HFrEF (EF 15-20%), treated HCV infection, HLD, hx of drugs use, non occlusive DVT SHX: Denied any surgeries Family history: Unremarkable Medications: To be reconciled Allergies: No known drug allergies Social history: Hx of drug use Code status: Full code Exam Vital Signs Temp Pulse Resp BP Pulse Ox O2 Del Method 97.8 F 72 20 125/95 H 97 Room Air 06/30/25 16:00 06/30/25 16:00 06/30/25 16:06/30/25 16:00 06/30/25 16:06/30/25 16:00 Narrative Exam Gen: Well-developed and well-nourished. Italian speaking. HEENT: NCAT, EOMI, MMM, anicteric conjunctivae. CVS: normal S1 and S2. RRR. No M/R/G. Resp: CTA B/L. No rhonchi, rales, crackles or wheezing. Ext: +1 lower limb pitting edema, warm and well perfused Neuro: Cranial nerve II to XII grossly intact. Bilateral upper extremity 5/5. Bilateral lower extremity 5/5. normal sensation to both upper and lower limbs bilaterally. GCS 15 Skin: No rash Psych: appropriate mood and affect. Results: Labs 07/01/25 05:25 07/01/25 05:25 Labs: Short CBC 06/30/25 Range/Units 10:00 WBC 6.9 (3.8-10.6) Thou/mm3 Hgb 11.6 L (13.5-16.0) g/dL Hct 34.8 L (41.0-53.0) % Plt Count 264 D (140-440) Thou/mm3 BMP 06/30/25 10:00 Sodium 139 Potassium 4.3 Chloride 107 Carbon Dioxide 18.9 L BUN 70 H Creatinine 2.9 H Glucose 58 L Calcium 9.0 Cardiac Enzymes 06/30/25 Range/Units 10:00 Troponin I 0.057 H* (0.0-0.045) ng/mL Liver Function 09/04/25 Range/Units 10:00 Total Bilirubin 0.5 (0.3-1.2) mg/dL AST 43 H (0-34) U/L ALT 31 (10-49) U/L Alkaline Phosphatase 159 H (46-116) U/L Albumin 3.9 (3.4-4.8) gm/dL Urine 06/30/25 Range/Units 12:09 Urine Color Lt-Yellow (Lt Yel-Yel) Urine Clarity Clear (Clear/Hazy) Urine pH 6.0 (5.0-7.0) Ur Specific Redkey 1.020 (1.001-1.035) Urine Protein 3+ A (Neg - Trace) Urine Glucose (UA) 2+ A (Negative) Quality Measures Quality Measures stroke Suspected type of Stroke: Non Acute Tenecteplase given: Reason(s) Tenecteplase not given: H/O intracranial hemorrhage, neoplasm, AVM, or aneurysm (recent embolic stroke 06/05/2025 ) not given Rehab services: PT evaluation ordered and Speech Language Pathology eval ordered VTE Prophylaxis: mechanical Antithrombotic by day 2:: ordered Statin ordered: <75 y/o high intensity dose Anticoagulation ordered for A-fib or flutter (current or hx): ordered Medications Home Medications and Allergies Home Medications ?Medication ?Instructions ?Recorded ?Confirmed ?Type bumetanide 1 mg tablet 1 mg PO DAILY 06/05/2506/30 History atorvastatin 20 mg tablet 20 mg PO QDAY 06/30/2506/30 History furosemide 20 mg tablet 20 mg PO QDAY 06/30/2506/30 History Allergies Allergy/AdvReac Type Severity Reaction Status Date / Time No Known Allergies Allergy Verified 06/30/25 09:51 Visit Medications Acetaminophen (Acetaminophen 325 Mg Tablet) 650 mg PO Q6H PRN PRN Reason: Fever >101.5 Stop: 07/30/25 14:46 Acetaminophen (Acetaminophen 325 Mg Tablet) 650 mg PO Q6H PRN PRN Reason: PAIN SCALE 1-3 (mild Stop: 07/30/25 14:46 Aspirin (Aspirin Ec 81 Mg Tabec) 81 mg PO QDAY YUDITH Stop: 07/30/25 14:59 Last Admin: 06/30/25 15:20 Dose: 81 mg Atorvastatin Calcium (Atorvastatin Calcium 20 Mg Tablet) 80 mg PO HS [facility] Stop: 07/30/25 20:59 Dextrose (Dextrose 50%-Water Inj 50 Ml Syringe) 25 ml IV Q15MIN PRN PRN Reason: BG 50-70 responsive npo pt Stop: 07/30/25 14:54 Dextrose (Dextrose 50%-Water Inj 50 Ml Syringe) 50 ml IV Q15MIN PRN PRN Reason: BG <50 OR BG <70 & pt unresponsive Stop: 07/30/25 14:54 Glucagon (Glucagon Inj 1 Mg Vial) 1 mg IM Q15MIN PRN PRN Reason: BG <70, and no IV access Sodium Chloride (Ns) 1,000 mls @ 100 mls/hr IV Q10H YUDITH Stop: 07/30/25 10:14 Last Admin: 06/30/25 10:44 Dose: 100 mls/hr Insulin Human Lispro (Insulin Lispro (Admelog) 1 Unit/0.01 Ml Unit) 0 unit SC AC YUDITH; Protocol Stop: 07/30/25 16:59 Labetalol HCl (Labetalol Inj 5 Mg/Ml Vial 20 Ml) 10 mg IVP X1 PRN PRN Reason: Hypertensive Emergency Ondansetron HCl (Ondansetron Inj 2 Mg/Ml Inj 2 Ml) 4 mg IVP Q6H PRN; Protocol PRN Reason: NAUSEA OR VOMITING Stop: 07/30/25 14:46 Discontinued Medications Dextrose (Dextrose 50%-Water Inj 50 Ml Syringe) 50 ml IVP X1 ONE Stop: 06/30/25 10:01 Last Admin: 06/30/25 10:10 Dose: 50 ml Sodium Chloride (Ns) 1,000 mls @ 100 mls/hr IV .Q10H YUDITH Stop: 07/30/25 10:44 Last Admin: 06/30/25 11:12 Dose: Not Given Labetalol HCl (Labetalol Inj 5 Mg/Ml Vial 20 Ml) 20 mg IVP X1 ONE Stop: 06/30/25 13:06 Last Admin: 06/30/25 13:39 Dose: 20 mg Assessment & Plan Plan 64M with PMH of CVA (bilateral parietal embolic stroke on 06/05/25), HTN, and IDDM, HFrEF (EF 15-20%), treated HCV infection, HLD, hx of drugs use, non occlusive DVT on eliquis who presented to the ED on 06/30/25 for evaluation of resolving left upper extremity numbness since this morning. Admitted for stroke rule out. #Left upper extremiy paresthesia #Hypoglycemia #Hx of embolic CVA bilateral parietal lobes #Hx of non-occlusive DVT Patient presented with LUE numbness since this morning. Symptoms have resolved. Unremarkable physical exam. Of note, patient was recently discharged from the hospital for bilateral embolic stroke in parietal regions (06/05/25-06/09/25) s/p TNK and ICU admission. TTE was performed which showed severe reduced ejection fraction of 15-20% with no left to right shunt. TRUMAN unremarkable per cardiology. Patient was noted to have non- occlusive DVT. Neurology was consulted who recommended starting Eliquis 10BID for 7 days and 5BID afterward along with high intensity statin and aspirin. Patient is not a TNK candidate due to recent stroke s/p TNK and being on eliquis at home. Head CT unremarkable. Blood glucose in the ED was noted to 50, Dextrose was given and glucose normalized. Tele neurology was consulted whose recommendations are below. Plan: - Admit to Telemetry Floor - Neuro Checks (Q4) - Ordered Swallow Eval - Head of Bed 30 Degrees - Consulted neurology, appreciate recs - Euglycemia and Avoid Hyperthermia (PRN Acetaminophen) - Continue Aspirin 81 daily - Continue Eliquis 5 BID - Continue Atorvastatin 80 mg PO HS - K >4 and Mg >2 - PT/ST - Antihypertensives PRN if Blood pressure is greater than 220/120 or there is a concern for End organ damage/contraindications for permissive HTN. If blood pressure is greater than 220/120 give labetalol PO or IV or Vasotec IV with a goal of 15% reduction in BP during the first 24 hours. #HFrEF #Hx of Bilateral pleural effusions Patient reported some trouble breathing last night. From recent hospitalization: TTE findings consistent with dilated cardiomyopathy, in the setting of hx of IV drug use. Echocardiogram also showed severe global hypokinesis dilated cardiomyopathy, EF 15 to 20%, RV enlargement consistent with RV volume overload, severely dilated LA and RA, mild to moderate MR, no [id number]-[id number] shunt demonstrated on bubble study, no cardiac thrombi seen. Trop: 0.057 Plan: - Ordered CXR - Trend troponin - Bumex 1mg IV daily - Cardiac diet with 2g sodium #History of essential hypertension Currently stable, improved. last measurement: 125/95 Plan: - Pending med rec #CKD #nephrotic range proteinuria #Nephrotic syndrome #Secondary Hyperparathyroidism DDX for CKD: diabetic nephropathy vs liver cirrhosis versus CHF on exam pt appears slightly volume overloaded. Cr: 2.9 on admission Hep panel from last admission: Hep C + Plan: - Avoid nephrotoxins - Renally dose medications - Strict I&O #Insulin-dependent Diabetes mellitus type 2 #Hypoglycemia Patient takes long-acting insulin 9 units at night A1c 7.8 from last admission Blood glucose in the ED: 50 Plan: -SSI - Hypoglycemia protocol in place - f/u with opthalmologist outpatient for diabetic retinopathy. #Hypercholesterolemia Controlled Total cholesterol 87, triglycerides 92, LDL 26 Plan ? Continue atorvastatin 80 mg daily #Hepatitis C Infection #Cirrhosis (etoh vs hep C). #mild ascites Hx of positive HCV antibody. Most likely chronic given history of IV drug use. Liver panel unremarkable. Liver cirrhosis with mild ascites noted on last CT abd&Pelvis Plan: -Follow up outpatient for care home management Health maintenance: Dispo: Stroke r/o DVT prophylaxis: SCDs Lines: Peripheral lines Diet: Cardiac with low sodium CODE STATUS: Full code Case discussed with my attending Dr. Turner , and senior resident, Dr. Barroso. Paola Prescott, DO PGY-1 Attending Provider Attestation/Addendum I have examined the patient, reviewed labs and imaging findings, discussed the case with the resident(s), and reviewed entered orders. I agree with the plan of care as outlined in this note, with these additional summaries/recommendations: After examination of the patient and review of the clinical data, I feel that this patient needs admission to the hospital for further treatment and evaluation. Patient is a 64-year-old male with a medical history of HFrEF, primary hypertension, dyslipidemia, diabetes mellitus type 2, CVA, DVT, AA, and CKD presents to [facility] emergency department on 06/30/2025 with chief complaint of paresthesia of skin. Patient will be admitted for CVA rule out. He has a history of embolic CVA in bilateral parietal lobes. Patient was seen by teleneurology. Head CT showed no acute hemorrhage, mass effect or midline shift. Order CTA and MRI. Continue aspirin, Eliquis, and atorvastatin for now. Allow permissive hypertension. Consult in-house neurology, recommendations appreciated. Continue goal-directed medical therapy as tolerated for HFrEF. Patient has underlying CKD and appears at his baseline. If renal function worsens or patient develops electrolyte disturbances then we will consult nephrology. Start insulin sliding scale for diabetes mellitus type 2 with Accu-Cheks. Target blood sugar of 140-180 while hospitalized. Please see residents note for additional details and management. Dr. Johnny MD
--- NOTE | 2025-06-30 17:15 | PC.NURSE ---
PT'S BEDSIDE BLOOD SUGAR LOW, 61. TRIED CALLING DR. MARCELINO AND DR. BAEZA BUT UNABLE TO GET THROUGH. CALLED DR. MOODY AND HE SAID TO GIVE PT JUICE. TOLD HIM PT WAS NPO. HE SAID IT WAS OKAY TO GIVE JUICE. APPLE JUICE GIVEN TO THE PT. WILL RECHECK BLOOD SUGAR IN 15 MINUTES.
--- NOTE | 2025-06-30 17:30 | PC.NURSE ---
INFORMED DR. MOODY BLOOD SUGAR OF 58. HE ORDERED D50 IVP AND Q4HR BLOOD SUGAR.
[2025-06-30 17:46] LABS: B-Type Natriuretic Peptide > 3280 pg/mL (0-100)
--- NOTE | 2025-06-30 18:06 | PC.NURSE ---
REPORT CALLED TO EZIO LENTZ ON TELE. PT WILL BE TAKEN TO ROOM #261 AFTER MRI.
--- NOTE | 2025-06-30 18:07 | PC.NURSE ---
Report recieved from ER nurse Cathie. pt. in stable condition. Pt. will go to MRI and then to tele floor.
--- NOTE | 2025-06-30 18:38 | PC.NURSE ---
PT TAKEN TO MRI VIA W/C.
[2025-06-30] MEDS: ATORVASTATIN CALCIUM 20 MG TABLET 80 MG PO (20:03)
[2025-06-30] MEDS: APIXABAN 2.5 MG TABLET 5 MG PO (20:04)
[2025-06-30 21:46] LABS: Troponin I 0.053 ng/mL (0.0-0.045)
[2025-07-01] VITALS (7 sets, daily range): BP systolic 122–145; BP diastolic 90–109; PULSE 74–91; RESP 11–97; TEMP 36.5–36.8; O2SAT 94–96; BMI 28.1
[2025-07-01 06:19] LABS: Basophils # (Auto) 0.0 Thou/mm3 (0.0-0.2); Basophils % (Auto) 1 % (0-2.5); Eosinophils # (Auto) 0.2 Thou/mm3 (0.0-0.5); Eosinophils % (Auto) 2 % (0-10); Hematocrit 33.2 % (41.0-53.0); Hemoglobin 10.8 g/dL (13.5-16.0); Immature Granulocytes Auto 0.02 Thou/mm3 (0.00-0.00); Lymphocytes # (Auto) 1.2 Thou/mm3 (1.0-4.8); Lymphocytes % (Auto) 18 % (10-50); Mean Corpuscular HGB Conc 32.5 g/dl (31.0-37.0); Mean Corpuscular Hemoglobin 27.8 pg (25.0-35.0); Mean Corpuscular Volume 86 fL (80-100); Monocytes # (Auto) 0.6 Thou/mm3 (0.0-0.8); Monocytes % (Auto) 9 % (0-12); Neutrophils # (Auto) 4.4 Thou/mm3 (1.8-7.7); Neutrophils % (Auto) 69 % (37-80); Nucleated Red Blood Cell # 0.00 Thou/mm3 (0.00-0.00); Nucleated Red Blood Cell % 0 /100 WBC (0); Platelet Count 229 Thou/mm3 (140-440); RDW Standard Deviation 53.1 fL (35.1-43.9); Red Blood Count 3.88 Miln/mm3 (4.50-5.90); White Blood Count 6.4 Thou/mm3 (3.8-10.6)
[2025-07-01 06:45] LABS: Alanine Aminotransferase 21 U/L (10-49); Albumin, Serum 3.4 gm/dL (3.4-4.8); Albumin/Globulin Ratio 1.3 (1.2-2.2); Alkaline Phosphatase 133 U/L (46-116); Anion Gap 13 (7-16); Aspartate Amino Transferase 19 U/L (0-34); BUN/Creatinine Ratio 19 Ratio (12-20); Bilirubin,Total 0.6 mg/dL (0.3-1.2); Blood Urea Nitrogen 59 mg/dL (9-23); Calcium 8.9 mg/dL (8.3-10.6); Calcium (Corrected) 9.4 mg/dL (8.5-10.1); Carbon Dioxide 17.8 mMol/L (20.0-31.0); Chloride 106 mMol/L (98-107); Creatinine (Component) 3.1 mg/dL (0.6-1.3); Estimated Creatinine Clearance 28.7 mL/min (>60); Globulin 2.7 gm/dL (2.3-3.5); Glucose 151 mg/dL (74-106); Magnesium 1.8 mg/dL (1.6-2.6); Osmolality,Calculated 293 (275-295); Phosphorous 4.3 mg/dL (2.4-5.1); Potassium 4.4 mMol/L (3.4-5.1); Sodium 137 mMol/L (136-145); Total Protein 6.1 gm/dL (5.7-8.2); eGFR 22 See Note
--- NOTE | 2025-07-01 08:11 | PCS.ST ---
Swallow Evaluation completed. See report for details. No dysphagia. Continue current diet.
--- NOTE | 2025-07-01 08:36 | ESDS_ITS ---
<Statement entered by Lucero Reddy MD - 07/01/25 13:33> I discussed with and supervised the architecture intern physician who took care of this patient. I personally saw and examined the patient and discussed the assessment and plan with the entire medicine team, including my attending Dr. Turner, I agree with most of the assessment and plan as documented below Lucero Reddy M.D. PGY-3 Disclaimer: Despite multiple revisions, due to the dictation software being used, the document bellow may not be free of grammatical errors including phonetic/typographic errors. However, this does not deter from our commitment to providing health care in the patient's best interest in mind. Planned Discharge Date 07/01/25 DS: Providers Provider Date of admission: 06/30/25 14:47 Primary care physician: Physician No Primary/Family Admitting Provider: James Turner MD Attending Provider on Admission: James Turner MD Consults: 06/30/25 10:13 Consult to Neurology / Tele-Neurology Routine Comment: Consulting Provider: [facility] 06/30/25 14:53 Consult to Neurology / Tele-Neurology Stat Comment: LUE paresthesia, stroke r/o Consulting Provider: Naga Reddy Referral Speech Therapy Stat Comment: 06/30/25 14:55 PT [Referral Physical Therapy] Routine Comment: Physician Instructions: Attending Provider on DC: Dr. Turner Discharging Provider: Resident Yassine Anticipated date of discharge: 07/01/25 DS: Diagnosis Problem List Completed Was Problem List Reviewed/Reconciled?: Yes Hospital Course Hospital Course Hospital course: 64M with PMH of CVA (bilateral parietal embolic stroke on 06/05/25), HTN, and IDDM, HFrEF (EF 15-20%), treated HCV infection, HLD, hx of drugs use, non o cclusive DVT on eliquis who presented to the ED on 06/30/25 for evaluation of resolving left upper extremity numbness/weakness x1 day. Admitted for CVA rule out. Patient symptoms seem to have resolved by the time of his ED arrival. Patient's symptom was related to upper extremity weakness although this is focal patient described it as more so weakness and throughout the entire arm. Unremarkable physical exam. Of note, patient was recently discharged from the hospital for bilateral embolic stroke in parietal regions (06/05/25-06/09/25) s/p TNK and ICU admission. TTE was performed which showed severe reduced ejection fraction of 15-20% with no left to right shunt. TRUMAN unremarkable per cardiology. Patient was noted to have non-occlusive DVT. Neurology was consulted who recommended starting Eliquis 10BID for 7 days and 5BID afterward along with high intensity statin and aspirin. Patient was not a TNK candidate due to recent stroke s/p TNK and being on eliquis at home. Work up: Head CT unremarkable. Blood glucose in the ED was noted to 58, Dextrose was given and glucose normalized. Patient could have experienced a TIA, given unremarkable MRI, which showed no acute infarct, hemorrhage or mass effect, however images limited by patient motion. What is more likely is that patient experienced weakness due to hypoglycemia as patient came in with a sugar of 58. Patient remained hemodynamically stable with vital signs within normal limits. Overall, patient's condition improved and his presenting symptoms have resolved. Patient is in stable condition for discharge. He will need to follow up with his neurologist, lap polisher and PCP within one week of discharge. All questions answered and ED return precautions given. #Hx of non-occlusive DVT #Acute CVA rule out #History of embolic CVA #Left upper extremity weakness #Symptomatic hypoglycemia #HFrEF #Hx of Bilateral pleural effusions #History of essential hypertension # RENATE on CKD #nephrotic range proteinuria #Nephrotic syndrome #Secondary Hyperparathyroidism #Insulin-dependent Diabetes mellitus type 2 #Hypoglycemia #Hypercholesterolemia #Hepatitis C Infection #Cirrhosis (etoh vs hep C). #Mild ascites Please take your new medication Atorvastatin 40mg nightly. Please continue to take all other medications. Stop taking Atorvastatin 20mg and Furosemide 20mg Please return to the ED if your symptoms worsen. Case discussed with my attending Dr. Turner , and senior residents, Drs. Barroso and Barry. Paola Prescott, DO PGY-1 Status at Discharge Functional status at discharge: independent ambulation Overall status at discharge: patient is back to baseline Time Spent with Patient Time attestation: Total time spent providing and/or coordinating discharge services: Time spent: Greater than 30 minutes Exam Vital Signs Temp Pulse Resp BP Pulse Ox O2 Del Method O2 Flow Rate 98.2 F 90 18 142/109 H 95 Nasal Cannula 1 07/01/25 08:00 07/01/25 08:00 07/01/25 08:00 07/01/25 08:00 07/01/25 08:00 07/01/25 08:00 07/01/25 08:00 Narrative Exam Gen: Well-developed and well-nourished. South African speaking. HEENT: NCAT, EOMI, MMM, anicteric conjunctivae. CVS: normal S1 and S2. RRR. No M/R/G. Resp: CTA B/L. No rhonchi, rales, crackles or wheezing. Ext: +1 lower limb pitting edema, warm and well perfused Neuro: Cranial nerve II to XII grossly intact. Bilateral upper extremity 5/5. Bilateral lower extremity 5/5. normal sensation to both upper and lower limbs bilaterally. GCS 15 Skin: No rash Psych: appropriate mood and affect. Discharge Plan Plan Patient Disposition: HOME (Self Care) Patient condition on transfer: Stable Prescriptions/Referrals Prescriptions/Med Rec: New atorvastatin 40 mg tablet 40 mg PO QPM Qty: 30 0RF Continued bumetanide 1 mg tablet 1 mg PO DAILY carvedilol 3.125 mg tablet 3.125 mg PO BID Qty: 60 0RF Rx Instructions: must administer with a meal/food valsartan 40 mg tablet 40 mg PO QDAY Qty: 30 0RF Eliquis 5 mg tablet 5 mg PO BID Qty: 60 0RF Discontinued atorvastatin 20 mg tablet 20 mg PO QDAY furosemide 20 mg tablet 20 mg PO QDAY aspirin 81 mg capsule 81 mg PO QDAY Qty: 30 0RF Referrals: No Primary/Family,Physician [Primary Care Provider] Patient/Caregiver Discharge Instructions Other Discharge Activity Instructions:: Please take your new medication Atorvastatin 40mg nightly. Please continue to take all other medications. Stop taking Atorvastatin 20mg and Furosemide 20mg Please return to the ED if your symptoms worsen. Bivalve terry nuevo medicamento, Atorvastatina 40 mg, cada noche. Contin?e tomando todos los dem?s medicamentos. Deje de abe Atorvastatina 20 mg y Furosemida 20 mg. Regrese a urgencias si ilto s?ntomas empeoran. Education Materials: Symptoms of Stroke Print Language: South African Stand Alone Forms: [employer] Award Info., Patient Portal Info Letter Discharge Order Discharge Orders: Discharge (Routine); Ordered 07/01/25 Ordered By: Lucero Reddy Quality Discharge Quality Measures VTE therapy Attestestation MD Attestation I have examined the patient, reviewed labs and imaging findings, discussed the case with the resident(s), and reviewed entered orders. I agree with the plan of care as outlined in this note. Time Spent: [address] Johnny MD
[2025-07-01] MEDS: APIXABAN 2.5 MG TABLET 5 MG PO (09:55)
[2025-07-01] MEDS: BUMETANIDE INJ 0.25 MG/ML VIAL 4 ML 1 MG IVP (09:55)
[2025-07-01] MEDS: Magnesium Sulfate 4 GM Ivpb 4 GM/50 ML BAG IV (09:55)
--- NOTE | 2025-07-01 10:22 | ESPR_ITS ---
Documentation for date of: 07/01/25 Subjective Subjective Interval history: Patient examined at bedside today. No acute overnight events. Patient reports improvement in his weakness. He denies any chest pain or shortness of breath at this time. No other complaints at this time. Exam Vital Signs Temp Pulse Resp BP Pulse Ox O2 Del Method O2 Flow Rate 98.2 F 90 18 142/90 H 95 Nasal Cannula 1 07/01/25 08:00 07/01/25 09:55 07/01/25 08:00 07/01/25 09:55 07/01/25 08:00 07/01/25 08:00 07/01/25 08:00 Narrative Exam General: AAOx3, NAD, [place] Citizen-speaking male HEENT: Moist mucous membranes, conjunctiva clear, EOMI, PERRLA, Cardiovascular: S1, S2, radial pulses +2 bilat, RRR Pulmonary: CTAB bilat no cough, no wheezing, a bit tachypneic GI: No tenderness to light or deep palpitation, no guarding, rigidity, rebound tenderness or distension Extremities: +1 pitting edema lower extremities bilaterally, dorsalis pedis pulses +2 bilaterally Neuro: AAOx3, no focal motor or sensory deficits in the UE or LE bilat Psych: Good judgement, thought and behavior Objective Labs 07/01/25 05:25 07/01/25 05:25 Labs: Laboratory Results - last 24 hr 06/30/25 06/30/25 06/30/25 10:00 12:09 20:33 WBC 6.9 RBC 4.14 L Hgb 11.6 L Hct 34.8 L MCV 84 MCH 28.0 MCHC 33.3 RDW Std Deviation 52.7 H Plt Count 264 D Neut % (Auto) 75 Lymph % (Auto) 15 [place] % (Auto) 8 Eos % (Auto) 2 Baso % (Auto) 1 Neut # (Auto) 5.2 Lymph # (Auto) 1.0 [place] # (Auto) 0.5 Eos # (Auto) 0.1 Baso # (Auto) 0.0 Immature Gran # (Auto) 0.02 H Absolute Nucleated RBC 0.00 Immature Gran % 0 Nucleated RBC % 0 PT 11.5 INR 1.1 APTT 26.2 Sodium 139 Potassium 4.3 Chloride 107 Carbon Dioxide 18.9 L Anion Gap 13 BUN 70 H Creatinine 2.9 H Estim Creat Clear Calc 31.8 L eGFR 23 L BUN/Creatinine Ratio 24 H Glucose 58 L Calculated Osmolality 296 H Calcium 9.0 Corrected Calcium 9.1 Phosphorus Magnesium 1.9 Total Bilirubin 0.5 AST 43 H ALT 31 Alkaline Phosphatase 159 H Troponin I 0.057 H* 0.053 H* B-Natriuretic Peptide > 3280 H* Total Protein 6.7 Albumin 3.9 Globulin 2.8 Albumin/Globulin Ratio 1.4 Triglycerides 92 Cholesterol 87 L LDL Cholesterol, Calc 26 HDL Cholesterol 43 Cholesterol/HDL Ratio 2.0 L Ur Collection Type Catheter Urine Color Lt-Yellow Urine Clarity Clear Urine pH 6.0 Ur Specific [place] 1.020 Urine Protein 3+ A Urine Glucose (UA) 2+ A Urine Ketones Negative Urine Blood 1+ A Urine Nitrite Negative Urine Bilirubin Negative Urine Urobilinogen (Auto) Negative Ur Leukocyte Esterase Negative Urine RBC 5 H Urine WBC 1 Ur Squamous Epith Cells < 1 Urine Bacteria None Urine Opiates Screen Negative Urine Fentanyl Screen Negative Ur Barbiturates Screen Negative U Amphetamin/Meth Scrn Negative U Benzodiazepines Scrn Negative U Cocaine Metab Screen Negative U Marijuana (THC) Screen Negative Ethyl Alcohol < 3.0 07/01/25 05:25 WBC 6.4 RBC 3.88 L Hgb 10.8 L Hct 33.2 L MCV 86 MCH 27.8 MCHC 32.5 RDW Std Deviation 53.1 H Plt Count 229 D Neut % (Auto) 69 Lymph % (Auto) 18 [place] % (Auto) 9 Eos % (Auto) 2 Baso % (Auto) 1 Neut # (Auto) 4.4 Lymph # (Auto) 1.2 [place] # (Auto) 0.6 Eos # (Auto) 0.2 Baso # (Auto) 0.0 Immature Gran # (Auto) 0.02 H Absolute Nucleated RBC 0.00 Immature Gran % 0 Nucleated RBC % 0 PT INR APTT Sodium 137 Potassium 4.4 Chloride 106 Carbon Dioxide 17.8 L Anion Gap 13 BUN 59 H Creatinine 3.1 H Estim Creat Clear Calc 28.7 L eGFR 22 L BUN/Creatinine Ratio 19 Glucose 151 H D Calculated Osmolality 293 Calcium 8.9 Corrected Calcium 9.4 Phosphorus 4.3 Magnesium 1.8 Total Bilirubin 0.6 AST 19 ALT 21 Alkaline Phosphatase 133 H D Troponin I B-Natriuretic Peptide Total Protein 6.1 Albumin 3.4 D Globulin 2.7 Albumin/Globulin Ratio 1.3 Triglycerides Cholesterol LDL Cholesterol, Calc HDL Cholesterol Cholesterol/HDL Ratio Ur Collection Type Urine Color Urine Clarity Urine pH Ur Specific [place] Urine Protein Urine Glucose (UA) Urine Ketones Urine Blood Urine Nitrite Urine Bilirubin Urine Urobilinogen (Auto) Ur Leukocyte Esterase Urine RBC Urine WBC Ur Squamous Epith Cells Urine Bacteria Urine Opiates Screen Urine Fentanyl Screen Ur Barbiturates Screen U Amphetamin/Meth Scrn U Benzodiazepines Scrn U Cocaine Metab Screen U Marijuana (THC) Screen Ethyl Alcohol Quality Measures Quality Measures stroke Suspected type of Stroke: Non Acute Tenecteplase given: Reason(s) Tenecteplase not given: H/O intracranial hemorrhage, neoplasm, AVM, or aneurysm (recent embolic stroke 06/05/2025 ) not given Rehab services: PT evaluation ordered VTE Prophylaxis: pharmaceutical Antithrombotic by day 2:: not indicated (describe) Statin ordered: >75 y/o moderate or high intensity dose Anticoagulation ordered for A-fib or flutter (current or hx): not indicated Assessment & Plan Assessment Current Active Medications: Generic Name Dose Route Start Last Admin Trade Name Freq PRN Reason Stop Dose Admin Acetaminophen 650 mg 06/30/25 14:47 Acetaminophen 325 Mg Tablet PO 07/30/25 14:46 Q6H PRN Fever >101.5 Acetaminophen 650 mg 06/30/25 14:47 Acetaminophen 325 Mg Tablet PO 07/30/25 14:46 Q6H PRN PAIN SCALE 1-3 (mild Apixaban 5 mg 06/30/25 21:00 07/01/25 09:55 Apixaban 2.5 Mg Tablet PO 07/21/25 20:59 5 mg BID YUDITH Administration Aspirin 81 mg 06/30/25 15:00 07/01/25 09:40 Aspirin Ec 81 Mg Tabec PO 07/30/25 14:59 Not Given On Hold: 07/01/25 09:13 QDAY YUDITH Atorvastatin Calcium 80 mg 06/30/25 21:00 06/30/25 20:03 Atorvastatin Calcium 20 Mg Tablet PO 07/30/25 20:59 80 mg HS YUDITH Administration Bumetanide 1 mg 07/01/25 09:00 07/01/25 09:55 Bumetanide Inj 0.25 Mg/Ml Vial 4 Ml IVP 07/31/25 08:59 1 mg QDAY YUDITH Administration Carvedilol 3.125 mg 07/01/25 08:00 09/05/25 09:54 Carvedilol 3.125 Mg Tablet PO 07/31/25 07:59 3.125 mg BIDWM YUDITH Administration Dextrose 25 ml 06/30/25 14:55 Dextrose 50%-Water Inj 50 Ml Syringe IV 07/30/25 14:54 Q15MIN PRN BG 50-70 responsive npo pt Dextrose 50 ml 06/30/25 14:55 Dextrose 50%-Water Inj 50 Ml Syringe IV 07/30/25 14:54 Q15MIN PRN BG <50 OR BG <70 & pt unresponsive Glucagon 1 mg 06/30/25 14:55 Glucagon Inj 1 Mg Vial IM Q15MIN PRN BG <70, and no IV access Magnesium Sulfate 4 gm in 50 mls @ 12.5 mls/hr 07/01/25 07:23 07/01/25 09:55 Magnesium Sulfate Ivpb IV 07/01/25 11:22 12.5 mls/hr X1 ONE Administration Insulin Human Lispro 0 unit 06/30/25 17:00 07/01/25 07:46 Insulin Lispro (Admelog) 1 Unit/0.01 Ml Unit SC 07/30/25 16:59 Not Given AC [facility] Protocol Labetalol HCl 10 mg 06/30/25 14:52 Labetalol Inj 5 Mg/Ml Vial 20 Ml IVP X1 PRN Hypertensive Emergency Ondansetron HCl 4 mg 06/30/25 14:47 Ondansetron Inj 2 Mg/Ml Inj 2 Ml IVP 07/30/25 14:46 Q6H PRN NAUSEA OR VOMITING Protocol Plan Assessment Pradip is a 64 y/o male with PMHx of Embolic CVA (s/p TNK, DVT source), hypertension, and insulin-dependent diabetes mellitus type 2, HFrEF (EF 15-20%), treated HCV infection, HLD, hx of drugs use, who is currently admitted for CVA rule out. #Acute CVA rule out #History of embolic CVA #Left upper extremity weakness #Symptomatic hypoglycemia Patient symptoms seem to have resolved Patient's symptom was related to upper extremity weakness although this is focal patient described it as more so weakness and throughout the entire arm Patient could have experienced a TIA, however will need to have MRI What is more likely is that patient experienced weakness due to hypoglycemia as patient came in with a sugar of 58 MRI shows no acute infarct, hemorrhage or mass effect, however images limited by patient motion Plan: ? Continue Eliquis 5 mg twice daily, however patient's kidney function is altered, but does not meet 2/3 criteria for renal adjustment. ? Patient does not need aspirin from neurology standpoint, however if patient needs to for CAD then continue ? Speech therapy ? Physical therapy ? High intensity statin ? Echo was recently done on May, no need for repeat echo ? Neurochecks every 4 hours ? Head of bed elevation 30 degrees ? DVT prophylaxis ? Bedrest #HFrEF #Hx of Bilateral pleural effusions #History of essential hypertension # RENATE on CKD #nephrotic range proteinuria #Nephrotic syndrome #Secondary Hyperparathyroidism #Insulin-dependent Diabetes mellitus type 2 #Hypoglycemia #Hypercholesterolemia #Hepatitis C Infection #Cirrhosis (etoh vs hep C). #Mild ascites Patient seen and care discussed with my attending physician, Dr. Barry Rojas, PGY-2 Attending Provider Attestation/Addendum IMP: TIA presenting as paresthesias acute Stroke ruled out compliant on Eliquis now. PLAN AND recs: Continue with Eliquis, statin and BP control
--- NOTE | 2025-07-01 13:23 | PC.PT ---
PT eval only. Patient was xI with bed mobility, transfers, and ambulation. Patient is safe to ambulate to the bathroom and in the halls with no staff and the IV pole. RN made aware.
== END 2025-07-01 12:25 | disposition home or self-care (01) ==
LOC: SERX 14:47 → S2NX 07-01 07:06 → SERHOLD 07-03 19:51 → S2NX 07-03 19:52
PROVIDERS: Admitting Provider Student in an Organized Health Care Education/Training Program; Emergency Provider Family Medicine; Visit Provider Student in an Organized Health Care Education/Training Program
DX: R53.1 Weakness (principal); N17.9 Acute kidney failure, unspecified; I13.0 Hypertensive heart and chronic kidney disease with heart failure and stage 1 through stage 4 chronic kidney disease, or unspecified chronic kidney disease; N18.9 Chronic kidney disease, unspecified; N25.81 Secondary hyperparathyroidism of renal origin; E78.00 Pure hypercholesterolemia, unspecified; K74.60 Unspecified cirrhosis of liver; R18.8 Other ascites; E11.649 Type 2 diabetes mellitus with hypoglycemia without coma; Z86.73 Personal history of transient ischemic attack (TIA), and cerebral infarction without residual deficits; Z86.718 Personal history of other venous thrombosis and embolism; E11.22 Type 2 diabetes mellitus with diabetic chronic kidney disease; B19.20 Unspecified viral hepatitis C without hepatic coma; R20.2 Paresthesia of skin
CPT/HCPCS: 36415; 70450; 70544; 71045; 80053; 80061; 80307; 80320; 81001; 83735; 83880; 84100; 84484; 85025; 85610; 85730; 87081; 87086; 92610; 93005; 96374; 96375; 97161; 99285; G0378; J3475; J3490; J7030; A9270; G0480; J1920

== ENCOUNTER → 2025-09-13 | Outpatient (CLI) | payer MEDICAID, SELFPAY ==
[2025-09-13 08:58] LABS: Collection Type, Urine Clean Catch
[2025-09-13 09:24] LABS: Basophils # (Auto) 0.0 Thou/mm3 (0.0-0.2); Basophils % (Auto) 1 % (0-2.5); Eosinophils # (Auto) 0.2 Thou/mm3 (0.0-0.5); Eosinophils % (Auto) 5 % (0-10); Hematocrit 32.9 % (41.0-53.0); Hemoglobin 10.5 g/dL (13.5-16.0); Immature Granulocytes Auto 0.00 Thou/mm3 (0.00-0.00); Lymphocytes # (Auto) 1.0 Thou/mm3 (1.0-4.8); Lymphocytes % (Auto) 22 % (10-50); Mean Corpuscular HGB Conc 31.9 g/dl (31.0-37.0); Mean Corpuscular Hemoglobin 26.6 pg (25.0-35.0); Mean Corpuscular Volume 83 fL (80-100); Monocytes # (Auto) 0.6 Thou/mm3 (0.0-0.8); Monocytes % (Auto) 13 % (0-12); Neutrophils # (Auto) 2.6 Thou/mm3 (1.8-7.7); Neutrophils % (Auto) 60 % (37-80); Nucleated Red Blood Cell # 0.00 Thou/mm3 (0.00-0.00); Nucleated Red Blood Cell % 0 /100 WBC (0); Platelet Count 184 Thou/mm3 (140-440); RDW Standard Deviation 52.2 fL (35.1-43.9); Red Blood Count 3.95 Miln/mm3 (4.50-5.90); White Blood Count 4.4 Thou/mm3 (3.8-10.6)
[2025-09-13 09:29] LABS: Bilirubin,Urine Negative (Negative); Blood,Urine 1+ (Negative); Clarity,Urine Clear (Clear/Hazy); Color,Urine Lt-Yellow (Lt Yel-Yel); Glucose, Urine Negative (Negative); Hyaline Casts,Urine < 1 /hpf (0-1); Ketones,Urine Negative (Negative); Leukocyte Esterase,Urine Negative (Negative); Nitrite,Urine Negative (Negative); PH,Urine 6.5 (5.0-7.0); Protein,Urine 3+ (Neg - Trace); RBC,Urine 4 /hpf (0-3); Specific Gravity,Urine 1.021 (1.001-1.035); Squamous Epithelial Cell,Urine < 1 /hpf (0-5); Urobilinogen,Urine Negative mg/dL (0.0-1.0); WBC,Urine 1 /hpf (0-5)
[2025-09-13 09:29] LABS: Anion Gap 9 (7-16); BUN/Creatinine Ratio 24 Ratio (12-20); Blood Urea Nitrogen 76 mg/dL (9-23); Carbon Dioxide 26.9 mMol/L (20.0-31.0); Chloride 106 mMol/L (98-107); Creatinine (Component) 3.2 mg/dL (0.6-1.3); Parathyroid Hormone Intact 790.2 pg/ml (18.5-88.0); Potassium 4.4 mMol/L (3.4-5.1); Sodium 142 mMol/L (136-145)
[2025-09-13 09:30] LABS: Alanine Aminotransferase 13 U/L (10-49); Albumin, Serum 3.7 gm/dL (3.4-4.8); Alkaline Phosphatase 144 U/L (46-116); Aspartate Amino Transferase 18 U/L (0-34); Bilirubin,Direct 0.3 mg/dL (0.0-0.3); Bilirubin,Total 0.6 mg/dL (0.3-1.2); Calcium 8.9 mg/dL (8.3-10.6); Glucose 50 mg/dL (74-106); Osmolality,Calculated 302 (275-295); Phosphorous 3.8 mg/dL (2.4-5.1); Total Protein 6.5 gm/dL (5.7-8.2); eGFR 21 See Note
[2025-09-13 09:34] LABS: Creatinine MALB Rnd Ur 67 mg/dL (30-125)
[2025-09-13 09:38] LABS: Vitamin D 25 Hydroxy Total 27.4 ng/mL (7.3-40.2)
[2025-09-13 09:44] LABS: Microalbumin Creat Ratio 5655 mg/gCrea (<30); Microalbumin, Random Urine 3789 mg/L (0-300)
== END | disposition home or self-care (01) ==
PROVIDERS: PCP Internal Medicine; Referring Provider Internal Medicine; Visit Provider Internal Medicine
DX: N17.9 Acute kidney failure, unspecified (principal); I10 Essential (primary) hypertension; E78.5 Hyperlipidemia, unspecified
CPT/HCPCS: 36415; 80048; 80076; 81001; 82043; 82306; 82570; 83970; 84100; 85025

== ENCOUNTER 2025-09-20 18:08 | Emergency (ER) | payer MEDICAID, SELFPAY ==
--- NOTE | 2025-09-20 18:34 | EKG_ITS ---
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1960 Requested By: Larry Reyes Order Number: [id number] Reading MD: Larry Reyes Measurements Intervals [place] Rate: 84 P: 12 AL: 205 QRS: -55 QRSD: 100 T: 71 QT: 423 QTc: 500 Interpretive Statements SINUS RHYTHM LOW QRS VOLTAGE IN PRECORDIAL LEADS [QRS DEFLECTION < 1.0 mV IN CHEST LEADS] INFERIOR MYOCARDIAL INFARCTION , PROBABLY OLD [40+ ms Q WAVE AND/OR ST/T ABNORMALITY IN II/aVF] ANTEROSEPTAL MYOCARDIAL INFARCTION , PROBABLY OLD [40+ ms Q WAVE IN V1-V4] Compared to ECG 06/30/2025 10:20:45 Low QRS voltage now present Left-axis deviation no longer present Myocardial infarct finding still present /store/S0/[id number].pdf
[2025-09-20 18:48] VITALS: BP 158/116; BP 160/111; PULSE 84; RESP 22; TEMP 36.4; O2SAT 97
[2025-09-20 18:50] VITALS: BMI 32.4
--- NOTE | 2025-09-20 20:03 | XR_ITS ---
EXAMINATION: AP chest single view TECHNIQUE: AP portable upright chest single view Date and time: September 20, 2025, 2009 hours, comparison 06/30/2025 INDICATIONS: Body swelling and shortness of breath 1 week. FINDINGS: Mild to moderate CHF Moderate enlargement cardiac contour Prominent vascular congestion with perihilar edema Prominent osteopenia IMPRESSION: Mild to moderate CHF
--- NOTE | 2025-09-20 20:03 | PD.EDRME ---
Rapid Medical Screening Exam [facility] Arrival date/time: 09/20/25 18:08 64M with history of CHF, HTN, and DM presents to ED with 1 week of generalized swelling and SOB. Patient has been taking his Bumex. Chief Complaint: Shortness of Breath/Dyspnea Vital signs: Vital Signs Temperature 97.5 F 09/20/25 18:48 Pulse Rate 84 09/20/25 18:48 Respiratory Rate 22 H 09/20/25 18:48 Blood Pressure 158/116 H 09/20/25 18:48 Pulse Oximetry (%) 97 09/20/25 18:48 Oxygen Delivery Method Room Air 09/20/25 18:48 Exam: Generalized edema. Some increased WOB. Clinical Impression: RENATE/CKD vs CHF exacerbation vs electrolyte abnormality vs CAP
[2025-09-20 20:13] VITALS: BP 154/105; PULSE 85; RESP 22; TEMP 36.6; O2SAT 96
--- NOTE | 2025-09-20 20:21 | PD.EDSOB ---
ED SOB =RME/HPI General Chief Complaint: Shortness of Breath/Dyspnea Stated Complaint: SOB, EDEMA Time Seen by Provider: 09/20/25 20:22 Arrival date/time: 09/20/25 18:08 RME / HPI RME / HPI Narrative: 09/20/25 18:08 64M with history of CHF, HTN, and DM presents to ED with 1 week of generalized swelling and SOB. Patient has been taking his Bumex. Dr. Srinivasan?s Main ED Evaluation: 64yo male with a history of CHF, HTN, DM presents to the ED for a chief complaint of persistent shortness of breath. Patient states he's been short of breath for a long time , but has been unable to sleep for the last couple nights due to being short of breath. Patient has been taking his Bumex 2mg daily. Denies any chest pain, fever, chills, or any other associated symptoms. NKA. Related Data Home Medications ?Medication ?Instructions ?Recorded ?Confirmed bumetanide 1 mg tablet 1 mg PO DAILY 06/05/25 06/30/25 Previous Rx's ?Medication ?Instructions ?Recorded apixaban 5 mg tablet (Eliquis) 5 mg PO BID #60 tabs 06/09/25 carvedilol 3.125 mg tablet 3.125 mg PO BID #60 tabs 06/09/25 valsartan 40 mg tablet 40 mg PO QDAY #30 tabs 06/09/25 atorvastatin 40 mg tablet 40 mg PO QPM #30 tabs 07/01/25 bumetanide 2 mg tablet 2 mg PO BID #60 tabs 09/20/25 Allergies Allergy/AdvReac Type Severity Reaction Status Date / Time No Known Allergies Allergy Verified 09/09/25 06:26 Review of Systems Review of Systems Systems Reviewed: All systems reviewed, normal except as documented ED Exam Narrative Physical exam: Generally the patient is alert not obvious dyspneic or tachypneic, lungs show very mild crackles bilaterally with good air exchange, heart regular rate and rhythm, abdomen is obese soft nontender nondistended, extremities show bilateral lower extremity edema with some blister formation. Mild bilateral erythema most likely secondary to venous stasis, neurologic exam [place] Coma Scale is 15 without focal motor deficit. Course Course Course Narrative: CXR is ordered for determining the etiology of shortness of breath. Quality Measures none Orders Category Date Time Status EKG (ED ONLY) *Do not use* NOW Care 09/20/25 18:34 Completed EKG (ED Only) Stat Exams 09/20/25 18:34 Draft XR chest 1V portable Stat Exams 09/20/25 20:03 Taken BNP [B-Type Natriuretic Peptide] Stat Lab 09/20/25 20:22 Completed CBC Stat Lab 09/20/25 20:22 Completed CMP [Comprehensive Metabolic Panel] Stat Lab 09/20/25 20:22 Completed Troponin I Stat Lab 09/20/25 20:22 Completed Urinalysis, C/S if Indicated Stat Lab 09/20/25 20:24 Completed Bumetanide Inj [Bumex Inj] Med 09/20/25 20:35 Discontinued 2 mg IVP X1 ONE Vital Signs Vital signs: Vital Signs Temperature 97.5 F 09/20/25 18:48 Pulse Rate 84 09/20/25 18:48 Respiratory Rate 22 H 09/20/25 18:48 Blood Pressure 158/116 H 09/20/25 18:48 Pulse Oximetry (%) 97 09/20/25 18:48 Oxygen Delivery Method Room Air 09/20/25 18:48 Shortness of Breath / Dyspnea MDM Narrative MDM Narrative:: Scribe Attestation: 09/20/25 Breann Mendieta am scribing for and in the presence of Dr. Srinivasan. Patient's troponin is slightly elevated here in the emergency room at 0.54 however it has been elevated to that level in the past as recently as June of this year. EKG today obtained at 6:43 PM shows normal sinus rhythm at a rate of 84 with Q waves in V1 through V5 as well as in the inferior leads. No ST segment change. Patient had an echocardiogram done on August 15 of this year that showed dilated cardiomyopathy with severe global hypokinesis with an ejection fraction of 25 to 30%. There was moderate pulmonary hypertension. There was moderate mitral regurgitation. Mild to moderate tricuspid regurgitation. The right ventricle was normal in size and systolic function. Patient is on Coreg as well as atorvastatin and Bumex as well as losartan. He was given Bumex 2 mg IV here in the emergency room. He normally is on Bumex 2 mg once a day. That will need to be increased to 2 mg twice a day. He must follow-up with his monitoring analyst. Vital signs are stable. He denies having any chest pain pressure tightness or heaviness. He does have renal insufficiency however this is little change from previous as recent as June of this year. Patient data External records reviewed:: [facility] previous records (Per chart review, patient was admitted here on 06/30/25 for CVA.) Clinical information provided by:: patient Social determinants that could affect healthcare access:: none Patient has the following chronic illnesses:: CVA, CHF, HTN, DM How is presenting disease/condition affected by chronic disease/condition?: exacerbated by Evaluation data The following diagnostics were reviewed and interpreted by me:: lab results, radiology exam(s) and EKG tracing(s) Lab and/or radiology exams considered but not ordered:: none Interpretation Summary: See MDM Medications / Prescriptions Medications or Prescriptions considered but not ordered:: none Medication administrations:: Medication Administration History Discontinued Medications Bumetanide (Bumetanide Inj 0.25 Mg/Ml Vial 4 Ml) 2 mg IVP X1 ONE Stop: 09/20/25 20:36 Last Admin: 09/20/25 21:12 Dose: 2 mg Documented By: EE see above Consultations Consultation(s) initiated? (list below): No Diagnosis Shortness of Breath Differential Diagnosis: other (See MDM) Most likely diagnosis given after review of the tests above:: see clinical impression below Admission Indicated Admission indicated?: not indicated Admission Request Was there a request for admission?: No Disposition Plan Disposition Plan: Discharge Discharge Attestation Discharge Attestation: The patient and all family members were given an opportunity to ask questions and understood the discharge instructions. Discharge instructions specifically effects, indications for sooner follow up or return to the emergency department, and the expected course of current diagnosis. Patient condition: Stable Discharge Plan Plan Patient Disposition: HOME (Self Care) Prescriptions/Referrals Prescriptions/Med Rec: New bumetanide 2 mg tablet 2 mg PO BID Qty: 60 0RF No Action atorvastatin 40 mg tablet 40 mg PO QPM Qty: 30 0RF bumetanide 1 mg tablet 1 mg PO DAILY carvedilol 3.125 mg tablet 3.125 mg PO BID Qty: 60 0RF Rx Instructions: must administer with a meal/food valsartan 40 mg tablet 40 mg PO QDAY Qty: 30 0RF Eliquis 5 mg tablet 5 mg PO BID Qty: 60 0RF Referrals: Trip Moe MD [Primary Care Provider] - In 1 week Problem List Clinical Impression: Dilated cardiomyopathy Patient/Caregiver Discharge Instructions Education Materials: Cardiomyopathy Dc Additional Instructions: Continue all current medications but increase your water pill, Bumex, to 2 mg twice a day. You must follow-up with your monitoring analyst. Return to ER as needed or if condition worsens. Print Language: Malian Stand Alone Forms: [employer] Award Info., Patient Portal Info Letter
[2025-09-20 20:39] LABS: Collection Type, Urine Clean Catch; Squamous Epithelial Cell,Urine 0 /hpf (0-5)
[2025-09-20 20:41] LABS: Basophils # (Auto) 0.0 Thou/mm3 (0.0-0.2); Basophils % (Auto) 1 % (0-2.5); Eosinophils # (Auto) 0.2 Thou/mm3 (0.0-0.5); Eosinophils % (Auto) 3 % (0-10); Hematocrit 34.5 % (41.0-53.0); Hemoglobin 11.0 g/dL (13.5-16.0); Immature Granulocytes Auto 0.01 Thou/mm3 (0.00-0.00); Lymphocytes # (Auto) 1.1 Thou/mm3 (1.0-4.8); Lymphocytes % (Auto) 21 % (10-50); Mean Corpuscular HGB Conc 31.9 g/dl (31.0-37.0); Mean Corpuscular Hemoglobin 26.6 pg (25.0-35.0); Mean Corpuscular Volume 84 fL (80-100); Monocytes # (Auto) 0.6 Thou/mm3 (0.0-0.8); Monocytes % (Auto) 11 % (0-12); Neutrophils # (Auto) 3.4 Thou/mm3 (1.8-7.7); Neutrophils % (Auto) 65 % (37-80); Nucleated Red Blood Cell # 0.00 Thou/mm3 (0.00-0.00); Nucleated Red Blood Cell % 0 /100 WBC (0); Platelet Count 172 Thou/mm3 (140-440); RDW Standard Deviation 54.9 fL (35.1-43.9); Red Blood Count 4.13 Miln/mm3 (4.50-5.90); White Blood Count 5.2 Thou/mm3 (3.8-10.6)
[2025-09-20 20:53] LABS: Bilirubin,Urine Negative (Negative); Blood,Urine 1+ (Negative); Clarity,Urine Clear (Clear/Hazy); Color,Urine Lt-Yellow (Lt Yel-Yel); Culture Indicated,Urine Not Indicated; Glucose, Urine 2+ (Negative); Hyaline Casts,Urine < 1 /hpf (0-1); Ketones,Urine Negative (Negative); Leukocyte Esterase,Urine Negative (Negative); Nitrite,Urine Negative (Negative); PH,Urine 7.0 (5.0-7.0); Protein,Urine 3+ (Neg - Trace); RBC,Urine 5 /hpf (0-3); Specific Gravity,Urine 1.014 (1.001-1.035); Urobilinogen,Urine Negative mg/dL (0.0-1.0); WBC,Urine 1 /hpf (0-5)
[2025-09-20 21:02] LABS: Alanine Aminotransferase 12 U/L (10-49); Albumin, Serum 3.5 gm/dL (3.4-4.8); Albumin/Globulin Ratio 1.2 (1.2-2.2); Alkaline Phosphatase 140 U/L (46-116); Anion Gap 9 (7-16); Aspartate Amino Transferase 26 U/L (0-34); BUN/Creatinine Ratio 16 Ratio (12-20); Bilirubin,Total 0.4 mg/dL (0.3-1.2); Blood Urea Nitrogen 56 mg/dL (9-23); Calcium 8.3 mg/dL (8.3-10.6); Calcium (Corrected) 8.7 mg/dL (8.5-10.1); Carbon Dioxide 27.7 mMol/L (20.0-31.0); Chloride 103 mMol/L (98-107); Creatinine (Component) 3.6 mg/dL (0.6-1.3); Estimated Creatinine Clearance 27.1 mL/min (>60); Globulin 3.0 gm/dL (2.3-3.5); Glucose 192 mg/dL (74-106); Osmolality,Calculated 299 (275-295); Potassium 4.4 mMol/L (3.4-5.1); Sodium 140 mMol/L (136-145); Total Protein 6.5 gm/dL (5.7-8.2); eGFR 18 See Note
[2025-09-20 21:04] LABS: Troponin I 0.054 ng/mL (0.0-0.045)
[2025-09-20 21:07] LABS: B-Type Natriuretic Peptide > 3280 pg/mL (0-100)
[2025-09-20 21:12] VITALS: BP 141/106; PULSE 80
[2025-09-20] MEDS: BUMETANIDE INJ 0.25 MG/ML VIAL 4 ML 2 MG IVP (21:12)
[2025-09-20 21:14] VITALS: PULSE 83
[2025-09-20 21:50] VITALS: BP 142/100; PULSE 83; RESP 18; TEMP 36.7; O2SAT 99
== END 2025-09-20 21:58 | disposition home or self-care (01) ==
PROVIDERS: Physician Assistant; Emergency Provider Emergency Medicine; PCP Family Medicine
DX: I42.0 Dilated cardiomyopathy (principal); R94.31 Abnormal electrocardiogram [ECG] [EKG]; I11.0 Hypertensive heart disease with heart failure; I50.9 Heart failure, unspecified; Z79.01 Long term (current) use of anticoagulants
CPT/HCPCS: 36415; 71045; 80053; 81001; 83880; 84484; 85025; 93005; 96374; 99283; J3490

== ENCOUNTER 2025-09-28 11:55 | Inpatient (IN) | payer MEDICAID, SELFPAY ==
[2025-09-28] VITALS (14 sets, daily range): BP systolic 137–176; BP diastolic 98–115; PULSE 75–85; RESP 14–20; TEMP 36.1–36.7; O2SAT 83–100; BMI 34.0
--- NOTE | 2025-09-28 12:27 | EKG_ITS ---
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
--- NOTE | 2025-09-28 12:27 | XR_ITS ---
EXAMINATION: AP chest single view TECHNIQUE: AP portable upright chest single view Date and time: September 28, 2025, 1238 hours, comparison September 20, 2025 INDICATIONS: Chest pain shortness of breath today. FINDINGS: Mild to moderate CHF Mild to moderate enlargement cardiac contour. Prominent vascular congestion including central vascular engorgement Perihilar basilar edema. Prominent osteopenia IMPRESSION: Mild to moderate CHF
[2025-09-28 13:03] LABS: Basophils # (Auto) 0.1 Thou/mm3 (0.0-0.2); Basophils % (Auto) 1 % (0-2.5); Eosinophils # (Auto) 0.1 Thou/mm3 (0.0-0.5); Eosinophils % (Auto) 2 % (0-10); Hematocrit 33.5 % (41.0-53.0); Hemoglobin 10.5 g/dL (13.5-16.0); Immature Granulocytes Auto 0.01 Thou/mm3 (0.00-0.00); Lymphocytes # (Auto) 0.7 Thou/mm3 (1.0-4.8); Lymphocytes % (Auto) 18 % (10-50); Mean Corpuscular HGB Conc 31.3 g/dl (31.0-37.0); Mean Corpuscular Hemoglobin 25.6 pg (25.0-35.0); Mean Corpuscular Volume 82 fL (80-100); Monocytes # (Auto) 0.6 Thou/mm3 (0.0-0.8); Monocytes % (Auto) 13 % (0-12); Neutrophils # (Auto) 2.7 Thou/mm3 (1.8-7.7); Neutrophils % (Auto) 65 % (37-80); Nucleated Red Blood Cell # 0.00 Thou/mm3 (0.00-0.00); Nucleated Red Blood Cell % 0 /100 WBC (0); Platelet Count 241 Thou/mm3 (140-440); RDW Standard Deviation 52.0 fL (35.1-43.9); Red Blood Count 4.10 Miln/mm3 (4.50-5.90); White Blood Count 4.1 Thou/mm3 (3.8-10.6)
--- NOTE | 2025-09-28 13:15 | PD.EDADULT ---
ED General RME/HPI General Chief complaint: General Adult/Misc Complain Stated complaint: NEEDS EMERGENCY DIALYSIS, SENT BY VANDANA Time Seen by Provider: 09/28/25 12:22 Arrival date/time: 09/28/25 11:55 RME / HPI RME / HPI narrative: 64 year old female with history of CVA, CHF, hypertension, hyperlipidemia, h/o DVT, CKD, presents to the ED referred by his fire management technician Dr. Newby for further evaluation of shortness of breath today. Patient states he consulted with fire management technician Dr. Newby who reports possible fluid overload and recommends emergent dialysis. No other complaints reported by the patient. Related Data Home Medications ?Medication ?Instructions ?Recorded ?Confirmed bumetanide 1 mg tablet 1 mg PO DAILY 06/05/25 06/30/25 Previous Rx's ?Medication ?Instructions ?Recorded apixaban 5 mg tablet (Eliquis) 5 mg PO BID #60 tabs 06/09/25 carvedilol 3.125 mg tablet 3.125 mg PO BID #60 tabs 06/09/25 valsartan 40 mg tablet 40 mg PO QDAY #30 tabs 06/09/25 atorvastatin 40 mg tablet 40 mg PO QPM #30 tabs 07/01/25 bumetanide 2 mg tablet 2 mg PO BID #60 tabs 09/20/25 Allergies Allergy/AdvReac Type Severity Reaction Status Date / Time No Known Allergies Allergy Verified 09/28/25 11:59 Review of Systems Review of Systems Systems Reviewed: All systems reviewed, normal except as documented Past Medical History Past Medical History NEUROLOGIC: Positive Neurological Disorders and Cerebrovascular Accident CARDIAC: Positive Cardiac Disorders, Hypercholesterolemia, Congestive Heart Failure and Hypertension GASTROINTESTINAL: Positive Gastrointestinal Disorders GENITOURINARY: Positive Genitourinary Disorders, Renal Disease and Benign Prostatic Hyperplasia ENDOCRINE: Positive Endocrine Disorders Surgical History SURGICAL: Negative Ear Surgery, Nephrectomy or Joint Replacement Social History SMOKING STATUS: Never smoker ED Exam Narrative Physical exam: GENERAL APPEARANCE: alert and oriented x 4, well-developed, well-nourished, anasarca HEENT: Normocephalic, atraumatic; pupils equal, round, reactive to light; EOMI; mucous membranes pink, moist; oropharynx clear NECK: Supple LUNGS: CTABL; no wheezes, no rales, no rhonchi HEART: Regular rate, regular rhythm; normal S1, S2; no murmurs ABDOMEN: non distended; normal BS; soft, no tenderness, no guarding, no rebound; no masses, no organomegaly, no hernia EXTREMITIES: atraumatic NEUROLOGIC: awake; alert and oriented x4; cranial nerves II-XII grossly intact; no focal sensory or motor deficits PSYCHIATRIC: appropriate mood and affect SKIN: warm, dry, normal color; no rashes Course Quality Measures none Orders Category Date Time Status Admit to Inpatient Status Routine Admission 09/28/25 15:14 Active Patient Condition Routine Admission 09/28/25 15:14 Ordered Home Health Caregiver NOW Care 09/28/25 12:27 Active EKG (ED ONLY) *Do not use* NOW Care 09/28/25 12:27 Completed NPO after Midnight ONCE Care 09/28/25 15:11 Active Notify provider NEEDED Care 09/28/25 15:14 Active Strict Intake and Output Routine Care 09/28/25 15:16 Ordered Consult to Nephrology Routine Cons 09/28/25 15:11 Ordered Diet NPO after Midnight Diet 09/29/25 00:01 Active Diet Renal Diet 09/28/25 Dinner Active EKG (ED Only) Stat Exams 09/28/25 12:27 Draft XR chest 1V portable Stat Exams 09/28/25 12:27 Completed B-Type Natriuretic Peptide Stat Lab 09/28/25 12:32 Completed CBC AM DRAW Lab 09/29/25 05:00 Ordered CBC AM DRAW Lab 09/30/25 05:00 Ordered CBC AM DRAW Lab 10/01/25 05:00 Ordered CBC Stat Lab 09/28/25 12:32 Completed Comprehensive Metabolic Panel AM DRAW Lab 09/29/25 05:00 Ordered Comprehensive Metabolic Panel AM DRAW Lab 09/30/25 05:00 Ordered Comprehensive Metabolic Panel AM DRAW Lab 10/01/25 05:00 Ordered Comprehensive Metabolic Panel Stat Lab 09/28/25 12:32 Completed Lipase Stat Lab 09/28/25 12:32 Completed Magnesium AM DRAW Lab 09/29/25 05:00 Ordered Magnesium AM DRAW Lab 09/30/25 05:00 Ordered Magnesium AM DRAW Lab 10/01/25 05:00 Ordered Magnesium Stat Lab 09/28/25 12:32 Completed Partial Thromboplastin Time Stat Lab 09/28/25 12:32 Completed Phosphorous AM DRAW Lab 09/29/25 05:00 Ordered Phosphorous AM DRAW Lab 09/30/25 05:00 Ordered Phosphorous AM DRAW Lab 10/01/25 05:00 Ordered Prothrombin Time with INR Stat Lab 09/28/25 12:32 Completed Thyroid Stimulating Hormone AM DRAW Lab 09/29/25 05:00 Ordered Troponin I Q4H Lab 09/28/25 16:16 Completed Troponin I Stat Lab 09/28/25 12:32 Completed Acetaminophen Tab [Tylenol Tab] Med 09/28/25 15:14 Active 650 mg PO Q6H PRN Atorvastatin Calcium [Lipitor] Med 09/28/25 21:00 Active 80 mg PO HS Container,Empty 50 ml [Empty Container Bag 50 ml] 1 bag Med 09/28/25 13:15 Discontinued Bumetanide Inj [Bumex Inj] 10 mg IV 0.5 mg/hr Container,Empty 50 ml [Empty Container Bag 50 ml] 1 bag Med 09/28/25 13:22 Active Bumetanide Inj [Bumex Inj] 20 mg IV 2 mg/hr Heparin Inj Med 09/28/25 21:00 Active 5,000 unit SC Q12HR Ondansetron Inj [Zofran Inj] Med 09/28/25 15:14 Discontinued 4 mg IVP Q6H PRN Valsartan [Diovan] Med 09/28/25 15:15 Active 40 mg PO QDAY carVEDILOL [Coreg] Med 09/28/25 21:00 Active 6.25 mg PO BID Code Status Routine Oth 09/28/25 15:14 Ordered Oxygen Delivery DAILY RT 09/28/25 15:17 Active Vital Signs Vital signs: Vital Signs Temperature 98.0 F 09/28/25 12:22 Pulse Rate 80 09/28/25 12:22 Respiratory Rate 20 09/28/25 12:22 Blood Pressure 137/98 H 09/28/25 12:22 Pulse Oximetry (%) 95 09/28/25 12:22 Oxygen Delivery Method Room Air 09/28/25 12:22 Pulse ox is 95% on room air which is adequate. Discharge Plan Plan Patient Disposition: Admit Acute Care w/in Hospital Problem List Clinical Impression: Fluid overload, Anasarca MDM Narrative MDM hospital course (for use when minimal MDM required): Barbie Guzman, gonsalo scribing for and in the presence of Dr. Sue. 1353p: I spoke with fire management technician Dr. Newby. Requesing Bumex gtt and admission for dialysis to be performed tomorrow. 1354p: I spoke with hospitalist team for admission. Discussed patients PMHx, HPI, ED course, exam findings, labs, and radiology results. The hospitalist agree to accept the patient for admission. Clinical Information Provided by: patient Medical Records reviewed [facility] Meds/Rx considered, not ordered None Labs/Rad/Tests considered, not ordered None Chronic Illness/Social Conditions which may negatively complicate care or outcome(s)-explain: None or not applicable EKG Interpretation EKG #1: EKG Interpretation: EKG @ 12:35, normal sinus rhythm, rate 78, no STEMI Imaging Imaging Interpretation(s): Ordering Physician: So Sue MD Date of Service: 09/28/25 Procedure(s): XR chest 1V portable Accession Number(s): [id number] cc: Ron Aguilera MD; So Sue MD~ EXAMINATION: AP chest single view TECHNIQUE: AP portable upright chest single view Date and time: September 28, 2025, 1238 hours, comparison September 20, 2025 INDICATIONS: Chest pain shortness of breath today. FINDINGS: Mild to moderate CHF Mild to moderate enlargement cardiac contour. Prominent vascular congestion including central vascular engorgement Perihilar basilar edema. Prominent osteopenia IMPRESSION: Mild to moderate CHF Dictated By: Ron Aguilera MD Signed By: <Electronically signed by Ron Aguilera MD in OV> 09/28/25 1318 Medication Administration(s) Medication Administration History Acetaminophen (Acetaminophen 325 Mg Tablet) 650 mg PO Q6H PRN PRN Reason: Fever >100.4 or pain 1-5 Stop: 10/28/25 15:13 Atorvastatin Calcium (Atorvastatin Calcium 20 Mg Tablet) 80 mg PO HS YUDITH Stop: 10/28/25 20:59 Carvedilol (Carvedilol 3.125 Mg Tablet) 6.25 mg PO BID YUDITH Stop: 10/28/25 20:59 Dextrose (Dextrose 50%-Water Inj 50 Ml Syringe) 25 ml IV Q15MIN PRN PRN Reason: BG 50-70 responsive npo pt Stop: 10/28/25 16:01 Dextrose (Dextrose 50%-Water Inj 50 Ml Syringe) 50 ml IV Q15MIN PRN PRN Reason: BG <50 OR BG <70 & pt unresponsive Stop: 10/28/25 16:01 Glucagon (Glucagon Inj 1 Mg Vial) 1 mg IM Q15MIN PRN PRN Reason: BG <70, and no IV access Heparin Sodium (Porcine) (Heparin Sod Inj 5000 Unit/Ml Vial) 5,000 unit SC Q12HR [facility] Stop: 10/12/25 20:59 Bumetanide 20 mg/ IV (Miscellaneous Supplies) 80 mls @ 8 mls/hr IV .Q10H ONE Stop: 09/28/25 23:21 Last Admin: 09/28/25 13:57 Dose: 2 mg/hr, 8 mls/hr Documented By: BY Insulin Degludec (Insulin Degludec 5 Unit/0.05 Ml (Per 5 Units)) 18 unit SC [facility] Stop: 10/28/25 20:59 Insulin Human Lispro (Insulin Lispro (Admelog) 1 Unit/0.01 Ml Unit) 0 unit SC AC [facility]; Protocol Stop: 10/28/25 16:59 Last Admin: 09/28/25 16:41 Dose: 2 unit Documented By: BY Co-signed By: VG Pantoprazole Sodium (Pantoprazole 40 Mg Tablet) 40 mg PO QDAY [facility] Stop: 10/29/25 08:59 Tuberculin PPD (Tuberculin Ppd Inj 5 Unit/0.1 Ml Dose) 5 unit ID X1 ONE Stop: 09/29/25 10:01 Valsartan (Valsartan 40 Mg Tablet) 40 mg PO QDAY [facility] Stop: 10/28/25 15:14 Last Admin: 09/28/25 15:55 Dose: 40 mg Documented By: BY Discontinued Medications Bumetanide 10 mg/ IV (Miscellaneous Supplies) 40 mls @ 2 mls/hr IV .Q20H ONE Stop: 09/29/25 09:14 Last Admin: 09/28/25 14:04 Dose: Not Given Documented By: BY Non-Admin Reason: Cancelled by Provider Ondansetron HCl (Ondansetron Inj 2 Mg/Ml Inj 2 Ml) 4 mg IVP Q6H PRN; Protocol PRN Reason: NAUSEA OR VOMITING Stop: 10/28/25 15:13 See above
[2025-09-28 13:18] LABS: INR 1.1 (0.9-1.3); Partial Thromboplastin Time 27.1 Seconds (22.0-36.0); Prothrombin Time 11.7 Seconds (9.0-12.2)
[2025-09-28 13:24] LABS: B-Type Natriuretic Peptide 2549 pg/mL (0-100)
--- NOTE | 2025-09-28 13:27 | PD.RESCONSUL ---
HPI Data of Consult Consult date: 09/28/25 Consult Narrative Reason for consult: Fluid overload, CKD , cardiorenal syndrome, requiring dialysis History of present illness: Patient is a 64 year old kittitian speaking male with past medical history of CKD IV, HFrEF (EF 15-20%), CVA (06/05/25), HTN, insulin-dependent diabetes mellitus type 2, HCV treated, HLD who presents to ED from Dr. Newby's clinic for worsening shortness of breath for the past few weeks. Also endorses orthopnea and dyspnea on exertion. On exam, has worsening upper and lower extremity swelling, ongoing for the past few days. Has not taken his Bumex 2mg since yesterday but reports taking his Lasix 40 mg today. Patient has gained 52 lbs over the past 6 weeks. On exam, patient had bilateral crackles and was barely able to complete his sentences due to difficulty breathing. Saturating 95-98% on room air. BP 176/115 at bedside. CXR showed mild to moderate CHF with prominent vascular congestion including central vascular engorgement with perihilar basilar edema. Potassium 4.1, BUN 81, Cr 3.7 (baseline 2.9-3.3), GFR 17 (baseline 21-22), corrected calcium 8.5. BNP 2549, appears to be chronically elevated. Of note, PTH on 09/13 790.2. Started patient on Bumex drip 2mg/hr in ED. Nephrology consulted for fluid overload possibly requiring hemodialysis. Past Medical History: as above Family History: noncontributory Surgical History: none Social History: Drinks alcohol, denies tobacco use. Intermittently smokes marijuana. Previuosly used meth and cocaine over 20 years ago but denies current illicit drug use. Current Medications: atorvastatin 40 mg daily, valsartan 40 mg daily, carvedilol 3.125 mg BID, Bumex 2 mg daily, and Lasix 40 mg daily (pending official med rec) Allergies: No known drug allergies cc:: cc: Exam Vital Signs Temp Pulse Resp BP Pulse Ox O2 Del Method O2 Flow Rate 98.0 F 78 20 164/110 H 96 Nasal Cannula 2 09/28/25 12:22 09/28/25 13:18 09/28/25 13:18 09/28/25 13:18 09/28/25 13:20 09/28/25 13:20 09/28/25 13:20 Narrative Exam Physical Exam General: Awake and in mild acute distress due to shortness of breath, barely able to complete sentences however saturating well on room air. Conversational. Greek speaking. HEENT: Normocephalic, atraumatic, mucous membranes moist. Heart: Distant heart sounds. Regular rate and rhythm, normal S1 and S2, no murmurs appreciated. Lungs: Expiratory wheezing and crackles on lower lobes bilaterally. Clear breath sounds in upper lungs. Abdomen: Soft, nondistended, nontender, positive bowel sounds. No guarding or rebound tenderness. : Significant groin swelling, nontender, non erythematous. Neurologic: Alert and oriented x3, no gross neurological deficit, and patient able to move all 4 extremities. Extremities: 3+ pitting lower extremity edema extending up to knees. Non-pitting edema of bilateral upper extremities. Skin: Cellulitis of bilateral lower legs, tender and erythematous, R>L. Superficial open wounds with minimal drainage. No rash or ecchymoses. Results Labs 09/29/25 05:29 09/29/25 05:29 Labs: Short CBC 09/28/25 Range/Units 12:32 WBC 4.1 (3.8-10.6) Thou/mm3 Hgb 10.5 L (13.5-16.0) g/dL Hct 33.5 L (41.0-53.0) % Plt Count 241 D (140-440) Thou/mm3 Quality Measures Quality Measures VTE prophylaxis Medications Home Medications and Allergies Home Medications ?Medication ?Instructions ?Recorded ?Confirmed ?Type bumetanide 1 mg tablet 1 mg PO DAILY 06/05/25 09/28/25 History Allergies Allergy/AdvReac Type Severity Reaction Status Date / Time No Known Allergies Allergy Verified 09/28/25 11:59 Visit Medications Bumetanide 20 mg/ IV (Miscellaneous Supplies) 80 mls @ 8 mls/hr IV .Q10H ONE Stop: 09/28/25 23:21 Discontinued Medications Bumetanide 10 mg/ IV (Miscellaneous Supplies) 40 mls @ 2 mls/hr IV .Q20H ONE Stop: 09/29/25 09:14 Assessment & Plan Plan Patient is a 64 year old kittitian speaking male with past medical history of CKD IV, HFrEF (EF 15-20%), CVA (06/05/25), HTN, insulin-dependent diabetes mellitus type 2, HCV treated, HLD who presents to ED from Dr. Newby's clinic for worsening shortness of breath for the past few weeks, as well as orthopnea and worsening extremity swelling. Nephrology consulted for fluid overload likely secondary to CHF exacerbation, possibly requiring dialysis. #Fluid overload 2/2 cardiorenal syndrome #RENATE on CKD IV #Renal hyperparathyroidism #Hx HFrEF (EF 15-20%) - Presenting with progressive shortness of breath for almost the past month, as well as orthopnea and upper and lower extremity swelling. Has gained 52 lbs over the past 6 weeks. Home medications include Bumex 2 mg daily, Lasix 40 mg daily, and valsartan 40 mg daily; however did not take Bumex yesterday. - Was previously seen in the ED on 09/20 for same complaint. BNP >3200, increased Bumex to 2 mg daily. - BNP 2549, trop mildly elevated at 0.069 (previously 0.054). EKG unremarkable. CXR shows mild to moderate vascular congestion. - BUN 81, Cr 3.7 (baseline 2.9-3.3). - Of note, on outpatient labs 09/13, PTH 790.2, phos 3.8. On admission calcium 8.1, corrected 8.5. May indicate worsening renal function. - Likely cardiorenal syndrome versus CHF exacerbation iso inadequate diuresis Plan: - Start Bumex drip 2 mg/hr - Monitor INOs and respiratory status - If does not improve with diuresis, patient may require HD. Discussed with patient possibility of requiring dialysis, was agreeable with procedure if unable to improved with diuresis. - Discussed with primary team, will make patient NPO tonight to prepare for HD cathether insertion tomorrow morning #AHRF #Anasarca #HFrEF (EF 25-50%) #CHF exacerbation #Hypertensive urgency #Elevated troponins #IDDM2 - Defer to primary team for management Thank you for your consultation, please do not hesitate to reach out if you have any question or concern Patient plan of care was discussed with the attending physician, Dr. Newby. Silvana Wooten DO, PGY-1 Attending Provider Attestation/Addendum Patient currently seen and examined with resident physician Dr. Wooten. Note reviewed, agree with findings and recommendations. Patient currently seen in telemetry. Significant fluid overload-gained a 52 pounds in 1 month. Cardiorenal syndrome and nephrotic syndrome. Failed outpatient diuretic therapy. Will plan for initiation of dialysis tomorrow. Today started him on Bumex. Care discussed with primary team.
[2025-09-28 13:28] LABS: Alanine Aminotransferase 12 U/L (10-49); Albumin, Serum 3.5 gm/dL (3.4-4.8); Albumin/Globulin Ratio 1.1 (1.2-2.2); Alkaline Phosphatase 124 U/L (46-116); Anion Gap 10 (7-16); Aspartate Amino Transferase 22 U/L (0-34); BUN/Creatinine Ratio 22 Ratio (12-20); Bilirubin,Total 0.4 mg/dL (0.3-1.2); Blood Urea Nitrogen 81 mg/dL (9-23); Calcium 8.1 mg/dL (8.3-10.6); Calcium (Corrected) 8.5 mg/dL (8.5-10.1); Carbon Dioxide 26.6 mMol/L (20.0-31.0); Chloride 105 mMol/L (98-107); Creatinine (Component) 3.7 mg/dL (0.6-1.3); Estimated Creatinine Clearance 26.3 mL/min (>60); Globulin 3.1 gm/dL (2.3-3.5); Glucose 197 mg/dL (74-106); Lipase 63 U/L (12-53); Magnesium 1.9 mg/dL (1.6-2.6); Osmolality,Calculated 312 (275-295); Potassium 4.1 mMol/L (3.4-5.1); Sodium 142 mMol/L (136-145); Total Protein 6.6 gm/dL (5.7-8.2); eGFR 17 See Note
[2025-09-28 13:32] LABS: Troponin I 0.069 ng/mL (0.0-0.045)
[2025-09-28] MEDS: BUMETANIDE INJ 20 MG in CONTAINER,EMPTY 50 ML 1 BAG 8 MG IV (13:57)
--- NOTE | 2025-09-28 15:22 | ESHP_ITS ---
<Statement entered by Lawanda Sibley MD - 10/10/25 09:17> I reviewed above note and agree with findings and plans. I have also personally examined the patient with medicine team and went over assessment and plan with medical team including fashion styling intern and resident physician. <Statement entered by Emil Hyde MD - 09/28/25 16:11> This is a 64-year-old male with history of chronic kidney disease, heart failure with EF 25% from last year, presenting with SOB, possible CHF exacerbation secondary to volume overload and anasarcous. He was seen by his finger lift operator earlier today who recommended admission for emergent dialysis which will be done tomorrow. Currently on minimal oxygen, continued with aggressive diuresis. I?ve reviewed the note and agree with this assessment and plan, with the exceptions outlined above. I personally went over the labs, imaging, home medications, and prior records, and examined the patient. The case was also reviewed with the attending physician. Please note: this document was transcribed using voice recognition technology; minor inaccuracies may be present. Emil Hyde DO PGY II Documentation for date of: 09/28/25 HPI History of Present Illness Chief complaint: Worsening kidney function requiring dialysis History of present illness: 67-year-old male with advanced CKD, dilated cardiomyopathy with EF 25?30%, HTN, and insulin-dependent diabetes, sent by outpatient finger lift operator (Dr. Newby) for emERGENT dialysis evaluation presenting with progressive anasarca, worsening dyspnea, and acute hypoxic respiratory failure, now requiring 2 L NC (no home O2). Patient saw nephrology today and was instructed to come to ED due to worsening renal function and volume overload concerning for transition to ESRD requiring initiation of dialysis. Over the past several weeks he has had worsening leg swelling, abdominal swelling, and increasing shortness of breath. He reports still making urine but less than usual. In the ED, patient required 2 L NC for oxygen saturation support. Labs significant for Cr 3.7 (baseline 3), GFR 17, BNP 2549, Hgb 10.5, Troponin 0.069 (similar mild elevation last week), and normal electrolytes (K 4.1, Mg 1.9). CXR showed mild?moderate CHF. EKG showed sinus rhythm with QTc 509. Prior echo (08/15/25) showed EF 25?30%, severe global hypokinesis, RVSP 62 mmHg, moderate MR, mild?moderate TR. BP on arrival 156/110 -> started home meds carvedilol 6.25 mg BID and valsartan 40 mg daily. Restarted atorvastatin 80 mg daily. He denies chest pain, fever, nausea, vomiting, or abdominal pain. He does not follow with a wildlife control agent. Home medication: * Furosemide 40 mg daily * Bumetanide 2 mg daily * Valsartan 40 mg BID vs duplicate entries (we will use 40 mg daily for now) * Carvedilol listed as 3.125 mg BID and 6.25 mg BID unsure which he takes * Atorvastatin 80 mg nightly Past surgical history: N/A Allergies: N/A Family history: Not relevant Social history: He quit smoking 6 months ago. No alcohol use. Exam Vital Signs Temp Pulse Resp BP Pulse Ox O2 Del Method O2 Flow Rate 98.0 F 78 18 176/115 H 98 Nasal Cannula 2 09/28/25 12:22 09/28/25 13:35 09/28/25 13:35 09/28/25 13:35 09/28/25 13:35 09/28/25 13:35 09/28/25 13:35 Narrative Exam General: Dyspneic but speaking in full sentences, visibly volume overloaded. HEENT: MMM, no JVD appreciated though exam limited by habitus. Lungs: Decreased breath sounds bilaterally at bases, slight crackles. Heart: Regular rate/rhythm. Abdomen: Soft, distended, non-tender. Extremities: 2+ pitting edema, diffuse anasarca. Neuro: AO?3, moving all extremities. Skin: Warm, intact. Results: Labs 09/28/25 12:32 09/28/25 12:32 Labs: Short CBC 09/28/25 Range/Units 12:32 WBC 4.1 (3.8-10.6) Thou/mm3 Hgb 10.5 L (13.5-16.0) g/dL Hct 33.5 L (41.0-53.0) % Plt Count 241 D (140-440) Thou/mm3 BMP 09/28/25 12:32 Sodium 142 Potassium 4.1 Chloride 105 Carbon Dioxide 26.6 BUN 81 H Creatinine 3.7 H Glucose 197 H Calcium 8.1 L Cardiac Enzymes 09/28/25 Range/Units 12:32 Troponin I 0.069 H* (0.0-0.045) ng/mL Liver Function 09/28/25 Range/Units 12:32 Total Bilirubin 0.4 (0.3-1.2) mg/dL AST 22 (0-34) U/L ALT 12 (10-49) U/L Alkaline Phosphatase 124 H (46-116) U/L Albumin 3.5 (3.4-4.8) gm/dL Quality Measures Quality Measures VTE prophylaxis Medications Home Medications and Allergies Home Medications ?Medication ?Instructions ?Recorded ?Confirmed ?Type bumetanide 1 mg tablet 1 mg PO DAILY 06/05/2506/30 History Allergies Allergy/AdvReac Type Severity Reaction Status Date / Time No Known Allergies Allergy Verified 09/28/25 11:59 Visit Medications Acetaminophen (Acetaminophen 325 Mg Tablet) 650 mg PO Q6H PRN PRN Reason: Fever >100.4 or pain 1-5 Stop: 10/28/25 15:13 Atorvastatin Calcium (Atorvastatin Calcium 20 Mg Tablet) 80 mg PO HS [facility] Stop: 10/28/25 20:59 Carvedilol (Carvedilol 3.125 Mg Tablet) 6.25 mg PO BID [facility] Stop: 10/28/25 20:59 Heparin Sodium (Porcine) (Heparin Sod Inj 5000 Unit/Ml Vial) 5,000 unit SC Q12HR [facility] Stop: 10/12/25 20:59 Bumetanide 20 mg/ IV (Miscellaneous Supplies) 80 mls @ 8 mls/hr IV .Q10H ONE Stop: 09/28/25 23:21 Last Admin: 09/28/25 13:57 Dose: 2 mg/hr, 8 mls/hr Ondansetron HCl (Ondansetron Inj 2 Mg/Ml Inj 2 Ml) 4 mg IVP Q6H PRN; Protocol PRN Reason: NAUSEA OR VOMITING Stop: 10/28/25 15:13 Valsartan (Valsartan 40 Mg Tablet) 40 mg PO QDAY [facility] Stop: 10/28/25 15:14 Discontinued Medications Bumetanide 10 mg/ IV (Miscellaneous Supplies) 40 mls @ 2 mls/hr IV .Q20H ONE Stop: 09/29/25 09:14 Last Admin: 09/28/25 14:04 Dose: Not Given Assessment & Plan Plan 67-year-old male with advanced CKD, dilated cardiomyopathy with EF 25?30%, HTN, and insulin-dependent diabetes, sent by outpatient finger lift operator (Dr. Newby) for emergent dialysis evaluation presenting with progressive anasarca, worsening dyspnea, and acute hypoxic respiratory failure, now requiring 2 L NC (no home O2). # RENATE on CKD progressing to ESRD, severe volume overload Sent by nephrology specifically for dialysis initiation. Cr 3.7, GFR 17. BNP markedly elevated, extensive anasarca, respiratory compromise. Still making urine. Plan: * Admit to telemetry. * Nephrology consulted (Dr. Newby): dialysis scheduled for tomorrow. * Order HD catheter. * Strict I/O, daily weights. * Renally dose all meds. * Trend BMP daily. * Avoid nephrotoxins. # Acute Hypoxic Respiratory Failure Not on oxygen at home -> now on 2 L NC. Multifactorial: volume overload + HFrEF exacerbation + anasarca limiting lung expansion. CXR: mild?moderate CHF. Plan: * O2 as needed, goal >92%. * No fluids. * Dialysis tomorrow for decongestion. * Supportive respiratory care. # Anasarca / Severe Volume Overload Likely from ESRD + HFrEF. Plan: * Dialysis is definitive. * Fluid restriction 1.5 L/day, Na restriction 2 g/day. * Monitor response post-dialysis. # HFrEF # CHF exacerbation EF 25?30% (08/15/25 echo) Severe global hypokinesis, RVSP 62, moderate MR, mild?mod TR. Home meds inconsistent; patient unclear. Plan: * Started carvedilol 6.25 mg BID * Started valsartan 40 mg daily; will uptitrate later if needed. * Restarted atorvastatin 80 mg nightly * Avoid QT-prolonging meds (QTc 509). # Hypertensive urgency (176/115) Likely secondary to volume overload + medication noncompliance. Plan: * Restarted GDMT (carvedilol + valsartan). * Will continue to monitor BP * Adjust meds after dialysis once volume improves. # Troponinemia Troponin 0.069 last week 0.054 Likely secondary to RENATE Plan: * Trend troponin 1 more time * If remains stable will stop trend. # Diabetes mellitus, insulin dependent Uses long-acting insulin once daily, 22 units. Glucose 197 in ED. Plan: * Restart degludec but will reduce for renal dysfunction to 18 units * Step 1 SSI. Health Maintenance: Disposition: Admit to telemetry. Dialysis catheter + hemodialysis scheduled for tomorrow. Feeding: Renal/2 g sodium diet, n.p.o. after midnight until dialysis. Fluid restrictions: 1500 cc. Thromboprophylaxis: Heparin SQ every 12 hours GI Prophylaxis: Pantoprazole 40 mg daily. Code Status: Full code ----- Plan discussed with attending physician Dr. Sibley and senior resident Dr. Barrett Barkley MD PGY-1 Internal Medicine
--- NOTE | 2025-09-28 15:22 | PD.RESPRO ---
Documentation for date of: 09/28/25 Exam Vital Signs Temp Pulse Resp BP Pulse Ox O2 Del Method O2 Flow Rate 98.0 F 78 18 176/115 H 98 Nasal Cannula 2 09/28/25 12:22 09/28/25 13:35 09/28/25 13:35 09/28/25 13:35 09/28/25 13:35 09/28/25 13:35 09/28/25 13:35 Objective Labs 09/28/25 12:32 09/28/25 12:32 Labs: Laboratory Results - last 24 hr 09/28/25 12:32 WBC 4.1 RBC 4.10 L Hgb 10.5 L Hct 33.5 L MCV 82 MCH 25.6 MCHC 31.3 RDW Std Deviation 52.0 H Plt Count 241 D Neut % (Auto) 65 Lymph % (Auto) 18 [place] % (Auto) 13 H Eos % (Auto) 2 Baso % (Auto) 1 Neut # (Auto) 2.7 Lymph # (Auto) 0.7 L [place] # (Auto) 0.6 Eos # (Auto) 0.1 Baso # (Auto) 0.1 Immature Gran # (Auto) 0.01 H Absolute Nucleated RBC 0.00 Immature Gran % 0 Nucleated RBC % 0 PT 11.7 INR 1.1 APTT 27.1 Sodium 142 Potassium 4.1 Chloride 105 Carbon Dioxide 26.6 Anion Gap 10 BUN 81 H Creatinine 3.7 H Estim Creat Clear Calc 26.3 L eGFR 17 L BUN/Creatinine Ratio 22 H Glucose 197 H Calculated Osmolality 312 H Calcium 8.1 L Corrected Calcium 8.5 Magnesium 1.9 Total Bilirubin 0.4 AST 22 ALT 12 Alkaline Phosphatase 124 H Troponin I 0.069 H* B-Natriuretic Peptide 2549 H* Total Protein 6.6 Albumin 3.5 Globulin 3.1 Albumin/Globulin Ratio 1.1 L Lipase 63 H Assessment & Plan Assessment Current Active Medications: Generic Name Dose Route Start Last Admin Trade Name Freq PRN Reason Stop Dose Admin Acetaminophen 650 mg 09/28/25 15:14 Acetaminophen 325 Mg Tablet PO 10/28/25 15:13 Q6H PRN Fever >100.4 or pain 1-5 Atorvastatin Calcium 80 mg 09/28/25 21:00 Atorvastatin Calcium 20 Mg Tablet PO 10/28/25 20:59 HS YUDITH Carvedilol 6.25 mg 09/28/25 21:00 Carvedilol 3.125 Mg Tablet PO 10/28/25 20:59 BID YUDITH Heparin Sodium (Porcine) 5,000 unit 09/28/25 21:00 Heparin Sod Inj 5000 Unit/Ml Vial SC 10/12/25 20:59 Q12HR [facility] Bumetanide 20 mg/ IV 80 mls @ 8 mls/hr 09/28/25 13:22 09/28/25 13:57 Miscellaneous Supplies IV 09/28/25 23:21 2 mg/hr .Q10H ONE 8 mls/hr 2 MG/HR Administration Ondansetron HCl 4 mg 09/28/25 15:14 Ondansetron Inj 2 Mg/Ml Inj 2 Ml IVP 10/28/25 15:13 Q6H PRN NAUSEA OR VOMITING Protocol Valsartan 40 mg 09/28/25 15:15 Valsartan 40 Mg Tablet PO 10/28/25 15:14 QDAY YUDITH
[2025-09-28] MEDS: VALSARTAN 40 MG TABLET PO (15:55)
[2025-09-28] MEDS: INSULIN LISPRO (AdmeLOG) 1 UNIT/0.01 ML UNIT SC (16:41)
[2025-09-28 17:00] LABS: Troponin I 0.066 ng/mL (0.0-0.045)
[2025-09-28 17:46] LABS: Hepatitis A Antibody IgM Non Reactive (Non React); Hepatitis B Core Antibody IgM Non Reactive (Non React); Hepatitis B Surface Ab Reactive (Immune) (Immune); Hepatitis B Surface Antigen Non Reactive (Non React); Hepatitis C Antibody Reactive (Non React)
--- NOTE | 2025-09-28 18:33 | PC.NURSE ---
report given to andrew
[2025-09-28] MEDS: INSULIN DEGLUDEC 5 UNIT/0.05 ML (PER 5 UNITS) 18 UNIT SC (20:23)
[2025-09-28] MEDS: HEPARIN SOD INJ 5000 UNIT/ML VIAL SC (20:24)
[2025-09-28] MEDS: ATORVASTATIN CALCIUM 20 MG TABLET 80 MG PO (20:24)
[2025-09-29] VITALS (26 sets, daily range): BP systolic 134–170; BP diastolic 78–111; PULSE 78–91; RESP 12–24; TEMP 35.9–36.8; O2SAT 94–100; BMI 34.0
[2025-09-29 06:21] LABS: Basophils # (Auto) 0.0 Thou/mm3 (0.0-0.2); Basophils % (Auto) 1 % (0-2.5); Eosinophils # (Auto) 0.2 Thou/mm3 (0.0-0.5); Eosinophils % (Auto) 3 % (0-10); Hematocrit 32.0 % (41.0-53.0); Hemoglobin 10.0 g/dL (13.5-16.0); Immature Granulocytes Auto 0.02 Thou/mm3 (0.00-0.00); Lymphocytes # (Auto) 0.8 Thou/mm3 (1.0-4.8); Lymphocytes % (Auto) 16 % (10-50); Mean Corpuscular HGB Conc 31.3 g/dl (31.0-37.0); Mean Corpuscular Hemoglobin 25.8 pg (25.0-35.0); Mean Corpuscular Volume 83 fL (80-100); Monocytes # (Auto) 0.7 Thou/mm3 (0.0-0.8); Monocytes % (Auto) 14 % (0-12); Neutrophils # (Auto) 3.1 Thou/mm3 (1.8-7.7); Neutrophils % (Auto) 65 % (37-80); Nucleated Red Blood Cell # 0.00 Thou/mm3 (0.00-0.00); Nucleated Red Blood Cell % 0 /100 WBC (0); Platelet Count 224 Thou/mm3 (140-440); RDW Standard Deviation 52.0 fL (35.1-43.9); Red Blood Count 3.88 Miln/mm3 (4.50-5.90); White Blood Count 4.8 Thou/mm3 (3.8-10.6)
[2025-09-29 06:42] LABS: Alanine Aminotransferase 11 U/L (10-49); Albumin, Serum 3.2 gm/dL (3.4-4.8); Albumin/Globulin Ratio 1.1 (1.2-2.2); Alkaline Phosphatase 126 U/L (46-116); Anion Gap 11 (7-16); Aspartate Amino Transferase 22 U/L (0-34); BUN/Creatinine Ratio 22 Ratio (12-20); Bilirubin,Total 0.3 mg/dL (0.3-1.2); Blood Urea Nitrogen 81 mg/dL (9-23); Calcium 7.9 mg/dL (8.3-10.6); Calcium (Corrected) 8.5 mg/dL (8.5-10.1); Carbon Dioxide 24.3 mMol/L (20.0-31.0); Chloride 107 mMol/L (98-107); Creatinine (Component) 3.7 mg/dL (0.6-1.3); Estimated Creatinine Clearance 26.3 mL/min (>60); Globulin 2.9 gm/dL (2.3-3.5); Glucose 322 mg/dL (74-106); Magnesium 1.9 mg/dL (1.6-2.6); Osmolality,Calculated 319 (275-295); Phosphorous 4.9 mg/dL (2.4-5.1); Potassium 4.5 mMol/L (3.4-5.1); Sodium 142 mMol/L (136-145); Thyroid Stimulating Hormone 13.09 uIU/mL (0.55-4.78); Total Protein 6.1 gm/dL (5.7-8.2); eGFR 17 See Note
[2025-09-29 06:45] LABS: Glucose Estimated Average 189 mg/dL (80-131); Hemoglobin A1C 8.2 % Hgb (4.8-6.0)
--- NOTE | 2025-09-29 08:00 | XR_ITS ---
Ultrasound-guided needle placement right internal jugular vein Permanent tunneled dialysis catheter insertion, percutaneous Fluoroscopy AP chest, portable, September 29, 2025, 926 hours INDICATIONS: Renal failure, need for stat and long-term dialysis with a permanent tunneled dialysis catheter Date and time of procedure: September 29, 2025, 926 hours Informed consent provided Technique: A timeout was completed verifying correct patient, procedure, site, positioning, and special equipment if applicable. The patient was placed in a dependent position appropriate for dialysis catheter placement based on the vein to be cannulated. The patient's right was prepped and draped in sterile fashion. Maximum Sterile Barrier Technique used including cap, mask, sterile gown, sterile gloves, and sterile full body drape. If ultrasound technique used: sterile gel and sterile probe covers. Hand Hygiene performed using proper scrub, soap and water, or alcohol-based hand rub. 1% lidocaine was used to anesthetize the surrounding skin area [employer]Use portable ultrasound apparatus utilized to confirm patency of the right internal jugular vein, utilizing ultrasonographic guidance successful 21-gauge needle puncture into the right internal jugular vein. Ultrasound images were recorded and stored. Vessel micropuncture was performed with 21-gauge needle. 0.18 wire guide is introduced into the vein. 0.18 wire is introduced into the vena cava under fluoroscopy. Subcutaneous tunnel formed in the upper chest. Permanent tunneled dialysis catheter placed in the subcutaneous tunnel. Dilators were introduced over the J-wire guide. Tunneled dialysis catheter is introduced through a dilator with venous sheath into the superior vena cava under fluoroscopic guidance. The catheter is sutured in place to the skin and a sterile dressing applied. Perfusion to the extremity distal to the point of catheter insertion is checked and found to be adequate Attending radiologist was present for the entire procedure Estimated blood loss 4 cc. The patient tolerated the procedure well and there were no complications Impression: Successful ultrasound-guided needle placement right internal jugular vein Successful permanent tunneled dialysis catheter insertion, percutaneous Fluoroscopy 0.4-minute radiation dose 4.57 mGy 1 spot fluoroscopic chest film. AP chest performed at completion procedure demonstrates satisfactory position dialysis catheter. May use dialysis catheter.
--- NOTE | 2025-09-29 08:46 | ESPR_ITS ---
Documentation for date of: 09/29/25 Subjective Subjective Interval history: History of present illness: Patient is a 64 year old tristanian speaking male with past medical history of CKD IV, HFrEF (EF 15-20%), CVA (06/05/25), HTN, insulin-dependent diabetes mellitus type 2, HCV treated, HLD who presents to ED from Dr. Newby's clinic for worsening shortness of breath for the past few weeks. Also endorses orthopnea and dyspnea on exertion. On exam, has worsening upper and lower extremity swelling, ongoing for the past few days. Has not taken his Bumex 2mg since yesterday but reports taking his Lasix 40 mg today. Patient has gained 52 lbs over the past 6 weeks. On exam, patient had bilateral crackles and was barely able to complete his sentences due to difficulty breathing. Saturating 95-98% on room air. BP 176/115 at bedside. CXR showed mild to moderate CHF with prominent vascular congestion including central vascular engorgement with perihilar basilar edema. Potassium 4.1, BUN 81, Cr 3.7 (baseline 2.9-3.3), GFR 17 (baseline 21-22), corrected calcium 8.5. BNP 2549, appears to be chronically elevated. Of note, PTH on 09/13 790.2. Past Medical History: as above Family History: noncontributory Surgical History: none Social History: Drinks alcohol, denies tobacco use. Intermittently smokes marijuana. Previuosly used meth and cocaine over 20 years ago but denies current illicit drug use. Current Medications: atorvastatin 40 mg daily, valsartan 40 mg daily, carvedilol 3.125 mg BID, Bumex 2 mg daily, and Lasix 40 mg daily (pending official med rec) Allergies: No known drug allergies Started patient on Bumex drip 2mg/hr in ED. Nephrology consulted for fluid overload possibly requiring hemodialysis. 09/29/25: Patient seen and assessed at bedside. Urine output 2L overnight s/p Bumex drip. BUN and Cr stable. Scheduled for tunnel dialysis catheter placement and HD session today. Exam Vital Signs Temp Pulse Resp BP Pulse Ox O2 Del Method O2 Flow Rate 96.6 F L 82 20 156/93 H 98 Nasal Cannula 2 09/29/25 08:00 09/29/25 08:00 09/29/25 08:00 09/29/25 08:00 09/29/25 08:00 09/29/25 08:00 09/29/25 08:00 Narrative Exam Physical Exam General: Awake and in mild acute distress due to shortness of breath, barely able to complete sentences however saturating well on room air. Conversational. Tajik speaking. HEENT: Normocephalic, atraumatic, mucous membranes moist. Heart: Distant heart sounds. Regular rate and rhythm, normal S1 and S2, no murmurs appreciated. Lungs: Expiratory wheezing and crackles on lower lobes bilaterally. Clear breath sounds in upper lungs. Abdomen: Soft, nondistended, nontender, positive bowel sounds. No guarding or rebound tenderness. : Significant groin swelling, nontender, nonerythematous. Neurologic: Alert and oriented x3, no gross neurological deficit, and patient able to move all 4 extremities. Extremities: 3+ pitting lower extremity edema extending up to knees. Non-pitting edema of bilateral upper extremities. Skin: Cellulitis of bilateral lower legs, tender and erythematous, R>L. Superficial open wounds with minimal drainage. No rash or ecchymoses. Objective Labs 09/29/25 05:29 09/29/25 05:29 Labs: Laboratory Results - last 24 hr 09/28/25 09/28/25 09/29/25 12:32 16:16 05:29 WBC 4.1 4.8 RBC 4.10 L 3.88 L Hgb 10.5 L 10.0 L Hct 33.5 L 32.0 L MCV 82 83 MCH 25.6 25.8 MCHC 31.3 31.3 RDW Std Deviation 52.0 H 52.0 H Plt Count 241 D 224 Neut % (Auto) 65 65 Lymph % (Auto) 18 16 [place] % (Auto) 13 H 14 H Eos % (Auto) 2 3 Baso % (Auto) 1 1 Neut # (Auto) 2.7 3.1 Lymph # (Auto) 0.7 L 0.8 L [place] # (Auto) 0.6 0.7 Eos # (Auto) 0.1 0.2 Baso # (Auto) 0.1 0.0 Immature Gran # (Auto) 0.01 H 0.02 H Absolute Nucleated RBC 0.00 0.00 Immature Gran % 0 0 Nucleated RBC % 0 0 PT 11.7 INR 1.1 APTT 27.1 Sodium 142 142 Potassium 4.1 4.5 Chloride 105 107 Carbon Dioxide 26.6 24.3 Anion Gap 10 11 BUN 81 H 81 H Creatinine 3.7 H 3.7 H Estim Creat Clear Calc 26.3 L 26.3 L eGFR 17 L 17 L BUN/Creatinine Ratio 22 H 22 H Glucose [address] Glu mg/dL 189 H Hemoglobin A1c 8.2 H Calculated Osmolality 312 H 319 H Calcium 8.1 L 7.9 L Corrected Calcium 8.5 8.5 Phosphorus 4.9 Magnesium 1.9 1.9 Total Bilirubin 0.4 0.3 AST 22 22 ALT 12 11 Alkaline Phosphatase 124 H 126 H Troponin I 0.069 H* 0.066 H* B-Natriuretic Peptide 2549 H* Total Protein 6.6 6.1 Albumin 3.5 3.2 L Globulin 3.1 2.9 Albumin/Globulin Ratio 1.1 L 1.1 L Lipase 63 H TSH 13.09 H Hepatitis A IgM Ab Non Reactive Hep Bs Antigen Non Reactive Hep Bs Antibody Reactive (Immune) Hep B Core IgM Ab Non Reactive Hepatitis C Antibody Reactive A Quality Measures Quality Measures VTE prophylaxis Assessment & Plan Assessment Current Active Medications: Generic Name Dose Route Start Last Admin Trade Name Freq PRN Reason Stop Dose Admin Acetaminophen 650 mg 09/28/25 15:14 Acetaminophen 325 Mg Tablet PO 10/28/25 15:13 Q6H PRN Fever >100.4 or pain 1-5 Atorvastatin Calcium 80 mg 09/28/25 21:00 09/28/25 20:24 Atorvastatin Calcium 20 Mg Tablet PO 10/28/25 20:59 80 mg HS YUDITH Administration Carvedilol 6.25 mg 09/28/25 21:00 09/28/25 20:24 Carvedilol 3.125 Mg Tablet PO 10/28/25 20:59 6.25 mg BID YUDITH Administration Dextrose 25 ml 09/28/25 16:02 Dextrose 50%-Water Inj 50 Ml Syringe IV 10/28/25 16:01 Q15MIN PRN BG 50-70 responsive npo pt Dextrose 50 ml 09/28/25 16:02 Dextrose 50%-Water Inj 50 Ml Syringe IV 10/28/25 16:01 Q15MIN PRN BG <50 OR BG <70 & pt unresponsive Glucagon 1 mg 09/28/25 16:02 Glucagon Inj 1 Mg Vial IM Q15MIN PRN BG <70, and no IV access Heparin Sodium (Porcine) 5,000 unit 09/28/25 21:00 09/28/25 20:24 Heparin Sod Inj 5000 Unit/Ml Vial SC 10/12/25 20:59 5,000 unit Q12HR YUDITH Administration Albumin Human 25 gm in 100 mls @ 100 mls/hr 09/29/25 08:15 Albuminex 25% Ivpb IV Q30MIN PRN DIALYSIS Insulin Degludec 18 unit 09/28/25 21:00 09/28/25 20:23 Insulin Degludec 5 Unit/0.05 Ml (Per 5 Units) SC 10/28/25 20:59 18 unit HS YUDITH Administration Insulin Human Lispro 0 unit 09/28/25 17:00 09/28/25 16:41 Insulin Lispro (Admelog) 1 Unit/0.01 Ml Unit SC 10/28/25 16:59 2 unit AC YUDITH Administration Protocol Pantoprazole Sodium 40 mg 09/29/25 09:00 Pantoprazole 40 Mg Tablet PO 10/29/25 08:59 QDAY YUDITH Tuberculin PPD 5 unit 09/29/25 10:00 Tuberculin Ppd Inj 5 Unit/0.1 Ml Dose ID 09/29/25 10:01 X1 ONE Valsartan 40 mg 09/28/25 15:15 09/28/25 15:55 Valsartan 40 Mg Tablet PO 10/28/25 15:14 40 mg QDAY YUDITH Administration Plan Patient is a 64 year old tristanian speaking male with past medical history of CKD IV, HFrEF (EF 15-20%), CVA (06/05/25), HTN, insulin-dependent diabetes mellitus type 2, HCV treated, HLD who presents to ED from Dr. Newby's clinic for worsening shortness of breath for the past few weeks, as well as orthopnea and worsening extremity swelling. Nephrology consulted for fluid overload likely secondary to cardiorenal syndrome requiring dialysis. #Fluid overload 2/2 cardiorenal syndrome #RENATE on CKD IV #Renal hyperparathyroidism #Hx HFrEF (EF 15-20%) - Presenting with progressive shortness of breath for almost the past month, as well as orthopnea and upper and lower extremity swelling. Has gained 52 lbs over the past 6 weeks. Home medications include Bumex 2 mg daily, Lasix 40 mg daily, and valsartan 40 mg daily; however did not take Bumex yesterday. - Was previously seen in the ED on 09/20 for same complaint. BNP >3200, increased Bumex to 2 mg daily. - BNP 2549, trop mildly elevated at 0.069 (previously 0.054). EKG unremarkable. CXR shows mild to moderate vascular congestion. - BUN 81, Cr 3.7 (baseline 2.9-3.3). - Of note, on outpatient labs 09/13, PTH 790.2, phos 3.8. On admission calcium 8.1, corrected 8.5. May indicate worsening renal function. - Likely cardiorenal syndrome versus CHF exacerbation iso inadequate diuresis Plan: - NPO overnight - Scheduled for tunnel catheter insertion this AM followed by HD session today - Monitor INOs and respiratory status #AHRF #Anasarca #HFrEF (EF 25-50%) #CHF exacerbation #Hypertensive urgency #Elevated troponins #IDDM2 #Hx substance use - Defer to primary team for management Thank you for your consultation, please do not hesitate to reach out if you have any question or concern Patient plan of care was discussed with the attending physician, Dr. Newby. Silvana Wooten DO, PGY-1 Attending Provider Attestation/Addendum Patient currently seen and examined with resident physician Dr. Wooten. Note reviewed, agree with findings and recommendations. Patient currently seen in telemetry. Significant fluid overload-gained a 52 pounds in 1 month. Cardiorenal syndrome and nephrotic syndrome. Failed outpatient diuretic therapy. Will plan for initiation of dialysis tomorrow. Today started him on Bumex. Care discussed with primary team. 09/29/2025 dialysis catheter placed by Dr. Nicole. Patient currently seen on dialysis. Tolerating dialysis without any problems. Hemodialysis for 2 hours, 2K, ultrafiltration 1-1.5 L, Epogen 6000, no heparin ordered. Plan of care discussed with the dialysis nurse. Please see dialysis flowsheet for further details. Hepatitis, PPD ordered. Needs outpatient dialysis. Next dialysis scheduled for tomorrow.
[2025-09-29] MEDS: INSULIN DEGLUDEC 5 UNIT/0.05 ML (PER 5 UNITS) 10 UNIT SC (08:50)
[2025-09-29 08:57] LABS: Free T4 (Free Thyroxine) 1.00 ng/dL (0.89-1.76)
[2025-09-29] MEDS: HEPARIN SOD LOCK SYR 100 UNIT/ML 500 UNIT STFIELD (10:00)
[2025-09-29] MEDS: fentaNYL CIT INJ 50 mCg/ML AMP 2ML 75 MCG IVP (10:09)
[2025-09-29] MEDS: LIDOCAINE INJ PF 1% 5 ML VIAL 9 ML INFL (10:10)
[2025-09-29] MEDS: HEPARIN SOD INJ 1000 UNIT/ML VIAL 3500 UNIT INDWELLCAT (10:35)
[2025-09-29] MEDS: HEPARIN SOD INJ 1000 UNIT/ML VIAL 10 ML 3500 UNIT INDWELLCAT (11:25)
--- NOTE | 2025-09-29 16:58 | ESPR_ITS ---
<Statement entered by Lawanda Sibley MD - 10/10/25 09:18> I reviewed above note and agree with findings and plans. I have also personally examined the patient with medicine team and went over assessment and plan with medical team including [facility] internship and resident physician. Documentation for date of: 09/29/25 Subjective Subjective Interval history: No acute overnight events. Currently in dialysis tolerating well. Wound care was consulted for bilateral lower extremity possible cellulitis, notes that old blisters look is exacerated by edema no concern for infection. Exam Vital Signs Temp Pulse Resp BP Pulse Ox O2 Del Method O2 Flow Rate 97.7 F 88 20 143/100 H 100 Nasal Cannula 2 09/29/25 16:00 09/29/25 16:00 09/29/25 16:00 09/29/25 16:00 09/29/25 16:00 09/29/25 16:00 09/29/25 16:00 Narrative Exam General: Dyspneic but speaking in full sentences, visibly volume overloaded. HEENT: MMM, no JVD appreciated though exam limited by habitus. Lungs: Decreased breath sounds bilaterally at bases, slight crackles. Heart: Regular rate/rhythm. Abdomen: Soft, distended, non-tender. Extremities: 2+ pitting edema, diffuse anasarca. Neuro: AO?3, moving all extremities. Skin: Warm, intact. Objective Labs 09/30/25 04:17 09/30/25 04:17 Labs: Laboratory Results - last 24 hr 09/28/25 09/28/25 09/29/25 12:32 16:16 05:29 WBC 4.8 RBC 3.88 L Hgb 10.0 L Hct 32.0 L MCV 83 MCH 25.8 MCHC 31.3 RDW Std Deviation 52.0 H Plt Count 224 Neut % (Auto) 65 Lymph % (Auto) 16 [place] % (Auto) 14 H Eos % (Auto) 3 Baso % (Auto) 1 Neut # (Auto) 3.1 Lymph # (Auto) 0.8 L [place] # (Auto) 0.7 Eos # (Auto) 0.2 Baso # (Auto) 0.0 Immature Gran # (Auto) 0.02 H Absolute Nucleated RBC 0.00 Immature Gran % 0 Nucleated RBC % 0 Sodium 142 Potassium 4.5 Chloride 107 Carbon Dioxide 24.3 Anion Gap 11 BUN 81 H Creatinine 3.7 H Estim Creat Clear Calc 26.3 L eGFR 17 L BUN/Creatinine Ratio 22 H Glucose [address] Glu mg/dL 189 H Hemoglobin A1c 8.2 H Calculated Osmolality 319 H Calcium 7.9 L Corrected Calcium 8.5 Phosphorus 4.9 Magnesium 1.9 Total Bilirubin 0.3 AST 22 ALT 11 Alkaline Phosphatase 126 H Troponin I 0.066 H* Total Protein 6.1 Albumin 3.2 L Globulin 2.9 Albumin/Globulin Ratio 1.1 L TSH 13.09 H Free T4 1.00 Hepatitis A IgM Ab Non Reactive Hep Bs Antigen Non Reactive Hep Bs Antibody Reactive (Immune) Hep B Core IgM Ab Non Reactive Hepatitis C Antibody Reactive A Quality Measures Quality Measures VTE prophylaxis Assessment & Plan Assessment Current Active Medications: Generic Name Dose Route Start Last Admin Trade Name Freq PRN Reason Stop Dose Admin Acetaminophen 650 mg 09/28/25 15:14 Acetaminophen 325 Mg Tablet PO 10/28/25 15:13 Q6H PRN Fever >100.4 or pain 1-5 Ascorbic Acid 250 mg 09/29/25 21:00 Ascorbic Acid 250 Mg Tablet PO 10/29/25 20:59 BID YUDITH Atorvastatin Calcium 80 mg 09/28/25 21:00 09/28/25 20:24 Atorvastatin Calcium 20 Mg Tablet PO 10/28/25 20:59 80 mg HS YUDITH Administration Carvedilol 6.25 mg 09/28/25 21:00 09/29/25 09:00 Carvedilol 3.125 Mg Tablet PO 10/28/25 20:59 Not Given BID YUDITH Dextrose 25 ml 09/28/25 16:02 Dextrose 50%-Water Inj 50 Ml Syringe IV 10/28/25 16:01 Q15MIN PRN BG 50-70 responsive npo pt Dextrose 50 ml 09/28/25 16:02 Dextrose 50%-Water Inj 50 Ml Syringe IV 10/28/25 16:01 Q15MIN PRN BG <50 OR BG <70 & pt unresponsive Glucagon 1 mg 09/28/25 16:02 Glucagon Inj 1 Mg Vial IM Q15MIN PRN BG <70, and no IV access Heparin Sodium (Porcine) 5,000 unit 09/28/25 21:00 09/29/25 09:00 Heparin Sod Inj 5000 Unit/Ml Vial SC 10/12/25 20:59 Not Given Q12HR YUDITH Heparin Sodium (Porcine) 3,500 unit 09/29/25 12:06 Heparin Sod Inj 1000 Unit/Ml Vial 10 Ml INDWELLCAT 10/13/25 12:05 PRN PRN DIALYSIS Albumin Human 25 gm in 100 mls @ 100 mls/hr 09/29/25 08:15 Albuminex 25% Ivpb IV Q30MIN PRN DIALYSIS Insulin Degludec 18 unit 09/28/25 21:00 09/28/25 20:23 Insulin Degludec 5 Unit/0.05 Ml (Per 5 Units) SC 10/28/25 20:59 18 unit HS [facility] Administration Insulin Human Lispro 0 unit 09/28/25 17:00 09/29/25 11:30 Insulin Lispro (Admelog) 1 Unit/0.01 Ml Unit SC 10/28/25 16:59 Not Given AC [facility] Protocol Pantoprazole Sodium 40 mg 09/29/25 09:00 09/29/25 09:00 Pantoprazole 40 Mg Tablet PO 10/29/25 08:59 Not Given QDAY [facility] Valsartan 40 mg 09/28/25 15:15 09/29/25 09:00 Valsartan 40 Mg Tablet PO 10/28/25 15:14 Not Given QDAY [facility] Vitamin B Complex/Vit C/Folic Acid 1 tab 09/30/25 09:00 Vit B12/Vit C/Fa (Nephrovite) Tablet PO 10/30/25 08:59 QDAY [facility] Zinc Sulfate 220 mg 09/30/25 09:00 Zinc Sulfate 220 Mg Capsule PO 10/30/25 08:59 QDAY [facility] Plan 64-year-old male with advanced CKD, dilated cardiomyopathy with EF 25?30%, HTN, and insulin-dependent diabetes, sent by outpatient communications tower technician (Dr. Newby) for emergent dialysis evaluation presenting with progressive anasarca, worsening dyspnea, and acute hypoxic respiratory failure, now requiring 2 L NC (no home O2). # RENATE on CKD progressing to ESRD, severe volume overload Sent by nephrology specifically for dialysis initiation. Cr 3.7, GFR 17. BNP markedly elevated, extensive anasarca, respiratory compromise. Still making urine. In dialysis this morning, tolerating well. Plan: * Admit to telemetry. * Nephrology consulted (Dr. Newby): dialysis scheduled. * Strict I/O, daily weights. * Renally dose all meds. * Trend BMP daily. * Avoid nephrotoxins. # Acute Hypoxic Respiratory Failure Not on oxygen at home -> now on 2 L NC. Multifactorial: volume overload + HFrEF exacerbation + anasarca limiting lung expansion. CXR: mild?moderate CHF. Plan: * O2 as needed, goal >92%. * No fluids. * Dialysis today to help with decongestion. * Supportive respiratory care. # Anasarca / Severe Volume Overload Likely from ESRD + HFrEF. Plan: * Dialysis is definitive. * Fluid restriction 1.5 L/day, Na restriction 2 g/day. * Monitor response post-dialysis. # HFrEF # CHF exacerbation EF 25?30% (08/15/25 echo) Severe global hypokinesis, RVSP 62, moderate MR, mild?mod TR. Home meds inconsistent; patient unclear. Plan: * Started carvedilol 6.25 mg BID * Started valsartan 40 mg daily; will uptitrate later if needed. * Restarted atorvastatin 80 mg nightly * Avoid QT-prolonging meds (QTc 509). # Hypertensive urgency (176/115), improving Likely secondary to volume overload + medication noncompliance. Plan: * Restarted GDMT (carvedilol + valsartan). * Will continue to monitor BP * Adjust meds after dialysis once volume improves. # Troponinemia Troponin 0.069 last week 0.054 Likely secondary to RENATE Plan: * If remains stable will stop trend. # Diabetes mellitus, insulin dependent Uses long-acting insulin once daily, 22 units. Glucose 235 today. Plan: * Increased degludec to 25 units * Step 1 SSI. Health Maintenance: Disposition: Admit to telemetry. Hemodialysis. Feeding: Renal/2 g sodium diet. Fluid restrictions: 1500 cc. Thromboprophylaxis: Heparin SQ every 12 hours GI Prophylaxis: Pantoprazole 40 mg daily. Code Status: Full code ----- Plan discussed with attending physician Dr. Maryjo Barkley MD PGY-1 Internal Medicine
[2025-09-29] MEDS: TUBERCULIN PPD INJ 5 UNIT/0.1 ML DOSE ID (17:09)
[2025-09-29] MEDS: INSULIN LISPRO (AdmeLOG) 1 UNIT/0.01 ML UNIT SC (17:51)
--- NOTE | 2025-09-29 18:26 | ESCONSULT_ITS ---
<Statement entered by Sia Bonner MD - 10/04/25 12:43> I personally evaluated examined this patient on telemetry floor past medical history of methamphetamine use cocaine use came to us acutely decompensate congestive heart failure systolic heart failure and ejection fraction is less than 25% also developed renal failure as well patient's recommend to be IV diuretic therapy appears to be acutely decompensated not have any chest pain no recent drug use. Spent more than 40 minutes with history and physical examination along with resident physician PGY 2 Dr. Hui agree with the treatment plan recommendation as documented by resident physician will continue to follow the patient. 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 He was noted to have difficult time speaking due to the SOB. Patient denies knowing diagnosis of HF in the past. He is poor historian. States he has PND as well requring to sleep at upright angle at times. Unsure of his dry weght. Per chart review, patient has gained about 12 kg since beginning of June. Currently is taking furosemide 40 mg daily, Bumetanide 2 mg daily, valsartan 40 mg daily, Carvedilol (unsure of dose), and Atorvastatin 80 mg nightly. No longer on Eliqus. He endorses use of methamphetamine, THC, and heroin in the past. Denies getting any cardiac workup in past, follow with PCP from [facility]. Is poor historian. Cardiology was consulted for drug induced heart failure. cc:: cc: Lawanda Sibley MD Review of Systems Review of Systems Systems Reviewed: All systems reviewed, normal except as documented Exam Vital Signs Temp Pulse Resp BP Pulse Ox O2 Del Method O2 Flow Rate 97.7 F 88 20 143/100 H 100 Nasal Cannula 2 09/29/25 16:00 09/29/25 16:00 09/29/25 16:00 09/29/25 16:00 09/29/25 16:00 09/29/25 16:00 09/29/25 16:00 Narrative Exam General: Dyspneic but speaking in full sentences, visibly volume overloaded. HEENT: MMM, no JVD appreciated though exam limited by habitus. Lungs: Decreased breath sounds bilaterally at bases, slight crackles. Heart: Regular rate/rhythm. Abdomen: Soft, distended, non-tender. Extremities: 2+ pitting edema, diffuse anasarca. Neuro: AO?3, moving all extremities. Skin: Warm, intact. Results Labs 09/29/25 05:29 09/29/25 05:29 Labs: Short CBC 09/29/25 Range/Units 05:29 WBC 4.8 (3.8-10.6) Thou/mm3 Hgb 10.0 L (13.5-16.0) g/dL Hct 32.0 L (41.0-53.0) % Plt Count 224 (140-440) Thou/mm3 BMP 09/29/25 05:29 Sodium 142 Potassium 4.5 Chloride 107 Carbon Dioxide 24.3 BUN 81 H Creatinine 3.7 H Glucose 322 H D Calcium 7.9 L Liver Function 09/29/25 Range/Units 05:29 Total Bilirubin 0.3 (0.3-1.2) mg/dL AST 22 (0-34) U/L ALT 11 (10-49) U/L Alkaline Phosphatase 126 H (46-116) U/L Albumin 3.2 L (3.4-4.8) gm/dL Quality Measures Quality Measures VTE prophylaxis Medications Home Medications and Allergies Home Medications ?Medication ?Instructions ?Recorded ?Confirmed ?Type bumetanide 1 mg tablet 1 mg PO DAILY 06/05/2509/28 History Allergies Allergy/AdvReac Type Severity Reaction Status Date / Time No Known Allergies Allergy Verified 09/28/25 11:59 Visit Medications Acetaminophen (Acetaminophen 325 Mg Tablet) 650 mg PO Q6H PRN PRN Reason: Fever >100.4 or pain 1-5 Stop: 10/28/25 15:13 Ascorbic Acid (Ascorbic Acid 250 Mg Tablet) 250 mg PO BID YUDITH Stop: 10/29/25 20:59 Atorvastatin Calcium (Atorvastatin Calcium 20 Mg Tablet) 80 mg PO HS YUDITH Stop: 10/28/25 20:59 Last Admin: 09/28/25 20:24 Dose: 80 mg Carvedilol (Carvedilol 3.125 Mg Tablet) 6.25 mg PO BID [facility] Stop: 10/28/25 20:59 Last Admin: 09/29/25 09:00 Dose: Not Given Dextrose (Dextrose 50%-Water Inj 50 Ml Syringe) 25 ml IV Q15MIN PRN PRN Reason: BG 50-70 responsive npo pt Stop: 10/28/25 16:01 Dextrose (Dextrose 50%-Water Inj 50 Ml Syringe) 50 ml IV Q15MIN PRN PRN Reason: BG <50 OR BG <70 & pt unresponsive Stop: 10/28/25 16:01 Glucagon (Glucagon Inj 1 Mg Vial) 1 mg IM Q15MIN PRN PRN Reason: BG <70, and no IV access Heparin Sodium (Porcine) (Heparin Sod Inj 5000 Unit/Ml Vial) 5,000 unit SC Q12HR [facility] Stop: 10/12/25 20:59 Last Admin: 09/29/25 09:00 Dose: Not Given Heparin Sodium (Porcine) (Heparin Sod Inj 1000 Unit/Ml Vial 10 Ml) 3,500 unit [facility]WELL[facility] PRN PRN PRN Reason: DIALYSIS Stop: 10/13/25 12:05 Albumin Human (Albuminex 25% Ivpb) 25 gm in 100 mls @ 100 mls/hr IV Q30MIN PRN PRN Reason: DIALYSIS Insulin Degludec (Insulin Degludec 5 Unit/0.05 Ml (Per 5 Units)) 18 unit SC [facility] Stop: 10/28/25 20:59 Last Admin: 09/28/25 20:23 Dose: 18 unit Insulin Human Lispro (Insulin Lispro (Admelog) 1 Unit/0.01 Ml Unit) 0 unit SC AC [facility]; Protocol Stop: 10/28/25 16:59 Last Admin: 09/29/25 17:51 Dose: 2 unit Pantoprazole Sodium (Pantoprazole 40 Mg Tablet) 40 mg PO QDAY [facility] Stop: 10/29/25 08:59 Last Admin: 09/29/25 09:00 Dose: Not Given Valsartan (Valsartan 40 Mg Tablet) 40 mg PO QDAY [facility] Stop: 10/28/25 15:14 Last Admin: 09/29/25 09:00 Dose: Not Given Vitamin B Complex/Vit C/Folic Acid (Vit B12/Vit C/Fa (Nephrovite) Tablet) 1 tab PO QDAY [facility] Stop: 10/30/25 08:59 Zinc Sulfate (Zinc Sulfate 220 Mg Capsule) 220 mg PO QDAY [facility] Stop: 10/30/25 08:59 Discontinued Medications Fentanyl Citrate (Fentanyl Cit Inj 50 Mcg/Ml Amp 2ml) 75 mcg IVP X1 ONE Stop: 09/29/25 10:01 Last Admin: 09/29/25 10:09 Dose: 75 mcg Heparin Sodium (Beef Lung) (Heparin Sod Lock Syr 100 Unit/Ml) 500 unit [place] X1 ONE Stop: 09/29/25 10:01 Last Admin: 09/29/25 10:00 Dose: 500 unit Heparin Sodium (Porcine) (Heparin Sod Inj 1000 Unit/Ml Vial) 3,500 unit INDWELLCAT X1 ONE Stop: 09/29/25 10:21 Last Admin: 09/29/25 10:35 Dose: 3,500 unit Bumetanide 10 mg/ IV (Miscellaneous Supplies) 40 mls @ 2 mls/hr IV .Q20H ONE Stop: 09/29/25 09:14 Last Admin: 09/28/25 14:04 Dose: Not Given Bumetanide 20 mg/ IV (Miscellaneous Supplies) 80 mls @ 8 mls/hr IV .Q10H ONE Stop: 09/28/25 23:21 Last Admin: 09/28/25 13:57 Dose: 2 mg/hr, 8 mls/hr Insulin Degludec (Insulin Degludec 5 Unit/0.05 Ml (Per 5 Units)) 10 unit SC X1 ONE Stop: 09/29/25 08:05 Last Admin: 09/29/25 08:50 Dose: 10 unit Lidocaine HCl (Lidocaine Inj Pf 1% 5 Ml Vial) 9 ml INFL X1 ONE Stop: 09/29/25 10:01 Last Admin: 09/29/25 10:10 Dose: 9 ml Ondansetron HCl (Ondansetron Inj 2 Mg/Ml Inj 2 Ml) 4 mg IVP Q6H PRN; Protocol PRN Reason: NAUSEA OR VOMITING Stop: 10/28/25 15:13 Tuberculin PPD (Tuberculin Ppd Inj 5 Unit/0.1 Ml Dose) 5 unit ID X1 ONE Stop: 09/29/25 10:01 Last Admin: 09/29/25 17:09 Dose: 5 unit Assessment & Plan Plan Patient is 64 yr male with PMH of CKD IV, dilated cardiomyopathy with EF 25?30%, HTN, and insulin-dependent diabetes, embolic stroke, non occulsive DVT 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 Cardiology was consulted for drug induced heart failure. # Acute Hypoxic Respiratory Failure #Acute decompensated chronic systolic HF 2/ #Drug use #Volume overloaded #RENATE on CKD IV #NYHA class IV Echo from 08/15--Dilated cardiomyopathy severe global hypokinesis LVEF estimated at 25-30%. [facility] hypertension, The estimated RVSP, 62 mmHg. RAP 15. Patient is noncompliant with her medications however states that he takes Lasix 40 mg daily. Shortness of breath has been worsening since past couple of months. Has not had any cardiac workup done outpatient. No history of HI. 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 Appears to be fluid overloaded on physical exam with +2 pitting edema lower extremity, mild crackles auscultated lung. No JVD. Dyspneic during conversation. Anticipate RENATE to improve with continued aggressive diuresis as most likely component of heart failure. NYHA class IV, AHA class D. -bumetanide drip held as patient underwent HD session today -daily weights -strict INOs -low sodium diet -restrict fluid to 1500mL -keep potassium >4, mag >2 -daily CBC, CMP -Patient is not a candidate for ICD due to class of HF -carvedilol 6.25 mg BID -valsartan 40 mg daily -atorvastatin 80 mg nightly -continue to optimize GDMT -trend troponins -outpatient follow up in [facility] #History of type 2 diabetes The patient's management plan was discussed with my attending physician Dr. Bonner. Daija Barroso, PGY-2
[2025-09-29] MEDS: ATORVASTATIN CALCIUM 20 MG TABLET 80 MG PO (20:27)
[2025-09-29] MEDS: ASCORBIC ACID 250 MG TABLET PO (20:27)
[2025-09-29] MEDS: INSULIN DEGLUDEC 5 UNIT/0.05 ML (PER 5 UNITS) 25 UNIT SC (20:28)
[2025-09-29] MEDS: HEPARIN SOD INJ 5000 UNIT/ML VIAL SC (20:28)
[2025-09-30] VITALS (23 sets, daily range): BP systolic 133–152; BP diastolic 82–103; PULSE 80–88; RESP 14–19; TEMP 36–37.2; O2SAT 97–99; BMI 33.1
[2025-09-30 05:14] LABS: Basophils # (Auto) 0.0 Thou/mm3 (0.0-0.2); Basophils % (Auto) 1 % (0-2.5); Eosinophils # (Auto) 0.1 Thou/mm3 (0.0-0.5); Eosinophils % (Auto) 2 % (0-10); Hematocrit 32.9 % (41.0-53.0); Hemoglobin 10.3 g/dL (13.5-16.0); Immature Granulocytes Auto 0.01 Thou/mm3 (0.00-0.00); Lymphocytes # (Auto) 0.8 Thou/mm3 (1.0-4.8); Lymphocytes % (Auto) 17 % (10-50); Mean Corpuscular HGB Conc 31.3 g/dl (31.0-37.0); Mean Corpuscular Hemoglobin 25.6 pg (25.0-35.0); Mean Corpuscular Volume 82 fL (80-100); Monocytes # (Auto) 0.6 Thou/mm3 (0.0-0.8); Monocytes % (Auto) 12 % (0-12); Neutrophils # (Auto) 3.1 Thou/mm3 (1.8-7.7); Neutrophils % (Auto) 67 % (37-80); Nucleated Red Blood Cell # 0.00 Thou/mm3 (0.00-0.00); Nucleated Red Blood Cell % 0 /100 WBC (0); Platelet Count 196 Thou/mm3 (140-440); RDW Standard Deviation 51.9 fL (35.1-43.9); Red Blood Count 4.02 Miln/mm3 (4.50-5.90); White Blood Count 4.6 Thou/mm3 (3.8-10.6)
[2025-09-30 06:10] LABS: Alanine Aminotransferase 10 U/L (10-49); Albumin, Serum 3.1 gm/dL (3.4-4.8); Albumin/Globulin Ratio 1.1 (1.2-2.2); Alkaline Phosphatase 105 U/L (46-116); Anion Gap 10 (7-16); Aspartate Amino Transferase 16 U/L (0-34); BUN/Creatinine Ratio 19 Ratio (12-20); Bilirubin,Total 0.6 mg/dL (0.3-1.2); Blood Urea Nitrogen 66 mg/dL (9-23); Calcium 7.9 mg/dL (8.3-10.6); Calcium (Corrected) 8.6 mg/dL (8.5-10.1); Carbon Dioxide 26.8 mMol/L (20.0-31.0); Chloride 105 mMol/L (98-107); Creatinine (Component) 3.4 mg/dL (0.6-1.3); Estimated Creatinine Clearance 28.3 mL/min (>60); Globulin 2.9 gm/dL (2.3-3.5); Glucose 198 mg/dL (74-106); Magnesium 1.9 mg/dL (1.6-2.6); Osmolality,Calculated 308 (275-295); Phosphorous 4.1 mg/dL (2.4-5.1); Potassium 4.2 mMol/L (3.4-5.1); Sodium 142 mMol/L (136-145); Total Protein 6.0 gm/dL (5.7-8.2); eGFR 19 See Note
--- NOTE | 2025-09-30 09:42 | PC.SS ---
SS utilized XM Fax to send clinicals to [facility] [phone] for a new chair chair time.
--- NOTE | 2025-09-30 09:46 | PD.RESPRO ---
Documentation for date of: 09/30/25 Subjective Subjective Interval history: History of present illness: Patient is a 64 year old pitcairn islander speaking male with past medical history of CKD IV, HFrEF (EF 15-20%), CVA (06/05/25), HTN, insulin-dependent diabetes mellitus type 2, HCV treated, HLD who presents to ED from Dr. Newby's clinic for worsening shortness of breath for the past few weeks. Also endorses orthopnea and dyspnea on exertion. On exam, has worsening upper and lower extremity swelling, ongoing for the past few days. Has not taken his Bumex 2mg since yesterday but reports taking his Lasix 40 mg today. Patient has gained 52 lbs over the past 6 weeks. On exam, patient had bilateral crackles and was barely able to complete his sentences due to difficulty breathing. Saturating 95-98% on room air. BP 176/115 at bedside. CXR showed mild to moderate CHF with prominent vascular congestion including central vascular engorgement with perihilar basilar edema. Potassium 4.1, BUN 81, Cr 3.7 (baseline 2.9-3.3), GFR 17 (baseline 21-22), corrected calcium 8.5. BNP 2549, appears to be chronically elevated. Of note, PTH on 09/13 790.2. Past Medical History: as above Family History: noncontributory Surgical History: none Social History: Drinks alcohol, denies tobacco use. Intermittently smokes marijuana. Previously used meth and cocaine over 20 years ago but denies current illicit drug use. Current Medications: atorvastatin 40 mg daily, valsartan 40 mg daily, carvedilol 3.125 mg BID, Bumex 2 mg daily, and Lasix 40 mg daily (pending official med rec) Allergies: No known drug allergies Started patient on Bumex drip 2mg/hr in ED. Nephrology consulted for fluid overload possibly requiring hemodialysis. 09/29/25: Patient seen and assessed at bedside. Urine output 2L overnight s/p Bumex drip. BUN and Cr stable. Scheduled for tunnel dialysis catheter placement and HD session today. 09/30/25: Patient seen and assessed during dialysis. Tolerating dialysis well. Maintaining good urine output (2.7L overnight). HD port in right IJ placed by IR and removed 1L yesterday. Lung sounds clear but continues to have significant lower extremity edema on exam. Continue dialysis today and tomorrow. Exam Vital Signs Temp Pulse Resp BP Pulse Ox O2 Del Method O2 Flow Rate 97.6 F 80 16 148/88 H 98 Nasal Cannula 2 09/30/25 08:37 09/30/25 09:33 09/30/25 08:37 09/30/25 09:33 09/30/25 08:37 09/30/25 08:00 09/30/25 08:37 Narrative Exam Physical Exam General: Awake and in no acute distress, saturating well on 1L NC. Conversational. Amharic speaking. HEENT: Normocephalic, atraumatic, mucous membranes moist. Heart: Regular rate and rhythm, normal S1 and S2, no murmurs appreciated. Lungs: Clear to ausculation bilaterally. Abdomen: Soft, nondistended, nontender, positive bowel sounds. No guarding or rebound tenderness. : Groin swelling, nontender, nonerythematous. Neurologic: Alert and oriented x3, no gross neurological deficit, and patient able to move all 4 extremities. Extremities: 3+ pitting lower extremity edema extending up to knees. Non-pitting edema of bilateral upper extremities, improved. Skin: Cellulitis of bilateral lower legs, tender and erythematous, R>L. Superficial open wounds with minimal drainage. No rash or ecchymoses. Objective Labs 09/30/25 04:17 09/30/25 04:17 Labs: Laboratory Results - last 24 hr 09/30/25 04:17 WBC 4.6 RBC 4.02 L Hgb 10.3 L Hct 32.9 L MCV 82 MCH 25.6 MCHC 31.3 RDW Std Deviation 51.9 H Plt Count 196 Neut % (Auto) 67 Lymph % (Auto) 17 Edgar % (Auto) 12 Eos % (Auto) 2 Baso % (Auto) 1 Neut # (Auto) 3.1 Lymph # (Auto) 0.8 L Edgar # (Auto) 0.6 Eos # (Auto) 0.1 Baso # (Auto) 0.0 Immature Gran # (Auto) 0.01 H Absolute Nucleated RBC 0.00 Immature Gran % 0 Nucleated RBC % 0 Sodium 142 Potassium 4.2 Chloride 105 Carbon Dioxide 26.8 Anion Gap 10 BUN 66 H Creatinine 3.4 H Estim Creat Clear Calc 28.3 L eGFR 19 L BUN/Creatinine Ratio 19 Glucose 198 H D Calculated Osmolality 308 H Calcium 7.9 L Corrected Calcium 8.6 Phosphorus 4.1 Magnesium 1.9 Total Bilirubin 0.6 AST 16 ALT 10 Alkaline Phosphatase 105 D Total Protein 6.0 Albumin 3.1 L Globulin 2.9 Albumin/Globulin Ratio 1.1 L Quality Measures Quality Measures VTE prophylaxis Assessment & Plan Assessment Current Active Medications: Generic Name Dose Route Start Last Admin Trade Name Freq PRN Reason Stop Dose Admin Acetaminophen 650 mg 09/28/25 15:14 Acetaminophen 325 Mg Tablet PO 10/28/25 15:13 Q6H PRN Fever >100.4 or pain 1-5 Ascorbic Acid 250 mg 09/29/25 21:00 09/29/25 20:27 Ascorbic Acid 250 Mg Tablet PO 10/29/25 20:59 250 mg BID YUDITH Administration Atorvastatin Calcium 80 mg 09/28/25 21:00 09/29/25 20:27 Atorvastatin Calcium 20 Mg Tablet PO 10/28/25 20:59 80 mg HS YUDITH Administration Carvedilol 6.25 mg 09/28/25 21:00 09/29/25 20:27 Carvedilol 3.125 Mg Tablet PO 10/28/25 20:59 6.25 mg BID YUDITH Administration Dextrose 25 ml 09/28/25 16:02 Dextrose 50%-Water Inj 50 Ml Syringe IV 10/28/25 16:01 Q15MIN PRN BG 50-70 responsive npo pt Dextrose 50 ml 09/28/25 16:02 Dextrose 50%-Water Inj 50 Ml Syringe IV 10/28/25 16:01 Q15MIN PRN BG <50 OR BG <70 & pt unresponsive Glucagon 1 mg 09/28/25 16:02 Glucagon Inj 1 Mg Vial IM Q15MIN PRN BG <70, and no IV access Heparin Sodium (Porcine) 5,000 unit 09/28/25 21:00 09/29/25 20:28 Heparin Sod Inj 5000 Unit/Ml Vial SC 10/12/25 20:59 5,000 unit Q12HR YUDITH Administration Heparin Sodium (Porcine) 3,500 unit 09/29/25 12:06 Heparin Sod Inj 1000 Unit/Ml Vial 10 Ml [facility] 10/13/25 12:05 PRN PRN DIALYSIS Albumin Human 25 gm in 100 mls @ 100 mls/hr 09/29/25 08:15 Albuminex 25% Ivpb IV Q30MIN PRN DIALYSIS Insulin Degludec 30 unit 09/30/25 21:00 Insulin Degludec 5 Unit/0.05 Ml (Per 5 Units) SC 10/30/25 20:59 HS [facility] Insulin Human Lispro 0 unit 09/28/25 17:00 09/29/25 17:51 Insulin Lispro (Admelog) 1 Unit/0.01 Ml Unit SC 10/28/25 16:59 2 unit [facility] Administration Protocol Pantoprazole Sodium 40 mg 09/29/25 09:00 09/29/25 09:00 Pantoprazole 40 Mg Tablet PO 10/29/25 08:59 Not Given QDAY YUDITH Valsartan 40 mg 09/28/25 15:15 09/29/25 09:00 Valsartan 40 Mg Tablet PO 10/28/25 15:14 Not Given QDAY YUDITH Vitamin B Complex/Vit C/Folic Acid 1 tab 09/30/25 09:00 Vit B12/Vit C/Fa (Nephrovite) Tablet PO 10/30/25 08:59 QDAY YUDITH Zinc Sulfate 220 mg 09/30/25 09:00 Zinc Sulfate 220 Mg Capsule PO 10/30/25 08:59 QDAY YUDITH Plan Patient is a 64 year old pitcairn islander speaking male with past medical history of CKD IV, HFrEF (EF 25-30%), CVA (06/05/25), HTN, insulin-dependent diabetes mellitus type 2, HCV treated, HLD who presents to ED from Dr. Newby's clinic for worsening shortness of breath for the past few weeks, as well as orthopnea and worsening extremity swelling. Nephrology consulted for fluid overload likely secondary to cardiorenal syndrome requiring dialysis. #Fluid overload 2/2 cardiorenal syndrome and nephrotic syndrome #Dialysis MWF #RENATE on CKD IV #Renal hyperparathyroidism #Hx HFrEF (EF 25-30%) 2/2 dilated cardiomyopathy and global hypokinesis #Hx Hepatitis C - Presenting with progressive shortness of breath for almost the past month, as well as orthopnea and upper and lower extremity swelling. Has gained 52 lbs over the past 6 weeks. Home medications include Bumex 2 mg daily, Lasix 40 mg daily, and valsartan 40 mg daily; however did not take Bumex prior to admission. - Was previously seen in the ED on 09/20 for same complaint. BNP >3200, increased Bumex to 2 mg daily. - BNP 2549, trop mildly elevated at 0.069 (previously 0.054). EKG unremarkable. CXR shows mild to moderate vascular congestion. - BUN 81, Cr 3.7 (baseline 2.9-3.3). - Of note, on outpatient labs 09/13, PTH 790.2, phos 3.8. On admission calcium 8.1, corrected 8.5. May indicate worsening renal function. - (09/13) Random urine microalbumin 3789, ratio 5655. Likely nephrotic syndrome but pending renal biopsy. - Echo 08/15 showed dilated cardiomyopathy with severe global hypokinesis, EF 25-30%% with moderate pulm hypertension - Dialysis catheter placed 09/29 by IR - Likely cardiorenal syndrome versus CHF exacerbation iso inadequate diuresis Plan: - S/p HD 09/29 (-1L), plan for dialysis today and tomorrow. Pending outpatient dialysis chair. - Follow up PPD results tomorrow - Monitor INOs and respiratory status #AHRF #Anasarca #HFrEF (EF 25-50%) #CHF exacerbation #Hypertensive urgency #Elevated troponins #IDDM2 #Cellulitis lower extremities #Hx substance use - Defer to primary team for management Thank you for your consultation, please do not hesitate to reach out if you have any question or concern Patient plan of care was discussed with the attending physician, Dr. Newby. Silvana Wooten DO, PGY-1 Attending Provider Attestation/Addendum Patient currently seen and examined with resident physician Dr. Wooten. Note reviewed, agree with findings and recommendations. Patient currently seen in telemetry. Significant fluid overload-gained a 52 pounds in 1 month. Cardiorenal syndrome and nephrotic syndrome. Failed outpatient diuretic therapy. Will plan for initiation of dialysis tomorrow. Today started him on Bumex. Care discussed with primary team. 09/30/2025 dialysis catheter placed by Dr. Nicole. Patient currently seen on second dialysis. Tolerating dialysis without any problems. Hemodialysis for 2.5 hours, seq ultrafiltration 1-1.5 L, Epogen 6000, no heparin ordered. Plan of care discussed with the dialysis nurse. Please see dialysis flowsheet for further details. Hepatitis, PPD ordered. Needs outpatient dialysis. Next dialysis scheduled for tomorrow.
[2025-09-30] MEDS: HEPARIN SOD INJ 1000 UNIT/ML VIAL 10 ML 3500 UNIT INDWELLCAT (11:08)
[2025-09-30] MEDS: INSULIN LISPRO (AdmeLOG) 1 UNIT/0.01 ML UNIT SC ×2 (11:57→17:10)
--- NOTE | 2025-09-30 12:57 | PC.SS ---
Pradip Baldwin is a 64 year-old male admitted to [facility] for Emergent HD. SS conducted bedside contact with the patient to complete initial assessment and to discuss discharge planning with food service hotel runner Tracy. Role and reason explained. Patient confirmed demographic information. Patient identifies his Shannan Baldwin [phone] as his surrogate decision maker. Pt states he is able to complete all ADL?s independent. Pt does not possesses any DME but a cane. Pts PCP is [facility] (last visit was 3 days ago). Pharmacy of choice is [facility]. Pt will be a new HD patient of Dr. Newby, pending chair time. Pt does not work, and possesses transport through his insurance to help during the week. Discharge options discussed and the pt wishes to return home.? Pt family will provide transport. No further intervention required at this time, social media coordinator would be available to address any further concerns. DC Plan: Home Contact: , Shannan Baldwin Address: Confirmed on face sheet PCP: Payal ?
--- NOTE | 2025-09-30 13:04 | ESPR_ITS ---
<Statement entered by Lawanda Sibley MD - 10/10/25 09:19> I reviewed above note and agree with findings and plans. I have also personally examined the patient with medicine team and went over assessment and plan with medical team including internet marketing analyst and resident physician. <Statement entered by Dirk Gold MD - 09/30/25 14:47> Patient was examined and case was reviewed with team including attending physician. Note reviewed, I agree with most of its contents and agree with the patient's care as documented by Dr. Barkley patient seen today at the bedside found awake, alert, orientedx3. No overnight events reported. Vitals and labs reviewed. Pending HD dialysis sessionx2 and is set up for outpatient hemodialysis. Case discussed with my attending Dr. Maryjo Gold MD PGY-2 Disclaimer: Despite multiple revisions, due to the dictation software being used, the document bellow may not be free of grammatical errors including phonetic/typographic errors. However, this does not deter from our commitment to providing health care in the patient's best interest in mind. Documentation for date of: 09/30/25 Subjective Subjective Interval history: No acute overnight events. Currently in dialysis tolerating well. Patient still appears overloaded Exam Vital Signs Temp Pulse Resp BP Pulse Ox O2 Del Method O2 Flow Rate 96.8 F 81 16 149/103 H 98 Nasal Cannula 2 09/30/25 11:23 09/30/25 12:12 09/30/25 12:12 09/30/25 11:23 09/30/25 12:12 09/30/25 08:00 09/30/25 12:12 Narrative Exam General: Dyspneic but speaking in full sentences, visibly volume overloaded. HEENT: MMM, no JVD appreciated though exam limited by habitus. Lungs: Decreased breath sounds bilaterally at bases, slight crackles. Heart: Regular rate/rhythm. Abdomen: Soft, distended, non-tender. Extremities: 2+ pitting edema, diffuse anasarca. Neuro: AO?3, moving all extremities. Skin: Warm, intact. Objective Labs 09/30/25 04:17 09/30/25 04:17 Labs: Laboratory Results - last 24 hr 09/30/25 04:17 WBC 4.6 RBC 4.02 L Hgb 10.3 L Hct 32.9 L MCV 82 MCH 25.6 MCHC 31.3 RDW Std Deviation 51.9 H Plt Count 196 Neut % (Auto) 67 Lymph % (Auto) 17 [place] % (Auto) 12 Eos % (Auto) 2 Baso % (Auto) 1 Neut # (Auto) 3.1 Lymph # (Auto) 0.[address] [place] # (Auto) 0.6 Eos # (Auto) 0.1 Baso # (Auto) 0.0 Immature Gran # (Auto) 0.01 H Absolute Nucleated RBC 0.00 Immature Gran % 0 Nucleated RBC % 0 Sodium 142 Potassium 4.2 Chloride 105 Carbon Dioxide 26.8 Anion Gap 10 BUN 66 H Creatinine 3.4 H Estim Creat Clear Calc 28.3 L eGFR 19 L BUN/Creatinine Ratio 19 Glucose 198 H D Calculated Osmolality 308 H Calcium 7.9 L Corrected Calcium 8.6 Phosphorus 4.1 Magnesium 1.9 Total Bilirubin 0.6 AST 16 ALT 10 Alkaline Phosphatase 105 D Total Protein 6.0 Albumin 3.1 L Globulin 2.9 Albumin/Globulin Ratio 1.1 L Quality Measures Quality Measures VTE prophylaxis Assessment & Plan Assessment Current Active Medications: Generic Name Dose Route Start Last Admin Trade Name Freq PRN Reason Stop Dose Admin Acetaminophen 650 mg 09/28/25 15:14 Acetaminophen 325 Mg Tablet PO 10/28/25 15:13 Q6H PRN Fever >100.4 or pain 1-5 Ascorbic Acid 250 mg 09/29/25 21:00 09/30/25 10:11 Ascorbic Acid 250 Mg Tablet PO 10/29/25 20:59 Not Given BID YUDITH Atorvastatin Calcium 80 mg 09/28/25 21:00 09/29/25 20:27 Atorvastatin Calcium 20 Mg Tablet PO 10/28/25 20:59 80 mg HS YUDITH Administration Carvedilol 6.25 mg 09/28/25 21:00 09/30/25 10:11 Carvedilol 3.125 Mg Tablet PO 10/28/25 20:59 Not Given BID YUDITH Dextrose 25 ml 09/28/25 16:02 Dextrose 50%-Water Inj 50 Ml Syringe IV 10/28/25 16:01 Q15MIN PRN BG 50-70 responsive npo pt Dextrose 50 ml 09/28/25 16:02 Dextrose 50%-Water Inj 50 Ml Syringe IV 10/28/25 16:01 Q15MIN PRN BG <50 OR BG <70 & pt unresponsive Glucagon 1 mg 09/28/25 16:02 Glucagon Inj 1 Mg Vial IM Q15MIN PRN BG <70, and no IV access Heparin Sodium (Porcine) 5,000 unit 09/28/25 21:00 09/30/25 10:12 Heparin Sod Inj 5000 Unit/Ml Vial SC 10/12/25 20:59 Not Given Q12HR YUDITH Heparin Sodium (Porcine) 3,500 unit 09/29/25 12:06 09/30/25 11:08 Heparin Sod Inj 1000 Unit/Ml Vial 10 Ml INDWELLCAT 10/13/25 12:05 3,500 unit PRN PRN Administration DIALYSIS Albumin Human 25 gm in 100 mls @ 100 mls/hr 09/29/25 08:15 Albuminex 25% Ivpb IV Q30MIN PRN DIALYSIS Insulin Degludec 30 unit 09/30/25 21:00 Insulin Degludec 5 Unit/0.05 Ml (Per 5 Units) SC 10/30/25 20:59 HS [facility] Insulin Human Lispro 0 unit 09/28/25 17:00 09/30/25 11:57 Insulin Lispro (Admelog) 1 Unit/0.01 Ml Unit SC 10/28/25 16:59 1 unit AC [facility] Administration Protocol Pantoprazole Sodium 40 mg 09/29/25 09:00 09/30/25 10:11 Pantoprazole 40 Mg Tablet PO 10/29/25 08:59 Not Given QDAY [facility] Valsartan 40 mg 09/28/25 15:15 09/30/25 10:11 Valsartan 40 Mg Tablet PO 10/28/25 15:14 Not Given QDAY [facility] Vitamin B Complex/Vit C/Folic Acid 1 tab 09/30/25 09:00 09/30/25 10:11 Vit B12/Vit C/Fa (Nephrovite) Tablet PO 10/30/25 08:59 Not Given QDAY [facility] Zinc Sulfate 220 mg 09/30/25 09:00 09/30/25 10:11 Zinc Sulfate 220 Mg Capsule PO 10/30/25 08:59 Not Given QDAY [facility] Plan 64-year-old male with cardiorenal syndrome, acute decompensated HFrEF (EF 25?30%), RENATE on CKD IV progressing to ESRD, severe volume overload, and insulin- dependent diabetes, currently undergoing inpatient dialysis, still significantly overloaded but clinically improving, scheduled for third dialysis session tomorrow to secure outpatient dialysis placement. # RENATE on CKD progressing to ESRD, severe volume overload Sent by nephrology specifically for dialysis initiation. Cr 3.7, GFR 17. BNP markedly elevated, extensive anasarca, respiratory compromise. Still making urine. In dialysis this morning, tolerating well. Scheduled for third dialysis session tomorrow to secure outpatient dialysis placement. Plan: * Admit to telemetry. * Nephrology consulted (Dr. Newby): dialysis scheduled. * Strict I/O, daily weights. * Renally dose all meds. * Trend BMP daily. * Avoid nephrotoxins. # Acute Hypoxic Respiratory Failure Not on oxygen at home -> now on 2 L NC. Multifactorial: volume overload + HFrEF exacerbation + anasarca limiting lung expansion. CXR: mild?moderate CHF. Plan: * O2 as needed, goal >92%. * No fluids. * Dialysis today to help with decongestion. * Supportive respiratory care. # Anasarca / Severe Volume Overload Likely from ESRD + HFrEF. Plan: * Dialysis is definitive. * Fluid restriction 1.5 L/day, Na restriction 2 g/day. * Monitor response post-dialysis. # HFrEF # CHF exacerbation EF 25?30% (08/15/25 echo) Severe global hypokinesis, RVSP 62, moderate MR, mild?mod TR. Home meds inconsistent; patient unclear. Plan: * Started carvedilol 6.25 mg BID * Started valsartan 40 mg daily; will uptitrate later if needed. * Restarted atorvastatin 80 mg nightly * Avoid QT-prolonging meds (QTc 509). # Hypertensive urgency (176/115), improving Likely secondary to volume overload + medication noncompliance. Plan: * Restarted GDMT (carvedilol + valsartan). * Will continue to monitor BP * Adjust meds after dialysis once volume improves. # Troponinemia Troponin 0.069 last week 0.054 Likely secondary to RENATE Plan: * If remains stable will stop trend. # Diabetes mellitus, insulin dependent Uses long-acting insulin once daily, 22 units. Glucose 235 today. Plan: * Increased degludec to 25 units * Step 1 SSI. Health Maintenance: Disposition: Admit to telemetry. Hemodialysis. Feeding: Renal/2 g sodium diet. Fluid restrictions: 1500 cc. Thromboprophylaxis: Heparin SQ every 12 hours GI Prophylaxis: Pantoprazole 40 mg daily. Code Status: Full code ----- Plan discussed with attending physician Dr. Sibley and senior resident Dr. Kain Barkley MD PGY-1 Internal Medicine
--- NOTE | 2025-09-30 15:33 | ESPR_ITS ---
<Statement entered by Sia Bonner MD - 10/03/25 08:58> I personally examined this patient evaluated the patient with PGY 2 Dr. Hui patient appears to be clinically stable history of HFrEF secondary to nonischemic cardiomyopathy low ejection fraction possibly from past drug use methamphetamine also has a chronic kidney disease heart failure decompensation now appears to be improving slowly gradually patient's strongly recommended and counseled not to use any more substance abuse agree with the treatment plan recommendation as documented by resident physician will continue to monitor the patient. Documentation for date of: 09/30/25 Subjective Subjective Interval history: Patient is 64 yr male with PMH of CKD IV, dilated cardiomyopathy with EF 25?30%, HTN, and insulin-dependent diabetes, embolic stroke, non occulsive DVT sent by clam treader to hospital due to worsening SOB since past few weeks. He was noted to have difficult time speaking due to the SOB. Patient denies knowing diagnosis of HF in the past. He is poor historian. States he has PND as well requring to sleep at upright angle at times. Unsure of his dry weght. Per chart review, patient has gained about 12 kg since beginning of June. Currently is taking furosemide 40 mg daily, Bumetanide 2 mg daily, valsartan 40 mg daily, Carvedilol (unsure of dose), and Atorvastatin 80 mg nightly. No longer on Eliqus. He endorses use of methamphetamine, THC, and heroin in the past. Denies getting any cardiac workup in past, follow with PCP from [facility]. Is poor historian. Cardiology was consulted for drug induced heart failure. 09/30: Patient examined at bedside. Shortness of breath much improved from yesterday. Remains on 2 L nasal cannula, urine output -1.5 L past 24 hours. LE swelling +1. He is to undergo second dialysis session inpatient. Will continue outpatient dialysis after discharge. Continue Coreg and valsartan as part of GDMT. Start spironolactone 25mg daily to continue optimization. Patient is poor candiate for ICD placement. He will need close follow up care with PCP. Exam Vital Signs Temp Pulse Resp BP Pulse Ox O2 Del Method O2 Flow Rate 97.7 F 81 16 145/100 H 98 Nasal Cannula 2 09/30/25 12:00 09/30/25 12:12 09/30/25 12:12 09/30/25 12:00 09/30/25 12:12 09/30/25 12:00 09/30/25 12:12 Narrative Exam General: Alert and oriented x3. No acute distress, cooperative HEENT: NCAT, No JVD noted. Mucosa moist. Pupils are equal and reactive to light bilaterally Cardiovascular: Normal S1 and S2. Regular rate and rhythm. Respiratory: Lungs are clear to auscultation bilaterally. No wheezing or crackles heard. Abdomen: Soft, nontender, not distended, normal bowel sounds. Skin: Warm to touch, dry, no rashes noted Musculoskeletal: No gross injuries. Able to move all 4 extremities. +1 pitting edema Neuro: Alert and oriented x3. No focal neuro deficits. Psych: Normal affect and mood Objective Labs 09/30/25 04:17 09/30/25 04:17 Labs: Laboratory Results - last 24 hr 09/30/25 04:17 WBC 4.6 RBC 4.02 L Hgb 10.3 L Hct 32.9 L MCV 82 MCH 25.6 MCHC 31.3 RDW Std Deviation 51.9 H Plt Count 196 Neut % (Auto) 67 Lymph % (Auto) 17 [place] % (Auto) 12 Eos % (Auto) 2 Baso % (Auto) 1 Neut # (Auto) 3.1 Lymph # (Auto) 0.8 L [place] # (Auto) 0.6 Eos # (Auto) 0.1 Baso # (Auto) 0.0 Immature Gran # (Auto) 0.01 H Absolute Nucleated RBC 0.00 Immature Gran % 0 Nucleated RBC % 0 Sodium 142 Potassium 4.2 Chloride 105 Carbon Dioxide 26.8 Anion Gap 10 BUN 66 H Creatinine 3.4 H Estim Creat Clear Calc 28.3 L eGFR 19 L BUN/Creatinine Ratio 19 Glucose 198 H D Calculated Osmolality 308 H Calcium 7.9 L Corrected Calcium 8.6 Phosphorus 4.1 Magnesium 1.9 Total Bilirubin 0.6 AST 16 ALT 10 Alkaline Phosphatase 105 D Total Protein 6.0 Albumin 3.1 L Globulin 2.9 Albumin/Globulin Ratio 1.1 L Quality Measures Quality Measures VTE prophylaxis Assessment & Plan Assessment Current Active Medications: Generic Name Dose Route Start Last Admin Trade Name Freq PRN Reason Stop Dose Admin Acetaminophen 650 mg 09/28/25 15:14 Acetaminophen 325 Mg Tablet PO 10/28/25 15:13 Q6H PRN Fever >100.4 or pain 1-5 Ascorbic Acid 250 mg 09/29/25 21:00 09/30/25 10:11 Ascorbic Acid 250 Mg Tablet PO 10/29/25 20:59 Not Given BID YUDITH Atorvastatin Calcium 80 mg 09/28/25 21:00 09/29/25 20:27 Atorvastatin Calcium 20 Mg Tablet PO 10/28/25 20:59 80 mg HS YUDITH Administration Carvedilol 6.25 mg 09/28/25 21:00 09/30/25 10:11 Carvedilol 3.125 Mg Tablet PO 10/28/25 20:59 Not Given BID YUDITH Dextrose 25 ml 09/28/25 16:02 Dextrose 50%-Water Inj 50 Ml Syringe IV 10/28/25 16:01 Q15MIN PRN BG 50-70 responsive npo pt Dextrose 50 ml 09/28/25 16:02 Dextrose 50%-Water Inj 50 Ml Syringe IV 10/28/25 16:01 Q15MIN PRN BG <50 OR BG <70 & pt unresponsive Glucagon 1 mg 09/28/25 16:02 Glucagon Inj 1 Mg Vial IM Q15MIN PRN BG <70, and no IV access Heparin Sodium (Porcine) 5,000 unit 09/28/25 21:00 09/30/25 10:12 Heparin Sod Inj 5000 Unit/Ml Vial SC 10/12/25 20:59 Not Given Q12HR [facility] Heparin Sodium (Porcine) 3,500 unit 09/29/25 12:06 09/30/25 11:08 Heparin Sod Inj 1000 Unit/Ml Vial 10 Ml INDWELLCAT 10/13/25 12:05 3,500 unit PRN PRN Administration DIALYSIS Albumin Human 25 gm in 100 mls @ 100 mls/hr 09/29/25 08:15 Albuminex 25% Ivpb IV Q30MIN PRN DIALYSIS Insulin Degludec 30 unit 09/30/25 21:00 Insulin Degludec 5 Unit/0.05 Ml (Per 5 Units) SC 10/30/25 20:59 HS [facility] Insulin Human Lispro 0 unit 09/28/25 17:00 09/30/25 11:57 Insulin Lispro (Admelog) 1 Unit/0.01 Ml Unit SC 10/28/25 16:59 1 unit AC [facility] Administration Protocol Pantoprazole Sodium 40 mg 09/29/25 09:00 09/30/25 10:11 Pantoprazole 40 Mg Tablet PO 10/29/25 08:59 Not Given QDAY [facility] Valsartan 40 mg 09/28/25 15:15 09/30/25 10:11 Valsartan 40 Mg Tablet PO 10/28/25 15:14 Not Given QDAY [facility] Vitamin B Complex/Vit C/Folic Acid 1 tab 09/30/25 09:00 09/30/25 10:11 Vit B12/Vit C/Fa (Nephrovite) Tablet PO 10/30/25 08:59 Not Given QDAY [facility] Zinc Sulfate 220 mg 09/30/25 09:00 09/30/25 10:11 Zinc Sulfate 220 Mg Capsule PO 10/30/25 08:59 Not Given QDAY [facility] Plan Patient is 64 yr male with PMH of CKD IV, dilated cardiomyopathy with EF 25?30%, HTN, and insulin-dependent diabetes, embolic stroke, non occulsive DVT sent by clam treader to hospital due to worsening SOB since past few weeks. Cardiology was consulted for drug induced heart failure. # Acute Hypoxic Respiratory Failure #Acute decompensated chronic systolic HF 2/2 # Methamphetamine use #Volume overloaded #RENATE on CKD IV #NYHA class IV Echo from 08/15--Dilated cardiomyopathy severe global hypokinesis LVEF estimated at 25-30%. [facility] estimated RVSP, 62 mmHg. RAP 15. Patient is noncompliant with her medications however states that he takes Lasix 40 mg daily. Shortness of breath has been worsening since past couple of months. Has not had any cardiac workup done outpatient. No history of VT. 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 Appears to be fluid overloaded on physical exam with +2 pitting edema lower extremity, mild crackles auscultated lung. No JVD. Dyspneic during conversation. Anticipate RENATE to improve with continued aggressive diuresis as most likely component of heart failure. NYHA class IV, AHA class D. -bumetanide drip held as patient underwent HD session today -daily weights -strict INOs -low sodium diet -restrict fluid to 1500mL -keep potassium >4, mag >2 -daily CBC, CMP -Patient is not a candidate for ICD due to class of HF -carvedilol 6.25 mg BID -valsartan 40 mg daily -atorvastatin 80 mg nightly -continue to optimize GDMT -trend troponins -outpatient follow up [facility] -start spironolactone 25 mg daily #History of type 2 diabetes The patient's management plan was discussed with my attending physician Dr. Bonner. Daija Barroso, PGY-2
[2025-09-30] MEDS: INSULIN DEGLUDEC 5 UNIT/0.05 ML (PER 5 UNITS) 30 UNIT SC (20:19)
[2025-09-30] MEDS: ASCORBIC ACID 250 MG TABLET PO (20:19)
[2025-09-30] MEDS: ATORVASTATIN CALCIUM 20 MG TABLET 80 MG PO (20:19)
[2025-09-30] MEDS: HEPARIN SOD INJ 5000 UNIT/ML VIAL SC (20:19)
[2025-10-01] VITALS (33 sets, daily range): BP systolic 123–150; BP diastolic 70–101; PULSE 76–94; RESP 16–21; TEMP 36.2–38.5; O2SAT 91–100; BMI 32.6
[2025-10-01] MEDS: ACETAMINOPHEN 325 MG TABLET 650 MG PO (04:31)
[2025-10-01 07:02] LABS: Basophils # (Auto) 0.0 Thou/mm3 (0.0-0.2); Basophils % (Auto) 0 % (0-2.5); Eosinophils # (Auto) 0.1 Thou/mm3 (0.0-0.5); Eosinophils % (Auto) 1 % (0-10); Hematocrit 31.3 % (41.0-53.0); Hemoglobin 10.1 g/dL (13.5-16.0); Immature Granulocytes Auto 0.06 Thou/mm3 (0.00-0.00); Lymphocytes # (Auto) 0.6 Thou/mm3 (1.0-4.8); Lymphocytes % (Auto) 7 % (10-50); Mean Corpuscular HGB Conc 32.3 g/dl (31.0-37.0); Mean Corpuscular Hemoglobin 26.1 pg (25.0-35.0); Mean Corpuscular Volume 81 fL (80-100); Monocytes # (Auto) 0.8 Thou/mm3 (0.0-0.8); Monocytes % (Auto) 9 % (0-12); Neutrophils # (Auto) 7.0 Thou/mm3 (1.8-7.7); Neutrophils % (Auto) 81 % (37-80); Nucleated Red Blood Cell # 0.00 Thou/mm3 (0.00-0.00); Nucleated Red Blood Cell % 0 /100 WBC (0); Platelet Count 177 Thou/mm3 (140-440); RDW Standard Deviation 50.9 fL (35.1-43.9); Red Blood Count 3.87 Miln/mm3 (4.50-5.90); White Blood Count 8.6 Thou/mm3 (3.8-10.6)
[2025-10-01 07:28] LABS: Albumin, Serum 3.1 gm/dL (3.4-4.8); Albumin/Globulin Ratio 1.2 (1.2-2.2); Alkaline Phosphatase 95 U/L (46-116); Anion Gap 8 (7-16); Aspartate Amino Transferase 16 U/L (0-34); BUN/Creatinine Ratio 18 Ratio (12-20); Bilirubin,Total 0.6 mg/dL (0.3-1.2); Blood Urea Nitrogen 55 mg/dL (9-23); Calcium 7.8 mg/dL (8.3-10.6); Calcium (Corrected) 8.5 mg/dL (8.5-10.1); Carbon Dioxide 27.6 mMol/L (20.0-31.0); Chloride 104 mMol/L (98-107); Creatinine (Component) 3.0 mg/dL (0.6-1.3); Estimated Creatinine Clearance 31.8 mL/min (>60); Globulin 2.6 gm/dL (2.3-3.5); Glucose 84 mg/dL (74-106); Magnesium 1.8 mg/dL (1.6-2.6); Osmolality,Calculated 293 (275-295); Phosphorous 3.3 mg/dL (2.4-5.1); Potassium 4.0 mMol/L (3.4-5.1); Sodium 140 mMol/L (136-145); Total Protein 5.7 gm/dL (5.7-8.2); eGFR 22 See Note
[2025-10-01 07:38] LABS: Alanine Aminotransferase 8 U/L (10-49)
--- NOTE | 2025-10-01 10:51 | ESPR_ITS ---
<Statement entered by Lawanda Sibley MD - 10/10/25 09:23> I reviewed above note and agree with findings and plans. I have also personally examined the patient with medicine team and went over assessment and plan with medical team including qa intern and resident physician. Documentation for date of: 10/01/25 Subjective Subjective Interval history: Patient seen today at the bedside found awake, alert, orientedx3. No overnight events reported. Vital signs stable at this time. Pending OP HD chair time currently. Spoke to Nephrology who recommended an additional HD session prior to discharge. Exam Vital Signs Temp Pulse Resp BP Pulse Ox O2 Del Method O2 Flow Rate 98.2 F 84 16 133/89 H 95 Nasal Cannula 2 10/01/25 07:37 10/01/25 10:45 10/01/25 07:37 10/01/25 10:45 10/01/25 07:37 10/01/25 07:20 10/01/25 07:37 Narrative Exam General: Alert and oriented x3. No acute distress, cooperative HEENT: NCAT, No JVD noted. Mucosa moist. Pupils are equal and reactive to light bilaterally Cardiovascular: Normal S1 and S2. Regular rate and rhythm. Respiratory: Lungs are clear to auscultation bilaterally. No wheezing or crackles heard. Abdomen: Soft, nontender, not distended, normal bowel sounds. Skin: Warm to touch, dry, no rashes noted Musculoskeletal: No gross injuries. Able to move all 4 extremities. +2 pitting edema Neuro: Alert and oriented x3. No focal neuro deficits. Psych: Normal affect and mood Objective Labs 10/01/25 05:37 10/01/25 05:37 Labs: Laboratory Results - last 24 hr 10/01/25 05:37 WBC 8.6 D RBC 3.87 L Hgb 10.1 L Hct 31.3 L MCV 81 MCH 26.1 MCHC 32.3 RDW Std Deviation 50.9 H Plt Count 177 Neut % (Auto) 81 H Lymph % (Auto) 7 L [place] % (Auto) 9 Eos % (Auto) 1 Baso % (Auto) 0 Neut # (Auto) 7.0 Lymph # (Auto) 0.6 L [place] # (Auto) 0.8 Eos # (Auto) 0.1 Baso # (Auto) 0.0 Immature Gran # (Auto) 0.06 H Absolute Nucleated RBC 0.00 Immature Gran % 1 H Nucleated RBC % 0 Sodium 140 Potassium 4.0 Chloride 104 Carbon Dioxide 27.6 Anion Gap 8 BUN 55 H Creatinine 3.0 H Estim Creat Clear Calc 31.8 L eGFR 22 L BUN/Creatinine Ratio 18 Glucose 84 D Calculated Osmolality 293 Calcium 7.8 L Corrected Calcium 8.5 Phosphorus 3.3 Magnesium 1.8 Total Bilirubin 0.6 AST 16 ALT 8 L Alkaline Phosphatase 95 Total Protein 5.7 Albumin 3.1 L Globulin 2.6 Albumin/Globulin Ratio 1.2 Quality Measures Quality Measures VTE prophylaxis Assessment & Plan Assessment Current Active Medications: Generic Name Dose Route Start Last Admin Trade Name Freq PRN Reason Stop Dose Admin Acetaminophen 650 mg 09/28/25 15:14 10/01/25 04:31 Acetaminophen 325 Mg Tablet PO 10/28/25 15:13 650 mg Q6H PRN Administration Fever >100.4 or pain 1-5 Ascorbic Acid 250 mg 09/29/25 21:00 09/30/25 20:19 Ascorbic Acid 250 Mg Tablet PO 10/29/25 20:59 250 mg BID YUDITH Administration Atorvastatin Calcium 80 mg 09/28/25 21:00 09/30/25 20:19 Atorvastatin Calcium 20 Mg Tablet PO 10/28/25 20:59 80 mg HS YUDITH Administration Carvedilol 6.25 mg 09/28/25 21:00 09/30/25 20:19 Carvedilol 3.125 Mg Tablet PO 10/28/25 20:59 6.25 mg BID YUDITH Administration Dextrose 25 ml 09/28/25 16:02 Dextrose 50%-Water Inj 50 Ml Syringe IV 10/28/25 16:01 Q15MIN PRN BG 50-70 responsive npo pt Dextrose 50 ml 09/28/25 16:02 Dextrose 50%-Water Inj 50 Ml Syringe IV 10/28/25 16:01 Q15MIN PRN BG <50 OR BG <70 & pt unresponsive Glucagon 1 mg 09/28/25 16:02 Glucagon Inj 1 Mg Vial IM Q15MIN PRN BG <70, and no IV access Heparin Sodium (Porcine) 5,000 unit 09/28/25 21:00 09/30/25 20:19 Heparin Sod Inj 5000 Unit/Ml Vial SC 10/12/25 20:59 5,000 unit Q12HR YUDITH Administration Heparin Sodium (Porcine) 3,500 unit 09/29/25 12:06 09/30/25 11:08 Heparin Sod Inj 1000 Unit/Ml Vial 10 Ml INDWELLCAT 10/13/25 12:05 3,500 unit PRN PRN Administration DIALYSIS Albumin Human 25 gm in 100 mls @ 100 mls/hr 09/29/25 08:15 Albuminex 25% Ivpb IV Q30MIN PRN DIALYSIS Insulin Degludec 32 unit 10/01/25 21:00 Insulin Degludec 5 Unit/0.05 Ml (Per 5 Units) SC 10/31/25 20:59 HS [facility] Insulin Human Lispro 0 unit 09/28/25 17:00 09/30/25 17:10 Insulin Lispro (Admelog) 1 Unit/0.01 Ml Unit SC 10/28/25 16:59 1 unit AC [facility] Administration Protocol Pantoprazole Sodium 40 mg 09/29/25 09:00 09/30/25 10:11 Pantoprazole 40 Mg Tablet PO 10/29/25 08:59 Not Given QDAY [facility] Valsartan 40 mg 09/28/25 15:15 09/30/25 10:11 Valsartan 40 Mg Tablet PO 10/28/25 15:14 Not Given QDAY [facility] Vitamin B Complex/Vit C/Folic Acid 1 tab 09/30/25 09:00 09/30/25 10:11 Vit B12/Vit C/Fa (Nephrovite) Tablet PO 10/30/25 08:59 Not Given QDAY [facility] Zinc Sulfate 220 mg 09/30/25 09:00 09/30/25 10:11 Zinc Sulfate 220 Mg Capsule PO 10/30/25 08:59 Not Given QDAY [facility] Plan 64-year-old male with cardiorenal syndrome, acute decompensated HFrEF (EF 25?30%), RENATE on CKD IV progressing to ESRD, severe volume overload, and insulin- dependent diabetes, currently undergoing inpatient dialysis, still significantly overloaded but clinically improving, scheduled for third dialysis session tomorrow to secure outpatient dialysis placement. # RENATE on CKD progressing to ESRD, severe volume overload Sent by nephrology specifically for dialysis initiation. Cr 3.7, GFR 17. BNP markedly elevated, extensive anasarca, respiratory compromise. Still making urine. In dialysis this morning, tolerating well. Scheduled for third dialysis session tomorrow to secure outpatient dialysis placement. Plan: * Admit to telemetry. * Nephrology consulted (Dr. Newby): dialysis scheduled. * Strict I/O, daily weights. * Renally dose all meds. * Trend BMP daily. * Avoid nephrotoxins. # Acute Hypoxic Respiratory Failure Not on oxygen at home -> now on 2 L NC. Multifactorial: volume overload + HFrEF exacerbation + anasarca limiting lung expansion. CXR: mild?moderate CHF. Plan: * O2 as needed, goal >92%. * No fluids. * Dialysis today to help with decongestion. * Supportive respiratory care. # Anasarca / Severe Volume Overload Likely from ESRD + HFrEF. Plan: * Dialysis is definitive. * Fluid restriction 1.5 L/day, Na restriction 2 g/day. * Monitor response post-dialysis. # HFrEF # CHF exacerbation EF 25?30% (08/15/25 echo) Severe global hypokinesis, RVSP 62, moderate MR, mild?mod TR. Home meds inconsistent; patient unclear. Plan: * Started carvedilol 6.25 mg BID * Started valsartan 40 mg daily; will uptitrate later if needed. * Restarted atorvastatin 80 mg nightly * Avoid QT-prolonging meds (QTc 509). # Hypertensive urgency (176/115), improving Likely secondary to volume overload + medication noncompliance. Plan: * Restarted GDMT (carvedilol + valsartan). * Will continue to monitor BP * Adjust meds after dialysis once volume improves. # Troponinemia Troponin 0.069 last week 0.054 Likely secondary to RENATE Plan: * If remains stable will stop trend. # Diabetes mellitus, insulin dependent Uses long-acting insulin once daily, 22 units. Glucose 235 today. Plan: * Increased degludec to 25 units * Step 1 SSI. Health Maintenance: Disposition: Admit to telemetry. Hemodialysis. Feeding: Renal/2 g sodium diet. Fluid restrictions: 1500 cc. Thromboprophylaxis: Heparin SQ every 12 hours GI Prophylaxis: Pantoprazole 40 mg daily. Code Status: Full code Case discussed with my attending Dr. Maryjo Gold MD PGY-2
--- NOTE | 2025-10-01 11:24 | PD.RESPRO ---
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 Newby's clinic for worsening shortness of breath for the past few weeks. Also endorses orthopnea and dyspnea on exertion. On exam, has worsening upper and lower extremity swelling, ongoing for the past few days. Has not taken his Bumex 2mg since yesterday but reports taking his Lasix 40 mg today. Patient has gained 52 lbs over the past 6 weeks. On exam, patient had bilateral crackles and was barely able to complete his sentences due to difficulty breathing. Saturating 95-98% on room air. BP 176/115 at bedside. CXR showed mild to moderate CHF with prominent vascular congestion including central vascular engorgement with perihilar basilar edema. Potassium 4.1, BUN 81, Cr 3.7 (baseline 2.9-3.3), GFR 17 (baseline 21-22), corrected calcium 8.5. BNP 2549, appears to be chronically elevated. Of note, PTH on 09/13 790.2. Past Medical History: as above Family History: noncontributory Surgical History: none Social History: Drinks alcohol, denies tobacco use. Intermittently smokes marijuana. Previously used meth and cocaine over 20 years ago but denies current illicit drug use. Current Medications: atorvastatin 40 mg daily, valsartan 40 mg daily, carvedilol 3.125 mg BID, Bumex 2 mg daily, and Lasix 40 mg daily (pending official med rec) Allergies: No known drug allergies Started patient on Bumex drip 2mg/hr in ED. Nephrology consulted for fluid overload possibly requiring hemodialysis. 09/29/25: Patient seen and assessed at bedside. Urine output 2L overnight s/p Bumex drip. BUN and Cr stable. Scheduled for tunnel dialysis catheter placement and HD session today. 09/30/25: Patient seen and assessed during dialysis. Tolerating dialysis well. Maintaining good urine output (2.7L overnight). HD port in right IJ placed by IR and removed 1L yesterday. Lung sounds clear but continues to have significant lower extremity edema on exam. Continue dialysis today and tomorrow. 10/01/25: Patient seen and assessed during dialysis. Dialysis day #3. Tolerating dialysis well. UOP 1.2L overnight but continues to have anasarca on exam. BUN 55 (elevated but improving), Cr 3.0 (from 3.4). Plan to remove 3L today as tolerated. Dialysis tomorrow if available. Exam Vital Signs Temp Pulse Resp BP Pulse Ox O2 Del Method O2 Flow Rate 98.2 F 85 16 135/99 H 95 Nasal Cannula 2 10/01/25 07:37 10/01/25 11:15 10/01/25 07:37 10/01/25 11:15 10/01/25 07:37 10/01/25 07:20 10/01/25 07:37 Narrative Exam Physical Exam General: Awake and in no acute distress, saturating well on 2L NC. Conversational. Arabic speaking. HEENT: Normocephalic, atraumatic, mucous membranes moist. Heart: Regular rate and rhythm, normal S1 and S2, no murmurs appreciated. Lungs: Clear to ausculation bilaterally. Abdomen: Soft, nondistended, nontender, positive bowel sounds. No guarding or rebound tenderness. : Groin swelling, nontender, nonerythematous. Neurologic: Alert and oriented x3, no gross neurological deficit, and patient able to move all 4 extremities. Extremities: 3+ pitting lower extremity edema extending up to knees. Non-pitting edema of bilateral upper extremities, improved. Skin: Cellulitis of bilateral lower legs, R>L. Superficial open wounds with minimal drainage. No rash or ecchymoses. Objective Labs 10/02/25 07:48 10/02/25 07:48 Labs: Laboratory Results - last 24 hr 10/01/25 05:37 WBC 8.6 D RBC 3.87 L Hgb 10.1 L Hct 31.3 L MCV 81 MCH 26.1 MCHC 32.3 RDW Std Deviation 50.9 H Plt Count 177 Neut % (Auto) 81 H Lymph % (Auto) 7 L [place] % (Auto) 9 Eos % (Auto) 1 Baso % (Auto) 0 Neut # (Auto) 7.0 Lymph # (Auto) 0.6 L [place] # (Auto) 0.8 Eos # (Auto) 0.1 Baso # (Auto) 0.0 Immature Gran # (Auto) 0.06 H Absolute Nucleated RBC 0.00 Immature Gran % 1 H Nucleated RBC % 0 Sodium 140 Potassium 4.0 Chloride 104 Carbon Dioxide 27.6 Anion Gap 8 BUN 55 H Creatinine 3.0 H Estim Creat Clear Calc 31.8 L eGFR 22 L BUN/Creatinine Ratio 18 Glucose 84 D Calculated Osmolality 293 Calcium 7.8 L Corrected Calcium 8.5 Phosphorus 3.3 Magnesium 1.8 Total Bilirubin 0.6 AST 16 ALT 8 L Alkaline Phosphatase 95 Total Protein 5.7 Albumin 3.1 L Globulin 2.6 Albumin/Globulin Ratio 1.2 Quality Measures Quality Measures VTE prophylaxis Assessment & Plan Assessment Current Active Medications: Generic Name Dose Route Start Last Admin Trade Name Freq PRN Reason Stop Dose Admin Acetaminophen 650 mg 09/28/25 15:14 10/01/25 04:31 Acetaminophen 325 Mg Tablet PO 10/28/25 15:13 650 mg Q6H PRN Administration Fever >100.4 or pain 1-5 Ascorbic Acid 250 mg 09/29/25 21:00 09/30/25 20:19 Ascorbic Acid 250 Mg Tablet PO 10/29/25 20:59 250 mg BID YUDITH Administration Atorvastatin Calcium 80 mg 09/28/25 21:00 09/30/25 20:19 Atorvastatin Calcium 20 Mg Tablet PO 10/28/25 20:59 80 mg HS YUDITH Administration Carvedilol 6.25 mg 09/28/25 21:00 09/30/25 20:19 Carvedilol 3.125 Mg Tablet PO 10/28/25 20:59 6.25 mg BID YUDITH Administration Dextrose 25 ml 09/28/25 16:02 Dextrose 50%-Water Inj 50 Ml Syringe IV 10/28/25 16:01 Q15MIN PRN BG 50-70 responsive npo pt Dextrose 50 ml 09/28/25 16:02 Dextrose 50%-Water Inj 50 Ml Syringe IV 10/28/25 16:01 Q15MIN PRN BG <50 OR BG <70 & pt unresponsive Glucagon 1 mg 09/28/25 16:02 Glucagon Inj 1 Mg Vial IM Q15MIN PRN BG <70, and no IV access Heparin Sodium (Porcine) 5,000 unit 09/28/25 21:00 09/30/25 20:19 Heparin Sod Inj 5000 Unit/Ml Vial SC 10/12/25 20:59 5,000 unit Q12HR YUDITH Administration Heparin Sodium (Porcine) 3,500 unit 09/29/25 12:06 09/30/25 11:08 Heparin Sod Inj 1000 Unit/Ml Vial 10 Ml INDWELLCAT 10/13/25 12:05 3,500 unit PRN PRN Administration DIALYSIS Albumin Human 25 gm in 100 mls @ 100 mls/hr 09/29/25 08:15 Albuminex 25% Ivpb IV Q30MIN PRN DIALYSIS Insulin Degludec 32 unit 10/01/25 21:00 Insulin Degludec 5 Unit/0.05 Ml (Per 5 Units) SC 10/31/25 20:59 HS YUDITH Insulin Human Lispro 0 unit 09/28/25 17:00 09/30/25 17:10 Insulin Lispro (Admelog) 1 Unit/0.01 Ml Unit SC 10/28/25 16:59 1 unit AC YUDITH Administration Protocol Pantoprazole Sodium 40 mg 09/29/25 09:00 09/30/25 10:11 Pantoprazole 40 Mg Tablet PO 10/29/25 08:59 Not Given QDAY YUDITH Valsartan 40 mg 09/28/25 15:15 09/30/25 10:11 Valsartan 40 Mg Tablet PO 10/28/25 15:14 Not Given QDAY YUDITH Vitamin B Complex/Vit C/Folic Acid 1 tab 09/30/25 09:00 09/30/25 10:11 Vit B12/Vit C/Fa (Nephrovite) Tablet PO 10/30/25 08:59 Not Given QDAY YUDITH Zinc Sulfate 220 mg 09/30/25 09:00 09/30/25 10:11 Zinc Sulfate 220 Mg Capsule PO 10/30/25 08:59 Not Given QDAY YUDITH Plan 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 Newby's clinic for worsening shortness of breath for the past few weeks, as well as orthopnea and worsening extremity swelling. Nephrology consulted for fluid overload likely secondary to cardiorenal syndrome requiring dialysis. #Fluid overload 2/2 cardiorenal syndrome and nephrotic syndrome #Dialysis MWF #RENATE on CKD IV #Nephrotic syndrome 2/2 uncontrolled diabetes #Renal hyperparathyroidism #Hx HFrEF (EF 25-30%) 2/2 dilated cardiomyopathy and global hypokinesis - Presenting with progressive shortness of breath for almost the past month, as well as orthopnea and upper and lower extremity swelling. Has gained 52 lbs over the past 6 weeks. Home medications include Bumex 2 mg daily, Lasix 40 mg daily, and valsartan 40 mg daily; however did not take Bumex prior to admission. - Was previously seen in the ED on 09/20 for same complaint. BNP >3200, increased Bumex to 2 mg daily. - BNP 2549, trop mildly elevated at 0.069 (previously 0.054). EKG unremarkable. CXR shows mild to moderate vascular congestion. - BUN 81, Cr 3.7 (baseline 2.9-3.3). - Of note, on outpatient labs 09/13, PTH 790.2, phos 3.8. On admission calcium 8.1, corrected 8.5. May indicate worsening renal function. - (09/13) Random urine microalbumin 3789, ratio 5655. Likely nephrotic syndrome, likely secondary to uncontrolled diabetes (A1c 8.2). - Echo 08/15 showed dilated cardiomyopathy with severe global hypokinesis, EF 25-30%% with moderate pulm hypertension - Dialysis catheter placed 09/29 by IR - Likely cardiorenal syndrome versus CHF exacerbation iso inadequate diuresis Plan: - S/p HD 09/29 (-1L), 09/30 (-1.1). Dialysis today, plan to remove 3L. If not tolerated, attempt dialysis tomorrow, if not Friday. - Pending outpatient dialysis chair. - Strict INOs - Monitor respiratory status #AHRF #Anasarca #Cirrhosis 2/2 hep C #CHF exacerbation #HFrEF (EF 25-50%) #Hypertensive urgency (resolved) #Hx HTN #Elevated troponins #IDDM2 #Hx Hepatitis C #Cellulitis lower extremities #Hx substance use - Defer to primary team for management Thank you for your consultation, please do not hesitate to reach out if you have any question or concern Patient plan of care was discussed with the attending physician, Dr. Newby. Silvana Wooten DO, PGY-1 Attending Provider Attestation/Addendum Patient currently seen and examined with resident physician Dr. Wooten. Note reviewed, agree with findings and recommendations. Patient currently seen in telemetry. Significant fluid overload-gained a 52 pounds in 1 month. Cardiorenal syndrome and nephrotic syndrome. Failed outpatient diuretic therapy. Will plan for initiation of dialysis tomorrow. Today started him on Bumex. Care discussed with primary team. 10/01/2025 dialysis catheter placed by Dr. Nicole. Patient currently seen on third dialysis. Tolerating dialysis without any problems. Hemodialysis for 4 hours, seq ultrafiltration 3-4 L, Epogen 6000, no heparin ordered. Plan of care discussed with the dialysis nurse. Please see dialysis flowsheet for further details. Hepatitis, PPD ordered. Needs outpatient dialysis. Next dialysis/UF scheduled for Friday
[2025-10-01] MEDS: HEPARIN SOD INJ 1000 UNIT/ML VIAL 10 ML 3500 UNIT INDWELLCAT (12:07)
--- NOTE | 2025-10-01 13:37 | ESPR_ITS ---
<Statement entered by Sia Bonner MD - 10/03/25 09:02> I personally examined evaluate the patient patient appears to be responding somewhat to diuretic therapy slowly improving shortness with improved does not complain of any chest pain has nonischemic cardiomyopathy possibly secondary to remote drug use continues to be stable has multiple issues so far but appears to be stable we will monitor the patient closely for any cardiac decompensation I evaluate the patient with resident physician agree with treatment plan recommendation as documented by Dr. Hui Documentation for date of: 10/01/25 Subjective Subjective Interval history: Patient is 64 yr male with PMH of CKD IV, dilated cardiomyopathy with EF 25?30%, HTN, and insulin-dependent diabetes, embolic stroke, non occulsive DVT sent by system programmer to hospital due to worsening SOB since past few weeks. He was noted to have difficult time speaking due to the SOB. Patient denies knowing diagnosis of HF in the past. He is poor historian. States he has PND as well requring to sleep at upright angle at times. Unsure of his dry weght. Per chart review, patient has gained about 12 kg since beginning of June. Currently is taking furosemide 40 mg daily, Bumetanide 2 mg daily, valsartan 40 mg daily, Carvedilol (unsure of dose), and Atorvastatin 80 mg nightly. No longer on Eliqus. He endorses use of methamphetamine, THC, and heroin in the past. Denies getting any cardiac workup in past, follow with PCP from [facility]. Is poor historian. Cardiology was consulted for drug induced heart failure. 09/30: Patient examined at bedside. Shortness of breath much improved from yesterday. Remains on 2 L nasal cannula, urine output -1.5 L past 24 hours. LE swelling +1. He is to undergo second dialysis session inpatient. Will continue outpatient dialysis after discharge. Continue Coreg and valsartan as part of GDMT. Start spironolactone 25mg daily to continue optimization. Patient is poor candiate for ICD placement. He will need close follow up care with PCP. 10/01: Patient examined at bedside. Net positive fluid balance of 570cc past 24 hrs. lower extremity pitting edema +1?2. He will be getting dialysis today. Vitals are stable, BUN 55, Cr 3.0. Sodium 140, potassium 4.0. Tele reviewed patient in normal sinus rhythm rate 70?80. Continue Coreg and valsartan as part of GDMT. Start spironolactone 25mg daily to continue optimization. Exam Vital Signs Temp Pulse Resp BP Pulse Ox O2 Del Method O2 Flow Rate 97.2 F 89 16 148/96 H 100 Nasal Cannula 2 10/01/25 12:20 10/01/25 12:41 10/01/25 12:41 10/01/25 12:20 10/01/25 12:41 10/01/25 07:20 10/01/25 12:41 Narrative Exam General: Alert and oriented x3. No acute distress, cooperative HEENT: NCAT, No JVD noted. Mucosa moist. Pupils are equal and reactive to light bilaterally Cardiovascular: Normal S1 and S2. Regular rate and rhythm. Respiratory: Lungs are clear to auscultation bilaterally. No wheezing or crackles heard. Abdomen: Soft, nontender, not distended, normal bowel sounds. Skin: Warm to touch, dry, no rashes noted Musculoskeletal: No gross injuries. Able to move all 4 extremities. +2 pitting edema Neuro: Alert and oriented x3. No focal neuro deficits. Psych: Normal affect and mood Objective Labs 10/01/25 05:37 10/01/25 05:37 Labs: Laboratory Results - last 24 hr 10/01/25 05:37 WBC 8.6 D RBC 3.87 L Hgb 10.1 L Hct 31.3 L MCV 81 MCH 26.1 MCHC 32.3 RDW Std Deviation 50.9 H Plt Count 177 Neut % (Auto) 81 H Lymph % (Auto) 7 L [place] % (Auto) 9 Eos % (Auto) 1 Baso % (Auto) 0 Neut # (Auto) 7.0 Lymph # (Auto) 0.6 L [place] # (Auto) 0.8 Eos # (Auto) 0.1 Baso # (Auto) 0.0 Immature Gran # (Auto) 0.06 H Absolute Nucleated RBC 0.00 Immature Gran % 1 H Nucleated RBC % 0 Sodium 140 Potassium 4.0 Chloride 104 Carbon Dioxide 27.6 Anion Gap 8 BUN 55 H Creatinine 3.0 H Estim Creat Clear Calc 31.8 L eGFR 22 L BUN/Creatinine Ratio 18 Glucose 84 D Calculated Osmolality 293 Calcium 7.8 L Corrected Calcium 8.5 Phosphorus 3.3 Magnesium 1.8 Total Bilirubin 0.6 AST 16 ALT 8 L Alkaline Phosphatase 95 Total Protein 5.7 Albumin 3.1 L Globulin 2.6 Albumin/Globulin Ratio 1.2 Quality Measures Quality Measures VTE prophylaxis Assessment & Plan Assessment Current Active Medications: Generic Name Dose Route Start Last Admin Trade Name Freq PRN Reason Stop Dose Admin Acetaminophen 650 mg 09/28/25 15:14 10/01/25 04:31 Acetaminophen 325 Mg Tablet PO 10/28/25 15:13 650 mg Q6H PRN Administration Fever >100.4 or pain 1-5 Ascorbic Acid 250 mg 09/29/25 21:00 10/01/25 09:01 Ascorbic Acid 250 Mg Tablet PO 10/29/25 20:59 Not Given BID YUDITH Atorvastatin Calcium 80 mg 09/28/25 21:00 09/30/25 20:19 Atorvastatin Calcium 20 Mg Tablet PO 10/28/25 20:59 80 mg HS YUDITH Administration Carvedilol 6.25 mg 09/28/25 21:00 10/01/25 09:00 Carvedilol 3.125 Mg Tablet PO 10/28/25 20:59 Not Given BID YUDITH Dextrose 25 ml 09/28/25 16:02 Dextrose 50%-Water Inj 50 Ml Syringe IV 10/28/25 16:01 Q15MIN PRN BG 50-70 responsive npo pt Dextrose 50 ml 09/28/25 16:02 Dextrose 50%-Water Inj 50 Ml Syringe IV 10/28/25 16:01 Q15MIN PRN BG <50 OR BG <70 & pt unresponsive Glucagon 1 mg 09/28/25 16:02 Glucagon Inj 1 Mg Vial IM Q15MIN PRN BG <70, and no IV access Heparin Sodium (Porcine) 5,000 unit 09/28/25 21:00 10/01/25 09:00 Heparin Sod Inj 5000 Unit/Ml Vial SC 10/12/25 20:59 Not Given Q12HR YUDITH Heparin Sodium (Porcine) 3,500 unit 09/29/25 12:06 10/01/25 12:07 Heparin Sod Inj 1000 Unit/Ml Vial 10 Ml INDWELLCAT 10/13/25 12:05 3,500 unit PRN PRN Administration DIALYSIS Albumin Human 25 gm in 100 mls @ 100 mls/hr 09/29/25 08:15 Albuminex 25% Ivpb IV Q30MIN PRN DIALYSIS Insulin Degludec 32 unit 10/01/25 21:00 Insulin Degludec 5 Unit/0.05 Ml (Per 5 Units) SC 10/31/25 20:59 [facility] Insulin Human Lispro 0 unit 09/28/25 17:00 10/01/25 12:07 Insulin Lispro (Admelog) 1 Unit/0.01 Ml Unit SC 10/28/25 16:59 Not Given AC [facility] Protocol Pantoprazole Sodium 40 mg 09/29/25 09:00 10/01/25 09:00 Pantoprazole 40 Mg Tablet PO 10/29/25 08:59 Not Given QDAY [facility] Valsartan 40 mg 09/28/25 15:15 10/01/25 09:00 Valsartan 40 Mg Tablet PO 10/28/25 15:14 Not Given QDAY [facility] Vitamin B Complex/Vit C/Folic Acid 1 tab 09/30/25 09:00 10/01/25 09:00 Vit B12/Vit C/Fa (Nephrovite) Tablet PO 10/30/25 08:59 Not Given QDAY [facility] Zinc Sulfate 220 mg 09/30/25 09:00 10/01/25 09:00 Zinc Sulfate 220 Mg Capsule PO 10/30/25 08:59 Not Given QDAY [facility] Plan Patient is 64 yr male with PMH of CKD IV, dilated cardiomyopathy with EF 25?30%, HTN, and insulin-dependent diabetes, embolic stroke, non occulsive DVT sent by system programmer to hospital due to worsening SOB since past few weeks. Cardiology was consulted for drug induced heart failure. # Acute Hypoxic Respiratory Failure #Acute decompensated chronic systolic HF 2/2 # Methamphetamine use #Volume overloaded #RENATE on CKD IV #NYHA class IV Echo from 08/15--Dilated cardiomyopathy severe global hypokinesis LVEF estimated at 25-30%. [facility] hypertension, The estimated RVSP, 62 mmHg. RAP 15. Patient is noncompliant with her medications however states that he takes Lasix 40 mg daily. Shortness of breath has been worsening since past couple of months. Has not had any cardiac workup done outpatient. No history of [place]. 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 Appears to be fluid overloaded on physical exam with +2 pitting edema lower extremity, mild crackles auscultated lung. No JVD. Dyspneic during conversation. Anticipate RENATE to improve with continued aggressive diuresis as most likely component of heart failure. NYHA class IV, AHA class D. -bumetanide drip held as patient underwent HD session today -daily weights -strict INOs -low sodium diet -restrict fluid to 1500mL -keep potassium >4, mag >2 -daily CBC, CMP -Patient is not a candidate for ICD due to class of HF -carvedilol 6.25 mg BID -valsartan 40 mg daily -atorvastatin 80 mg nightly -continue to optimize GDMT -trend troponins -outpatient follow up [facility] -start spironolactone 25 mg daily #History of type 2 diabetes The patient's management plan was discussed with my attending physician Dr. Bonner. Daija Barroso, PGY-2
[2025-10-01] MEDS: ASCORBIC ACID 250 MG TABLET PO (20:21)
[2025-10-01] MEDS: ATORVASTATIN CALCIUM 20 MG TABLET 80 MG PO (20:21)
[2025-10-01] MEDS: INSULIN DEGLUDEC 5 UNIT/0.05 ML (PER 5 UNITS) 32 UNIT SC (20:22)
[2025-10-01] MEDS: HEPARIN SOD INJ 5000 UNIT/ML VIAL SC (20:22)
[2025-10-02] VITALS (10 sets, daily range): BP systolic 135–149; BP diastolic 84–97; PULSE 74–89; RESP 17–24; TEMP 36.6–37.2; O2SAT 96–99; BMI 32.6
[2025-10-02] MEDS: INSULIN LISPRO (AdmeLOG) 1 UNIT/0.01 ML UNIT SC ×2 (07:37→11:48)
[2025-10-02 08:03] LABS: Basophils # (Auto) 0.0 Thou/mm3 (0.0-0.2); Basophils % (Auto) 0 % (0-2.5); Eosinophils # (Auto) 0.2 Thou/mm3 (0.0-0.5); Eosinophils % (Auto) 3 % (0-10); Hematocrit 31.3 % (41.0-53.0); Hemoglobin 10.0 g/dL (13.5-16.0); Immature Granulocytes Auto 0.02 Thou/mm3 (0.00-0.00); Lymphocytes # (Auto) 0.7 Thou/mm3 (1.0-4.8); Lymphocytes % (Auto) 11 % (10-50); Mean Corpuscular HGB Conc 31.9 g/dl (31.0-37.0); Mean Corpuscular Hemoglobin 26.3 pg (25.0-35.0); Mean Corpuscular Volume 82 fL (80-100); Monocytes # (Auto) 0.7 Thou/mm3 (0.0-0.8); Monocytes % (Auto) 10 % (0-12); Neutrophils # (Auto) 5.2 Thou/mm3 (1.8-7.7); Neutrophils % (Auto) 76 % (37-80); Nucleated Red Blood Cell # 0.00 Thou/mm3 (0.00-0.00); Nucleated Red Blood Cell % 0 /100 WBC (0); Platelet Count 143 Thou/mm3 (140-440); RDW Standard Deviation 51.8 fL (35.1-43.9); Red Blood Count 3.80 Miln/mm3 (4.50-5.90); White Blood Count 6.9 Thou/mm3 (3.8-10.6)
[2025-10-02 08:31] LABS: Albumin, Serum 2.9 gm/dL (3.4-4.8); Albumin/Globulin Ratio 1.0 (1.2-2.2); Alkaline Phosphatase 105 U/L (46-116); Anion Gap 9 (7-16); Aspartate Amino Transferase 17 U/L (0-34); BUN/Creatinine Ratio 15 Ratio (12-20); Bilirubin,Total 0.4 mg/dL (0.3-1.2); Blood Urea Nitrogen 44 mg/dL (9-23); Calcium 7.9 mg/dL (8.3-10.6); Calcium (Corrected) 8.8 mg/dL (8.5-10.1); Carbon Dioxide 27.0 mMol/L (20.0-31.0); Chloride 102 mMol/L (98-107); Creatinine (Component) 2.9 mg/dL (0.6-1.3); Estimated Creatinine Clearance 32.9 mL/min (>60); Globulin 2.8 gm/dL (2.3-3.5); Glucose 185 mg/dL (74-106); Magnesium 1.6 mg/dL (1.6-2.6); Osmolality,Calculated 291 (275-295); Potassium 3.9 mMol/L (3.4-5.1); Sodium 138 mMol/L (136-145); Total Protein 5.7 gm/dL (5.7-8.2); eGFR 23 See Note
[2025-10-02] MEDS: ASCORBIC ACID 250 MG TABLET PO ×2 (08:34→20:14)
[2025-10-02] MEDS: VIT B12/Vit C/FA (Nephrovite) TABLET 1 TAB PO (08:34)
[2025-10-02] MEDS: VALSARTAN 40 MG TABLET PO (08:34)
[2025-10-02] MEDS: PANTOPRAZOLE 40 MG TABLET PO (08:34)
[2025-10-02] MEDS: ZINC SULFATE 220 MG CAPSULE PO (08:34)
[2025-10-02] MEDS: HEPARIN SOD INJ 5000 UNIT/ML VIAL SC ×2 (08:34→20:15)
[2025-10-02 08:41] LABS: Alanine Aminotransferase 8 U/L (10-49)
--- NOTE | 2025-10-02 09:53 | PD.NEPHPROG ---
Documentation for date of: 10/02/25 Subjective Subjective Interval history: 64 year old northern irish speaking male with past medical history of CKD IV, HFrEF (EF 15-20%), CVA (06/05/25), HTN, insulin-dependent diabetes mellitus type 2, HCV treated, HLD who presents to ED from Dr. Newby's clinic for worsening shortness of breath for the past few weeks. Also endorses orthopnea and dyspnea on exertion. On exam, has worsening upper and lower extremity swelling, ongoing for the past few days. Has not taken his Bumex 2mg since yesterday but reports taking his Lasix 40 mg today. Patient has gained 52 lbs over the past 6 weeks. On exam, patient had bilateral crackles and was barely able to complete his sentences due to difficulty breathing. Saturating 95-98% on room air. BP 176/115 at bedside. CXR showed mild to moderate CHF with prominent vascular congestion including central vascular engorgement with perihilar basilar edema. Potassium 4.1, BUN 81, Cr 3.7 (baseline 2.9-3.3), GFR 17 (baseline 21-22), corrected calcium 8.5. BNP 2549, appears to be chronically elevated. Of note, PTH on 09/13 790.2. Past Medical History: as above Family History: noncontributory Surgical History: none Social History: Drinks alcohol, denies tobacco use. Intermittently smokes marijuana. Previously used meth and cocaine over 20 years ago but denies current illicit drug use. Current Medications: atorvastatin 40 mg daily, valsartan 40 mg daily, carvedilol 3.125 mg BID, Bumex 2 mg daily, and Lasix 40 mg daily (pending official med rec) Allergies: No known drug allergies Started patient on Bumex drip 2mg/hr in ED. Nephrology consulted for fluid overload possibly requiring hemodialysis. 09/29/25: Patient seen and assessed at bedside. Urine output 2L overnight s/p Bumex drip. BUN and Cr stable. Scheduled for tunnel dialysis catheter placement and HD session today. 09/30/25: Patient seen and assessed during dialysis. Tolerating dialysis well. Maintaining good urine output (2.7L overnight). HD port in right IJ placed by IR and removed 1L yesterday. Lung sounds clear but continues to have significant lower extremity edema on exam. Continue dialysis today and tomorrow. 10/01/25: Patient seen and assessed during dialysis. Dialysis day #3. Tolerating dialysis well. UOP 1.2L overnight but continues to have anasarca on exam. BUN 55 (elevated but improving), Cr 3.0 (from 3.4). Plan to remove 3L today as tolerated. Dialysis tomorrow if available. 10/02/2025 patient resting comfortably. So far he had 3 dialysis sessions and more than 6 L of fluids were removed. Denies any nausea, vomiting. Labs/medications reviewed. Pending outpatient dialysis arrangements. Review of Systems Review of Systems Narrative Review of Systems: CONSTITUTIONAL: Patient denies any fever, chills. HEENT: Denies any visual disturbances or hearing problems. CARDIOVASCULAR: Patient denies any chest pain. ++ shortness of breath, swelling in the lower extremities. PULMONARY: Patient ++ shortness of breath GASTROINTESTINAL: Patient denies any abdominal pain, constipation, nausea, vomiting, diarrhea.++ Abdominal distention GENITOURINARY: Patient denies any urinary symptoms of burning or frequency or hematuria, denies any form in the urine. SKIN: Denies any rash. MUSCULOSKELETAL: Gait imbalance NEUROLOGICAL: Denies any neurological problems of strokes, seizures or confusion. Denies any memory problems. PSYCHIATRIC: Denies any depression or anxiety. LYMPHATICS : No lymphadenopathy Exam Vital Signs Temp Pulse Resp BP Pulse Ox O2 Del Method O2 Flow Rate 36.9 C 76 21 H 144/90 H 99 Nasal Cannula 1 10/02/25 08:00 10/02/25 08:34 10/02/25 08:00 10/02/25 08:34 10/02/25 08:00 10/02/25 08:00 10/02/25 08:00 Narrative Exam Physical Exam General: Awake and in no acute distress, saturating well on 2L NC. Conversational. Bengali speaking. HEENT: Normocephalic, atraumatic, mucous membranes moist. Heart: Regular rate and rhythm, normal S1 and S2, no murmurs appreciated. Lungs: Clear to ausculation bilaterally. Abdomen: Soft, nondistended, nontender, positive bowel sounds. No guarding or rebound tenderness. : Scrotal edema nontender, nonerythematous. Neurologic: Alert and oriented x3, no gross neurological deficit, and patient able to move all 4 extremities. Extremities: 3+ pitting lower extremity edema extending up to knees. Non-pitting edema of bilateral upper extremities, improved. Skin: Cellulitis of bilateral lower legs, R>L. Superficial open wounds with minimal drainage. No rash or ecchymoses. Objective Labs 10/02/25 07:48 10/02/25 07:48 Labs: Laboratory Results - last 24 hr 10/02/25 07:48 WBC 6.9 RBC 3.80 L Hgb 10.0 L Hct 31.3 L MCV 82 MCH 26.3 MCHC 31.9 RDW Std Deviation 51.8 H Plt Count 143 D Neut % (Auto) 76 Lymph % (Auto) 11 [place] % (Auto) 10 Eos % (Auto) 3 Baso % (Auto) 0 Neut # (Auto) 5.2 Lymph # (Auto) 0.[address] [place] # (Auto) 0.7 Eos # (Auto) 0.2 Baso # (Auto) 0.0 Immature Gran # (Auto) 0.02 H Absolute Nucleated RBC 0.00 Immature Gran % 0 Nucleated RBC % 0 Sodium 138 Potassium 3.9 Chloride 102 Carbon Dioxide 27.0 Anion Gap 9 BUN 44 H Creatinine 2.9 H Estim Creat Clear Calc 32.9 L eGFR 23 L BUN/Creatinine Ratio 15 Glucose 185 H D Calculated Osmolality 291 Calcium 7.9 L Corrected Calcium 8.8 Magnesium 1.6 Total Bilirubin 0.4 AST 17 ALT 8 L Alkaline Phosphatase 105 Total Protein 5.7 Albumin 2.9 L Globulin 2.8 Albumin/Globulin Ratio 1.0 L Assessment & Plan Additional Assessment & Plan Additional Plan: 64 year old northern irish speaking male with past medical history of CKD IV, HFrEF (EF 25-30%), CVA (06/05/25), HTN, insulin-dependent diabetes mellitus type 2, HCV treated, HLD who presents to ED from Dr. Newby's clinic for worsening shortness of breath for the past few weeks, as well as orthopnea and worsening extremity swelling. Nephrology consulted for fluid overload likely secondary to cardiorenal syndrome requiring dialysis. #Fluid overload 2/2 cardiorenal syndrome and nephrotic syndrome #Dialysis MWF #RENATE on CKD IV #Nephrotic syndrome 2/2 uncontrolled diabetes #Renal hyperparathyroidism #Hx HFrEF (EF 25-30%) 2/2 dilated cardiomyopathy and global hypokinesis - Presenting with progressive shortness of breath for almost the past month, as well as orthopnea and upper and lower extremity swelling. Has gained 52 lbs over the past 6 weeks. Home medications include Bumex 2 mg daily, Lasix 40 mg daily, and valsartan 40 mg daily; however did not take Bumex prior to admission. - Was previously seen in the ED on 09/20 for same complaint. BNP >3200, increased Bumex to 2 mg daily. - BNP 2549, trop mildly elevated at 0.069 (previously 0.054). EKG unremarkable. CXR shows mild to moderate vascular congestion. - BUN 81, Cr 3.7 (baseline 2.9-3.3). - Of note, on outpatient labs 09/13, PTH 790.2, phos 3.8. On admission calcium 8.1, corrected 8.5. May indicate worsening renal function. - (09/13) Random urine microalbumin 3789, ratio 5655. Likely nephrotic syndrome, likely secondary to uncontrolled diabetes (A1c 8.2). - Echo 08/15 showed dilated cardiomyopathy with severe global hypokinesis, EF 25-30%% with moderate pulm hypertension - Dialysis catheter placed 09/29 by IR - Likely cardiorenal syndrome versus CHF exacerbation Plan: - S/p HD 09/29 (-1L), 09/30 (-1.1). 10/01- 3l - Pending outpatient dialysis chair. - Strict INOs - Monitor respiratory status #AHRF #Anasarca #Cirrhosis 2/2 hep C #CHF exacerbation #HFrEF (EF 25-50%) #Hypertensive urgency (resolved) #Hx HTN #Elevated troponins #IDDM2 #Hx Hepatitis C #Cellulitis lower extremities #Hx substance use - Defer to primary team for management next dialysis scheduled for tomorrow
--- NOTE | 2025-10-02 14:35 | ESPR_ITS ---
<Statement entered by Lawanda Sibley MD - 10/10/25 09:23> I reviewed above note and agree with findings and plans. I have also personally examined the patient with medicine team and went over assessment and plan with medical team including engineer intern and resident physician. Documentation for date of: 10/02/25 Subjective Subjective Interval history: Patient seen at bedside this morning. Reports breathing feels better compared to yesterday. Currently on 2 L nasal cannula and denies shortness of breath at rest. Denies chest pain, abdominal pain, nausea, or vomiting. No new complaints overnight. Feels swelling is still present. Exam Vital Signs Temp Pulse Resp BP Pulse Ox O2 Del Method O2 Flow Rate 97.9 F 85 24 H 135/90 H 96 Nasal Cannula 1 10/02/25 12:00 10/02/25 12:00 10/02/25 12:10/02/25 12:00 10/02/25 12:00 10/02/25 12:00 10/02/25 12:00 Narrative Exam General: Alert and oriented x3. No acute distress, cooperative HEENT: NCAT, No JVD noted. Mucosa moist. Pupils are equal and reactive to light bilaterally Cardiovascular: Normal S1 and S2. Regular rate and rhythm. Respiratory: Lungs are clear to auscultation bilaterally. No wheezing or crackles heard. Abdomen: Soft, nontender, not distended, normal bowel sounds. Skin: Warm to touch, dry, no rashes noted Musculoskeletal: No gross injuries. Able to move all 4 extremities. +2 pitting edema Neuro: Alert and oriented x3. No focal neuro deficits. Psych: Normal affect and mood Objective Labs 10/02/25 07:48 10/02/25 07:48 Labs: Laboratory Results - last 24 hr 10/02/25 07:48 WBC 6.9 RBC 3.80 L Hgb 10.0 L Hct 31.3 L MCV 82 MCH 26.3 MCHC 31.9 RDW Std Deviation 51.8 H Plt Count 143 D Neut % (Auto) 76 Lymph % (Auto) 11 [place] % (Auto) 10 Eos % (Auto) 3 Baso % (Auto) 0 Neut # (Auto) 5.2 Lymph # (Auto) 0.7 L [place] # (Auto) 0.7 Eos # (Auto) 0.2 Baso # (Auto) 0.0 Immature Gran # (Auto) 0.02 H Absolute Nucleated RBC 0.00 Immature Gran % 0 Nucleated RBC % 0 Sodium 138 Potassium 3.9 Chloride 102 Carbon Dioxide 27.0 Anion Gap 9 BUN 44 H Creatinine 2.9 H Estim Creat Clear Calc 32.9 L eGFR 23 L BUN/Creatinine Ratio 15 Glucose 185 H D Calculated Osmolality 291 Calcium 7.9 L Corrected Calcium 8.8 Magnesium 1.6 Total Bilirubin 0.4 AST 17 ALT 8 L Alkaline Phosphatase 105 Total Protein 5.7 Albumin 2.9 L Globulin 2.8 Albumin/Globulin Ratio 1.0 L Quality Measures Quality Measures VTE prophylaxis Assessment & Plan Assessment Current Active Medications: Generic Name Dose Route Start Last Admin Trade Name Freq PRN Reason Stop Dose Admin Acetaminophen 650 mg 09/28/25 15:14 10/01/25 04:31 Acetaminophen 325 Mg Tablet PO 10/28/25 15:13 650 mg Q6H PRN Administration Fever >100.4 or pain 1-5 Ascorbic Acid 250 mg 09/29/25 21:00 10/02/25 08:34 Ascorbic Acid 250 Mg Tablet PO 10/29/25 20:59 250 mg BID YUDITH Administration Atorvastatin Calcium 80 mg 09/28/25 21:00 10/01/25 20:21 Atorvastatin Calcium 20 Mg Tablet PO 10/28/25 20:59 80 mg HS YUDITH Administration Carvedilol 6.25 mg 09/28/25 21:00 10/02/25 08:34 Carvedilol 3.125 Mg Tablet PO 10/28/25 20:59 6.25 mg BID YUDITH Administration Dextrose 25 ml 09/28/25 16:02 Dextrose 50%-Water Inj 50 Ml Syringe IV 10/28/25 16:01 Q15MIN PRN BG 50-70 responsive npo pt Dextrose 50 ml 09/28/25 16:02 Dextrose 50%-Water Inj 50 Ml Syringe IV 10/28/25 16:01 Q15MIN PRN BG <50 OR BG <70 & pt unresponsive Glucagon 1 mg 09/28/25 16:02 Glucagon Inj 1 Mg Vial IM Q15MIN PRN BG <70, and no IV access Heparin Sodium (Porcine) 5,000 unit 09/28/25 21:00 10/02/25 08:34 Heparin Sod Inj 5000 Unit/Ml Vial SC 10/12/25 20:59 5,000 unit Q12HR YUDITH Administration Heparin Sodium (Porcine) 3,500 unit 09/29/25 12:06 10/01/25 12:07 Heparin Sod Inj 1000 Unit/Ml Vial 10 Ml INDWELLCAT 10/13/25 12:05 3,500 unit PRN PRN Administration DIALYSIS Albumin Human 25 gm in 100 mls @ 100 mls/hr 09/29/25 08:15 Albuminex 25% Ivpb IV Q30MIN PRN DIALYSIS Insulin Degludec 32 unit 10/01/25 21:00 10/01/25 20:22 Insulin Degludec 5 Unit/0.05 Ml (Per 5 Units) SC 10/31/25 20:59 32 unit HS YUDITH Administration Insulin Human Lispro 0 unit 09/28/25 17:00 10/02/25 11:48 Insulin Lispro (Admelog) 1 Unit/0.01 Ml Unit SC 10/28/25 16:59 1 unit AC YUDITH Administration Protocol Pantoprazole Sodium 40 mg 09/29/25 09:00 10/02/25 08:34 Pantoprazole 40 Mg Tablet PO 10/29/25 08:59 40 mg QDAY YUDITH Administration Valsartan 40 mg 09/28/25 15:15 10/02/25 08:34 Valsartan 40 Mg Tablet PO 10/28/25 15:14 40 mg QDAY YUDITH Administration Vitamin B Complex/Vit C/Folic Acid 1 tab 09/30/25 09:00 10/02/25 08:34 Vit B12/Vit C/Fa (Nephrovite) Tablet PO 10/30/25 08:59 1 tab QDAY YUDITH Administration Zinc Sulfate 220 mg 09/30/25 09:00 10/02/25 08:34 Zinc Sulfate 220 Mg Capsule PO 10/30/25 08:59 220 mg QDAY YUDITH Administration Plan 64-year-old male with cardiorenal syndrome, acute decompensated HFrEF (EF 25?30%), RENATE on CKD IV progressing to ESRD, severe volume overload, and insulin- dependent diabetes, currently undergoing inpatient dialysis, still significantly overloaded but clinically improving, scheduled for another dialysis session tomorrow to secure outpatient dialysis placement. # RENATE on CKD progressing to ESRD, severe volume overload Sent by nephrology specifically for dialysis initiation. Cr 3.7, GFR 17. BNP markedly elevated, extensive anasarca, respiratory compromise. Still making urine. Received 3 dialysis sessions, tolerating well Seen patient this morning still appears to be overloaded, edema 2+ in lower extremities. Scheduled for another dialysis session tomorrow to secure outpatient dialysis placement. Plan: * Admit to telemetry. * Nephrology consulted (Dr. Newby): dialysis scheduled. * Strict I/O, daily weights. * Renally dose all meds. * Trend BMP daily. * Avoid nephrotoxins. # Acute Hypoxic Respiratory Failure Not on oxygen at home -> now on 2 L NC. Multifactorial: volume overload + HFrEF exacerbation + anasarca limiting lung expansion. CXR: mild?moderate CHF. Plan: * O2 as needed, goal >92%. * No fluids. * Dialysis today to help with decongestion. * Supportive respiratory care. # Anasarca / Severe Volume Overload Likely from ESRD + HFrEF. Plan: * Dialysis is definitive. * Fluid restriction 1.5 L/day, Na restriction 2 g/day. * Monitor response post-dialysis. # HFrEF # CHF exacerbation EF 25?30% (08/15/25 echo) Severe global hypokinesis, RVSP 62, moderate MR, mild?mod TR. Home meds inconsistent; patient unclear. Plan: * Started carvedilol 6.25 mg BID * Started valsartan 40 mg daily; will uptitrate later if needed. * Restarted atorvastatin 80 mg nightly * Avoid QT-prolonging meds (QTc 509). # Hypertensive urgency (176/115), improving Likely secondary to volume overload + medication noncompliance. BP this morning 135/90 Plan: * Restarted GDMT (carvedilol + valsartan). * Will continue to monitor BP * Adjust meds after dialysis once volume improves. # Troponinemia Troponin 0.069 last week 0.054 Likely secondary to RENATE Plan: * If remains stable will stop trend. # Diabetes mellitus, insulin dependent Uses long-acting insulin once daily, 22 units. Glucose 188 today. Plan: * Increased degludec to 36 units * Step 1 SSI. Health Maintenance: Disposition: Admit to telemetry. Hemodialysis. Feeding: Renal/2 g sodium diet. Fluid restrictions: 1500 cc. Thromboprophylaxis: Heparin SQ every 12 hours GI Prophylaxis: Pantoprazole 40 mg daily. Code Status: Full code ----- Plan discussed with attending physician Dr. Maryjo Barkley MD PGY-1 Internal Medicine
[2025-10-02] MEDS: ATORVASTATIN CALCIUM 20 MG TABLET 80 MG PO (20:14)
[2025-10-02] MEDS: INSULIN DEGLUDEC 5 UNIT/0.05 ML (PER 5 UNITS) 36 UNIT SC (20:15)
[2025-10-03] VITALS (27 sets, daily range): BP systolic 134–155; BP diastolic 77–95; PULSE 79–87; RESP 12–98; TEMP 36.5–37.4; O2SAT 93–99; BMI 33.0
--- NOTE | 2025-10-03 00:01 | ESPR_ITS ---
RE: YOVANNY MALAGON : 1960 DATE OF SERVICE: 10/02/2025 SUBJECTIVE: The patient is with history of cardiomyopathy, congestive heart failure, admitted to the hospital with multiple problems. He has a dilated cardiomyopathy, history of drug use in the past. Not having any chest pain, shortness of breath, continues to be comfortable today. The patient has significant edema of the feet, followed by construction quality control manager as well. Creatinine is elevated at 2.9 and BUN is 44. The patient seems to be stable cardiac garcia, not having any chest pain. Has some shortness of breath. OBJECTIVE: VITAL SIGNS: Blood pressure 134/80, pulse rate is 85, respirations 24. NECK: Supple. LUNGS: Decreased breath sounds. HEART: S1 and S2, distant. ABDOMEN: Thin and soft. EXTREMITIES: Mild edema. /RECTAL: Not performed. IMPRESSION: 1. Acute on chronic systolic heart failure. 2. Hypoxic respiratory failure. 3. Nonischemic cardiomyopathy possibly due to secondary to previous drug use, cocaine and methamphetamine abuse. 5. Chronic kidney disease, acute kidney injury. RECOMMENDATIONS: Cardiac garcia, the patient appears to be stable. Followed by construction quality control manager. The patient did have tunneled dialysis catheter placed for possible dialysis and volume removal. DT: 22:57:16 TT: 00:00:00 Ref: [id number] - TID: [id number]
[2025-10-03 08:48] LABS: Basophils # (Auto) 0.0 Thou/mm3 (0.0-0.2); Basophils % (Auto) 0 % (0-2.5); Eosinophils # (Auto) 0.2 Thou/mm3 (0.0-0.5); Eosinophils % (Auto) 4 % (0-10); Hematocrit 30.5 % (41.0-53.0); Hemoglobin 9.8 g/dL (13.5-16.0); Immature Granulocytes Auto 0.01 Thou/mm3 (0.00-0.00); Lymphocytes # (Auto) 0.7 Thou/mm3 (1.0-4.8); Lymphocytes % (Auto) 14 % (10-50); Mean Corpuscular HGB Conc 32.1 g/dl (31.0-37.0); Mean Corpuscular Hemoglobin 26.1 pg (25.0-35.0); Mean Corpuscular Volume 81 fL (80-100); Monocytes # (Auto) 0.4 Thou/mm3 (0.0-0.8); Monocytes % (Auto) 9 % (0-12); Neutrophils # (Auto) 3.7 Thou/mm3 (1.8-7.7); Neutrophils % (Auto) 73 % (37-80); Nucleated Red Blood Cell # 0.00 Thou/mm3 (0.00-0.00); Nucleated Red Blood Cell % 0 /100 WBC (0); Platelet Count 118 Thou/mm3 (140-440); RDW Standard Deviation 50.4 fL (35.1-43.9); Red Blood Count 3.76 Miln/mm3 (4.50-5.90); White Blood Count 5.1 Thou/mm3 (3.8-10.6)
--- NOTE | 2025-10-03 09:03 | ESPR_ITS ---
Documentation for date of: 10/03/25 Subjective Subjective Interval history: Interval history: 64 year old fijian speaking male with past medical history of CKD IV, HFrEF (EF 15-20%), CVA (06/05/25), HTN, insulin-dependent diabetes mellitus type 2, HCV treated, HLD who presents to ED from Dr. Newby's clinic for worsening shortness of breath for the past few weeks. Also endorses orthopnea and dyspnea on exertion. On exam, has worsening upper and lower extremity swelling, ongoing for the past few days. Has not taken his Bumex 2mg since yesterday but reports taking his Lasix 40 mg today. Patient has gained 52 lbs over the past 6 weeks. On exam, patient had bilateral crackles and was barely able to complete his sentences due to difficulty breathing. Saturating 95-98% on room air. BP 176/115 at bedside. CXR showed mild to moderate CHF with prominent vascular congestion including central vascular engorgement with perihilar basilar edema. Potassium 4.1, BUN 81, Cr 3.7 (baseline 2.9-3.3), GFR 17 (baseline 21-22), corrected calcium 8.5. BNP 2549, appears to be chronically elevated. Of note, PTH on 09/13 790.2. Past Medical History: as above Family History: noncontributory Surgical History: none Social History: Drinks alcohol, denies tobacco use. Intermittently smokes marijuana. Previously used meth and cocaine over 20 years ago but denies current illicit drug use. Current Medications: atorvastatin 40 mg daily, valsartan 40 mg daily, carvedilol 3.125 mg BID, Bumex 2 mg daily, and Lasix 40 mg daily (pending official med rec) Allergies: No known drug allergies Started patient on Bumex drip 2mg/hr in ED. Nephrology consulted for fluid overload possibly requiring hemodialysis. 09/29/25: Patient seen and assessed at bedside. Urine output 2L overnight s/p Bumex drip. BUN and Cr stable. Scheduled for tunnel dialysis catheter placement and HD session today. 09/30/25: Patient seen and assessed during dialysis. Tolerating dialysis well. Maintaining good urine output (2.7L overnight). HD port in right IJ placed by IR and removed 1L yesterday. Lung sounds clear but continues to have significant lower extremity edema on exam. Continue dialysis today and tomorrow. 10/01/25: Patient seen and assessed during dialysis. Dialysis day #3. Tolerating dialysis well. UOP 1.2L overnight but continues to have anasarca on exam. BUN 55 (elevated but improving), Cr 3.0 (from 3.4). Plan to remove 3L today as tolerated. Dialysis tomorrow if available. 10/02/2025 patient resting comfortably. So far he had 3 dialysis sessions and more than 6 L of fluids were removed. Denies any nausea, vomiting. Labs/medications reviewed. Pending outpatient dialysis arrangements. 10/03/25: Patient seen and assessed at bedside. UOP 1L. Continues to have edema, plan to remove 3.5 L fluid with dialysis today. Has been tolerating sessions well. BUN 44, improving. Creatinine 2.9, improving. TB negative. Pending outpatient dialysis arrangements. Exam Vital Signs Temp Pulse Resp BP Pulse Ox O2 Del Method O2 Flow Rate 97.8 F 80 24 H 143/77 H 95 Nasal Cannula 2 10/03/25 08:00 10/03/25 09:01 10/03/25 08:00 10/03/25 09:01 10/03/25 08:00 10/03/25 08:00 10/03/25 08:00 Narrative Exam Physical Exam General: Awake and in no acute distress, saturating well on 2L NC. Conversational. Pakistani speaking. HEENT: Normocephalic, atraumatic, mucous membranes moist. Heart: Regular rate and rhythm, normal S1 and S2, no murmurs appreciated. Lungs: Clear to ausculation bilaterally. Abdomen: Soft, nondistended, nontender, positive bowel sounds. No guarding or rebound tenderness. : Scrotal edema nontender, nonerythematous. Neurologic: Alert and oriented x3, no gross neurological deficit, and patient able to move all 4 extremities. Extremities: 3+ pitting lower extremity edema extending up to knees. Non-pitting edema of bilateral upper extremities, improved. Skin: Cellulitis of bilateral lower legs, R>L. Superficial open wounds with minimal drainage. No rash or ecchymoses. Objective Labs 10/04/25 04:48 10/04/25 04:48 Labs: Laboratory Results - last 24 hr 10/03/25 08:38 WBC 5.1 RBC 3.76 L Hgb 9.8 L Hct 30.5 L MCV 81 MCH 26.1 MCHC 32.1 RDW Std Deviation 50.4 H Plt Count 118 L Neut % (Auto) 73 Lymph % (Auto) 14 [place] % (Auto) 9 Eos % (Auto) 4 Baso % (Auto) 0 Neut # (Auto) 3.7 Lymph # (Auto) 0.7 L [place] # (Auto) 0.4 Eos # (Auto) 0.2 Baso # (Auto) 0.0 Immature Gran # (Auto) 0.01 H Absolute Nucleated RBC 0.00 Immature Gran % 0 Nucleated RBC % 0 Quality Measures Quality Measures VTE prophylaxis Assessment & Plan Assessment Current Active Medications: Generic Name Dose Route Start Last Admin Trade Name Freq PRN Reason Stop Dose Admin Acetaminophen 650 mg 09/28/25 15:14 10/01/25 04:31 Acetaminophen 325 Mg Tablet PO 10/28/25 15:13 650 mg Q6H PRN Administration Fever >100.4 or pain 1-5 Ascorbic Acid 250 mg 09/29/25 21:00 10/02/25 20:14 Ascorbic Acid 250 Mg Tablet PO 10/29/25 20:59 250 mg BID YUDITH Administration Atorvastatin Calcium 80 mg 09/28/25 21:00 10/02/25 20:14 Atorvastatin Calcium 20 Mg Tablet PO 10/28/25 20:59 80 mg HS YUDITH Administration Carvedilol 6.25 mg 09/28/25 21:00 10/02/25 20:15 Carvedilol 3.125 Mg Tablet PO 10/28/25 20:59 6.25 mg BID YUDITH Administration Dextrose 25 ml 09/28/25 16:02 Dextrose 50%-Water Inj 50 Ml Syringe IV 10/28/25 16:01 Q15MIN PRN BG 50-70 responsive npo pt Dextrose 50 ml 09/28/25 16:02 Dextrose 50%-Water Inj 50 Ml Syringe IV 10/28/25 16:01 Q15MIN PRN BG <50 OR BG <70 & pt unresponsive Epoetin Ra 10,000 unit 10/03/25 10:00 Epoetin Ra-Epbx Inj 10,000 Unit/Ml Vial (Non-Esrd) SC 10/03/25 10:01 X1 ONE Glucagon 1 mg 09/28/25 16:02 Glucagon Inj 1 Mg Vial IM Q15MIN PRN BG <70, and no IV access Heparin Sodium (Porcine) 5,000 unit 09/28/25 21:00 10/02/25 20:15 Heparin Sod Inj 5000 Unit/Ml Vial SC 10/12/25 20:59 5,000 unit Q12HR YUDITH Administration Heparin Sodium (Porcine) 3,500 unit 09/29/25 12:06 10/01/25 12:07 Heparin Sod Inj 1000 Unit/Ml Vial 10 Ml INDWELLCAT 10/13/25 12:05 3,500 unit PRN PRN Administration DIALYSIS Albumin Human 25 gm in 100 mls @ 100 mls/hr 09/29/25 08:15 Albuminex 25% Ivpb IV Q30MIN PRN DIALYSIS Insulin Degludec 36 unit 10/02/25 21:00 10/02/25 20:15 Insulin Degludec 5 Unit/0.05 Ml (Per 5 Units) SC 11/01/25 20:59 36 unit HS YUDITH Administration Insulin Human Lispro 0 unit 09/28/25 17:00 10/03/25 07:11 Insulin Lispro (Admelog) 1 Unit/0.01 Ml Unit SC 10/28/25 16:59 Not Given AC [facility] Protocol Pantoprazole Sodium 40 mg 09/29/25 09:00 10/02/25 08:34 Pantoprazole 40 Mg Tablet PO 10/29/25 08:59 40 mg QDAY YUDITH Administration Valsartan 40 mg 09/28/25 15:15 10/02/25 08:34 Valsartan 40 Mg Tablet PO 10/28/25 15:14 40 mg QDAY YUDITH Administration Vitamin B Complex/Vit C/Folic Acid 1 tab 09/30/25 09:00 10/02/25 08:34 Vit B12/Vit C/Fa (Nephrovite) Tablet PO 10/30/25 08:59 1 tab QDAY YUDITH Administration Zinc Sulfate 220 mg 09/30/25 09:00 10/02/25 08:34 Zinc Sulfate 220 Mg Capsule PO 10/30/25 08:59 220 mg QDAY YUDITH Administration Plan 64 year old fijian speaking male with past medical history of CKD IV, HFrEF (EF 25-30%), CVA (06/05/25), HTN, insulin-dependent diabetes mellitus type 2, HCV treated, HLD who presents to ED from Dr. Newby's clinic for worsening shortness of breath for the past few weeks, as well as orthopnea and worsening extremity swelling. Nephrology consulted for fluid overload likely secondary to cardiorenal syndrome requiring dialysis. #Fluid overload 2/2 cardiorenal syndrome and nephrotic syndrome #Dialysis MWF #RENATE on CKD IV #Nephrotic syndrome 2/2 uncontrolled diabetes #Renal hyperparathyroidism #Hx HFrEF (EF 25-30%) 2/2 dilated cardiomyopathy and global hypokinesis - Presenting with progressive shortness of breath for almost the past month, as well as orthopnea and upper and lower extremity swelling. Has gained 52 lbs over the past 6 weeks. Home medications include Bumex 2 mg daily, Lasix 40 mg daily, and valsartan 40 mg daily; however did not take Bumex prior to admission. - Was previously seen in the ED on 09/20 for same complaint. BNP >3200, increased Bumex to 2 mg daily. - BNP 2549, trop mildly elevated at 0.069 (previously 0.054). EKG unremarkable. - BUN 81, Cr 3.7 (baseline 2.9-3.3). - On outpatient labs 09/13, PTH 790.2, phos 3.8. On admission calcium 8.1, corrected 8.5. May indicate worsening renal function. - (09/13) Random urine microalbumin 3789, ratio 5655. Likely nephrotic syndrome, likely secondary to uncontrolled diabetes (A1c 8.2). - CXR shows mild to moderate vascular congestion. - Echo 08/15 showed dilated cardiomyopathy with severe global hypokinesis, EF 25-30%% with moderate pulm hypertension - Dialysis catheter placed 09/29 by IR - Likely cardiorenal syndrome versus CHF exacerbation Plan: - S/p HD 09/29 (-1L), 09/30 (-1.1), 10/01 (-3L) - Dialysis today - Pending outpatient dialysis chair. - Strict INOs - Monitor respiratory status #AHRF #Anasarca #Cirrhosis 2/2 hep C #CHF exacerbation #HFrEF (EF 25-50%) #Hypertensive urgency (resolved) #Hx HTN #Elevated troponins #IDDM2 #Hx Hepatitis C #Cellulitis lower extremities #Hx substance use - Defer to primary team for management Thank you for your consultation, please do not hesitate to reach out if you have any question or concern Patient plan of care was discussed with the attending physician, Dr. Keyonna Wooten DO, PGY-1 Attending Provider Attestation/Addendum Patient currently seen and examined with resident physician Dr. Wooten. Note reviewed, agree with findings and recommendations. Patient currently seen in telemetry. Significant fluid overload-gained a 52 pounds in 1 month. Cardiorenal syndrome and nephrotic syndrome. Failed outpatient diuretic therapy. 10/03/2025 dialysis catheter placed by Dr. Nicole. Patient currently seen on 4th dialysis. Tolerating dialysis without any problems. Hemodialysis for 3 hours, seq ultrafiltration 3-4 L, Epogen 6000, no heparin ordered. Plan of care discussed with the dialysis nurse. Please see dialysis flowsheet for further details. Hepatitis, PPD negative. Needs outpatient dialysis. [facility] dialysis accepted patient. Pending chair time.
[2025-10-03 09:07] LABS: Alanine Aminotransferase 11 U/L (10-49); Albumin, Serum 2.8 gm/dL (3.4-4.8); Albumin/Globulin Ratio 1.0 (1.2-2.2); Alkaline Phosphatase 93 U/L (46-116); Anion Gap 8 (7-16); Aspartate Amino Transferase 22 U/L (0-34); BUN/Creatinine Ratio 18 Ratio (12-20); Bilirubin,Total 0.5 mg/dL (0.3-1.2); Blood Urea Nitrogen 49 mg/dL (9-23); Calcium 7.6 mg/dL (8.3-10.6); Calcium (Corrected) 8.6 mg/dL (8.5-10.1); Carbon Dioxide 26.7 mMol/L (20.0-31.0); Chloride 103 mMol/L (98-107); Creatinine (Component) 2.8 mg/dL (0.6-1.3); Estimated Creatinine Clearance 34.2 mL/min (>60); Globulin 2.8 gm/dL (2.3-3.5); Glucose 114 mg/dL (74-106); Magnesium 1.7 mg/dL (1.6-2.6); Osmolality,Calculated 289 (275-295); Potassium 3.8 mMol/L (3.4-5.1); Sodium 138 mMol/L (136-145); Total Protein 5.6 gm/dL (5.7-8.2); eGFR 24 See Note
--- NOTE | 2025-10-03 09:15 | PC.SS ---
SUPERVISOR BEEHIVE KILN spoke to [facility] staff, Courtney ; who confirmed authorization has been obtained. Pending confirmation of TB results and HEP panel. Once TB results confirmed chair time will be obtained. [facility] staff to follow up with SUPERVISOR BEEHIVE KILN.
[2025-10-03] MEDS: EPOETIN ALFA-EPBX INJ 10,000 UNIT/ML VIAL (NON-ESRD) 10000 UNIT SC (09:23)
[2025-10-03] MEDS: HEPARIN SOD INJ 1000 UNIT/ML VIAL 10 ML 3500 UNIT INDWELLCAT (10:40)
[2025-10-03] MEDS: ASCORBIC ACID 250 MG TABLET PO ×2 (11:44→20:11)
[2025-10-03] MEDS: PANTOPRAZOLE 40 MG TABLET PO (11:44)
[2025-10-03] MEDS: VIT B12/Vit C/FA (Nephrovite) TABLET 1 TAB PO (11:44)
[2025-10-03] MEDS: ZINC SULFATE 220 MG CAPSULE PO (11:44)
[2025-10-03] MEDS: VALSARTAN 40 MG TABLET PO (11:45)
[2025-10-03] MEDS: HEPARIN SOD INJ 5000 UNIT/ML VIAL SC ×2 (11:46→20:11)
--- NOTE | 2025-10-03 12:59 | PC.SS ---
Addendum entered by Shyann Brady 10/04/25 10:03: SS contacted [facility] spoke to Robyn and received chair time of TTHSAT 05:50am, first chair to be this 10.05.25 pt to be there at 05:15am. SS to provide all information to pt. Pt cleared to DC home today Original Note: TEST AUTOMATION ARCHITECT confirmed with [facility] staff that dialysis clinic has obtained HEP panel and TB results. Chair time remains pending.
--- NOTE | 2025-10-03 14:05 | ESPR_ITS ---
<Statement entered by Lawanda Sibley MD - 10/20/25 08:24> I reviewed above note and agree with findings and plans. I have also personally examined the patient with medicine team and went over assessment and plan with medical team including winter intern and resident physician. Documentation for date of: 10/03/25 Subjective Subjective Interval history: No acute overnight events. Currently in dialysis tolerating well. Patient still appears overloaded Exam Vital Signs Temp Pulse Resp BP Pulse Ox O2 Del Method O2 Flow Rate 97.9 F 81 22 H 146/95 H 96 Nasal Cannula 1 10/03/25 12:00 10/03/25 12:00 10/03/25 12:00 10/03/25 12:00 10/03/25 12:00 10/03/25 12:00 10/03/25 12:00 Narrative Exam General: Alert and oriented x3. No acute distress, cooperative HEENT: NCAT, No JVD noted. Mucosa moist. Pupils are equal and reactive to light bilaterally Cardiovascular: Normal S1 and S2. Regular rate and rhythm. Respiratory: Lungs are clear to auscultation bilaterally. No wheezing or crackles heard. Abdomen: Soft, nontender, not distended, normal bowel sounds. Skin: Warm to touch, dry, no rashes noted Musculoskeletal: No gross injuries. Able to move all 4 extremities. +2 pitting edema Neuro: Alert and oriented x3. No focal neuro deficits. Psych: Normal affect and mood Objective Labs 10/03/25 08:38 10/03/25 08:38 Labs: Laboratory Results - last 24 hr 10/03/25 08:38 WBC 5.1 RBC 3.76 L Hgb 9.8 L Hct 30.5 L MCV 81 MCH 26.1 MCHC 32.1 RDW Std Deviation 50.4 H Plt Count 118 L Neut % (Auto) 73 Lymph % (Auto) 14 [place] % (Auto) 9 Eos % (Auto) 4 Baso % (Auto) 0 Neut # (Auto) 3.7 Lymph # (Auto) 0.7 L [place] # (Auto) 0.4 Eos # (Auto) 0.2 Baso # (Auto) 0.0 Immature Gran # (Auto) 0.01 H Absolute Nucleated RBC 0.00 Immature Gran % 0 Nucleated RBC % 0 Sodium 138 Potassium 3.8 Chloride 103 Carbon Dioxide 26.7 Anion Gap 8 BUN 49 H Creatinine 2.8 H Estim Creat Clear Calc 34.2 L eGFR 24 L BUN/Creatinine Ratio 18 Glucose 114 H D Calculated Osmolality 289 Calcium 7.6 L Corrected Calcium 8.6 Magnesium 1.7 Total Bilirubin 0.5 AST 22 ALT 11 Alkaline Phosphatase 93 Total Protein 5.6 L Albumin 2.8 L Globulin 2.8 Albumin/Globulin Ratio 1.0 L Quality Measures Quality Measures VTE prophylaxis Assessment & Plan Assessment Current Active Medications: Generic Name Dose Route Start Last Admin Trade Name [place] PRN Reason Stop Dose Admin Acetaminophen 650 mg 09/28/25 15:14 10/01/25 04:31 Acetaminophen 325 Mg Tablet PO 10/28/25 15:13 650 mg Q6H PRN Administration Fever >100.4 or pain 1-5 Ascorbic Acid 250 mg 09/29/25 21:00 10/03/25 11:44 Ascorbic Acid 250 Mg Tablet PO 10/29/25 20:59 250 mg BID YUDITH Administration Atorvastatin Calcium 80 mg 09/28/25 21:00 10/02/25 20:14 Atorvastatin Calcium 20 Mg Tablet PO 10/28/25 20:59 80 mg HS YUDITH Administration Carvedilol 6.25 mg 09/28/25 21:00 10/03/25 11:46 Carvedilol 3.125 Mg Tablet PO 10/28/25 20:59 6.25 mg BID YUDITH Administration Dextrose 25 ml 09/28/25 16:02 Dextrose 50%-Water Inj 50 Ml Syringe IV 10/28/25 16:01 Q15MIN PRN BG 50-70 responsive npo pt Dextrose 50 ml 09/28/25 16:02 Dextrose 50%-Water Inj 50 Ml Syringe IV 10/28/25 16:01 Q15MIN PRN BG <50 OR BG <70 & pt unresponsive Glucagon 1 mg 09/28/25 16:02 Glucagon Inj 1 Mg Vial IM Q15MIN PRN BG <70, and no IV access Heparin Sodium (Porcine) 5,000 unit 09/28/25 21:00 10/03/25 11:46 Heparin Sod Inj 5000 Unit/Ml Vial SC 10/12/25 20:59 5,000 unit Q12HR YUDITH Administration Heparin Sodium (Porcine) 3,500 unit 09/29/25 12:06 10/03/25 10:40 Heparin Sod Inj 1000 Unit/Ml Vial 10 Ml INDWELLCAT 10/13/25 12:05 3,500 unit PRN PRN Administration DIALYSIS Albumin Human 25 gm in 100 mls @ 100 mls/hr 09/29/25 08:15 Albuminex 25% Ivpb IV Q30MIN PRN DIALYSIS Insulin Degludec 36 unit 10/02/25 21:00 10/02/25 20:15 Insulin Degludec 5 Unit/0.05 Ml (Per 5 Units) SC 11/01/25 20:59 36 unit HS YUDITH Administration Insulin Human Lispro 0 unit 09/28/25 17:00 10/03/25 11:52 Insulin Lispro (Admelog) 1 Unit/0.01 Ml Unit SC 10/28/25 16:59 Not Given AC [facility] Protocol Pantoprazole Sodium 40 mg 09/29/25 09:00 10/03/25 11:44 Pantoprazole 40 Mg Tablet PO 10/29/25 08:59 40 mg QDAY YUDITH Administration Valsartan 40 mg 09/28/25 15:15 10/03/25 11:45 Valsartan 40 Mg Tablet PO 10/28/25 15:14 40 mg QDAY YUDITH Administration Vitamin B Complex/Vit C/Folic Acid 1 tab 09/30/25 09:00 10/03/25 11:44 Vit B12/Vit C/Fa (Nephrovite) Tablet PO 10/30/25 08:59 1 tab QDAY YUDITH Administration Zinc Sulfate 220 mg 09/30/25 09:00 10/03/25 11:44 Zinc Sulfate 220 Mg Capsule PO 10/30/25 08:59 220 mg QDAY YUDITH Administration Plan 64-year-old male with cardiorenal syndrome, acute decompensated HFrEF (EF 25?30%), RENATE on CKD IV progressing to ESRD, severe volume overload, and insulin- dependent diabetes, currently undergoing inpatient dialysis, still significantly overloaded but clinically improving, scheduled for another dialysis session tomorrow to secure outpatient dialysis placement. # RENATE on CKD progressing to ESRD, severe volume overload Sent by nephrology specifically for dialysis initiation. Cr 3.7, GFR 17. BNP markedly elevated, extensive anasarca, respiratory compromise. Still making urine. Received 3 dialysis sessions, tolerating well 10/02: Seen patient this morning still appears to be overloaded, edema 2+ in lower extremities. Scheduled for another dialysis session tomorrow to secure outpatient dialysis placement. 10/03: Patient continues to improve with dialysis. Today?s HD session being tolerated well. Disposition depends on confirmation of outpatient HD chair. Plan: * Admit to telemetry. * Nephrology consulted (Dr. Newby): dialysis scheduled. * Strict I/O, daily weights. * Renally dose all meds. * Trend BMP daily. * Avoid nephrotoxins. # Acute Hypoxic Respiratory Failure Not on oxygen at home -> now on 2 L NC. Multifactorial: volume overload + HFrEF exacerbation + anasarca limiting lung expansion. CXR: mild?moderate CHF. Plan: * O2 as needed, goal >92%. * No fluids. * Dialysis today to help with decongestion. * Supportive respiratory care. # Anasarca / Severe Volume Overload Likely from ESRD + HFrEF. Plan: * Dialysis is definitive. * Fluid restriction 1.5 L/day, Na restriction 2 g/day. * Monitor response post-dialysis. # HFrEF # CHF exacerbation EF 25?30% (08/15/25 echo) Severe global hypokinesis, RVSP 62, moderate MR, mild?mod TR. Home meds inconsistent; patient unclear. Plan: * Started carvedilol 6.25 mg BID * Started valsartan 40 mg daily; will uptitrate later if needed. * Restarted atorvastatin 80 mg nightly * Avoid QT-prolonging meds (QTc 509). # Hypertensive urgency (176/115), improving Likely secondary to volume overload + medication noncompliance. BP this morning 135/90 Plan: * Restarted GDMT (carvedilol + valsartan). * Will continue to monitor BP * Adjust meds after dialysis once volume improves. # Troponinemia Troponin 0.069 last week 0.054 Likely secondary to RENATE Plan: * If remains stable will stop trend. # Diabetes mellitus, insulin dependent Uses long-acting insulin once daily, 22 units. Glucose 188 today. Plan: * Increased degludec to 36 units * Step 1 SSI. Health Maintenance: Disposition: Admit to telemetry. Hemodialysis. Feeding: Renal/2 g sodium diet. Fluid restrictions: 1500 cc. Thromboprophylaxis: Heparin SQ every 12 hours GI Prophylaxis: Pantoprazole 40 mg daily. Code Status: Full code ----- Plan discussed with attending physician Dr. Maryjo Barkley MD PGY-1 Internal Medicine
--- NOTE | 2025-10-03 16:29 | PC.PT ---
PT eval only. Patient is xI with bed mobility, transfers, and ambulation using his cane. Patient is safe to ambulate to the bathroom and in the halls with his cane and 1 staff per RN request. RN made aware.
--- NOTE | 2025-10-03 17:04 | ESPR_ITS ---
<Statement entered by Sia Bonner MD - 10/04/25 12:26> I personally examined the patient evaluate the patient appears to be doing about the same the patient has volume overload chronic edema continue on diuretic therapy with some response also dialysis catheter placed for ultrafiltration. Evaluated patient with resident physician Dr. Hui agree with the treatment plan recommendation as documented Documentation for date of: 10/03/25 Subjective Subjective Interval history: Patient examined at bedside. Vitals are stable, telemetry reviewed patient on normal sinus rhythm rate around 80s. UO +410cc, Labs were reviewed creatinine 2.8. Continues on Coreg 6.25 twice daily. On physical exam patient has crackles auscultated bilaterally and still very fluid overloaded. +2 pitting edema lower extremity, severe swelling in scrotum. Continuing to get inpatient hemodialysis. Start spironolactone 25 mg daily. Exam Vital Signs Temp Pulse Resp BP Pulse Ox O2 Del Method O2 Flow Rate 97.7 F 87 15 134/91 H 93 L Room Air 1 10/03/25 16:00 10/03/25 16:00 10/03/25 16:00 10/03/25 16:00 10/03/25 16:00 10/03/25 16:00 10/03/25 12:00 Narrative Exam General: Alert and oriented x3. No acute distress, cooperative HEENT: NCAT, No JVD noted. Mucosa moist. Pupils are equal and reactive to light bilaterally Cardiovascular: Normal S1 and S2. Regular rate and rhythm. Respiratory: Crackles auscultated bilaterally Abdomen: Soft, nontender, not distended, normal bowel sounds. : scrotal swelling Skin: Warm to touch, dry, dermatitis and skin peeling in lower extremity Musculoskeletal: No gross injuries. Able to move all 4 extremities. +2 pitting edema lower extremity, remains edematous in upper extremities as well Neuro: Alert and oriented x3. No focal neuro deficits. Psych: Normal affect and mood Objective Labs 10/03/25 08:38 10/03/25 08:38 Labs: Laboratory Results - last 24 hr 10/03/25 08:38 WBC 5.1 RBC 3.76 L Hgb 9.8 L Hct 30.5 L MCV 81 MCH 26.1 MCHC 32.1 RDW Std Deviation 50.4 H Plt Count 118 L Neut % (Auto) 73 Lymph % (Auto) 14 [place] % (Auto) 9 Eos % (Auto) 4 Baso % (Auto) 0 Neut # (Auto) 3.7 Lymph # (Auto) 0.7 L [place] # (Auto) 0.4 Eos # (Auto) 0.2 Baso # (Auto) 0.0 Immature Gran # (Auto) 0.01 H Absolute Nucleated RBC 0.00 Immature Gran % 0 Nucleated RBC % 0 Sodium 138 Potassium 3.8 Chloride 103 Carbon Dioxide 26.7 Anion Gap 8 BUN 49 H Creatinine 2.8 H Estim Creat Clear Calc 34.2 L eGFR 24 L BUN/Creatinine Ratio 18 Glucose 114 H D Calculated Osmolality 289 Calcium 7.6 L Corrected Calcium 8.6 Magnesium 1.7 Total Bilirubin 0.5 AST 22 ALT 11 Alkaline Phosphatase 93 Total Protein 5.6 L Albumin 2.8 L Globulin 2.8 Albumin/Globulin Ratio 1.0 L Quality Measures Quality Measures VTE prophylaxis Assessment & Plan Assessment Current Active Medications: Generic Name Dose Route Start Last Admin Trade Name Freq PRN Reason Stop Dose Admin Acetaminophen 650 mg 09/28/25 15:14 10/01/25 04:31 Acetaminophen 325 Mg Tablet PO 10/28/25 15:13 650 mg Q6H PRN Administration Fever >100.4 or pain 1-5 Ascorbic Acid 250 mg 09/29/25 21:00 10/03/25 11:44 Ascorbic Acid 250 Mg Tablet PO 10/29/25 20:59 250 mg BID YUDITH Administration Atorvastatin Calcium 80 mg 09/28/25 21:00 10/02/25 20:14 Atorvastatin Calcium 20 Mg Tablet PO 10/28/25 20:59 80 mg HS YUDITH Administration Carvedilol 6.25 mg 09/28/25 21:00 10/03/25 11:46 Carvedilol 3.125 Mg Tablet PO 10/28/25 20:59 6.25 mg BID YUDITH Administration Dextrose 25 ml 09/28/25 16:02 Dextrose 50%-Water Inj 50 Ml Syringe IV 10/28/25 16:01 Q15MIN PRN BG 50-70 responsive npo pt Dextrose 50 ml 09/28/25 16:02 Dextrose 50%-Water Inj 50 Ml Syringe IV 10/28/25 16:01 Q15MIN PRN BG <50 OR BG <70 & pt unresponsive Glucagon 1 mg 09/28/25 16:02 Glucagon Inj 1 Mg Vial IM Q15MIN PRN BG <70, and no IV access Heparin Sodium (Porcine) 5,000 unit 09/28/25 21:00 10/03/25 11:46 Heparin Sod Inj 5000 Unit/Ml Vial SC 10/12/25 20:59 5,000 unit Q12HR YUDITH Administration Heparin Sodium (Porcine) 3,500 unit 09/29/25 12:06 10/03/25 10:40 Heparin Sod Inj 1000 Unit/Ml Vial 10 Ml INDWELLCAT 10/13/25 12:05 3,500 unit PRN PRN Administration DIALYSIS Albumin Human 25 gm in 100 mls @ 100 mls/hr 09/29/25 08:15 Albuminex 25% Ivpb IV Q30MIN PRN DIALYSIS Insulin Degludec 36 unit 10/02/25 21:00 10/02/25 20:15 Insulin Degludec 5 Unit/0.05 Ml (Per 5 Units) SC 11/01/25 20:59 36 unit HS YUDITH Administration Insulin Human Lispro 0 unit 09/28/25 17:00 10/03/25 11:52 Insulin Lispro (Admelog) 1 Unit/0.01 Ml Unit SC 10/28/25 16:59 Not Given AC [facility] Protocol Pantoprazole Sodium 40 mg 09/29/25 09:00 10/03/25 11:44 Pantoprazole 40 Mg Tablet PO 10/29/25 08:59 40 mg QDAY YUDITH Administration Valsartan 40 mg 09/28/25 15:15 10/03/25 11:45 Valsartan 40 Mg Tablet PO 10/28/25 15:14 40 mg QDAY YUDITH Administration Vitamin B Complex/Vit C/Folic Acid 1 tab 09/30/25 09:00 10/03/25 11:44 Vit B12/Vit C/Fa (Nephrovite) Tablet PO 10/30/25 08:59 1 tab QDAY YUDITH Administration Zinc Sulfate 220 mg 09/30/25 09:00 10/03/25 11:44 Zinc Sulfate 220 Mg Capsule PO 10/30/25 08:59 220 mg QDAY YUDITH Administration Plan Patient is 64 yr male with PMH of CKD IV, dilated cardiomyopathy with EF 25?30%, HTN, and insulin-dependent diabetes, embolic stroke, non occulsive DVT sent by crm analyst to hospital due to worsening SOB since past few weeks. Cardiology was consulted for drug induced heart failure. # Acute Hypoxic Respiratory Failure #Acute decompensated chronic systolic HF 2/2 # Methamphetamine use #Volume overloaded #RENATE on CKD IV #NYHA class IV Echo from 08/15--Dilated cardiomyopathy severe global hypokinesis LVEF estimated at 25-30%. [place] pumonary hypertension, The estimated RVSP, 62 mmHg. RAP 15. Patient is noncompliant with her medications however states that he takes Lasix 40 mg daily. Shortness of breath has been worsening since past couple of months. Has not had any cardiac workup done outpatient. No history of [place]. 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 Appears to be fluid overloaded on physical exam with +2 pitting edema lower extremity, mild crackles auscultated lung. No JVD. Dyspneic during conversation. Anticipate RENATE to improve with continued aggressive diuresis as most likely component of heart failure. NYHA class IV, AHA class D. -bumetanide drip held as patient underwent HD session today -daily weights -strict INOs -low sodium diet -restrict fluid to 1500mL -keep potassium >4, mag >2 -daily CBC, CMP -Patient is not a candidate for ICD due to class of HF -carvedilol 6.25 mg BID -valsartan 40 mg daily -atorvastatin 80 mg nightly -continue to optimize GDMT -trend troponins -outpatient follow [facility] -start spironolactone 25 mg daily #History of type 2 diabetes The patient's management plan was discussed with my attending physician Dr. Bonner. Daija Barroso, PGY-2
[2025-10-03] MEDS: ATORVASTATIN CALCIUM 20 MG TABLET 80 MG PO (20:11)
[2025-10-03] MEDS: INSULIN DEGLUDEC 5 UNIT/0.05 ML (PER 5 UNITS) 36 UNIT SC (20:12)
[2025-10-04] VITALS (24 sets, daily range): BP systolic 116–154; BP diastolic 75–99; PULSE 71–84; RESP 9–99; TEMP 36.3–36.8; O2SAT 93–98; BMI 32.5
[2025-10-04 05:52] LABS: Basophils # (Auto) 0.0 Thou/mm3 (0.0-0.2); Basophils % (Auto) 1 % (0-2.5); Eosinophils # (Auto) 0.2 Thou/mm3 (0.0-0.5); Eosinophils % (Auto) 4 % (0-10); Hematocrit 32.6 % (41.0-53.0); Hemoglobin 10.3 g/dL (13.5-16.0); Immature Granulocytes Auto 0.01 Thou/mm3 (0.00-0.00); Lymphocytes # (Auto) 0.7 Thou/mm3 (1.0-4.8); Lymphocytes % (Auto) 15 % (10-50); Mean Corpuscular HGB Conc 31.6 g/dl (31.0-37.0); Mean Corpuscular Hemoglobin 26.2 pg (25.0-35.0); Mean Corpuscular Volume 83 fL (80-100); Monocytes # (Auto) 0.7 Thou/mm3 (0.0-0.8); Monocytes % (Auto) 15 % (0-12); Neutrophils # (Auto) 3.1 Thou/mm3 (1.8-7.7); Neutrophils % (Auto) 65 % (37-80); Nucleated Red Blood Cell # 0.00 Thou/mm3 (0.00-0.00); Nucleated Red Blood Cell % 0 /100 WBC (0); Platelet Count 149 Thou/mm3 (140-440); RDW Standard Deviation 53.1 fL (35.1-43.9); Red Blood Count 3.93 Miln/mm3 (4.50-5.90); White Blood Count 4.8 Thou/mm3 (3.8-10.6)
[2025-10-04 06:03] LABS: Alanine Aminotransferase 15 U/L (10-49); Albumin, Serum 3.1 gm/dL (3.4-4.8); Albumin/Globulin Ratio 1.0 (1.2-2.2); Alkaline Phosphatase 106 U/L (46-116); Anion Gap 9 (7-16); Aspartate Amino Transferase 29 U/L (0-34); BUN/Creatinine Ratio 17 Ratio (12-20); Bilirubin,Total 0.5 mg/dL (0.3-1.2); Blood Urea Nitrogen 53 mg/dL (9-23); Calcium 8.1 mg/dL (8.3-10.6); Calcium (Corrected) 8.8 mg/dL (8.5-10.1); Carbon Dioxide 25.2 mMol/L (20.0-31.0); Chloride 103 mMol/L (98-107); Creatinine (Component) 3.1 mg/dL (0.6-1.3); Estimated Creatinine Clearance 30.7 mL/min (>60); Globulin 3.2 gm/dL (2.3-3.5); Glucose 188 mg/dL (74-106); Magnesium 1.9 mg/dL (1.6-2.6); Osmolality,Calculated 293 (275-295); Phosphorous 4.2 mg/dL (2.4-5.1); Potassium 3.9 mMol/L (3.4-5.1); Sodium 137 mMol/L (136-145); Total Protein 6.3 gm/dL (5.7-8.2); eGFR 22 See Note
--- NOTE | 2025-10-04 09:11 | PD.RESPRO ---
Documentation for date of: 10/04/25 Subjective Subjective Interval history: 64 year old bulgarian speaking male with past medical history of CKD IV, HFrEF (EF 15-20%), CVA (06/05/25), HTN, insulin-dependent diabetes mellitus type 2, HCV treated, HLD who presents to ED from Dr. Newby[facility] clinic for worsening shortness of breath for the past few weeks. Also endorses orthopnea and dyspnea on exertion. On exam, has worsening upper and lower extremity swelling, ongoing for the past few days. Has not taken his Bumex 2mg since yesterday but reports taking his Lasix 40 mg today. Patient has gained 52 lbs over the past 6 weeks. On exam, patient had bilateral crackles and was barely able to complete his sentences due to difficulty breathing. Saturating 95-98% on room air. BP 176/115 at bedside. CXR showed mild to moderate CHF with prominent vascular congestion including central vascular engorgement with perihilar basilar edema. Potassium 4.1, BUN 81, Cr 3.7 (baseline 2.9-3.3), GFR 17 (baseline 21-22), corrected calcium 8.5. BNP 2549, appears to be chronically elevated. Of note, PTH on 09/13 790.2. Past Medical History: as above Family History: noncontributory Surgical History: none Social History: Drinks alcohol, denies tobacco use. Intermittently smokes marijuana. Previously used meth and cocaine over 20 years ago but denies current illicit drug use. Current Medications: atorvastatin 40 mg daily, valsartan 40 mg daily, carvedilol 3.125 mg BID, Bumex 2 mg daily, and Lasix 40 mg daily (pending official med rec) Allergies: No known drug allergies Started patient on Bumex drip 2mg/hr in ED. Nephrology consulted for fluid overload possibly requiring hemodialysis. 09/29/25: Patient seen and assessed at bedside. Urine output 2L overnight s/p Bumex drip. BUN and Cr stable. Scheduled for tunnel dialysis catheter placement and HD session today. 09/30/25: Patient seen and assessed during dialysis. Tolerating dialysis well. Maintaining good urine output (2.7L overnight). HD port in right IJ placed by IR and removed 1L yesterday. Lung sounds clear but continues to have significant lower extremity edema on exam. Continue dialysis today and tomorrow. 10/01/25: Patient seen and assessed during dialysis. Dialysis day #3. Tolerating dialysis well. UOP 1.2L overnight but continues to have anasarca on exam. BUN 55 (elevated but improving), Cr 3.0 (from 3.4). Plan to remove 3L today as tolerated. Dialysis tomorrow if available. 10/02/2025 patient resting comfortably. So far he had 3 dialysis sessions and more than 6 L of fluids were removed. Denies any nausea, vomiting. Labs/medications reviewed. Pending outpatient dialysis arrangements. 10/03/25: Patient seen and assessed at bedside. UOP 1L. Continues to have edema, plan to remove 3.5 L fluid with dialysis today. Has been tolerating sessions well. BUN 44, improving. Creatinine 2.9, improving. TB negative. Pending outpatient dialysis arrangements. 10/04/25: Patient seen and assessed at bedside. UOP 750 cc overnight. Edema improving, removed 3.5 L yesterday (total 8.6L during admission). Plan to remove another 3-3.5L today. Outpatient dialysis scheduled TTS at [facility], next session . Patient is medically stable for discharge from nephrology standpoint after dialysis. Discharge with Entresto BID, discontinue Bumex and valsartan. Instructed patient to follow up 1 week after discharge. Exam Vital Signs Temp Pulse Resp BP Pulse Ox O2 Del Method O2 Flow Rate 97.5 F 80 18 142/96 H 98 Room Air 1 10/04/25 08:00 10/04/25 08:00 10/04/25 08:00 10/04/25 08:00 10/04/25 08:00 10/04/25 08:00 10/03/25 12:00 Narrative Exam Physical Exam General: Awake and in no acute distress, saturating well on room air. Conversational. Divehi speaking. HEENT: Normocephalic, atraumatic, mucous membranes moist. Heart: Regular rate and rhythm, normal S1 and S2, no murmurs appreciated. Lungs: Clear to ausculation bilaterally. Abdomen: Soft, nondistended, nontender, positive bowel sounds. No guarding or rebound tenderness. : Scrotal edema nontender, nonerythematous. Neurologic: Alert and oriented x3, no gross neurological deficit, and patient able to move all 4 extremities. Extremities: 2+ pitting lower extremity edema extending up to knees. Non-pitting edema of bilateral upper extremities, improved. Skin: Venous stasis of lower extremities bilaterally, improving. No rash or ecchymoses. Objective Labs 10/04/25 04:48 10/04/25 04:48 Labs: Laboratory Results - last 24 hr 10/03/25 10/04/25 08:38 04:48 WBC 4.8 RBC 3.93 L Hgb 10.3 L Hct 32.6 L MCV 83 MCH 26.2 MCHC 31.6 RDW Std Deviation 53.1 H Plt Count 149 D Neut % (Auto) 65 Lymph % (Auto) 15 [place] % (Auto) 15 H Eos % (Auto) 4 Baso % (Auto) 1 Neut # (Auto) 3.1 Lymph # (Auto) 0.7 L [place] # (Auto) 0.7 Eos # (Auto) 0.2 Baso # (Auto) 0.0 Immature Gran # (Auto) 0.01 H Absolute Nucleated RBC 0.00 Immature Gran % 0 Nucleated RBC % 0 Sodium 138 137 Potassium 3.8 3.9 Chloride 103 103 Carbon Dioxide 26.7 25.2 Anion Gap 8 9 BUN 49 H 53 H Creatinine 2.8 H 3.1 H Estim Creat Clear Calc 34.2 L 30.7 L eGFR 24 L 22 L BUN/Creatinine Ratio 18 17 Glucose 114 H D 188 H D Calculated Osmolality 289 293 Calcium 7.6 L 8.1 L Corrected Calcium 8.6 8.8 Phosphorus 4.2 Magnesium 1.7 1.9 Total Bilirubin 0.5 0.5 AST 22 29 ALT 11 15 Alkaline Phosphatase 93 106 Total Protein 5.6 L 6.3 Albumin 2.8 L 3.1 L Globulin 2.8 3.2 Albumin/Globulin Ratio 1.0 L 1.0 L Quality Measures Quality Measures VTE prophylaxis Assessment & Plan Assessment Current Active Medications: Generic Name Dose Route Start Last Admin Trade Name Freq PRN Reason Stop Dose Admin Acetaminophen 650 mg 09/28/25 15:14 10/01/25 04:31 Acetaminophen 325 Mg Tablet PO 10/28/25 15:13 650 mg Q6H PRN Administration Fever >100.4 or pain 1-5 Ascorbic Acid 250 mg 09/29/25 21:00 10/03/25 20:11 Ascorbic Acid 250 Mg Tablet PO 10/29/25 20:59 250 mg BID YUDITH Administration Atorvastatin Calcium 80 mg 09/28/25 21:00 10/03/25 20:11 Atorvastatin Calcium 20 Mg Tablet PO 10/28/25 20:59 80 mg HS YUDITH Administration Carvedilol 6.25 mg 09/28/25 21:00 10/03/25 20:11 Carvedilol 3.125 Mg Tablet PO 10/28/25 20:59 6.25 mg BID YUDITH Administration Dextrose 25 ml 09/28/25 16:02 Dextrose 50%-Water Inj 50 Ml Syringe IV 10/28/25 16:01 Q15MIN PRN BG 50-70 responsive npo pt Dextrose 50 ml 09/28/25 16:02 Dextrose 50%-Water Inj 50 Ml Syringe IV 10/28/25 16:01 Q15MIN PRN BG <50 OR BG <70 & pt unresponsive Glucagon 1 mg 09/28/25 16:02 Glucagon Inj 1 Mg Vial IM Q15MIN PRN BG <70, and no IV access Heparin Sodium (Porcine) 5,000 unit 09/28/25 21:00 10/03/25 20:11 Heparin Sod Inj 5000 Unit/Ml Vial SC 10/12/25 20:59 5,000 unit Q12HR YUDITH Administration Heparin Sodium (Porcine) 3,500 unit 09/29/25 12:06 10/03/25 10:40 Heparin Sod Inj 1000 Unit/Ml Vial 10 Ml INDWELLCAT 10/13/25 12:05 3,500 unit PRN PRN Administration DIALYSIS Albumin Human 25 gm in 100 mls @ 100 mls/hr 09/29/25 08:15 Albuminex 25% Ivpb IV Q30MIN PRN DIALYSIS Insulin Degludec 36 unit 10/02/25 21:00 10/03/25 20:12 Insulin Degludec 5 Unit/0.05 Ml (Per 5 Units) SC 11/01/25 20:59 36 unit HS YUDITH Administration Insulin Human Lispro 0 unit 09/28/25 17:00 10/04/25 07:18 Insulin Lispro (Admelog) 1 Unit/0.01 Ml Unit SC 10/28/25 16:59 Not Given AC [facility] Protocol Pantoprazole Sodium 40 mg 09/29/25 09:00 10/03/25 11:44 Pantoprazole 40 Mg Tablet PO 10/29/25 08:59 40 mg QDAY YUDITH Administration Valsartan 40 mg 09/28/25 15:15 10/03/25 11:45 Valsartan 40 Mg Tablet PO 10/28/25 15:14 40 mg QDAY YUDITH Administration Vitamin B Complex/Vit C/Folic Acid 1 tab 09/30/25 09:00 10/03/25 11:44 Vit B12/Vit C/Fa (Nephrovite) Tablet PO 10/30/25 08:59 1 tab QDAY YUDITH Administration Zinc Sulfate 220 mg 09/30/25 09:00 10/03/25 11:44 Zinc Sulfate 220 Mg Capsule PO 10/30/25 08:59 220 mg QDAY YUDITH Administration Plan 64 year old bulgarian speaking male with past medical history of CKD IV, HFrEF (EF 25-30%), CVA (06/05/25), HTN, insulin-dependent diabetes mellitus type 2, HCV treated, HLD who presents to ED from Dr. Newby[facility] clinic for worsening shortness of breath for the past few weeks, as well as orthopnea and worsening extremity swelling. Nephrology consulted for fluid overload likely secondary to cardiorenal syndrome requiring dialysis. #Fluid overload 2/2 cardiorenal syndrome and nephrotic syndrome #Dialysis MWF -> TTS #RENATE on CKD IV #Nephrotic syndrome 2/2 uncontrolled diabetes #Renal hyperparathyroidism #Hx HFrEF (EF 25-30%) 2/2 dilated cardiomyopathy and global hypokinesis - Presenting with progressive shortness of breath for almost the past month, as well as orthopnea and upper and lower extremity swelling. Has gained 52 lbs over the past 6 weeks. - Home medications include Bumex 2 mg daily, Lasix 40 mg daily, and valsartan 40 mg daily; however did not take Bumex prior to admission. - Was previously seen in the ED on 09/20 for same complaint. BNP >3200, increased Bumex to 2 mg daily. - BNP 2549, trop mildly elevated at 0.069 (previously 0.054). EKG unremarkable. - BUN 81, Cr 3.7 (baseline 2.9-3.3). - A1c 8.2 - On outpatient labs 09/13, PTH 790.2, phos 3.8. On admission calcium 8.1, corrected 8.5. May indicate worsening renal function. - (09/13) Random urine microalbumin 3789, ratio 5655. Likely nephrotic syndrome, likely secondary to uncontrolled diabetes (A1c 8.2). - CXR shows mild to moderate vascular congestion. - Echo 08/15 showed dilated cardiomyopathy with severe global hypokinesis, EF 25-30%% with moderate pulm hypertension - Dialysis catheter placed 09/29 by IR - Likely cardiorenal syndrome versus CHF exacerbation Plan: - S/p HD 09/29 (-1L), 09/30 (-1.1), 10/01 (-3L), 10/03 (-3.5L) - Dialysis today - Start on Entresto 24/28 mg BID outpatient - Outpatient dialysis established: [facility], TTS schedule (next session ) - Patient is medically stable for discharge from nephrology standpoint. Instructed patient to follow up in clinic 1 week after discharge. 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 Keyonna Wooten DO, PGY-1 Attending Provider Attestation/Addendum Patient currently seen and examined with resident physician Dr. Wooten. Note reviewed, agree with findings and recommendations. Patient currently seen in telemetry. Significant fluid overload-gained a 52 pounds in 1 month. Cardiorenal syndrome and nephrotic syndrome. Failed outpatient diuretic therapy. 10/04/2025 dialysis catheter placed by Dr. Nicole. Patient currently seen on 4th dialysis. Tolerating dialysis without any problems. Hemodialysis for 3 hours, seq ultrafiltration 3-4 L, Epogen 6000, no heparin ordered. Plan of care discussed with the dialysis nurse. Please see dialysis flowsheet for further details. Hepatitis, PPD negative. Needs outpatient dialysis. [facility] dialysis accepted patient. TTS schedule. Postdialysis today can be discharged.
--- NOTE | 2025-10-04 11:45 | ESDS_ITS ---
Planned Discharge Date 10/04/25 DS: Providers Provider Date of admission: 09/28/25 15:21 Primary care physician: Physician No Primary/Family Admitting Provider: Lawanda Sibley MD Attending Provider on Admission: Lawanda Sibley MD Consults: 09/28/25 15:11 Consult to Nephrology Routine Comment: Consulting Provider: Marium Newby 09/29/25 08:00 Consult to Cardiology Routine Comment: Consulting Provider: Sia Bonner 09/29/25 08:39 Referral Wound Care Routine Comment: 09/29/25 12:20 Referral Nutritional Services Routine Comment: Wounds Referral OP Wound Healing Dept Routine Comment: BLE fluid blistering 09/30/25 13:45 Referral Discharge Planning Routine Comment: [facility] dialysis 10/01/25 11:08 Referral Discharge Planning Routine Comment: Outpatient dialysis unit- please work on that 10/03/25 09:09 PT [Referral Physical Therapy] Routine Comment: Physician Instructions: Attending Provider on DC: Alvaro Medina MD Discharging Provider: Aminta Barkley MD DS: Diagnosis Problem List Completed Was Problem List Reviewed/Reconciled?: Yes Hospital Course Hospital Course Hospital course: 64-year-old male with a history of CKD IV, cardiorenal syndrome, dilated cardiomyopathy with EF 25?30%, hypertension, diabetes mellitus (insulin dependent), and severe anasarca, who was sent from nephrology clinic for emergent evaluation for dialysis initiation. He presented clinically overloaded, short of breath, and requiring supplemental oxygen. On arrival, exam and labs were consistent with progression to ESRD with volume overload, and nephrology recommended initiation of inpatient hemodialysis. Patient underwent three inpatient dialysis sessions, tolerated all well, with significant clinical improvement in breathing and edema. A tunneled dialysis catheter was placed by Dr. Nicole. Case management and nephrology successfully coordinated an outpatient dialysis chair, allowing safe discharge. Throughout admission, the patient?s respiratory status improved, transitioning from 2 L nasal cannula to stable oxygenation. His swelling improved but remains present, expected to continue improving with outpatient HD. His systolic heart failure remained stable on guideline-directed therapy, including carvedilol 6.25 mg BID, valsartan 40 mg daily, and atorvastatin 80 mg nightly. Troponin elevations remained stable and attributed to CKD, with no ischemic symptoms. His diabetes was managed with basal insulin; morning glucose stabilized, and he tolerated 36 units of degludec, which he will continue upon discharge. No complications occurred during the hospitalization. At the time of discharge, the patient is hemodynamically stable, ambulating without distress, tolerating diet, and cleared by nephrology for outpatient HD. Diagnoses during admission: #ESRD (end-stage renal disease) #RENATE on CKD IV #Cardiorenal syndrome #Acute decompensated HFrEF (EF 25?30%) #Acute hypoxic respiratory failure #Anasarca / severe volume overload #Hypertension #Diabetes mellitus, insulin dependent #Troponinemia secondary to CKD #History of drug-induced cardiomyopathy Discharge Instructions: -Attend outpatient dialysis at the assigned facility [facility] -HD schedule: Friday, and Friday 5:50 am -Fluid restriction: 1.5 L/day. -Sodium restriction: 2 g/day. -Daily weights at home if possible. -Bring all medications to first outpatient nephrology visit. -Monitor for: shortness of breath, chest pain, dizziness, inability to tolerate dialysis, fever, or confusion. Return to ED if these occur. -Continue insulin as prescribed; monitor blood glucose daily. -Follow-Up: * Nephrology: Outpatient HD facility + platen builder up follow-up in one week. * Primary Care Provider: Follow up within 1?2 weeks. Discharge Medications: Start: * Entresto twice a day Continue: * Degludec 36 units daily * Carvedilol 6.25 mg twice a day * Atorvastatin 80 mg nightly Stop: * Bumetanide (bumex) * Valsartan 40 mg daily ----- Plan discussed with attending physician Dr. Leo Barkley MD PGY-1 Internal Medicine Time Spent with Patient Time attestation: Total time spent providing and/or coordinating discharge services: 40 minutes Time spent: Greater than 30 minutes Exam Vital Signs Temp Pulse Resp BP Pulse Ox O2 Del Method O2 Flow Rate 97.5 F 81 18 146/92 H 95 Room Air 1 10/04/25 09:04 10/04/25 11:30 10/04/25 09:04 10/04/25 11:30 10/04/25 09:04 10/04/25 08:00 10/03/25 12:00 Narrative Exam Physical Exam General: Awake and in no acute distress, saturating well on room air. Conversational. Vietnamese speaking. HEENT: Normocephalic, atraumatic, mucous membranes moist. Heart: Regular rate and rhythm, normal S1 and S2, no murmurs appreciated. Lungs: Clear to ausculation bilaterally. Abdomen: Soft, nondistended, nontender, positive bowel sounds. No guarding or rebound tenderness. : Scrotal edema nontender, nonerythematous. Neurologic: Alert and oriented x3, no gross neurological deficit, and patient able to move all 4 extremities. Extremities: 2+ pitting lower extremity edema extending up to knees. Non-pitting edema of bilateral upper extremities, improved. Skin: Venous stasis of lower extremities bilaterally, improving. No rash or ecchymoses. Discharge Plan Plan Patient Disposition: HOME (Self Care) Care Plan Goals: Discharge Instructions: -Attend outpatient dialysis at the assigned facility [facility] -HD schedule: Friday, and Friday 5:50 am -Fluid restriction: 1.5 L/day. -Sodium restriction: 2 g/day. -Daily weights at home if possible. -Bring all medications to first outpatient nephrology visit. -Monitor for: shortness of breath, chest pain, dizziness, inability to tolerate dialysis, fever, or confusion. Return to ED if these occur. -Continue insulin as prescribed; monitor blood glucose daily. -Follow-Up: * Nephrology: Outpatient HD facility + platen builder up follow-up in one week. * Primary Care Provider: Follow up within 1?2 weeks. Discharge Medications: Start: * Entresto twice a day Continue: * Degludec 36 units daily * Carvedilol 6.25 mg twice a day * Atorvastatin 80 mg nightly Stop: * Bumetanide (bumex) * Valsartan 40 mg daily Instrucciones para el sierra: - Asistir a di?lisis ambulatoria en el [facility]. - Horario de HD: hannah, shira y s?bado a las 5:50 a. m. - Restricci?n de l?quidos: 1.5 L/d?a. - Restricci?n de sodio: 2 g/d?a. - Control diario del peso en casa, si es posible. - [place] todos los medicamentos a la primera consulta ambulatoria de nefrolog?a. - Controlar: dificultad para respirar, dolor tor?cico, mareos, intolerancia a la di?lisis, fiebre o confusi?n. Regresar a urgencias si se presentan estos s?ntomas. - Continuar con la insulina seg?n lo prescrito; controlar la glucemia diariamente. - Seguimiento: ? Nefrolog?a: Centro de HD ambulatoria + seguimiento con nefr?logo en laquita semana. ? M?dico de cabecera: Seguimiento en 1 a 2 semanas. Medicamentos para el sierra: Inicio: ? Entresto dos veces al d?a Continuar: ? Degludec 36 unidades al d?a ? Carvedilol 6,25 mg dos veces al d?a ? Atorvastatina 80 mg cada noche Fin: ? Bumetanida (Bumex) ? Valsart?n 40 mg al d?a Prescriptions/Referrals Prescriptions/Med Rec: New sacubitril-valsartan [Entresto] 24-26 mg tablet 1 tab PO BID Qty: 60 0RF carvedilol 6.25 mg tablet 6.25 mg PO BID 30 Days Qty: 60 0RF Rx Instructions: must administer with a meal/food atorvastatin [Lipitor] 80 mg tablet 80 mg PO QPM 30 Days Qty: 30 0RF Continued Eliquis 5 mg tablet 5 mg PO BID Qty: 60 0RF Discontinued atorvastatin 40 mg tablet 40 mg PO QPM Qty: 30 0RF bumetanide 2 mg tablet 2 mg PO BID Qty: 60 0RF bumetanide 1 mg tablet 1 mg PO DAILY carvedilol 3.125 mg tablet 3.125 mg PO BID Qty: 60 0RF Rx Instructions: must administer with a meal/food valsartan 40 mg tablet 40 mg PO QDAY Qty: 30 0RF Referrals: No Primary/Family,Physician [Primary Care Provider] Outpatient Orders (i.e. Home Health, Labs, Imaging): Renal Function Panel (Routine) Timeframe: 1 Week Location: Determined by Patient Ordered By: Dirk Gold Patient/Caregiver Discharge Instructions Other Discharge Activity Instructions:: Wound Care- Bilateral lower legs- BLISTERS AND Moisture Associated Dermatitis Wound Or STAGE 1 WOUND: Apply skin barrier cream (Nutrashield) to affected area daily and prn Education Materials: Hemodialysis, Caring for Your Hemodialysis Access, Limiting Fluids Dc, Diabetes: Meal Planning, ED Diet for Chronic Kidney Disease, ED Low-Salt Diet, ED Diet: Diabetes Print Language: Vietnamese Stand Alone Forms: [facility] Award Info., Patient Portal Info Letter Discharge Order Discharge Orders: Discharge (Routine); Ordered 10/04/25 Ordered By: Dirk Gold Quality Discharge Quality Measures VTE prophylaxis MD Attestestation MD Attestation I have seen and examined the patient. I was physically present for the medina portions of the services provided including history, physical exam, diagnosis, treatment plans and orders. I agree with assessment and plan of care as documented by residents. Even though this this note was carefully revised there may still be minor errors in dragger out due to voice recognition software. Alvaro Bailey MD
[2025-10-04] MEDS: HEPARIN SOD INJ 1000 UNIT/ML VIAL 10 ML 3500 UNIT INDWELLCAT (11:59)
[2025-10-04] MEDS: ZINC SULFATE 220 MG CAPSULE PO (12:51)
[2025-10-04] MEDS: PANTOPRAZOLE 40 MG TABLET PO (12:51)
[2025-10-04] MEDS: VIT B12/Vit C/FA (Nephrovite) TABLET 1 TAB PO (12:51)
[2025-10-04] MEDS: ASCORBIC ACID 250 MG TABLET PO (12:52)
[2025-10-04] MEDS: VALSARTAN 40 MG TABLET PO (12:53)
== END 2025-10-04 14:53 | disposition home or self-care (01) | DRG 469 ==
LOC: SERX 16:17 → SERHOLD 16:22 → S2NX 19:00
PROVIDERS: Internal Medicine; Admitting Provider Internal Medicine; Emergency Provider Emergency Medicine; Visit Provider Internal Medicine
DX: N17.9 Acute kidney failure, unspecified (principal); E78.5 Hyperlipidemia, unspecified; Z86.718 Personal history of other venous thrombosis and embolism; I13.2 Hypertensive heart and chronic kidney disease with heart failure and with stage 5 chronic kidney disease, or end stage renal disease; N18.6 End stage renal disease; I50.23 Acute on chronic systolic (congestive) heart failure; N40.0 Benign prostatic hyperplasia without lower urinary tract symptoms; I42.0 Dilated cardiomyopathy; Z99.2 Dependence on renal dialysis; E11.22 Type 2 diabetes mellitus with diabetic chronic kidney disease; J96.01 Acute respiratory failure with hypoxia; Z91.148 Patient's other noncompliance with medication regimen for other reason; I16.0 Hypertensive urgency; F12.90 Cannabis use, unspecified, uncomplicated; N25.81 Secondary hyperparathyroidism of renal origin; I42.7 Cardiomyopathy due to drug and external agent; E11.65 Type 2 diabetes mellitus with hyperglycemia; K74.60 Unspecified cirrhosis of liver; L03.115 Cellulitis of right lower limb; N50.89 Other specified disorders of the male genital organs; L03.116 Cellulitis of left lower limb; Z79.4 Long term (current) use of insulin; Z79.899 Other long term (current) drug therapy; Z86.73 Personal history of transient ischemic attack (TIA), and cerebral infarction without residual deficits; Z87.891 Personal history of nicotine dependence; Z95.810 Presence of automatic (implantable) cardiac defibrillator; B19.20 Unspecified viral hepatitis C without hepatic coma
CPT/HCPCS: 36415; 71045; 76937; 77001; 80053; 80074; 83036; 83690; 83735; 83880; 84100; 84439; 84443; 84484; 85025; 85610; 85730; 86580; 86706; 93005; 96374; 97161; 99284; C1750; C1894; J1642; J1643; J1644; J1815; J3010; J3490; J7050; Q5106; A9270